=== PATIENT | female | born 1950 | race Caucasian/White ===

== ENCOUNTER 2020-09-03 09:39 | Inpatient (IN) | payer OTHER, SELFPAY ==
[2020-09-03] VITALS (10 sets, daily range): BP systolic 115–138; BP diastolic 56–73; PULSE 70–97; RESP 18–30; TEMP 36.4–37; O2SAT 88–97; BMI 32.4; BMI 31.5
--- NOTE | 2020-09-03 10:06 | ED.VIS.GEN ---
History of Present Illness Chief Complaint: Shortness of Breath Informant: Patient Narrative: Patient states that she is experiencing shortness of breath and feeling poorly. Her brother recently came to town and visited with her and is now Covid positive. She states that for about a week now she has been mildly symptomatic. She notes body aches and headache. Dyspnea with cough. Diarrhea and vomiting which have resolved. She was 88% on room air for EMS and 88 on room air here in the emergency department. Past Medical History - Allergies and Home Meds Allergies/Adverse Reactions: Allergies Cephalosporins Allergy (Verified 09/03/20 09:44) Swelling Penicillins [PCN] Allergy (Verified 09/03/20 09:44) Anaphylaxis Primary Care Physician: Jordan Sam MD [Primary Care Provider] - Surgical History: noncontributory Smoking Status: Former smoker Drugs: None Review of Systems General: Reports: Fever, Subjective. Denies: Chills, Sweats Eyes: Denies: Visual changes - bilaterally, Diplopia ENT: Denies: Rhinorrhea, Sore throat Cardiovascular: Denies: Chest pain, Palpitations Respiratory: Reports: Dyspnea, Cough, Dyspnea on exertion Gastrointestinal: Reports: Nausea, Vomiting, Diarrhea. Denies: Abdominal pain, Melena, Hematochezia Genitourinary: Denies: Dysuria, Hematuria, Frequency Musculoskeletal: Reports: Myalgias. Denies: Back pain, Extremity Pain Skin: Denies: Rash, Wounds Neurological: Reports: Headache. Denies: Weakness, Numbness Physical Exam Vital Signs/Narrative: Vital Signs Temp Pulse Resp BP Pulse Ox 09/03/20 09:43 98.0 F 97 24 H 133/67 H 88 09/03/20 09:40 98.0 F 97 24 H 133/67 H 88 Inital Vital Signs reviewed: Yes General: Well nourished, Well developed, No Acute Distress Head: Normocephalic, Atraumatic Eyes: Perrl, EOMI ENT: Moist mucous membranes, No rhinorrhea Neck: Supple, Nontender Cardiovascular: Regular rate, Regular rhythm, No murmurs Respiratory: No distress, CTA bilaterally, Chest nontender Abdomen: Soft, Nontender, Nondistended, Normal bowel sounds Back: Nontender, Normal Inspection Extremities: Nontender, No edema Skin: Normal color, No rash Neurological: Alert, Oriented x3, Cranial nerves II-XII grossly intact, Normal Strength, Normal Sensation Psychological: Normal affect, Normal Mood ED Disposition - Plan for ED Patient: Diagnosis: COVID-19, Hypoxia, Hypokalemia Referrals: Jordan Sam MD [Primary Care Provider] -
[2020-09-03 10:40] LABS: Absolute Lymphocyte Count 1.18 X10^3/uL (0.83-4.51); Absolute Neutrophil Count 7.8 X10^3/uL (2.0-7.7); Basophil# 0.05 X10^3/uL; Basophil% 0.5 % (0-1); Eosinophil# 0.02 X10^3/uL; Eosinophils% 0.2 % (0-5); Hemoglobin 13.9 g/dL (12.0-15.0); Lymphocyte # 1.18 X10^3/ul (4.0); Lymphocyte % 11.6 % (19-41); Mean Corp Hgb Conc 33.1 g/dL (32-36); Mean Corpuscular Hgb 28.2 pg (27.0-32.0); Mean Corpuscular Volume 85.2 fL (81-99); Mean Platelet Vol. 12.3 fl (6.2-12.0); Monocyte# 1.07 X10^3/uL; Monocyte% 10.6 % (0-10); NRBC Flagged by Analyzer 0 % (0-5); Neutrophil # 7.75 X10^3/uL (2.7-7.7); Neutrophil % 76.4 % (47-70); POSITIVE MORPHOLOGY YES; Platelet Count 299 K/mm3 (150-450); RBC Distribution Width CV 13.2 % (11.6-14.6); Red Blood Count 4.93 M/mm3 (4.2-5.4); White Blood Count 10.1 K/mm3 (4.4-11.0)
[2020-09-03 10:41] LABS: Differential Indicated SCAN CRITERIA MET
[2020-09-03 10:54] LABS: Fibrinogen 727 mg/dl (203-444)
[2020-09-03 11:04] LABS: Procalcitonin 0.05 ng/mL (0.00-0.09)
[2020-09-03 11:07] LABS: D-Dimer Quantitative (DVT/PE) 4.15 FEU/ug/m (0.27-0.49)
[2020-09-03 11:14] LABS: ALB/GLOB Ratio 0.6 RATIO (0.9-2.4); AST(SGOT) 22 U/L (15-37); Alanine Aminotransfer ALT/SGPT 32 U/L (13-56); Albumin, Serum 2.7 g/dL (3.2-5.0); Alkaline Phosphatase 65 U/L (45-117); Anion Gap 7 (5-15); BUN 9 mg/dL (7-18); BUN/Creat Ratio 11.4 RATIO (10-20); CPK Total, Creatine Kinase 87 U/L (26-192); Chloride 104 mmol/L (98-107); Creatinine, Serum 0.79 mg/dL (0.55-1.02); EST Glomerular Filtration Rate 77 mL/min (>60); Est Glom Filt Rate - Afr Amer 94 mL/min (>60); Estimated Creatinine Clearance 48.45 ml/min; Globulin 4.9 g/dL (2.2-4.2); Glucose 96 mg/dL (74-106); LDH 352 U/L (84-246); Lactic Acid 2.2 mmol/L (0.4-1.9); Potassium 2.7 mmol/L (3.5-5.1); Protein, Total 7.6 g/dL (6.4-8.2); Sodium Level 141 mmol/L (136-145)
--- NOTE | 2020-09-03 11:22 | CT_ITS ---
STUDY: CTA CHEST REASON FOR EXAM: Female, 70 years old. COUGH X1 WEEK, INCREASED SHORTNESS OF BREATH -- BROTHER +COVID RADIATION DOSAGE (If Supplied By Facility): CTDIvol = ( 12.04 ) mGy, DLP = ( 401.99 ) mGycm TECHNIQUE: The examination was performed with the intravenous administration of IV 100mL Isovue-370. Post-processing of the angiographic images was performed, with multiplanar reformation and 3D reconstruction. Individualized dose optimization techniques were used for this CT. COMPARISON: None. FINDINGS: Normal enhancement of the main pulmonary artery and right and left pulmonary arteries. Normal enhancement of the bilateral peripheral pulmonary arteries. There is no demonstrated pulmonary embolism. There is atherosclerotic tortuosity of the aortic arch and descending thoracic aorta. There is no demonstrated aortic dissection. Normal heart and pericardium. There are calcifications of the coronary arteries. Mild to moderate nonspecific upper and mid mediastinal adenopathy. Normal visualized trachea and bronchi. The lungs are hyper expanded, with flattening of the hemidiaphragms. There are widespread patchy groundglass pulmonary opacities of both lungs left worse than right and worse in the lower lobes. Findings consistent with nonspecific multifocal pneumonia including possible viral etiology. No effusions. There are degenerative changes of thoracic spine. There is a 2.6 cm low-attenuation mass in the left lobe of the liver. Probable cyst, but dynamic contrast CT of the liver recommended. CT/CTA Chest W/WO Contrast IMPRESSION: Normal CTA chest examination, without a demonstrated pulmonary embolism or arterial dissection. Underlying COPD. Widespread nonspecific multifocal pneumonia. Electronically Signed: Omer Hernandez MD at 12:18 EST , Service support ,
[2020-09-03 11:36] LABS: Atypical Lymphocyte 1+ %
[2020-09-03] MEDS: Potassium Chloride 10mEq/100mL 10 MEQ/100 ML IV.SOLN. 100 MEQ IV BOLUS (12:17)
[2020-09-03] MEDS: dexAMETHasone 10 MG/ML Vial IV (12:32)
--- NOTE | 2020-09-03 12:34 | ED.RN ---
CALLED PTS AT HER REQUEST AND UPDATED HIM OF HER STATUS
--- NOTE | 2020-09-03 12:56 | PCM.HP.STD ---
Problem List (1) COVID-19 Status: Acute (2) Hypoxia Status: Acute (3) Hypokalemia Status: Acute History of Present Illness Date of Admission: 09/03/20 Chief Complaint: shortness of breath The patient is a 70 year old F who has been ill for 10 days. She was exposed to her brother then who later pause for COVID-19 and was found to have double pneumonia. Patient has been progressively short of breath and having a cough that is occasionally productive. So she states that when she gets up and out she gets dizzy and her peripheral vision gets blurry when she is up.[] Past Medical History Allergies Cephalosporins Allergy (Verified 09/03/20 09:44) Swelling Penicillins [PCN] Allergy (Verified 09/03/20 09:44) Anaphylaxis Home Medications: Ambulatory Orders Medication Instructions Recorded Calcium Carb/Vitamin D3/Vit K1 1 ea PO DAILY 09/03/20 [Calcium + D Soft Chewable Tab] Calcium Polycarbophil [Fiber Tabs] 625 mg PO DAILY 09/03/20 Multivit with Calcium,Iron,Min 1 ea PO DAILY 09/03/20 [Multiple Vitamins For Women] Surgical History: noncontributory Smoking Status: Former smoker Drugs: None Review of Systems Constitutional: Reports: Anorexia, Fever, Night Sweats Eyes: Reports: Blurred vision, Double vision HEENT: Denies: Head Aches, Sinus Congestion, Sinus Drainage Cardiovascular: Denies: Chest Pain, Palpitations Respiratory: Denies: Cough, Shortness of breath at rest, Sputum production Gastrointestinal: Denies: Abdominal Pain, Nausea, Vomiting Genitourinary: Denies: Dysuria Musculoskeletal: Denies: Joint Pain, Joint Tenderness Skin: Denies: Rash, Wounds Neurological: Denies: Numbness, Tingling, Focal weakness Psychiatric: Denies: Anxiety, Depression Hematologic/ Lymphatic: Denies: Easy Bruising, Easy Bleeding, Hx of blood clot Comment: All review of systems were negative except as mentioned above in the history of present illness and the other review of systems. VTE Information - Inpt Only VTE Present on Admission: No VTE Mechan Device Prophylaxis: None VTE Pharm Prophylaxis ordered?: Yes Patient Problems: Active and Suspected Problems COVID-19 (Acute) Hypoxia (Acute) Hypokalemia (Acute) - Physical Exam Vitals/I&O's: Vital Signs Temp Pulse Resp BP Pulse Ox 36.8 C 89 19 H 122/58 H 97 09/03/20 12:18 09/03/20 12:18 09/03/20 12:18 09/03/20 12:18 09/03/20 12:18 Oxygen Flow Rate (L/min) 2 Oxygen Delivery Method Nasal Cannula Weight: 88.5 kg Body Mass Index (BMI) 32.4 General: Alert, Cooperative, No apparent distress HEENT: Atraumatic, Normocephalic Oral: Moist Mucosa, No Gingival or Mucosal Lesions/ Ulcerations Neck: No Nodes, Thyroid Normal Size and Texture Lungs: Clear to auscultation, Normal air movement, No rhonchi, No wheeze, No rales Cardiovascular: Regular rate, Regular Rhythm, Normal S1, Normal S2, No murmurs Abdomen: Bowel Sounds Present, Soft, Non Tender, Non-Distended, No Hepato-splenomegaly Extremities: No edema, No Calf Tenderness Skin: No rashes, No breakdown Psych/Mental Status: Normal Affect, Appropriate Microbiology Past 72 Hours 09/03/20 10:40 Mucosa - Nose SARS-CoV-2 Antigen (Rapid) - Final Laboratory Results 09/03/20 10:28: WBC 10.1, RBC 4.93, Hgb 13.9, Hct 42.0, MCV 85.2, MCH 28.2, MCHC 33.1, RDW Std Deviation 41.0, RDW Coeff of Holly 13.2, Plt Count 299, MPV 12.3 H, Immature Gran % (Auto) 0.700, Neut % (Auto) 76.4 H, Lymph % (Auto) 11.6 L, [place] % (Auto) 10.6 H, Eos % (Auto) 0.2, Baso % (Auto) 0.5, Absolute Neuts (auto) 7.8 H, Absolute Lymphs (auto) 1.18, Nucleated RBC % 0, Atypical Lymphocytes 1+ 09/03/20 10:28: Fibrinogen 727 H, D-Dimer Quant (PE/DVT) 4.15 H* 09/03/20 10:28: Sodium 141, Potassium 2.7 L*, Chloride 104, Carbon Dioxide 30.0, Anion Gap 7, BUN 9, Creatinine 0.79, Estim Creat Clear Calc 48.45, Est GFR (MDRD) Af Amer 94, Est GFR (MDRD) Non-Af 77, BUN/Creatinine Ratio 11.4, Glucose 96, Calcium 9.0, Total Bilirubin 0.70, AST 22, ALT 32, Alkaline Phosphatase 65, Lactate Dehydrogenase 352 H, Total Creatine Kinase 87, Troponin I < 0.015, C-React Prot Ext Range 106.00 H, Total Protein 7.6, Albumin 2.7 L, Globulin 4.9 H, Albumin/Globulin Ratio 0.6 L 09/03/20 10:28: Lactic Acid 2.2 H* 09/03/20 10:28: Procalcitonin 0.05 09/03/20 12:00: COVID-19 (JOSUÉ) Pending CT of the chest reviewed and showed bilateral infiltrates. Current Medications Azithromycin 500 mg/ Dextrose 255 mls @ 250 mls/hr IV X1 ONE Stop: 09/03/20 13:17 Assessment/Plan All Active Problems COVID-19 (Acute) Hypoxia (Acute) Hypokalemia (Acute) 1. Acute COVID-19 pneumonia: Patient received 10 mg of dexamethasone in the emergency room. We will continue with it on the floor as well. Also infectious disease for other recommendation such as remdesivir as well as possible convalescent plasma. Patient is at day 10 from the beginning of her symptoms per her description. Initial antigen test was negative. Though clinically this is all consistent with Covid as she has had a positive exposure, elevated D-dimer, lymphopenia. 2. VTE prophylaxis moderate risk. Enoxaparin. Inpatient E&M: 28462 Init Hosp L2
[2020-09-03 14:36] LABS: Reflex Lactate? Y
[2020-09-03 15:23] LABS: Lactic Acid 1.2 mmol/L (0.4-1.9)
[2020-09-03 15:35] LABS: Magnesium 2.3 mg/dL (1.6-2.6)
--- NOTE | 2020-09-03 20:01 | PCM.HP.ID ---
Problem List (1) COVID-19 Status: Acute Reason for Consult: covid Consulted by: Dr. Barber History of Present Illness: The patient is a 70 year old F presented with sx started 08/26, c/o cough, dyspnea, nausea, diarrhea, aches, not feeling well, fatigue. No fever, some chills. Got infected by her brother and his son who visited from out of town. Came to ED with worsening symptoms, 88% on RA, no fever. CT neg for PE. Admitted on dex after dose of azithro. Full ROS performed and neg except as noted above. - Medical History Surgical History: reviewed Allergies/Adverse Reactions: Allergies Cephalosporins Allergy (Verified 09/03/20 15:17) Swelling Penicillins [PCN] Allergy (Verified 09/03/20 15:17) Anaphylaxis Home Medications: Ambulatory Orders Medication Instructions Recorded Calcium Citrate/Vitamin D3 1 tab PO DAILY 09/03/20 [Calcium Citrate-Vit D3 Caplet] Calcium Polycarbophil [Fiber Tabs] 625 mg PO DAILY 09/03/20 Multivit with Calcium,Iron,Min 1 ea PO DAILY 09/03/20 [Multiple Vitamins For Women] - Social History SMOKING STATUS:: Former smoker Vital Signs Temp Pulse Resp BP Pulse Ox 98.6 F 86 18 132/70 H 96 09/03/20 15:29 09/03/20 15:29 09/03/20 15:29 09/03/20 15:29 09/03/20 15:29 Oxygen Flow Rate (L/min) 3 Oxygen Delivery Method Nasal Cannula Weight: 85.91 kg Body Mass Index (BMI) 31.5 Microbiology Past 72 Hours 09/03/20 10:40 SARS-CoV-2 Antigen (Rapid) - Final Mucosa - Nose Laboratory Tests Past 24 Hrs 09/03/20 09/03/20 09/03/20 10:28 10:28 10:28 WBC 10.1 RBC 4.93 Hgb 13.9 Hct 42.0 MCV 85.2 MCH 28.2 MCHC 33.1 RDW Std Deviation 41.0 RDW Coeff of Holly 13.2 Plt Count 299 MPV 12.3 H Immature Gran % (Auto) 0.700 Neut % (Auto) 76.4 H Lymph % (Auto) 11.6 L [place] % (Auto) 10.6 H Eos % (Auto) 0.2 Baso % (Auto) 0.5 Absolute Neuts (auto) 7.8 H Absolute Lymphs (auto) 1.18 Nucleated RBC % 0 Atypical Lymphocytes 1+ Fibrinogen 727 H D-Dimer Quant (PE/DVT) 4.15 H* Sodium 141 Potassium 2.7 L* Chloride 104 Carbon Dioxide 30.0 Anion Gap 7 BUN 9 Creatinine 0.79 Estim Creat Clear Calc 48.45 Est GFR (MDRD) Af Amer 94 Est GFR (MDRD) Non-Af 77 BUN/Creatinine Ratio 11.4 Glucose 96 Lactic Acid Calcium 9.0 Magnesium Total Bilirubin 0.70 AST 22 ALT 32 Alkaline Phosphatase 65 Lactate Dehydrogenase 352 H Total Creatine Kinase 87 Troponin I < 0.015 C-React Prot Ext Range 106.00 H Total Protein 7.6 Albumin 2.7 L Globulin 4.9 H Albumin/Globulin Ratio 0.6 L Procalcitonin COVID-19 (JOSUÉ) 09/03/20 09/03/20 09/03/20 10:28 10:28 10:28 WBC RBC Hgb Hct MCV MCH MCHC RDW Std Deviation RDW Coeff of Holly Plt Count MPV Immature Gran % (Auto) Neut % (Auto) Lymph % (Auto) [place] % (Auto) Eos % (Auto) Baso % (Auto) Absolute Neuts (auto) Absolute Lymphs (auto) Nucleated RBC % Atypical Lymphocytes Fibrinogen D-Dimer Quant (PE/DVT) Sodium Potassium Chloride Carbon Dioxide Anion Gap BUN Creatinine Estim Creat Clear Calc Est GFR (MDRD) Af Amer Est GFR (MDRD) Non-Af BUN/Creatinine Ratio Glucose Lactic Acid 2.2 H* Calcium Magnesium 2.3 Total Bilirubin AST ALT Alkaline Phosphatase Lactate Dehydrogenase Total Creatine Kinase Troponin I C-React Prot Ext Range Total Protein Albumin Globulin Albumin/Globulin Ratio Procalcitonin 0.05 COVID-19 (JOSUÉ) 09/03/20 09/03/20 12:00 14:45 WBC RBC Hgb Hct MCV MCH MCHC RDW Std Deviation RDW Coeff of Holly Plt Count MPV Immature Gran % (Auto) Neut % (Auto) Lymph % (Auto) [place] % (Auto) Eos % (Auto) Baso % (Auto) Absolute Neuts (auto) Absolute Lymphs (auto) Nucleated RBC % Atypical Lymphocytes Fibrinogen D-Dimer Quant (PE/DVT) Sodium Potassium Chloride Carbon Dioxide Anion Gap BUN Creatinine Estim Creat Clear Calc Est GFR (MDRD) Af Amer Est GFR (MDRD) Non-Af BUN/Creatinine Ratio Glucose Lactic Acid 1.2 Calcium Magnesium Total Bilirubin AST ALT Alkaline Phosphatase Lactate Dehydrogenase Total Creatine Kinase Troponin I C-React Prot Ext Range Total Protein Albumin Globulin Albumin/Globulin Ratio Procalcitonin COVID-19 (JOSUÉ) Positive - Other Studies Radiology: [] reviewed Other Studies: [] Route of nutrition/ use of supplements: [] Nutritional Intake: [] IV Site: [] Ruff Catheter: [] - Physical Exam General: Alert, Oriented x3, Cooperative HEENT: Atraumatic, PERRLA, EOMI Neck: Supple, No Nodes Lungs: Clear to auscultation, Diminished Cardiovascular: Regular rate, Regular Rhythm Abdomen: Soft, Non Tender, Non-Distended Extremities: No edema Skin: No rashes IV Site: Peripheral, without redness Musculoskeletal: No Tenderness to Palpation of Joints or Extremities Neurological: Cranial nerves II-XII grossly intact - Assessment/Plan Antibiotics: [] Assessment/Plan: [] Active and Suspected Problems COVID-19 (Acute) Hypoxia (Acute) Hypokalemia (Acute) covid with hypoxia, sx started 08/26/20. D-dimer 4, CT neg for PE. PCT neg, UAg neg. Will treat with dex, remdesivir. Reviewed EUA and risks/benefits of convalescent plasma, and she agrees to treatment. Will follow, thank you
[2020-09-03] MEDS: 0.9% Saline Lock 10 ML Syringe IV ×2 (21:39→23:23)
[2020-09-03] MEDS: Enoxaparin 30 MG/0.3 ML Syringe SC (21:40)
[2020-09-04] VITALS (10 sets, daily range): BP systolic 120–137; BP diastolic 69–84; PULSE 69–84; RESP 18–29; TEMP 35.8–36.9; O2SAT 92–96
[2020-09-04] MEDS: 0.9% Saline Lock 10 ML Syringe IV ×2 (01:28→11:10)
[2020-09-04 06:56] LABS: Hematocrit 39.3 % (37-47); Hemoglobin 12.7 g/dL (12.0-15.0); Mean Corp Hgb Conc 32.3 g/dL (32-36); Mean Corpuscular Hgb 27.9 pg (27.0-32.0); Mean Corpuscular Volume 86.2 fL (81-99); Mean Platelet Vol. 12.2 fl (6.2-12.0); Platelet Count 309 K/mm3 (150-450); RBC Distribution Width CV 13.3 % (11.6-14.6); RBC Distribution Width SD 41.5 fl (35.1-43.9); Red Blood Count 4.56 M/mm3 (4.2-5.4); White Blood Count 7.6 K/mm3 (4.4-11.0)
[2020-09-04 07:20] LABS: ALB/GLOB Ratio 0.6 RATIO (0.9-2.4); AST(SGOT) 20 U/L (15-37); Alanine Aminotransfer ALT/SGPT 30 U/L (13-56); Albumin, Serum 2.5 g/dL (3.2-5.0); Alkaline Phosphatase 58 U/L (45-117); Anion Gap 6 (5-15); BUN 9 mg/dL (7-18); BUN/Creat Ratio 16.1 RATIO (10-20); Calcium,Total 8.5 mg/dL (8.5-10.1); Chloride 109 mmol/L (98-107); Creatinine, Serum 0.56 mg/dL (0.55-1.02); EST Glomerular Filtration Rate 114 mL/min (>60); Est Glom Filt Rate - Afr Amer 138 mL/min (>60); Estimated Creatinine Clearance 48.45 ml/min; Globulin 3.9 g/dL (2.2-4.2); Glucose 119 mg/dL (74-106); Potassium 4.1 mmol/L (3.5-5.1); Protein, Total 6.4 g/dL (6.4-8.2); Sodium Level 143 mmol/L (136-145)
[2020-09-04] MEDS: Calcium Carb/Vitamin D 1 TABLET Tablet PO (08:45)
[2020-09-04] MEDS: dexAMETHasone 4 MG Tablet 6 MG PO (08:45)
[2020-09-04] MEDS: Multivitamins,Ther W-Minerals Tablet 1 TABLET PO (08:45)
[2020-09-04] MEDS: Enoxaparin 30 MG/0.3 ML Syringe SC ×2 (08:46→20:32)
--- NOTE | 2020-09-04 10:14 | CASEMGMT ---
ELINA PEARCE assessment: Phone interview with patient for initial transition planning/care coordination assessment d/t pt COVID +. RN RAMSES introduced self and role at [facility], pt voices understanding and consents to assessment at this time. Pt is A/Ox4 at this time and answers all questions appropriately at this time. Pt states her is quarantining at home, but has not shown symptoms thus far. Pt states no concerns getting supplies/resources. Pt is currently on 2L nc and speaks in complete sentences with no SOB at this time. Care providers, pharmacy, and demographics verified at this time. Presentation: Brother is COVID +, pt c/o increased SOB, cough for 1 week Admitting dx: COVID pna PCP: Cecy Specialists: adela Fregoso Preferred Pharmacy: [facility] Insurance: [facility] Prescription Benefit: [facility] Living Will/HPOA: Pt states does not have LW/HPOA but would like AD info at this time. Pt states would just like to take info home at this time. [place] SW aware, voices understanding. LNOK: Amador Lackey, Living Arrangements: Pt states lives with in 1 story home and states no concerns at home at this time. Pt is independent with ADL's. Transportation: Pt states drives self and states no transportation concerns at this time. DME/HHC: Pt states has a cpap thru [facility] and would prefer to use them, if home oxygen needed at d/c. Pt states no hx of HHC or SNF. Pt states no concerns with going home at time of discharge. 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 Pt states quit smoking cigarettes in March 2020 and rarely drinks ETOH. Pt states no further concerns/needs at this time. CM to follow for home oxygen and any further discharge planning/needs. Advised pt to ask for CM if any further questions/concerns/needs arise, voices understanding. Pt Goal: Home Plan: [place] ELINA PEARCE
--- NOTE | 2020-09-04 11:33 | PN_ITS ---
Patient Problems: Active and Suspected Problems COVID-19 (Acute) Hypoxia (Acute) Hypokalemia (Acute) Reason for Visit: COVID-19 Subjective: Breathing well. No new complaints. Vitals/I&O's: Vital Signs Temp Pulse Resp BP Pulse Ox 36.6 C 79 24 H 128/69 H 93 09/04/20 10:40 09/04/20 10:40 09/04/20 10:40 09/04/20 10:40 09/04/20 10:40 Oxygen Flow Rate (L/min) 2 Oxygen Delivery Method Room Air Weight: 85.91 kg Body Mass Index (BMI) 31.5 Intake and Output for Last 24 Hours 09/02/20 09/03/20 09/04/20 23:59 23:59 23:59 Intake Total 1805 / 1805 226.25 / 226.25 Balance 1805 / 1805 226.25 / 226.25 General: Alert, No apparent distress HEENT: Atraumatic, Normocephalic Oral: Moist Mucosa, No Gingival or Mucosal Lesions/ Ulcerations Neck: No Nodes, Thyroid Normal Size and Texture Lungs: Clear to auscultation, Normal air movement, No rhonchi, No wheeze, No rales Cardiovascular: Regular rate, Regular Rhythm, Normal S1, Normal S2, No murmurs Abdomen: Bowel Sounds Present, Soft, Non Tender, Non-Distended, No Hepato- splenomegaly Extremities: No edema, No Calf Tenderness Skin: No rashes, No breakdown Psych/Mental Status: Normal Affect, Appropriate Microbiology Past 72 Hours 09/03/20 10:40 Mucosa - Nose SARS-CoV-2 Antigen (Rapid) - Final Laboratory Results 09/03/20 10:28: Atypical Lymphocytes 1+ 09/03/20 10:28: Magnesium 2.3 09/03/20 12:00: COVID-19 (JOSUÉ) Positive 09/03/20 14:45: Lactic Acid 1.2 09/03/20 20:53: Blood Type A POSITIVE 09/04/20 06:32: WBC 7.6, RBC 4.56, Hgb 12.7, Hct 39.3, MCV 86.2, MCH 27.9, MCHC 32.3, RDW Std Deviation 41.5, RDW Coeff of Holly 13.3, Plt Count 309, MPV 12.2 H 09/04/20 06:32: Sodium 143, Potassium 4.1, Chloride 109 H, Carbon Dioxide 28.0, Anion Gap 6, BUN 9, Creatinine 0.56, Estim Creat Clear Calc 48.45, Est GFR (MDRD) Af Amer 138, Est GFR (MDRD) Non-Af 114, BUN/Creatinine Ratio 16.1, Glucose 119 H, Calcium 8.5, Total Bilirubin 0.60, AST 20, ALT 30, Alkaline Phosphatase 58, Total Protein 6.4, Albumin 2.5 L, Globulin 3.9, Albumin/Globulin Ratio 0.6 L Current Medications Acetaminophen (Acetaminophen 325 Mg Tablet) 650 mg PO Q6H PRN PRN PRN Reason: Pain Score 1-10/Temp > 100.7 F Calcium Polycarbophil (Calcium Polycarbophil 625 Mg Tablet) 625 mg PO DAILY [facility] Last Admin: 09/04/20 08:45 Dose: 625 mg Documented by: Calcium/Vitamin D (Calcium Carb/Vitamin D 1 Tablet Tablet) 1 tablet PO DAILY [facility] Last Admin: 09/04/20 08:45 Dose: 1 tablet Documented by: Dexamethasone (Dexamethasone 4 Mg Tablet) 6 mg PO DAILY [facility] Stop: 09/12/20 10:01 Last Admin: 09/04/20 08:45 Dose: 6 mg Documented by: Enoxaparin Sodium (Enoxaparin 30 Mg/0.3 Ml Syringe) 30 mg SC BID [facility] Last Admin: 09/04/20 08:46 Dose: 30 mg Documented by: Sodium Chloride () 250 mls @ 15 mls/hr IV .[id number] PRN PRN Reason: Saline Flush Last Infusion: 09/04/20 01:25 Dose: 0 mls/hr Documented by: Sodium Chloride () 250 mls @ 15 mls/hr IV .[id number] PRN PRN Reason: Additional IVPB Infusion Remdesivir 100 mg/ Sodium (Chloride) 250 mls @ 125 mls/hr IV DAILY [facility]; Protocol Stop: 09/07/20 11:59 Last Admin: 09/04/20 10:58 Dose: 125 mls/hr Documented by: Multivitamins/Minerals (Multivitamins,Ther W-Minerals Tablet) 1 tablet PO DAILY [facility] Last Admin: 09/04/20 08:45 Dose: 1 tablet Documented by: Ondansetron HCl (Ondansetron 4 Mg/2 Ml Vial) 4 mg IV Q8H PRN PRN PRN Reason: NAUSEA/VOMITING Sodium Chloride (0.9% Saline Lock 10 Ml Syringe) 10 - 40 ml IV UD PRN PRN Reason: SALINE FLUSH Last Admin: 09/04/20 11:10 Dose: 20 ml Documented by: ZAIRA Vital Signs/Narrative: Vital Signs Temp Pulse Resp BP Pulse Ox 09/04/20 10:40 36.6 C 79 24 H 128/69 H 93 09/04/20 08:41 36.1 C L 80 24 H 137/70 H 94 Medical Necessity - Tobacco Use Smoking Status: Former smoker Assessment/Plan All Active Problems COVID-19 (Acute) Hypoxia (Acute) Hypokalemia (Acute) 1. Acute COVID-19 pneumonia: Patient received 10 mg of dexamethasone in the emergency room. Continue with dexamethasone 6mg on the floor as well. ID following. Remdesevir started Also infectious disease for other recommendation such as remdesivir as well as possible convalescent plasma. Symptoms began on 08/24/2020. 2. Hypokalemia resolved 3. VTE prophylaxis moderate risk. Enoxaparin. 4. Disposition: anticipate discharge in next 24-48h if stable or improved. Inpatient E&M: 31332 Subs Hosp L2
--- NOTE | 2020-09-04 12:04 | CHAPLAIN ---
Type of Pastoral Visit _x__ Initial Visit ___ Follow-up Visit ___ On-call Visit ___ General Patient Visit ___ Spiritual Assessment ___ Family Conference ___ Bereavement ___ Rapid Response ___ Code Blue _x__ Other (describe below) Pastoral Care Referral From _x__ Patient ___ Family ___ Nurse ___ Physician ___ Defensive Driving Instructor ___ [employer] Fighters Dispatcher ___ Other (describe below) Sacrament/Intervention _x__ Active listening ___ Anointing ___ Anabaptism ___ Bereavement ___ Communion _x__ Ruma exploration ___ _x__ Life review _x__ Prayer ___ Reconciliation ___ Sacrament of Sick ___ Supportive presence ___ Wedding ___ Other (describe below) Pastoral Comments phone call made to patient room; pt answers and expresses appreciation for support and call; pt speaks of strong ruma lived throughout her life which gives her confidence and positive attitude during this time; pt talks of family and is thankful for their support; pt asks for prayer and that is completed; no other needs noted
--- NOTE | 2020-09-04 12:27 | CASEMGMT ---
Bedside RN brought in LW/POA forms for pt. AIRAM Riggins
[2020-09-05 02:02] VITALS: BP 149/82; PULSE 69; RESP 18; TEMP 36.2; O2SAT 96
[2020-09-05] MEDS: 0.9% Saline Lock 10 ML Syringe IV ×2 (02:05→10:10)
[2020-09-05 02:08] VITALS: O2SAT 96
[2020-09-05 07:18] LABS: Hematocrit 37.6 % (37-47); Hemoglobin 12.2 g/dL (12.0-15.0); Mean Corp Hgb Conc 32.4 g/dL (32-36); Mean Corpuscular Hgb 27.9 pg (27.0-32.0); Mean Corpuscular Volume 85.8 fL (81-99); Mean Platelet Vol. 12.6 fl (6.2-12.0); Platelet Count 378 K/mm3 (150-450); RBC Distribution Width CV 13.3 % (11.6-14.6); RBC Distribution Width SD 41.6 fl (35.1-43.9); Red Blood Count 4.38 M/mm3 (4.2-5.4); White Blood Count 13.1 K/mm3 (4.4-11.0)
[2020-09-05 07:41] LABS: ALB/GLOB Ratio 0.7 RATIO (0.9-2.4); AST(SGOT) 17 U/L (15-37); Alanine Aminotransfer ALT/SGPT 35 U/L (13-56); Albumin, Serum 2.4 g/dL (3.2-5.0); Alkaline Phosphatase 53 U/L (45-117); Anion Gap 6 (5-15); BUN 14 mg/dL (7-18); BUN/Creat Ratio 22.8 RATIO (10-20); Calcium,Total 8.8 mg/dL (8.5-10.1); Chloride 110 mmol/L (98-107); Creatinine, Serum 0.62 mg/dL (0.55-1.02); EST Glomerular Filtration Rate 103 mL/min (>60); Est Glom Filt Rate - Afr Amer 124 mL/min (>60); Estimated Creatinine Clearance 48.45 ml/min; Globulin 3.6 g/dL (2.2-4.2); Glucose 97 mg/dL (74-106); Potassium 3.9 mmol/L (3.5-5.1); Sodium Level 145 mmol/L (136-145)
[2020-09-05] MEDS: Multivitamins,Ther W-Minerals Tablet 1 TABLET PO (08:56)
[2020-09-05] MEDS: dexAMETHasone 4 MG Tablet 6 MG PO (08:56)
[2020-09-05] MEDS: Calcium Carb/Vitamin D 1 TABLET Tablet PO (08:56)
[2020-09-05] MEDS: Enoxaparin 30 MG/0.3 ML Syringe SC (08:57)
[2020-09-05 09:00] VITALS: BP 144/79; PULSE 78; RESP 16; TEMP 36.4; O2SAT 94
--- NOTE | 2020-09-05 11:59 | PCM.DC ---
- Discharge Diagnoses Current Active Problems: Current Active and Chronic Problems COVID-19 (Acute) Hypoxia (Acute) Hypokalemia (Acute) You will use the following diet at home:: No restrictions Your food should be the consistency of: Regular Your liquids should be the consistency of: Regular/Thin Discharge Activity: Return to Normal Activity Call your doctor if you observe: Fever of 101 or Higher, Shortness of breath Additional Instructions: Self isolate for at least 21 days since symptoms began or the first postive COVID-19 test AND at least one day (24 hours) have passed since resolution of fever without the use of fever-reducing agents AND improvement of symptoms (e.g., cough, shortness of breath) When around people in the same room, wear a face mask. Individuals also in the room should wear a mask. If possible, use a different bathroom and bedroom. Perform adequate hand hygiene. Avoid sharing dishes, glasses, etc. Family members with close contact with you and/or postive for COVID-19 should follow these instructions. Allergies/Adverse Reactions: Allergies Cephalosporins Allergy (Verified 09/03/20 15:17) Swelling Penicillins [PCN] Allergy (Verified 09/03/20 15:17) Anaphylaxis Medications to take at Discharge Calcium Citrate/Vitamin D3 [Calcium Citrate-Vit D3 Caplet] 1 tab PO DAILY 09/03/20 Calcium Polycarbophil [Fiber Tabs] 625 mg PO DAILY 09/03/20 Multivit with Calcium,Iron,Min [Multiple Vitamins For Women] 1 ea PO DAILY 09/03/20 Dexamethasone 6 mg PO DAILY #7 tab 09/05/20 The following prescriptions were given: Dexamethasone 6 mg PO DAILY #7 tab Transmission Status: Pending to [facility] Primary Care Physician: Jordan Sam MD [Primary Care Provider] - Within 2 Weeks Test Results: Test results from this visit will be discussed in further detail at your follow-up appointment, if applicable. Proposed Discharge Date: 09/05/20
--- NOTE | 2020-09-05 12:00 | PCM.DC.SUM ---
Discharge Date and Diagnosis - Problem List Patient Problems: Active and Suspected Problems COVID-19 (Acute) Hypoxia (Acute) Hypokalemia (Acute) Date of Admission: 09/03/20 Date of Discharge: 09/05/20 - Primary Discharge Diagnosis Acute Problems: Active Problems COVID-19 (Acute) Hypoxia (Acute) Hypokalemia (Acute) Hospital Course and Treatment Imaging Results: Clinical Impression(s) from Imaging Studies Chest CTA 09/03/20 11:22 IMPRESSION: Normal CTA chest examination, without a demonstrated pulmonary embolism or arterial dissection. Underlying COPD. Widespread nonspecific multifocal pneumonia. Electronically Signed: Omer Hernandez MD at 12:18 EST , Service support , Sarah: CHANTEL Operations: None Procedures: None Summary of Care Provided: The patient is a 70 year old F presents with 10 days of illness. Patient was around her brother who recently contracted COVID-19. Symptoms began on 24 August. Patient was feeling dizzy and had blurry vision. Patient was positive for COVID-19. Patient was started on dexamethasone and did receive remdesivir while she was here. Overall, patient is better she is currently on room air and feeling much better. Patient was 88% on room air when she initially presented. Is recommended the patient self isolate for 21 days after the beginning of her symptoms. Patient symptoms began August 24. [] Patient Problems: Active and Suspected Problems COVID-19 (Acute) Hypoxia (Acute) Hypokalemia (Acute) - Physical Exam Vitals/I&O's: Vital Signs Temp Pulse Resp BP Pulse Ox 36.4 C L 78 16 144/79 H 94 09/05/20 09:00 09/05/20 09:00 09/05/20 09:00 09/05/20 09:00 09/05/20 09:00 Oxygen Flow Rate (L/min) 2 Oxygen Delivery Method Room Air Weight: 85.91 kg Body Mass Index (BMI) 31.5 Intake and Output for Last 24 Hours 09/03/20 09/04/20 09/05/20 23:59 23:59 23:59 Intake Total 1805 / 1805 1616.25 / 1616.25 150 / 150 Balance 1805 / 1805 1616.25 / 1616.25 150 / 150 General: Alert, No apparent distress HEENT: Atraumatic, Normocephalic Oral: Moist Mucosa, No Gingival or Mucosal Lesions/ Ulcerations Neck: No Nodes, Thyroid Normal Size and Texture Lungs: Clear to auscultation, Normal air movement, No rhonchi, No wheeze, No rales Cardiovascular: Regular rate, Regular Rhythm, Normal S1, Normal S2, No murmurs Abdomen: Bowel Sounds Present, Soft, Non Tender, Non-Distended, No Hepato-splenomegaly Extremities: No edema, No Calf Tenderness Psych/Mental Status: Normal Affect, Appropriate Microbiology Past 72 Hours 09/03/20 10:40 Mucosa - Nose SARS-CoV-2 Antigen (Rapid) - Final Laboratory Results 09/05/20 06:20: WBC 13.1 H, RBC 4.38, Hgb 12.2, Hct 37.6, MCV 85.8, MCH 27.9, MCHC 32.4, RDW Std Deviation 41.6, RDW Coeff of Holly 13.3, Plt Count 378, MPV 12.6 H 09/05/20 06:20: Sodium 145, Potassium 3.9, Chloride 110 H, Carbon Dioxide 29.0, Anion Gap 6, BUN 14, Creatinine 0.62, Estim Creat Clear Calc 48.45, Est GFR (MDRD) Af Amer 124, Est GFR (MDRD) Non-Af 103, BUN/Creatinine Ratio 22.8 H, Glucose 97, Calcium 8.8, Total Bilirubin 0.50, AST 17, ALT 35, Alkaline Phosphatase 53, Total Protein 6.0 L, Albumin 2.4 L, Globulin 3.6, Albumin/Globulin Ratio 0.7 L Current Medications Acetaminophen (Acetaminophen 325 Mg Tablet) 650 mg PO Q6H PRN PRN PRN Reason: Pain Score 1-10/Temp > 100.7 F Calcium Polycarbophil (Calcium Polycarbophil 625 Mg Tablet) 625 mg PO DAILY [facility] Last Admin: 09/05/20 08:56 Dose: 625 mg Documented by: Calcium/Vitamin D (Calcium Carb/Vitamin D 1 Tablet Tablet) 1 tablet PO DAILY [facility] Last Admin: 09/05/20 08:56 Dose: 1 tablet Documented by: Dexamethasone (Dexamethasone 4 Mg Tablet) 6 mg PO DAILY [facility] Stop: 09/12/20 10:01 Last Admin: 09/05/20 08:56 Dose: 6 mg Documented by: Enoxaparin Sodium (Enoxaparin 30 Mg/0.3 Ml Syringe) 30 mg SC BID [facility] Last Admin: 09/05/20 08:57 Dose: 30 mg Documented by: Sodium Chloride () 250 mls @ 15 mls/hr IV .[id number] PRN PRN Reason: Saline Flush Last Infusion: 09/04/20 01:25 Dose: 0 mls/hr Documented by: Sodium Chloride () 250 mls @ 15 mls/hr IV .[id number] PRN PRN Reason: Additional IVPB Infusion Remdesivir 100 mg/ Sodium (Chloride) 250 mls @ 125 mls/hr IV DAILY [facility]; Protocol Stop: 09/07/20 11:59 Last Admin: 09/05/20 10:10 Dose: 125 mls/hr Documented by: Multivitamins/Minerals (Multivitamins,Ther W-Minerals Tablet) 1 tablet PO DAILY [facility] Last Admin: 09/05/20 08:56 Dose: 1 tablet Documented by: Ondansetron HCl (Ondansetron 4 Mg/2 Ml Vial) 4 mg IV Q8H PRN PRN PRN Reason: NAUSEA/VOMITING Sodium Chloride (0.9% Saline Lock 10 Ml Syringe) 10 - 40 ml IV UD PRN PRN Reason: SALINE FLUSH Last Admin: 09/05/20 10:10 Dose: 10 ml Documented by: Discharge Diet: No Restrictions Discharge Activity: Return to Normal Activity Call your doctor if you observe: Fever of 101 or Higher, Shortness of breath Home Medications: Medications to take at Discharge Calcium Citrate/Vitamin D3 [Calcium Citrate-Vit D3 Caplet] 1 tab PO DAILY 09/03/20 Calcium Polycarbophil [Fiber Tabs] 625 mg PO DAILY 09/03/20 Multivit with Calcium,Iron,Min [Multiple Vitamins For Women] 1 ea PO DAILY 09/03/20 Dexamethasone 6 mg PO DAILY #7 tab 09/05/20 Following Prescriptions Were Given to Patient: Dexamethasone 6 mg PO DAILY #7 tab Transmission Status: [facility] Primary Care Physician: Jordan Sam MD [Primary Care Provider] - Within 2 Weeks Disposition: Home Minutes spent on discharge:: 28 Patient Condition:: Good Medical Necessity - Tobacco Use Smoking Status: Former smoker Meaningful Use Info Meaningful Use Diagnoses (Choose all that apply): None applicable Inpatient E&M: 49559 Disch Hosp
--- NOTE | 2020-09-05 15:42 | PCM.PN.ID ---
Patient Problems: Active and Suspected Problems COVID-19 (Acute) Hypoxia (Acute) Hypokalemia (Acute) Subjective: Feeling much better, no fever, breathing improved - Physical Exam Vitals/I&O's: Vital Signs Temp Pulse Resp BP Pulse Ox 97.5 F L 78 16 144/79 H 94 09/05/20 09:00 09/05/20 09:00 09/05/20 09:00 09/05/20 09:00 09/05/20 09:00 Oxygen Flow Rate (L/min) 2 Oxygen Delivery Method Room Air Weight: 85.91 kg Body Mass Index (BMI) 31.5 Intake and Output for Last 24 Hours 09/03/20 09/04/20 09/05/20 23:59 23:59 23:59 Intake Total 1805 / 1805 1616.25 / 1616.25 400 / 400 Balance 1805 / 1805 1616.25 / 1616.25 400 / 400 General: Alert, Cooperative, No apparent distress Lungs: Clear to auscultation, Diminished Cardiovascular: Regular rate, Regular Rhythm Abdomen: Soft, Non Tender, Non-Distended Skin: No rashes Microbiology Past 72 Hours 09/03/20 10:34 Blood Culture (Wb) - Right Hand Blood Culture - Preliminary No growth in 48 hours. 09/03/20 10:28 Blood Culture (Wb) - Anticubital Right Blood Culture - Preliminary No growth in 48 hours. 09/03/20 10:40 Mucosa - Nose SARS-CoV-2 Antigen (Rapid) - Final Laboratory Results 09/05/20 06:20: WBC 13.1 H, RBC 4.38, Hgb 12.2, Hct 37.6, MCV 85.8, MCH 27.9, MCHC 32.4, RDW Std Deviation 41.6, RDW Coeff of Holly 13.3, Plt Count 378, MPV 12.6 H 09/05/20 06:20: Sodium 145, Potassium 3.9, Chloride 110 H, Carbon Dioxide 29.0, Anion Gap 6, BUN 14, Creatinine 0.62, Estim Creat Clear Calc 48.45, Est GFR (MDRD) Af Amer 124, Est GFR (MDRD) Non-Af 103, BUN/Creatinine Ratio 22.8 H, Glucose 97, Calcium 8.8, Total Bilirubin 0.50, AST 17, ALT 35, Alkaline Phosphatase 53, Total Protein 6.0 L, Albumin 2.4 L, Globulin 3.6, Albumin/Globulin Ratio 0.7 L Medical Necessity - Tobacco Use Smoking Status: Former smoker Route of nutrition/ use of supplements: [] Nutritional Intake: [] IV Site: [] Ruff Catheter: [] - Assessment/Plan Antibiotics: [] Assessment/Plan: [] Active and Suspected Problems COVID-19 (Acute) Hypoxia (Acute) Hypokalemia (Acute) covid with hypoxia, sx started 08/26/20. D-dimer 4, CT neg for PE. PCT neg, UAg neg. On dex, remdesivir, plasma. Much improved, home today on 10 days total of dex and 2 weeks of low dose eliquis given high d-dimer. Will follow as needed, d/w Dr. Barber
--- NOTE | 2020-09-08 16:44 | CASEMGMT ---
ELINA PEARCE Discharge Follow-up Phone Call: DONNY: Adán Strata: 1 Call Date: 09/08/2020 Discharge Date: 09/05/2020 Time of Call: 1642 Duration: 3 min Admitting Diagnosis: Covid 19 ELINA PEARCE completed follow-up phone call after recent hospitalization. Patient states she is feeling much better. Patient maintains isolating at home. Patient had no questions or concerns regarding discharge instructions. Patient filled prescriptions without any issues. Patient has follow-up appt scheduled with PCP. Patient had no further questions or concerns at this time.
== END 2020-09-05 15:00 | disposition home or self-care (01) | DRG 177 ==
LOC: ED 12:29 → MS2 12:59
PROVIDERS: Internal Medicine Infectious Disease; Emergency Provider Emergency Medicine; PCP Family Medicine
DX: U07.1 COVID-19 (principal); J12.89 Other viral pneumonia; R09.02 Hypoxemia; E87.6 Hypokalemia; Z87.891 Personal history of nicotine dependence
CPT/HCPCS: 36415; 71275; 80053; 82550; 83605; 83615; 83735; 84145; 84484; 85025; 85027; 85379; 85384; 86140; 86900; 86901; 87040; 87426; 87635; 99285; 99406; J7030; J7050; Q9967; A4216; U0002

== ENCOUNTER → 2025-01-26 | Outpatient (CLI) | payer MEDICARE, OTHER, SELFPAY ==
--- NOTE | 2025-01-26 06:45 | ECHOCS_ITS ---
Reason For Study Reason For Study: ASHD Procedure This was a 2D Doppler, Color Flow transthoracic echocardiogram. Contrast injection was performed. Due to suboptimal imaging of apical views. Exam performed in department. Left Ventricle Normal LV size. Left ventricular systolic function is normal. The left ventricular ejection fraction is 55 %. Stage 1 diastolic dysfunction. No regional wall motion abnormalities noted. Right Ventricle Normal RV size. Normal systolic function. Atria Normal left atrium. Normal right atrium. Mitral Valve Normal mitral valve. Tricuspid Valve Normal tricuspid valve. Mild tricuspid valve insufficiency. Pulmonary artery systolic pressure is 22 mmHg. Aortic Valve Trisinus/trileaflet aortic valve. Pulmonic Valve The pulmonic valve is not well visualized. Great Vessels Normal aortic root. The pulmonary artery is normal size. Normal inferior vena cava. Pericardium/Pleural No pericardial effusion. MMode/2D Measurements & Calculations LVIDd: 4.7 cm IVSd: 0.88 cm Ao root diam: 3.5 cm LVIDs: 3.5 cm LVPWd: 0.81 cm FS: 25.2 % LAV(MOD-bp): 66.0 ml LVAd ap4: 32.9 cm2 LVAd ap2: 27.9 cm2 LAV(MOD-bp) Indexed: 33.6 ml/m2 LVLd ap4: 8.8 cm LVLd ap2: 7.8 cm LAV(MOD-sp2): 72.5 ml EDV(MOD-sp4): 102.8 ml EDV(MOD-sp2): 86.1 ml LAV(MOD-sp4): 58.8 ml EDV(sp4-el): 103.8 ml EDV(sp2-el): 84.7 ml LVAs ap4: 19.6 cm2 LVAs ap2: 16.7 cm2 LVLs ap4: 7.4 cm LVLs ap2: 6.0 cm ESV(MOD-sp4): 46.8 ml ESV(MOD-sp2): 37.9 ml ESV(sp4-el): 44.3 ml ESV(sp2-el): 39.8 ml EF(MOD-sp4): 54.5 % EF(MOD-sp2): 56.0 % EF(sp4-el): 57.3 % SV(MOD-sp4): 56.1 ml SV(MOD-sp2): 48.2 ml SV(sp4-el): 59.5 ml SI(MOD-sp4): 28.5 ml/m2 SI(MOD-sp2): 24.5 ml/m2 LA A4 area: 19.8 cm2 LA dimension(2D): 3.9 cm RA A4 area: 9.3 cm2 TAPSE: 1.8 cm Time Measurements MV dec time: 0.12 sec Doppler Measurements & Calculations MV E max yosvany: 55.0 cm/sec Lat Peak E' Yosvany: 6.7 cm/sec Med Peak E' Yosvany: 5.2 cm/sec MV A max yosvany: 93.8 cm/sec E/E' lat: 8.2 E/E' med: 10.7 MV E/A: 0.59 MV V2 max: 99.7 cm/sec MV P1/2t max yosvany: 61.5 cm/sec Ao V2 max: 96.1 cm/sec MV max P.0 mmHg MV P1/2t: 39.5 msec Ao max P.7 mmHg MV V2 mean: 53.1 cm/sec Ao V2 mean: 70.4 cm/sec MV mean P.3 mmHg MV dec slope: 456.1 cm/sec2 Ao mean P.1 mmHg MV V2 VTI: 18.2 cm MVA(P1/2t): 5.6 cm2 Ao V2 VTI: 21.5 cm AV (velocity ratio): 0.89 LV V1 max: 79.0 cm/sec PA V2 max: 81.6 cm/sec TR max yosvany: 215.3 cm/sec LV V1 max P.5 mmHg PA V2 mean: 59.5 cm/sec TR max P.5 mmHg LV V1 mean P.3 mmHg PA V2 VTI: 19.0 cm LV V1 mean: 55.0 cm/sec LV V1 VTI: 19.2 cm ECHO/Echo Complete W/ Contrast Interpretation Summary Normal LV size. Left ventricular systolic function is normal. The left ventricular ejection fraction is 55 %. Stage 1 diastolic dysfunction. Contrast injection was performed. Ordering Physician: Stiven Patel Referring Physician: Jordan Sam Performed By: Rachel Nicole, SABIHA, RVT
--- NOTE | 2025-01-26 14:31 | STRESSREP ---
Stress Test Report Exercise myocardial perfusion stress test. 74-year-old lady with a history of chest pain Stress protocol: Resting EKG demonstrates normal sinus rhythm with a rate of 61 bpm resting blood pressure is 110/70 mmHg. The patient exercised according to the regular Benjamin protocol for a total duration of 5 minutes attaining a maximum heart rate of 131 bpm which was 88% of maximum predicted heart rate; the maximum workload was 7 metabolic equivalents. At rest there were no ST or T wave changes noted to suggest ischemia and at peak exercise upsloping ST changes only were noted which did not meet the criteria for ischemia. No clinical angina was noted the test was terminated due to the target heart rate being achieved/fatigue. The peak blood pressure was 174/80 mmHg. Rate-pressure product was 22,700. Myocardial perfusion protocol. 14 mCi of technetium 99m sestamibi was injected at rest. The patient exercised according to regular Benjamin protocol for total duration of 5-minute and at peak exercise 43.1 mCi of technetium 99m sestamibi was injected stress images were obtained stress and rest images were reconstructed in comparing the short axis vertical long and horizontal long axis. Gated images were also obtained. Perfusion SPECT analysis: Review of the stress images demonstrate normal uptake of tracer noted in all areas of the myocardium. The resting images similarly demonstrate normal uptake of tracer noted in all areas of the myocardium. No areas of reversibility are noted to suggest ischemia no previous infarct was noted. Gated SPECT analysis: The gated ejection fraction is 60%. Conclusion: Normal exercise myocardial perfusion stress test at a moderate workload Preserved ejection fraction.
== END | disposition home or self-care (01) ==
LOC: CVS 06:45
PROVIDERS: PCP Family Medicine; Referring Provider Internal Medicine Cardiovascular Disease; Visit Provider Internal Medicine Cardiovascular Disease
DX: I25.10 Atherosclerotic heart disease of native coronary artery without angina pectoris (principal)
CPT/HCPCS: 78452; 93017; 93306; A9500; Q9957; A4216; C8929

== ENCOUNTER → 2025-05-24 | Outpatient (CLI) | payer MEDICARE, OTHER, SELFPAY ==
--- OUTSIDE RECORDS SUMMARY | 2025-05-24 21:03 | XMS RPT_ITS | CCD ---
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.Rishi PINEDA Unavailable ANILA KENDAL Referring Unavailable ELDERBROCK, ROBINA D Primary Care Unavailable PEUGH, KENDAL Referring Unavailable ELDERBROCK, ROBINA D Primary Care Unavailable PEUGH, KENDAL Referring Unavailable ELDERBROCK, ROBINA D Primary Care Unavailable PEUGH, KENDAL Referring Unavailable ELDERBROCK, ROBINA D Primary Care Unavailable [place] HOME 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 SOCIAL WORKER.Lida PINEDA Unavailable Unavail able [employer] HOME 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 SOCIAL 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.Lida PINEDA Unavailable LIDA COTO Attending Unavailabl e ELDERBROCK, ROBINA D Primary Care Unavailable DAR ABDI Attending Unavailable ELDERBROCK, ROBINA D Primary Care Unavailable DAR ABDI Attending Unavailable ELDERBROCK, ROBINA D Primary Care Unavailable DAR ABDI Attending Unavailable ELDERBROCK, ROBINA D Primary Care Unavailable PEUGH, KENDAL Attending Unavailable ELDERBROCK, ROBINA D Primary Care Unavailable PEUGH, KENDAL Referring Unavailable ELDERBROCK, ROBINA D Primary Care Unavailable PEUGH, KENDAL Referring Unavailable ELDERBROCK, ROBINA D Primary Care Unavailable LIDA COTO Attending Unavailabl e ELDERBROCK, ROBINA D Primary Care Unavailable PEUGH, KENDAL Referring Unavailable ELDERBROCK, ROBINA D Primary Care Unavailable SELF Referring Unavailable ELDERBROCK, ROBINA D Primary Care Unavailable PEUGH, KENDAL Attending Unavailable ELDERBROCK, ROBINA D Primary Care Unavailable TANNHOF, LIDA ALMA Referring Unavailabl e BRYSONJASON, ROBINA D Primary Care Unavailable BRITTANY ACEVEDOA Referring Unavailable BRYSONROBINA MAIN Primary Care Unavailable LIDA COTO Attending Unavailabl e CECY, ROBINA D Primary Care Unavailable GRISELDA ACEVEDO Attending Unavailable LIDA COTO Referring Unavailabl e BRYSONJASON, ROBINA Jones Primary Care Unavailable MALACHI SARGENT Attending Unavailable LIDA COTO Referring Unavailabl e ROBINA SAM D Primary Care Unavailable MALACHI SARGENT Referring Unavailable BRYSONROBINA MAIN Primary Care Unavailable Jorge, Odell Attending Unavailable Cecy, Robina Primary Care Unavailable Robina Sam Referring Unavailable Jorge, Stiven Attending Unavailable Cecy, Robina Primary Care Unavailable Jorge, Stiven Attending Unavailable Jorge, Odell Referring Unavailable Elderjason, Robina Primary Care Unavailable Cecy, Robina Primary Care Unavailable Lida Coto Referring Unavailable Lida Coto Attending Unavailable Allergies Allergy Classification Reported Allergen(s) Allergy Type Date of Onset Reaction(s) Facility Cephalosporins (antibiotic) (1 source) Cephalosporins (Antibiotic) Drug Allergy 7 Swelling [facility] Penicillins (antibiotic) (1 source) Penicillins Drug Allergy 7 Anaphylaxis [facility] (20 sources) Cephalosporins (Antibiotic); Translations: [CEPHALOSPORINS] Propensity to adverse reactions 7 Swelling [facility] (6 sources) Penicillins; Translations: [PENICILLINS] Propensity to adverse reactions 7 Anaphylaxis [facility] (20 sources) Cephalosporins (Antibiotic) Propensity to adverse reactions 7 Swelling [facility] (20 sources) Penicillins Propensity to adverse reactions 7 Anaphylaxis [facility] (15 sources) Penicillins Propensity to adverse reactions 7 Anaphylaxis [facility] (1 source) Cephalosporins (Antibiotic) Drug allergy (disorder) 5 [facility] (1 source) Penicillins Drug allergy (disorder) 5 [facility] Medications Current Medications Medication Drug Class(es) Dates Sig (Normalized) Sig (Original) alendronic acid 70 mg oral tablet (20 sources) Bisphosphonate Start: 08-19-2023 End: 08-19-2025 take 1 tablet by mouth every week alendronate (FOSAMAX) 70 mg tablet Indications: Osteopenia, senile Take 1 tablet by mouth one time a week. Take with a full glass of water, on an empty stomach; do NOT lie down for 30minutes. 12 tablet 3 08/19/2024 08/19/2025 Active Comment on above: Take 1 tablet by evelyn th one time a week. Take with a full glass of water, on an empty stomach; do NOT lie down for 30minutes. Calcium Citrate (20 sources) take 600 mg by mouth three times daily CALCIUM CITRATE ORAL Take 600 mg by mouth three times a day. Active cholecalciferol, vitamin D3, (VITAMIN D3 ORAL) (20 sources) take 2 tablets by mouth twice daily cholecalciferol, vitamin D3, (VITAMIN D3 ORAL) Take 25 mcg by mouth two times a day. Takes 2 12.5 mcg tablets twice daily Active End: 09-19-2024 take 2000 ug by mouth once daily as needed cholecalciferol, vitamin D3, (VITAMIN D3 ORAL) Take 2,000 mcg by mouth once daily as needed. 09/19/2024 Discontinued take 12.5 ug by mout h once daily cholecalciferol, vitamin D3, (VITAMIN D3 ORAL) Take 12.5 mcg by mouth once daily. Active take 2000 ug by mout h once daily as needed cholecalciferol, vitamin D3, (VITAMIN D3 ORAL) Take 2,000 mcg by mouth once daily as needed. Active take 2000 ug by mout h once daily as needed cholecalciferol, vitamin D3, (VITAMIN D3 ORAL) Take 2,000 mcg by mouth once daily as needed. 0 Active take 12.5 ug by mout h once daily cholecalciferol, vitamin D3, (VITAMIN D3 ORAL) Take 12.5 mcg by mouth once daily. 0 Active Comment on above: Take 12.5 mcg by evelyn th once daily. CPAP (20 sources) Start: 12-21-2023 CPAP Indications: Obstructive sleep apnea syndrome CPAP tubing, head gear, ancillary supplies Life Time Supplies 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 10 cm H2O. 1 Each 12/21/2023 Active Start: 12-21-2023 CPAP Indicatio ns: Obstructive sleep apnea syndrome CPAP tubing, head gear, ancillary supplies Life Time Supplies 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 10 cm H2O. 1 Each 0 12/21/2023 Active Start: 09-18-2020 End: 12-21-2023 CPAP Indications: Obstructiv e sleep apnea syndrome CPAP tubing, head gear, ancillary supplies Life Time Supplies 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 10 cm H2O. 1 Device 09/18/2020 12/21/2023 Discontinued Start: 09-18-2020 End: 12-21-2023 CPAP Indications: Obstructiv e sleep apnea syndrome CPAP tubing, head gear, ancillary supplies Life Time Supplies 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 10 cm H2O. 1 Device 0 09/18/2020 12/21/2023 Discontinued Start: 09-18-2020 CPAP Indicatio ns: Obstructive sleep apnea syndrome CPAP tubing, head gear, ancillary supplies Life Time Supplies 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 10 cm H2O. 1 Device 0 09/18/2020 Active Comment on above: CPAP tubing, head ge ar, ancillary supplies Life Time Supplies 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 10 cm H2O. oxyquinoline sulfate 0.30288 mg/mg / sodium dodecyl sulfate 0.0001 mg/mg vaginal gel (17 sources) Start: 2024 Oxyquinoline-Na Lauryl Sulfate (TRIMO-CORTES JELLY) 0.025-0.01 % gel Use 1 g vaginally two times a week. 113 g 1 11/24/2024 Active doxycycline hyclate 100 mg oral tablet (1 source) Tetracycline-class Drug Start: 2023 End: 2023 take 1 tablet by mouth twice daily doxycycline (VIBRA-TABS) 100 mg tablet Indications: Bronchitis Take 1 tablet by mouth two times a day for 7 days. 14 tablet 0 05/26/2024 06/02/2024 Active hydroxychloroquine sulfate 200 mg oral tablet (20 sources) Antimalarial, Antirheumatic Agent Start: 2020 End: 2024 take 1 tablet by mouth twice daily hydrOXYchloroQUINE (PLAQUENIL) 200 mg tablet Indications: Arthralgia, unspecified joint TAKE 1 TABLET BY MOUTH 2 TIMES A DAY 180 tablet 3 01/11/2025 Active Comment on above: Take 1 tablet by evelyn th twice daily. TAKE 1 TABLET BY EVELYN TH TWICE DAILY take 1 tablet by evelyn th 2 times a day ipratropium bromide 0.042 mg/actuat metered dose nasal spray (20 sources) Anticholinergic Start: 2023 ipratropium bromide (ATROVENT) 42 mcg (0.06 %) nasal spray Use 1 [place] in the nose three times a day. 15 mL 4 07/22/2024 Active multivit,iron,minerals/l utein (CENTRUM SILVER ULTRA WOMEN'S ORAL) (20 sources) take 1 tablet by mouth once daily multivit,iron,minerals/ lutein (CENTRUM SILVER ULTRA WOMEN'S ORAL) Take 1 tablet by mouth once daily. generic brand Active psyllium 520 mg oral capsule (20 sources) psyllium Husk 0. 52 gram capsule Take 0.52 g by mouth once daily. Active Comment on above: Take 0.52 g by mouth once daily. Completed/Discontinued Medications Medication Drug Class(es) Dates Sig (Normalized) Sig (Original) [id number] 200 actuat albuterol 0.09 mg/actuat metered dose inhaler (11 sources) beta2-Adrenergic Agonist Start: 05-26-2024 End: 08-19-2024 take 2 puff(s) by inhalation every four hours as needed for wheezing albuterol HFA (VENTOLIN HFA) 90 mcg/actuation inhaler Indications: Bronchitis Inhale 2 Puffs as instructed every 4 hours as needed for wheezing/shortness of breath. 1 Each 05/26/2024 08/19/2024 Discontinued (Course of therapy completed) calcium carbonate 600 mg oral capsule (16 sources) End: 08-19-2024 take 600 mg by mouth three times daily calcium carbonate (CALCIUM 600 ORAL) Take 600 mg by mouth three times a day. 08/19/2024 Discontinued take 600 mg by mouth twice daily calcium carbonate (CALCIUM 600 ORAL) Take 600 mg by mouth two times a day. 0 Active Comment on above: Take 600 mg by mouth two times a day. calcium-vits Z3-D-P3-minerals 166.75 mg- 166.75 unit cap (20 sources) End: 09-19-2024 take 1 capsule by mouth in the morning, then take 2 capsules by mouth in the evening calcium-vits H7-Y-Z7-minerals 166.75 mg- 166.75 unit cap Take by mouth. ONE IN THE MORNING AND TWO IN THE EVENING 09/19/2024 Discontinued take 1 capsule by mo uth in the morning, then take 2 capsules by mouth in the evening calcium-vits D2-W-O9-minerals 166.75 mg- 166.75 unit cap Take by mouth. ONE IN THE MORNING AND TWO IN THE EVENING Active take 1 capsule by mo uth in the morning, then take 2 capsules by mouth in the evening calcium-vits A9-X-X9-minerals 166.75 mg- 166.75 unit cap Take by mouth. ONE IN THE MORNING AND TWO IN THE EVENING 0 Active Comment on above: Take by mouth. ONE I N THE MORNING AND TWO IN THE EVENING fluticasone propionate 0.05 mg/actuat metered dose nasal spray (8 sources) Corticosteroid End: 09-19-20 take 1 spray(s) nasal route once daily fluticasone (FLONASE) 50 mcg/actuation nasal spray Use 1 [place] in each nostril once daily. 09/19/2024 Discontinued Multivitamin (MULTIPLE VITAMINS DAILY) ORAL Tab (20 sources) Start: 02-03-20 End: 09-19-20 take 1 tablet by mouth once daily Multivitamin (MULTIPLE VITAMINS DAILY) ORAL Tab Take one(1) tablet daily. 0 02/02/2007 09/19/2024 Discontinued Start: 02-02-2007 take 1 tablet by evelyn th once daily Multivitamin (MULTIPLE VITAMINS DAILY) ORAL Tab Take one(1) tablet daily. 0 02/02/2007 Active Comment on above: Take one(1) tablet d aily. naproxen sodium/pseudoephedrin (SUDAFED SINUS 12HR PRESSR-PAIN ORAL) (8 sources) End: 09-19-2024 naproxen sodium/pseudoephedrin (SUDAFED SINUS 12HR PRESSR-PAIN ORAL) Take by mouth. 09/19/2024 Discontinued naproxen sodium/ pseudoephedrin (SUDAFED SINUS 12HR PRESSR-PAIN ORAL) Take by mouth. Active NAPROXEN, BULK, MISC (6 sources) End: 08-18-2022 NAPROXEN, BULK, MISC 220 mg twice daily. 0 08/18/2022 Discontinued (Course of therapy completed) NAPROXEN, BULK, MISC 220 mg twice daily. 0 Active Comment on above: 220 mg twice daily. Problems Active Problems Problem Classification Problem Date Documented Da te Episodic/Chronic Coronary atherosclerosis and other heart disease (3 sources) Calcification of coronary artery; Translations: [Atherosclerotic heart disease of telida coronary artery without angina pectoris] Onset: 5 09-23-2024 Chronic Disorders of lipid metabolism (20 sources) Pure hypercholesterolemia; Translations: [Pure hypercholesterolemia, unspecified] Onset: 7 05-06-2007 Chronic Esophageal disorders (5 sources) Gastroesophageal reflux disease; Translations: [Gastro-esophageal reflux disease without esophagitis] Onset: 5 02-23-2025 Chronic Genitourinary symptoms and ill-defined conditions (2 sources) Genuine stress incontinence; Translations: [Stress incontinence (female) (male)] 11-24-2024 Chronic Mood disorders (20 sources) Depressive disorder; Translations: [Other specified depressive episodes] Onset: 7 05-06-2007 Chronic Osteoporosis (20 sources) Postmenopausal osteoporosis; Translations: [Age-related osteoporosis without current pathological fracture] Onset: 4 07-17-2023 Chronic Other aftercare (1 source) Encounter for therapeutic drug level monitoring; Translations: [Medication monitoring encounter] Onset: 5 Episodic Other and unspecified benign neoplasm (2 sources) History of polyp of colon; Translations: [History of colonic polyps] 05-23-2025 Episodic Other bone disease and musculoskeletal deformities (1 source) Osteopenia; Translations: [Other specified disorders of bone density and structure, unspecified site] Episodic Other connective tissue disease (6 sources) Decrease in height; Translations: [Loss of height] 02-23-2025 Episodic Other connective tissue disease (1 source) Loss of height; Translations: [Height loss] Onset: 5 Episodic Other female genital disorders (1 source) Vaginal discharge; Translations: [Other specified noninflammatory disorders of vagina] 01-25-2025 Episodic Other female genital disorders (1 source) Other specified noninflammatory disorders of vagina; Translations: [Vaginal discharge] Onset: 5 Episodic Other gastrointestinal disorders (2 sources) Heartburn; Translations: [Heartburn] Episodic Other liver diseases (1 source) Liver cyst; Translations: [Other specified diseases of liver] 09-28-2024 Chronic Other lower respiratory disease (1 source) Nodule of lung; Translations: [Solitary pulmonary nodule] 09-28-2024 Episodic Other non-traumatic joint disorders (8 sources) Joint pain; Translations: [Pain in unspecified joint] Episodic Other non-traumatic joint disorders (2 sources) Pain in right knee; Translations: [Pain in joint, lower leg] 07-17-2023 Episodic Other non-traumatic joint disorders (6 sources) Hip pain; Translations: [Pain in left hip] 02-23-2025 Episodic Other non-traumatic joint disorders (1 source) Pain in left hip; Translations: [Pain in left hip] Onset: Episodic Other screening for suspected conditions (not mental disorders or infectious disease) (20 sources) Patient encounter status; Translations: [Encounter for screening for malignant neoplasm of colon] Onset: 7 05-06-2007 Episodic Other upper respiratory disease (1 source) Chronic rhinitis; Translations: [Chronic rhinitis] 07-22-2024 Chronic Other upper respiratory disease (1 source) Polyp of nasal cavity and/or nasal sinus; Translations: [Nasal polyp, unspecified] 05-26-2024 Episodic Other upper respiratory infections (3 sources) Chronic pansinusitis; Translations: [Chronic pansinusitis] Onset: 4 07-22-2024 Chronic Prolapse of female genital organs (20 sources) Midline cystocele; Translations: [Cystocele, midline] Onset: 7 05-06-2007 Chronic Residual codes; unclassified (20 sources) Sleep apnea; Translations: [Sleep apnea, unspecified] 09-10-2020 Chronic Residual codes; unclassified (3 sources) Obstructive sleep apnea syndrome; Translations: [Obstructive sleep apnea (adult) (pediatric)] 12-21-2023 Chronic Residual codes; unclassified (2 sources) Obstructive sleep apnea (adult) (pediatric); Translations: [Obstructive sleep apnea syndrome] Onset: Chronic Residual codes; unclassified (1 source) Postmenopausal state; Translations: [Asymptomatic menopausal state] 01-26-2023 Episodic Residual codes; unclassified (3 sources) Cardiovascular event risk; Translations: [Other specified personal risk factors, not elsewhere classified] 08-23-2024 Episodic Residual codes; unclassified (1 source) Other specified personal risk factors, not elsewhere classified; Translations: [Cardiovascular risk factor] Onset: 5 Episodic Rheumatoid arthritis and related disease (20 sources) Seropositive rheumatoid arthritis; Translations: [Rheumatoid arthritis with rheumatoid factor, unspecified] Onset: 4 Chronic Substance-related disorders (20 sources) Nicotine dependence; Translations: [Nicotine dependence, unspecified, uncomplicated] Onset: 0 04-07-2020 Chronic Unclassified (3 sources) Patient encounter status 02-24-2025 Past or Other Problems Problem Classification Problem Date Documented Da te Episodic/Chronic Appendicitis and other appendiceal conditions (20 sources) Acute appendicitis with localized peritonitis; Translations: [Acute appendicitis with localized peritonitis, without perforation or gangrene] Onset: 04-06-2020 04-06-2020 Episodic Chronic obstructive pulmonary disease and bronchiectasis (2 sources) Bronchitis; Translations: [Bronchitis, not specified as acute or chronic] Onset: 05-26-2024 05-26-2024 Episodic Other aftercare (20 sources) Drug therapy finding; Translations: [Other roasterman (current) drug therapy] Onset: 06-14-2024 07-17-2023 Episodic Other aftercare (20 sources) Long-term current use of drug therapy; Translations: [Other roasterman (current) drug therapy] Onset: 06-14-2024 06-14-2024 Episodic Other aftercare (3 sources) Other residential (current) drug therapy; Translations: [Encounter for long-term (current) use of medications] Onset: 06-14-2024 Episodic Other bone disease and musculoskeletal deformities (20 sources) Senile osteopenia; Translations: [Other specified disorders of bone density and structure, unspecified site] Onset: 08-16-2018 08-16-2018 Episodic Other bone disease and musculoskeletal deformities (1 source) Other specified disorders of bone density and structure, unspecified site; Translations: [Osteopenia, senile] Onset: 08-16-2018 Episodic Other connective tissue disease (20 sources) Lateral epicondylitis; Translations: [Lateral epicondylitis, unspecified elbow] Onset: 05-06-2007 05-06-2007 Episodic Other gastrointestinal disorders (1 source) Heartburn; Translations: [Heartburn] Onset: 08-19-2024 Episodic Other upper respiratory disease (1 source) Nasal polyp, unspecified; Translations: [Nasal polyp] Onset: 05-26-2024 Episodic Residual codes; unclassified (20 sources) Other general symptoms and signs; Translations: [Other abnormal clinical findings] Onset: 05-06-2007 05-06-2007 Episodic Screening and history of mental health and substance abuse codes (6 sources) Tobacco use and exposure - finding; Translations: [Personal history of nicotine dependence] Onset: 08-19-2024 08-19-2024 Episodic Unclassified (1 source) Drug therapy finding 02-24-2025 Results Test Name Value Interpretation Reference Range Facility [facility] 04-11-2025 [facility] Telephone (INTMWS) MANUELJADE CAM ([id number]) 1950 F Date Time Provider Department 04/11/25 ROBINA SAM INTWS During your visit today, we recorded the following information about you: Dee Bonner MA 04/11/2025 6:48 PM Signed Type of letter/form/fax request - CEDRIC supply order Form received from fax on 11 floor and placed on MD desk (Dr. Sam) for completion. Completed form needs to be faxed to [facility] at [phone]. Requesting copies of any sleep studies done and OV note within the last year discussing use and benefits of CEDRIC machine. Printed OV note 08/19/24, and Sleep study reports from 01/11/08 AND 01/20/08. These are attached to order form that needs completed and signed. Route to OK when form completed for processing Dee Bonner MA 04/13/2025 10:02 AM Signed Office received fax from [facility] stating that pt will need a new PSG or HSAT scored with a 4% rule to get CPAP supplies or equipment through insurance. CATE Mc Kathryn, MA 04/21/2025 4:00 PM Signed Faxed. Dee Bonner MA Allergies As of Date: 04/11/2025 Noted Allergy Reaction CEPHALOSPORINS 02/02/2007 7 - Swelling PENICILLINS 02/02/2007 10 - Anaphylaxis Date Reviewed: 02/23/2025 Reviewed by: Yesenia Mccann MA - Fully Assessed Reason for Visit: Forms [913] Cmt: Ramanleonardo-Order for CEDRIC supplies and documentation request Prescriptions as of 04/21/2025 - hydrOXYchloroQUINE (PLAQUENIL) 200 mg tablet TAKE 1 TABLET BY MOUTH 2 TIMES A DAY - Oxyquinoline-Na Lauryl Sulfate (TRIMO-CORTES JELLY) 0.025-0.01 % gel Use 1 g vaginally two times a week. - CALCIUM CITRATE ORAL Take 600 mg by mouth three times a day. - multivit,iron,minerals /lutein (CENTRUM SILVER ULTRA WOMEN'S ORAL) Take 1 tablet by mouth once daily. generic brand - alendronate (FOSAMAX) 70 mg tablet Take 1 tablet by mouth one time a week. Take with a full glass of water, on an empty stomach; do NOT lie down for 30minutes. - ipratropium bromide (ATROVENT) 42 mcg (0.06 %) nasal spray Use 1 [place] in the nose three times a day. - CPAP CPAP tubing, head gear, ancillary supplies Life Time Supplies 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 10 cm H2O. - cholecalciferol, vitamin D3, (VITAMIN D3 ORAL) Take 25 mcg by mouth two times a day. Takes 2 12.5 mcg tablets twice daily - psyllium Husk 0.52 gram capsule Take 0.52 g by mouth once daily. Problem List As Of Date 04/11/2025 Noted Resolved CYSTOCELE, MIDLINE [N81.11] 05/06/2007 SCREENING MAL NEOP-COLON [Z12.11] 05/06/2007 DEPRESSIVE DISORDER NEC [F32.89] 05/06/2007 PURE HYPERCHOLESTEROLEM [E78.00] 05/06/2007 ABNORMAL CLINICAL FINDING NEC [R68.89] 05/06/2007 LATERAL EPICONDYLITIS [M77.10] 05/06/2007 Osteopenia, senile [M85.80] 08/16/2018 Acute appendicitis with localized peritonitis, *04/06/2020 Appendicitis [K37] 04/06/2020 Nicotine use disorder, F17.2 [F17.200] 04/07/2020 Sleep apnea [G47.30] Postmenopausal osteoporoses [M81.0] 06/14/2024 Seropositive rheumatoid arthritis (HCC) [M05.9] 06/14/2024 Encounter for long-term (current) use of medica*06/14/2024 Long-term use of hydroxychloroquine [Z79.899] 06/14/2024 Encounter Status:Closed by DEE BONNER on 04/21/25 Normal [facility] SIMBA SCREENING W TOMOon 04-07 SIMBA SCREENING W JOY * * *Final Report* * * DATE OF EXAM: Apr 07 2025 11:03AM [id number] - SIMBA SCREENING W JOY / PROCEDURE REASON: Encounter for screening mammogram for malignant neoplasm of breast * * * * Physician Interpretation * * * * RESULT: [place] [address] #[id number] - SIMBA SCREENING W JOY HISTORY: 74 year-old patient presents for screening. Patient is asymptomatic in both breasts. Patient states no personal history of breast cancer. The patient has a family history of ovarian cancer. COMPARISON STUDIES: The present examination has been compared to prior imaging studies dated 09/27/2020 (mammogram), 03/17/2022 (mammogram), 04/03/2023 (mammogram) and 04/06/2024 (mammogram). MAMMOGRAM TECHNIQUE: The study was acquired using full field digital technology and interpreted from soft copy. Digital Breast Tomosynthesis (DBT) images were obtained and used to assist in the interpretation of this examination. MAMMOGRAM FINDINGS: There are scattered areas of fibroglandular density. No suspicious masses, calcifications or other abnormalities are seen in either breast. There are no significant interval changes. IMPRESSION: There is no mammographic evidence of malignancy in either breast. Routine screening mammogram is recommended. Annual mammogram will be due in 1 year. BI-RADS Category 1: Negative RISK: Based on the Tyrer-Cuzick (TC) risk assessment model, this patient has a 1.2% lifetime risk of developing breast cancer, meaning they are at average risk for developing breast cancer. However, this is only an estimate based on available history provided on the patient's questionnaire. We encourage all patients to talk with their providers about these results, further recommendations for managing breast health, and appropriate supplemental screening options if the patient has dense breast tissue. Interpreting Radiologist: Louise England M.D. Electronically signed on: 04/10/2025 Bioinformatics Computer Scientist: JASON Transcribe Date/Time: Apr 07 2025 10:48A Dictated by: LOUISE ENGLAND MD This examination was interpreted and the report reviewed and electronically signed by: LOUISE ENGLAND MD on Apr 10 2025 2:36PM EST [id number] Normal [facility] Telephone (RDXWS) MANUELJADE LEVY ([id number]) 1950 F Date Time Provider Department 03/20/25 ROBINA SAM RDXWS During your visit today, we recorded the following information about you: Pratibha Presley, [employer] 03/20/2025 3:07 PM Signed Could we have a order for a screening mammogram? Thanks a million Robina Sam MD 03/20/2025 3:15 PM Signed Mammogram ordered Robina Sam MD Allergies As of Date: 03/20/2025 Noted Allergy Reaction CEPHALOSPORINS 02/02/2007 7 - Swelling PENICILLINS 02/02/2007 10 - Anaphylaxis Date Reviewed: 02/23/2025 Reviewed by: Yesenia Mccann MA - Fully Assessed Primary Visit Diagnosis:Encounter for screening mammogram for malignant neoplasm of breast [Z12.31] Order(s):SIMBA SCREENING W JOY [[id number]] Order #: [id number] FUTURE Prescriptions as of 03/20/2025 - hydrOXYchloroQUINE (PLAQUENIL) 200 mg tablet TAKE 1 TABLET BY MOUTH 2 TIMES A DAY - Oxyquinoline-Na Lauryl Sulfate (TRIMO-CORTES JELLY) 0.025-0.01 % gel Use 1 g vaginally two times a week. - CALCIUM CITRATE ORAL Take 600 mg by mouth three times a day. - multivit,iron,minerals /lutein (CENTRUM SILVER ULTRA WOMEN'S ORAL) Take 1 tablet by mouth once daily. generic brand - alendronate (FOSAMAX) 70 mg tablet Take 1 tablet by mouth one time a week. Take with a full glass of water, on an empty stomach; do NOT lie down for 30minutes. - ipratropium bromide (ATROVENT) 42 mcg (0.06 %) nasal spray Use 1 [place] in the nose three times a day. - CPAP CPAP tubing, head gear, ancillary supplies Life Time Supplies 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 10 cm H2O. - cholecalciferol, vitamin D3, (VITAMIN D3 ORAL) Take 25 mcg by mouth two times a day. Takes 2 12.5 mcg tablets twice daily - psyllium Husk 0.52 gram capsule Take 0.52 g by mouth once daily. 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] 05/06/2007 SCREENING MAL NEOP-COLON [Z12.11] 05/06/2007 DEPRESSIVE DISORDER NEC [F32.89] 05/06/2007 PURE HYPERCHOLESTEROLEM [E78.00] 05/06/2007 ABNORMAL CLINICAL FINDING NEC [R68.89] 05/06/2007 LATERAL EPICONDYLITIS [M77.10] 05/06/2007 Osteopenia, senile [M85.80] 08/16/2018 Acute appendicitis with localized peritonitis, *04/06/2020 Appendicitis [K37] 04/06/2020 Nicotine use disorder, F17.2 [F17.200] 04/07/2020 Sleep apnea [G47.30] Postmenopausal osteoporoses [M81.0] 06/14/2024 Seropositive rheumatoid arthritis (HCC) [M05.9] 06/14/2024 Encounter for long-term (current) use of medica*06/14/2024 Long-term use of hydroxychloroquine [Z79.899] 06/14/2024 Encounter Status:Closed by ANGELLA CHE on 03/20/25 [facility] 25-hydroxyvitamin D3 [Mass/Vol] 58.2 ng/mL Normal 31.0-80.0 [facility] Comment on above: Order Comment: Speci men Type: BLOOD SPECIMENOrdering Facility: [facility] Address: [address] [place] [address] Result Comment: Clas sification of 25 [place] Vitamin D status: Deficiency/Insufficiency: < or = 30 ng/ml. Sufficiency/Optimal Levels: 31-80 ng/mL Toxicity: > 100 ng/mL. Test performed by chemiluminescent immunoassay. Performed By: #### 1 989-3 ####[facility] LABIA [id number] [place] [address] [place] CBC W Auto Differential pane l (Bld)on 02-25-2025 Basophils (Bld) [#/Vol] 0.11 10*3/uL High <0.11 [facility] Comment on above: Order Comment: Speci men Type: BLOOD SPECIMENOrdering Facility: [facility] Address: [address] [place] [address] Performed By: #### 5 7021-8, 4537-7 ####[facility] LABCLIA [id number] [place] [address] [place] Basophils/100 WBC (Bld) 1.5 % Normal [facility] Comment on above: Order Comment: Speci men Type: BLOOD SPECIMENOrdering Facility: [facility] Address: [address] [place] [address] Performed By: #### 5 7021-8, 4537-7 ####[facility] LABCLIA [id number] [place] [address] [place] Differential cell count method Nom (Bld) Auto Normal [facility] Comment on above: Order Comment: Speci men Type: BLOOD SPECIMENOrdering Facility: [facility] Address: [address] [place] [address] Performed By: #### 5 7021-8, 4537-7 ####[facility] LABCLIA [id number] [place] [address] [place] Eosinophils (Bld) [#/Vol] 0.29 10*3/uL Normal <0.46 [facility] Comment on above: Order Comment: Speci men Type: BLOOD SPECIMENOrdering Facility: [facility] Address: [address] [place] [address] Performed By: #### 5 7021-8, 7-7 ####[facility] LABCLIA [id number] [place] [address] [place] Eosinophils/100 WBC (Bld) 4.0 % Normal [facility] Comment on above: Order Comment: Speci men Type: BLOOD SPECIMENOrdering Facility: [facility] Address: [address] [place] [address] Performed By: #### 5 7021-8, 4536-7 ####[facility] LABIA [id number] [place] [address] [place] Erythrocyte distribution width (RBC) [Ratio] 13.4 % Normal 11.5-15.0 [facility] Comment on above: Order Comment: Speci men Type: BLOOD SPECIMENOrdering Facility: [facility] Address: [address] [place] [address] Performed By: #### 5 7021-8, 7-7 ####[facility] LABIA [id number] [place] [address] [place] Hematocrit (Bld) [Volume fraction] 43.0 % Normal 36.0-46.0 [facility] Comment on above: Order Comment: Speci men Type: BLOOD SPECIMENOrdering Facility: [facility] Address: [address] [place] [address] Performed By: #### 5 7021-8, 7-7 ####[facility] LABIA [id number] [place] [address] [place] Hemoglobin (Bld) [Mass/Vol] 13.7 g/dL Normal 11.5-15.5 [facility] Comment on above: Order Comment: Speci men Type: BLOOD SPECIMENOrdering Facility: [facility] Address: [address] [place] [address] Performed By: #### 5 7021-8, 4536-7 ####[facility] LABCLIA [id number] [facility] [place] [address] [place] Immature granulocytes (Bld) [#/Vol] 10*3/uL Normal <0.10 [facility] Comment on above: Order Comment: Speci men Type: BLOOD SPECIMENOrdering Facility: [facility] Address: [address] [place] [address] Performed By: #### 5 7021-8, 4536-7 ####[facility] LABCLIA [id number] [place] [address] [place] Immature granulocytes/100 WBC (Bld) 0.3 % Normal [facility] Comment on above: Order Comment: Speci men Type: BLOOD SPECIMENOrdering Facility: [facility] Address: [address] [place] [address] Performed By: #### 5 7021-8, 7 ####[facility] LABCLIA [id number] [facility] [place] [address] [place] Lymphocytes (Bld) [#/Vol] 1.92 10*3/uL Normal 1.00-4.00 [facility] Comment on above: Order Comment: Speci men Type: BLOOD SPECIMENOrdering Facility: [facility] Address: [address] [place] [address] Performed By: #### 5 7021-8, 4536-7 ####[facility] LABCLIA [id number] [facility] [place] [id number] [place] Lymphocytes/100 WBC (Bld) 26.2 % Normal [facility] Comment on above: Order Comment: Speci men Type: BLOOD SPECIMENOrdering Facility: [facility] Address: [address] [place] [address] Performed By: #### 5 7021-8, 4537-7 ####[facility] [id number] [place] [address] [place] MCH (RBC) [Entitic mass] 28.2 pg Normal 26.0-34.0 [facility] Comment on above: Order Comment: Speci men Type: BLOOD SPECIMENOrdering Facility: [facility] Address: [address] [place] [address] Performed By: #### 5 7021-8, 453-7 ####[facility] LABIA [id number] [place] [address] [place] MCHC (RBC) [Mass/Vol] 31.9 g/dL Normal 30.5-36.0 [facility] Comment on above: Order Comment: Speci men Type: BLOOD SPECIMENOrdering Facility: [facility] Address: [address] [place] [address] Performed By: #### 5 7021-8, 453-7 ####[facility] [id number] [place] [address] [place] MCV (RBC) [Entitic vol] 88.5 fL Normal 80.0-100.0 [facility] Comment on above: Order Comment: Speci men Type: BLOOD SPECIMENOrdering Facility: [facility] Address: [address] [place] [address] Performed By: #### 5 7021-8, 4537-7 ####[facility] LABIA [id number] [place] [address] [place] Monocytes (Bld) [#/Vol] 0.57 10*3/uL Normal <0.87 [facility] Comment on above: Order Comment: Speci men Type: BLOOD SPECIMENOrdering Facility: [facility] Address: [address] [place] [address] Performed By: #### 5 7021-8, 4536-7 ####[facility] LABCLIA [id number] [place] [address] [place] Monocytes/100 WBC (Bld) 7.8 % Normal [facility] Comment on above: Order Comment: Speci men Type: BLOOD SPECIMENOrdering Facility: [facility] Address: [address] [place] [address] Performed By: #### 5 7021-8, 4536-7 ####[facility] LABCLIA [id number] [place] [address] [place] Neutrophils (Bld) [#/Vol] 4.43 10*3/uL Normal 1.45-7.50 [facility] Comment on above: Order Comment: Speci men Type: BLOOD SPECIMENOrdering Facility: [facility] Address: [address] [place] [address] Performed By: #### 5 7021-8, 7 ####[facility] LABIA [id number] [place] [address] [place] Neutrophils/100 WBC (Bld) 60.2 % Normal [facility] Comment on above: Order Comment: Speci men Type: BLOOD SPECIMENOrdering Facility: [facility] Address: [address] [place] [address] Performed By: #### 5 7021-8, 4536-7 ####[facility] LABCLIA [id number] [place] [address] [place] Nucleated RBC (Bld) [#/Vol] 10*3/uL Normal <0.01 [facility] Comment on above: Order Comment: Speci men Type: BLOOD SPECIMENOrdering Facility: [facility] Address: [address] [place] [address] Performed By: #### 5 7021-8, 7-7 ####[facility] LABCLIA [id number] [place] [address] [place] Nucleated RBC/100 WBC (Bld) [Ratio] 0.0 /100 WBC Normal [facility] Comment on above: Order Comment: Speci men Type: BLOOD SPECIMENOrdering Facility: [facility] Address: [address] [place] [address] Performed By: #### 5 7021-8, 4537-7 ####[facility] LABIA [id number] [place] [address] [place] Platelet mean volume (Bld) [Entitic vol] 12.9 fL High 9.0-12.7 [facility] Comment on above: Order Comment: Speci men Type: BLOOD SPECIMENOrdering Facility: [facility] Address: [address] [place] [address] Performed By: #### 5 7021-8, 4537-7 ####[facility] LABIA [id number] [place] [address] [place] Platelets (Bld) [#/Vol] 256 10*3/uL Normal 150-400 [facility] Comment on above: Order Comment: Speci men Type: BLOOD SPECIMENOrdering Facility: [facility] Address: [address] [place] [address] Performed By: #### 5 7021-8, 7-7 ####[facility] LABIA [id number] [place] [address] [place] RBC (Bld) [#/Vol] 4.86 10*6/uL Normal 3.90-5.20 [facility] Comment on above: Order Comment: Speci men Type: BLOOD SPECIMENOrdering Facility: [facility] Address: [address] [place] [address] Performed By: #### 5 7021-8, 7-7 ####[facility] LABIA [id number] [place] [address] [place] WBC (Bld) [#/Vol] 7.34 10*3/uL Normal 3.70-11.00 [facility] Comment on above: Order Comment: Speci men Type: BLOOD SPECIMENOrdering Facility: [facility] Address: [address] [place] [address] Performed By: #### 5 7021-8, 4537-7 ####[facility] LABCLIA [id number] [place] [address] [place] CRP SerPl-mCncon 02-25-2025 CRP [Mass/Vol] mg/L Normal <0.9 [facility] Comment on above: Order Comment: Speci men Type: BLOOD SPECIMEN [facility] Address: [address] [place] [address] Performed By: #### 2 43238, 1988-02 #### [facility] CLIA [id number] [address] [place] [address] [place] Calcium.ionized [Moles/Vol]o n 02-25-2025 Calcium.ionized (Bld) [Mass/Vol] 1.28 mmol/L Normal 1.08-1.30 [facility] Comment on above: Order Comment: Speci men Type: BLOOD SPECIMEN [facility] Address: [address] [place] [address] Performed By: #### 2 4323-8, 1988-02 #### [facility] CLIA [id number] [address] [place] [address] [place] Calcium.ionized adjusted to pH 7.4 (Bld) [Moles/Vol] 1.25 mmol/L Normal 1.08-1.30 [facility] Comment on above: Order Comment: Speci men Type: BLOOD SPECIMEN [facility] Address: [address] [place] [address] Performed By: #### 2 4323-8, 1988-02 #### [facility] CLIA [id number] [address] [place] [id number] [place] Collagen crosslinked C-telop eptide [Mass/Vol]on 02-25-2025 C TELOPEPTIDE, BETA CROSS LINKED 235 pg/mL Normal 152-858 [facility] Comment on above: Order Comment: Speci men Type: BLOOD SPECIMENOrdering Facility: [facility] Address: [address] [place] [address] Performed By: #### 4 1171-0 ####[facility] LABCLIA [id number] [place] [id number] [place] Comprehensive metabolic 2000 panelon 02-25-2025 Albumin [Mass/Vol] 4.4 g/dL Normal 3.9-4.9 [facility] Comment on above: Order Comment: Speci men Type: BLOOD SPECIMEN [facility] Address: [address] [place] [address] Performed By: #### 2 43238, 1988-02 #### [facility] CLIA [id number] [address] [place] [address] [place] ALP [Catalytic activity/Vol] 75 U/L Normal 34-123 [facility] Comment on above: Order Comment: Speci men Type: BLOOD SPECIMEN [facility] Address: [address] [place] [address] Performed By: #### 2 4323-8, 1988-02 #### [facility] CLIA [id number] [address] [place] [address] [place] ALT [Catalytic activity/Vol] 15 U/L Normal 7-38 [facility] Comment on above: Order Comment: Speci men Type: BLOOD SPECIMEN [facility] Address: [address] [place], [place] [id number] Performed By: #### 2 4323-8, 1988-02 #### [facility] CLIA [id number] [address] [place], [place] [address] [place] Anion gap [Moles/Vol] 13 mmol/L Normal 8-15 [facility] Comment on above: Order Comment: Speci men Type: BLOOD SPECIMEN [facility] Address: [address] [place] [id number] Performed By: #### 2 4323-05, 1988-02 #### [facility] CLIA [id number] [address] [place], [place] [address] [place] AST [Catalytic activity/Vol] 20 U/L Normal 13-35 [facility] Comment on above: Order Comment: Speci men Type: BLOOD SPECIMEN [facility] Address: [address] [place], [place] [address] Performed By: #### 2 4323-05, 1988-02 #### [facility] CLIA [id number] [address] [place] [address] [place] Bilirubin [Mass/Vol] 0.4 mg/dL Normal 0.2-1.3 [facility] Comment on above: Order Comment: Speci men Type: BLOOD SPECIMEN [facility] Address: [address] [place], [place] [address] Performed By: #### 2 4323-05, 1988-02 #### [facility] CLIA [id number] [address] [place] [address] [place] Calcium [Mass/Vol] 9.8 mg/dL Normal 8.5-10.2 [facility] Comment on above: Order Comment: Speci men Type: BLOOD SPECIMEN [facility] Address: [address] [place] [id number] Performed By: #### 2 43212-17, 1988-02 #### [facility] CLIA [id number] [address] [place], [place] [address] [place] Chloride [Moles/Vol] 107 mmol/L Normal 98-107 [facility] Comment on above: Order Comment: Speci men Type: BLOOD SPECIMEN [facility] Address: [address] [place] [address] Performed By: #### 2 4323, 1988-02 #### [facility] CLIA [id number] [address] [place] [address] [place] CO2 [Moles/Vol] 24 mmol/L Normal 22-30 [facility] Comment on above: Order Comment: Speci men Type: BLOOD SPECIMEN [facility] Address: [address] [place] [address] Performed By: #### 2 43212-17, 1988-02 #### [facility] CLIA [id number] [address] [place] [address] [place] Creatinine [Mass/Vol] 0.85 mg/dL Normal 0.58-0.96 [facility] Comment on above: Order Comment: Speci men Type: BLOOD SPECIMEN [facility] Address: [address] [place] [address] Performed By: #### 2 43212-17, 1988-02 #### [facility] CLIA [id number] [address] [place] [address] [place] Creatinine and Glomerular filtration rate.predicted panel (S/P/Bld) 73 mL/min/1.73m??? Normal >=60 [facility] Comment on above: Order Comment: Speci men Type: BLOOD SPECIMEN [facility] Address: [address] [place] [address] Result Comment: Deborah mated Glomerular Filtration Rate (eGFR) is calculated using the 2020 CKD-EPI creatinine equation. This equation utilizes serum creatinine, sex, and age as parameters. The creatinine assay has traceable calibration to isotope dilution-mass spectrometry. Refer to KDIGO guidelines for clinical interpretation. In patients with unstable renal function, e.g. those with acute kidney injury, the eGFR may not accurately reflect actual GFR. Performed By: #### 2 43238, 1988-02 #### [facility] CLIA [id number] [address] [place] [address] [place] Glucose [Mass/Vol] 77 mg/dL Normal 74-99 [facility] Comment on above: Order Comment: Speci men Type: BLOOD SPECIMEN [facility] Address: [address] [place] [address] Result Comment: The [place] [employer] (ADA) provides guidance for cutoff values for fasting glucose and random glucose. The ADA defines fasting as no caloric intake for at least 8 hours. Fasting plasma glucose results between 100 to 125 mg/dL indicate increased risk for diabetes (prediabetes). Fasting plasma glucose results greater than or equal to 126 mg/dL meet the criteria for diagnosis of diabetes. In the absence of unequivocal hyperglycemia, results should be confirmed by repeat testing. In a patient with classic symptoms of hyperglycemia or hyperglycemic crisis, random plasma glucose results greater than or equal to 200 mg/dL meet the criteria for diagnosis of diabetes. Reference: Standards of Medical Care in Diabetes 2016, [place] [employer]. Diabetes Care. 2016.39(Suppl 1). Performed By: #### 2 43212-17, 1988-02 #### [facility] CLIA [id number] [address] [place] [address] [place] Potassium [Moles/Vol] 4.3 mmol/L Normal 3.7-5.1 [facility] Comment on above: Order Comment: Zander buckner Type: BLOOD SPECIMEN [facility] Address: [address] [place] [address] Performed By: #### 2 43212-17, 1988-02 #### [facility] CLIA [id number] [address] [place] [address] [place] Protein [Mass/Vol] 7.7 g/dL Normal 6.3-8.0 [facility] Comment on above: Order Comment: Zander men Type: BLOOD SPECIMEN [facility] Address: [address] [place] [address] Performed By: #### 2 43212-17, 1988-02 #### [facility] CLIA [id number] [address] [place] [address] [place] Sodium [Moles/Vol] 144 mmol/L Normal 136-144 [facility] Comment on above: Order Comment: Speci men Type: BLOOD SPECIMEN [facility] Address: [address] [place] [address] Performed By: #### 2 4323-8, 1988-02 #### [facility] CLIA [id number] [address] [place] [address] [place] Urea nitrogen [Mass/Vol] 11 mg/dL Normal 7-21 [facility] Comment on above: Order Comment: Speci men Type: BLOOD SPECIMEN [facility] Address: [address] [place] [address] Performed By: #### 2 43238, 1988-02 #### [facility] CLIA [id number] [address] [place] [address] [place] ESR Westergren method (Bld) [Velocity]on 02-25-2025 ESR (Bld) [Velocity] 10 mm/h Normal 0-20 [facility] Comment on above: Order Comment: Speci men Type: BLOOD SPECIMENOrdering Facility: [facility] Address: [address] [place] [address] Performed By: #### 5 7021-8, 4537-7 ####[facility] LAB[facility]IA [id number] [place] [address] [place] PROCOLLAGEN TYPE 1on 025 PROCOLLAGEN TYPE 1 26 ug/L Normal [facility] Comment on above: Order Comment: Speci men Type: BLOOD SPECIMEN [facility] Address: [address] [place] [address] Result Comment: Alli enopausal: 20 - 101 ug/L Postmenopausal: 16 - 96 ug/L Performed By: [facility] [address] [place] [id number] Design Quality Engineer: Kiran Flores MD, PhD CLIA Number: [id number] Performed By: #### 2 43231988-02 #### [facility] CLIA [id number] [address] [place] [address] [place] BD DXA - AXIAL SKELETONon BD DXA - AXIAL SKELETON * * *Final Report* * * DATE OF EXAM: Feb 24 2025 10:32AM WRB 0804 - BD DXA - AXIAL SKELETON / PROCEDURE REASON: multiple diagnoses * * * * Physician Interpretation * * * * EXAMINATION: DXA BONE DENSITOMETRY BD DXA - AXIAL SKELETON, BD DXA TRABECLR BONE SCORE (TBS) PATIENT DEMOGRAPHICS: Age: 74 years, Gender: Female SCANNER INFORMATION: DXA Model: Page Mage C [id number] Date Scanned: 02/24/2025 10:32 AM CLINICAL HISTORY: DIAGNOSTIC Cardiovascular risk factor Postmenopausal osteoporoses Seropositive rheumatoid arthritis (HCC) Long-term use of hydroxychloroquine. RISK FACTORS FOR OSTEOPOROSIS AND ASSOCIATED FRACTURES REPORTED BY THIS PATIENT: Please refer to Bone Health Questionnaire in the EMR CURRENT THERAPY: Please refer to Bone Health Questionnaire in the EMR TECHNICAL LIMITATIONS: None RESULTS: Lumbar spine (L1, L2, L3, L4): 1.110 g/cm2, T-score 0.6, Z-score 2.8 Lumbar spine: 2022: 1.028 g/cm2 Statistically significant increase Right Femoral Neck: 0.667 g/cm2, T-score -1.6, Z-score 0.3 Right Femoral Neck: 2022: 0.956 g/cm2 No statistically significant change Right Total Hip: 0.931 g/cm2, T-score -0.1, Z-score 1.6 Right Total Hip: 2022: 0.956 g/cm2 No statistically significant change Left Femoral Neck: 0.622 g/cm2, T-score -2.0, Z-score -0.1 Left Femoral Neck: 2022: 0.662 g/cm2 Statistically significant decrease Left Total Hip: 0.899 g/cm2, T-score -0.4, Z-score 1.3 Left Total Hip: 2022: 0.895 g/cm2 No statistically significant change CHANGE IS STATISTICALLY SIGNIFICANT IN THE SPINE OR HIP IF GREATER THAN OR EQUAL TO 0.04 g/cm2 VERTEBRAL FRACTURE ASSESSMENT Not performed. TRABECULAR BONE ASSESSMENT TBS score: 1.269 Bone micro-architecture: Partially degraded (1.231 - 1.310) IMPRESSION: THE LOWEST T-SCORE IS -2.0 IN THE LEFT HIP 1) DIAGNOSIS (based on BMD alone): OSTEOPENIA Caution: Medical conditions other than osteoporosis may cause low bone density, such as osteomalacia or renal osteodystrophy. Clinical correlation is necessary. 2) FRACTURE RISK (Based on TBS adjusted FRAX): 10-year absolute fracture risk: - major osteoporotic fracture = 20 % - hip fracture = 7.4 % - A diagnosis of Osteoporosis, a 10 year probability of hip fracture greater than or equal to 3% or a 10 year probability of any major osteoporosis-related fracture greater than or equal to 20% should be considered for treatment. - DXA scanner generated FRAX calculations may slightly differ from online FRAX calculations due to differences in software versions. - All recommendations and calculations are to be considered as guidelines and should not replace sound clinical judgement - Caution: Fracture risk may be increased independent of BMD in patients with corticosteroid use, age greater than 65 years, or a history of prior fragility fracture. RECOMMENDATIONS: Follow-up in 2 years or as clinically indicated. Patients that are taking corticosteroids, are transplant recipients or have hyperparathyroidism should have annual follow-up. Follow-up scans should always be done on the same machine for accurate comparison. FOR MORE INFORMATION ABOUT DIAGNOSIS AND TREATMENT: [facility] Osteoporosis and Metabolic Bone Disease:? [email or web address].org/arthritis/ osteo National Osteoporosis Foundation:? www.nof.org International Society of Clinical Densitometry www.iscd.org Bioinformatics Computer Scientist: SEAN Transcribe Date/Time: Feb 24 2025 1:58P Dictated by : SHAMIKA GARCÍA MD This examination was interpreted and the report reviewed and electronically signed by: SHAMIKA GARCÍA MD on Feb 24 2025 2:01PM EST [id number] -2.0 Normal [facility] BD DXA TRABECLR BONE SCORE ( TBS)on 02-24-2025 BD DXA TRABECLR BONE SCORE (TBS) * * *Final Report* * * DATE OF EXAM: Feb 24 2025 10:32AM [facility] 0801 - BD DXA TRABECLR BONE SCORE (TBS) / PROCEDURE REASON: multiple diagnoses * * * * Physician Interpretation * * * * EXAMINATION: DXA BONE DENSITOMETRY BD DXA - AXIAL SKELETON, BD DXA TRABECLR BONE SCORE (TBS) PATIENT DEMOGRAPHICS: Age: 74 years, Gender: Female SCANNER INFORMATION: DXA Model: Done In :60 Seconds - [employer] C [id number] Date Scanned: 02/24/2025 10:32 AM CLINICAL HISTORY: DIAGNOSTIC Cardiovascular risk factor Postmenopausal osteoporoses Seropositive rheumatoid arthritis (HCC) Long-term use of hydroxychloroquine. RISK FACTORS FOR OSTEOPOROSIS AND ASSOCIATED FRACTURES REPORTED BY THIS PATIENT: Please refer to Bone Health Questionnaire in the EMR CURRENT THERAPY: Please refer to Bone Health Questionnaire in the EMR TECHNICAL LIMITATIONS: None RESULTS: Lumbar spine (L1, L2, L3, L4): 1.110 g/cm2, T-score 0.6, Z-score 2.8 Lumbar spine: 2022: 1.028 g/cm2 Statistically significant increase Right Femoral Neck: 0.667 g/cm2, T-score -1.6, Z-score 0.3 Right Femoral Neck: 2022: 0.956 g/cm2 No statistically significant change Right Total Hip: 0.931 g/cm2, T-score -0.1, Z-score 1.6 Right Total Hip: 2022: 0.956 g/cm2 No statistically significant change Left Femoral Neck: 0.622 g/cm2, T-score -2.0, Z-score -0.1 Left Femoral Neck: 2022: 0.662 g/cm2 Statistically significant decrease Left Total Hip: 0.899 g/cm2, T-score -0.4, Z-score 1.3 Left Total Hip: 2022: 0.895 g/cm2 No statistically significant change CHANGE IS STATISTICALLY SIGNIFICANT IN THE SPINE OR HIP IF GREATER THAN OR EQUAL TO 0.04 g/cm2 VERTEBRAL FRACTURE ASSESSMENT Not performed. TRABECULAR BONE ASSESSMENT TBS score: 1.269 Bone micro-architecture: Partially degraded (1.231 - 1.310) IMPRESSION: THE LOWEST T-SCORE IS -2.0 IN THE LEFT HIP 1) DIAGNOSIS (based on BMD alone): OSTEOPENIA Caution: Medical conditions other than osteoporosis may cause low bone density, such as osteomalacia or renal osteodystrophy. Clinical correlation is necessary. 2) FRACTURE RISK (Based on TBS adjusted FRAX): 10-year absolute fracture risk: - major osteoporotic fracture = 20 % - hip fracture = 7.4 % - A diagnosis of Osteoporosis, a 10 year probability of hip fracture greater than or equal to 3% or a 10 year probability of any major osteoporosis-related fracture greater than or equal to 20% should be considered for treatment. - DXA scanner generated FRAX calculations may slightly differ from online FRAX calculations due to differences in software versions. - All recommendations and calculations are to be considered as guidelines and should not replace sound clinical judgement - Caution: Fracture risk may be increased independent of BMD in patients with corticosteroid use, age greater than 65 years, or a history of prior fragility fracture. RECOMMENDATIONS: Follow-up in 2 years or as clinically indicated. Patients that are taking corticosteroids, are transplant recipients or have hyperparathyroidism should have annual follow-up. Follow-up scans should always be done on the same machine for accurate comparison. FOR MORE INFORMATION ABOUT DIAGNOSIS AND TREATMENT: [facility] Osteoporosis and Metabolic Bone Disease:? www.ccf.org/arthritis/ osteo National Osteoporosis Foundation:? www.nof.org International Society of Clinical Densitometry www.iscd.org Bioinformatics Computer Scientist: SEAN Transcribe Date/Time: Feb 24 2025 1:58P Dictated by : SHAMIKA GARCÍA MD This examination was interpreted and the report reviewed and electronically signed by: SHAMIKA GARCÍA MD on Feb 24 2025 2:01PM EST [id number] -2.0 Normal [facility] DXA Femur [T-score] Bone gemini up 02-24-2025 * * *Final Report* * * DATE OF EXAM: Feb 24 2025 10:32AM [facility] 0801 - BD DXA TRABECLR BONE SCORE (TBS) / PROCEDURE REASON: multiple diagnoses * * * * Physician Interpretation * * * * EXAMINATION: DXA BONE DENSITOMETRY BD DXA - AXIAL SKELETON, BD DXA TRABECLR BONE SCORE (TBS) PATIENT DEMOGRAPHICS: Age: 74 years, Gender: Female SCANNER INFORMATION: DXA Model: Done In :60 Seconds - [employer] C [id number] Date Scanned: 02/24/2025 10:32 AM CLINICAL HISTORY: DIAGNOSTIC Cardiovascular risk factor Postmenopausal osteoporoses Seropositive rheumatoid arthritis (HCC) Long-term use of hydroxychloroquine. RISK FACTORS FOR OSTEOPOROSIS AND ASSOCIATED FRACTURES REPORTED BY THIS PATIENT: Please refer to Bone Health Questionnaire in the EMR CURRENT THERAPY: Please refer to Bone Health Questionnaire in the EMR TECHNICAL LIMITATIONS: None RESULTS: Lumbar spine (L1, L2, L3, L4): 1.110 g/cm2, T-score 0.6, Z-score 2.8 Lumbar spine: 2022: 1.028 g/cm2 Statistically significant increase Right Femoral Neck: 0.667 g/cm2, T-score -1.6, Z-score 0.3 Right Femoral Neck: 2022: 0.956 g/cm2 No statistically significant change Right Total Hip: 0.931 g/cm2, T-score -0.1, Z-score 1.6 Right Total Hip: 2022: 0.956 g/cm2 No statistically significant change Left Femoral Neck: 0.622 g/cm2, T-score -2.0, Z-score -0.1 Left Femoral Neck: 2022: 0.662 g/cm2 Statistically significant decrease Left Total Hip: 0.899 g/cm2, T-score -0.4, Z-score 1.3 Left Total Hip: 2022: 0.895 g/cm2 No statistically significant change CHANGE IS STATISTICALLY SIGNIFICANT IN THE SPINE OR HIP IF GREATER THAN OR EQUAL TO 0.04 g/cm2 VERTEBRAL FRACTURE ASSESSMENT Not performed. TRABECULAR BONE ASSESSMENT TBS score: 1.269 Bone micro-architecture: Partially degraded (1.231 - 1.310) DIVISION OF RADIOLOGY Provider, [facility] - 02/24/2025 * * *Final Report* * * DATE OF EXAM: Feb 24 2025 10:32AM [facility] 0801 - BD DXA TRABECLR BONE SCORE (TBS) / PROCEDURE REASON: multiple diagnoses * * * * Physician Interpretation * * * * EXAMINATION: DXA BONE DENSITOMETRY BD DXA - AXIAL SKELETON, BD DXA TRABECLR BONE SCORE (TBS) PATIENT DEMOGRAPHICS: Age: 74 years, Gender: Female SCANNER INFORMATION: DXA Model: Done In :60 Seconds - [employer] C [id number] Date Scanned: 02/24/2025 10:32 AM CLINICAL HISTORY: DIAGNOSTIC Cardiovascular risk factor Postmenopausal osteoporoses Seropositive rheumatoid arthritis (HCC) Long-term use of hydroxychloroquine. RISK FACTORS FOR OSTEOPOROSIS AND ASSOCIATED FRACTURES REPORTED BY THIS PATIENT: Please refer to Bone Health Questionnaire in the EMR CURRENT THERAPY: Please refer to Bone Health Questionnaire in the EMR TECHNICAL LIMITATIONS: None RESULTS: Lumbar spine (L1, L2, L3, L4): 1.110 g/cm2, T-score 0.6, Z-score 2.8 Lumbar spine: 2022: 1.028 g/cm2 Statistically significant increase Right Femoral Neck: 0.667 g/cm2, T-score -1.6, Z-score 0.3 Right Femoral Neck: 2022: 0.956 g/cm2 No statistically significant change Right Total Hip: 0.931 g/cm2, T-score -0.1, Z-score 1.6 Right Total Hip: 2022: 0.956 g/cm2 No statistically significant change Left Femoral Neck: 0.622 g/cm2, T-score -2.0, Z-score -0.1 Left Femoral Neck: 2022: 0.662 g/cm2 Statistically significant decrease Left Total Hip: 0.899 g/cm2, T-score -0.4, Z-score 1.3 Left Total Hip: 2022: 0.895 g/cm2 No statistically significant change CHANGE IS STATISTICALLY SIGNIFICANT IN THE SPINE OR HIP IF GREATER THAN OR EQUAL TO 0.04 g/cm2 VERTEBRAL FRACTURE ASSESSMENT Not performed. TRABECULAR BONE ASSESSMENT TBS score: 1.269 Bone micro-architecture: Partially degraded (1.231 - 1.310) IMPRESSION IMPRESSION: THE LOWEST T-SCORE IS -2.0 IN THE LEFT HIP 1) DIAGNOSIS (based on BMD alone): OSTEOPENIA Caution: Medical conditions other than osteoporosis may cause low bone density, such as osteomalacia or renal osteodystrophy. Clinical correlation is necessary. 2) FRACTURE RISK (Based on TBS adjusted FRAX): 10-year absolute fracture risk: - major osteoporotic fracture = 20 % - hip fracture = 7.4 % - A diagnosis of Osteoporosis, a 10 year probability of hip fracture greater than or equal to 3% or a 10 year probability of any major osteoporosis-related fracture greater than or equal to 20% should be considered for treatment. - DXA scanner generated FRAX calculations may slightly differ from online FRAX calculations due to differences in software versions. - All recommendations and calculations are to be considered as guidelines and should not replace sound clinical judgement - Caution: Fracture risk may be increased independent of BMD in patients with corticosteroid use, age greater than 65 years, or a history of prior fragility fracture. RECOMMENDATIONS: Follow-up in 2 years or as clinically indicated. Patients that are taking corticosteroids, are transplant recipients or have hyperparathyroidism should have annual follow-up. Follow-up scans should always be done on the same machine for accurate comparison. FOR MORE INFORMATION ABOUT DIAGNOSIS AND TREATMENT: [facility] Osteoporosis and Metabolic Bone Disease:? www.ccf.org/arthritis/ osteo National Osteoporosis Foundation:? www.nof.org International Society of Clinical Densitometry www.iscd.org Bioinformatics Computer Scientist: SEAN Transcribe Date/Time: Feb 24 2025 1:58P Dictated by : SHAMIKA GARCÍA MD This examination was interpreted and the report reviewed and electronically signed by: SHAMIKA GARCÍA MD on Feb 24 2025 2:01PM EST [facility] DXA Skeletal system.axial Vi ews for bone densityon 02-24-2025 * * *Final Report* * * DATE OF EXAM: Feb 24 2025 10:32AM B 0804 - BD DXA - AXIAL SKELETON / PROCEDURE REASON: multiple diagnoses * * * * Physician Interpretation * * * * EXAMINATION: DXA BONE DENSITOMETRY BD DXA - AXIAL SKELETON, BD DXA TRABECLR BONE SCORE (TBS) PATIENT DEMOGRAPHICS: Age: 74 years, Gender: Female SCANNER INFORMATION: DXA Model: Done In :60 Seconds - [employer] C [id number] Date Scanned: 02/24/2025 10:32 AM CLINICAL HISTORY: DIAGNOSTIC Cardiovascular risk factor Postmenopausal osteoporoses Seropositive rheumatoid arthritis (HCC) Long-term use of hydroxychloroquine. RISK FACTORS FOR OSTEOPOROSIS AND ASSOCIATED FRACTURES REPORTED BY THIS PATIENT: Please refer to Bone Health Questionnaire in the EMR CURRENT THERAPY: Please refer to Bone Health Questionnaire in the EMR TECHNICAL LIMITATIONS: None RESULTS: Lumbar spine (L1, L2, L3, L4): 1.110 g/cm2, T-score 0.6, Z-score 2.8 Lumbar spine: 2022: 1.028 g/cm2 Statistically significant increase Right Femoral Neck: 0.667 g/cm2, T-score -1.6, Z-score 0.3 Right Femoral Neck: 2022: 0.956 g/cm2 No statistically significant change Right Total Hip: 0.931 g/cm2, T-score -0.1, Z-score 1.6 Right Total Hip: 2022: 0.956 g/cm2 No statistically significant change Left Femoral Neck: 0.622 g/cm2, T-score -2.0, Z-score -0.1 Left Femoral Neck: 2022: 0.662 g/cm2 Statistically significant decrease Left Total Hip: 0.899 g/cm2, T-score -0.4, Z-score 1.3 Left Total Hip: 2022: 0.895 g/cm2 No statistically significant change CHANGE IS STATISTICALLY SIGNIFICANT IN THE SPINE OR HIP IF GREATER THAN OR EQUAL TO 0.04 g/cm2 VERTEBRAL FRACTURE ASSESSMENT Not performed. TRABECULAR BONE ASSESSMENT TBS score: 1.269 Bone micro-architecture: Partially degraded (1.231 - 1.310) DIVISION OF RADIOLOGY Provider, [facility] - 02/24/2025 * * *Final Report* * * DATE OF EXAM: Feb 24 2025 10:32AM [facility] 0804 - DXA - AXIAL SKELETON / PROCEDURE REASON: multiple diagnoses * * * * Physician Interpretation * * * * EXAMINATION: DXA BONE DENSITOMETRY BD DXA - AXIAL SKELETON, BD DXA TRABECLR BONE SCORE (TBS) PATIENT DEMOGRAPHICS: Age: 74 years, Gender: Female SCANNER INFORMATION: DXA Model: Done In :60 Seconds - [employer] C [id number] Date Scanned: 02/24/2025 10:32 AM CLINICAL HISTORY: DIAGNOSTIC Cardiovascular risk factor Postmenopausal osteoporoses Seropositive rheumatoid arthritis (HCC) Long-term use of hydroxychloroquine. RISK FACTORS FOR OSTEOPOROSIS AND ASSOCIATED FRACTURES REPORTED BY THIS PATIENT: Please refer to Bone Health Questionnaire in the EMR CURRENT THERAPY: Please refer to Bone Health Questionnaire in the EMR TECHNICAL LIMITATIONS: None RESULTS: Lumbar spine (L1, L2, L3, L4): 1.110 g/cm2, T-score 0.6, Z-score 2.8 Lumbar spine: 2022: 1.028 g/cm2 Statistically significant increase Right Femoral Neck: 0.667 g/cm2, T-score -1.6, Z-score 0.3 Right Femoral Neck: 2022: 0.956 g/cm2 No statistically significant change Right Total Hip: 0.931 g/cm2, T-score -0.1, Z-score 1.6 Right Total Hip: 2022: 0.956 g/cm2 No statistically significant change Left Femoral Neck: 0.622 g/cm2, T-score -2.0, Z-score -0.1 Left Femoral Neck: 2022: 0.662 g/cm2 Statistically significant decrease Left Total Hip: 0.899 g/cm2, T-score -0.4, Z-score 1.3 Left Total Hip: 2022: 0.895 g/cm2 No statistically significant change CHANGE IS STATISTICALLY SIGNIFICANT IN THE SPINE OR HIP IF GREATER THAN OR EQUAL TO 0.04 g/cm2 VERTEBRAL FRACTURE ASSESSMENT Not performed. TRABECULAR BONE ASSESSMENT TBS score: 1.269 Bone micro-architecture: Partially degraded (1.231 - 1.310) IMPRESSION IMPRESSION: THE LOWEST T-SCORE IS -2.0 IN THE LEFT HIP 1) DIAGNOSIS (based on BMD alone): OSTEOPENIA Caution: Medical conditions other than osteoporosis may cause low bone density, such as osteomalacia or renal osteodystrophy. Clinical correlation is necessary. 2) FRACTURE RISK (Based on TBS adjusted FRAX): 10-year absolute fracture risk: - major osteoporotic fracture = 20 % - hip fracture = 7.4 % - A diagnosis of Osteoporosis, a 10 year probability of hip fracture greater than or equal to 3% or a 10 year probability of any major osteoporosis-related fracture greater than or equal to 20% should be considered for treatment. - DXA scanner generated FRAX calculations may slightly differ from online FRAX calculations due to differences in software versions. - All recommendations and calculations are to be considered as guidelines and should not replace sound clinical judgement - Caution: Fracture risk may be increased independent of BMD in patients with corticosteroid use, age greater than 65 years, or a history of prior fragility fracture. RECOMMENDATIONS: Follow-up in 2 years or as clinically indicated. Patients that are taking corticosteroids, are transplant recipients or have hyperparathyroidism should have annual follow-up. Follow-up scans should always be done on the same machine for accurate comparison. FOR MORE INFORMATION ABOUT DIAGNOSIS AND TREATMENT: [facility] Osteoporosis and Metabolic Bone Disease:? www.ccf.org/arthritis/ osteo National Osteoporosis Foundation:? www.nof.org International Society of Clinical Densitometry www.iscd.org Bioinformatics Computer Scientist: SEAN Transcribe Date/Time: Feb 24 2025 1:58P Dictated by : SHAMIKA GARCÍA MD This examination was interpreted and the report reviewed and electronically signed by: SHAMIKA GARCÍA MD on Feb 24 2025 2:01PM [facility] InformationOrdered By: Cc Provider on 02-24-2025 LOWEST T-SCORE -2 [facility] No Panel Informationon 02-24 IMPRESSION: THE LOWEST T-SCORE IS -2.0 IN THE LEFT HIP 1) DIAGNOSIS (based on BMD alone): OSTEOPENIA Caution: Medical conditions other than osteoporosis may cause low bone density, such as osteomalacia or renal osteodystrophy. Clinical correlation is necessary. 2) FRACTURE RISK (Based on TBS adjusted FRAX): 10-year absolute fracture risk: - major osteoporotic fracture = 20 % - hip fracture = 7.4 % - A diagnosis of Osteoporosis, a 10 year probability of hip fracture greater than or equal to 3% or a 10 year probability of any major osteoporosis-related fracture greater than or equal to 20% should be considered for treatment. - DXA scanner generated FRAX calculations may slightly differ from online FRAX calculations due to differences in software versions. - All recommendations and calculations are to be considered as guidelines and should not replace sound clinical judgement - Caution: Fracture risk may be increased independent of BMD in patients with corticosteroid use, age greater than 65 years, or a history of prior fragility fracture. RECOMMENDATIONS: Follow-up in 2 years or as clinically indicated. Patients that are taking corticosteroids, are transplant recipients or have hyperparathyroidism should have annual follow-up. Follow-up scans should always be done on the same machine for accurate comparison. FOR MORE INFORMATION ABOUT DIAGNOSIS AND TREATMENT: [facility] Osteoporosis and Metabolic Bone Disease:? www.ccf.org/arthritis/ osteo National Osteoporosis Foundation:? www.nof.org International Society of Clinical Densitometry www.iscd.org Bioinformatics Computer Scientist: SEAN Transcribe Date/Time: Feb 24 2025 1:58P Dictated by : SHAMIKA GARCÍA MD This examination was interpreted and the report reviewed and electronically signed by: SHAMIKA GARCÍA MD on Feb 24 2025 2:01PM [facility] DIVISION OF RADIOLOGY Radiology Study observation (narrative) [facility] CNOVon 02-23-2025 CNOV Office Visit (CASSY ) JADE JACKSON ([id number]) 1950 F Date Time Provider Department 02/23/25 11:20 AM KENDAL HIGH During your visit today, we recorded the following information about you: Pulse Blood pressure Weight Height 67/minute 114/72 88.9 kg 1.575 m Kendal High MD 02/23/2025 11:30 AM Signed Rheumatology FOLLOW UP VISIT Date of Service: 02/23/2025 Patient: Jade Jackson Medical Record: [id number] Primary Care Physician: Robina Sam MD Last Rheumatology visit: 08/23/2024 (with Kendal High) Chief Complaint: Follow Up (Left hip pain) INTERVAL HISTORY Luisa is a 74-year-old female with a history , CEDRIC on CPAP, HLD, OA, presenting for a follow-up of seropositive RA and osteoporosis. Luisa was last evaluated in August 2024, at which time she was advised to continue hydroxychloroquine 200 mg daily, with an annual eye exam due in July 2025, and a bone density scan due in January 2025. She was also instructed to continue vitamin D 2000 units daily and alendronate once a week. She declined preventive cardiology at that time. She reports increased discomfort in her right knee and new onset of left hip pain over the past few weeks. The hip pain is localized at the ball of the hip and described as a shooting pain similar to a bruise when touched. She has been using Voltaren gel without significant relief and applies a hot water bottle at night, which provides temporary relief. The pain worsens by the end of the day, causing her to limp, but does not prevent her from walking 2 to 5 miles daily. She sleeps flat on her back and denies other joint issues. She experiences heartburn on Wednesdays after taking alendronate, despite drinking 18 ounces of water with the medication. She is concerned about the effectiveness of the medication due to this side effect but is willing to tolerate it if the medication is effective. ROS: She denies fevers, night sweats, unintentional weight change, cough, chest pain, or dyspnea. She reports a weight gain of 5-7 pounds due to dietary habits. She experiences morning stiffness, particularly in her back, and notes shooting pain up her back when sneezing, which resolves afterward. She has not had recent x-rays of her back. She reports a decrease in height from 5'6 to 5'2 over the years. She denies any known fractures as an adult and has not had recent falls, though she had a near fall on the steps about a month ago while carrying a laundry basket. Her mother had osteoporosis, but she does not believe her father did. She underwent menopause at a young age, around 35-40 years old, and her daughter also experienced early menopause. She denies any history of cancer, except for Mohs surgery for skin cancer, and has not undergone radiation therapy. She drinks 5-6 cups of coffee daily and quit smoking on March 31, 2020, following an appendicitis episode. She continues to take vitamin D3 2000 units and calcium 1800 mg daily. She is up to date with her eye exams, having had one in August and another scheduled for next August. She recently saw cardiology, where she was told her cholesterol and blood work were excellent, and her nuclear stress test showed good blood flow. Osteoporosis History: Previous fractures: No Falls: No Treatment history: Aldendronate 2022-present Parental history: Mom GERD: yes Cancer history:Skin cancer Radiation history: No Weight bearing exercise: walk daily Menopause: Age 35-40 sometime Alcohol: No Tobacco: Former 04/30/2020 Caffeine: Coffee 5-7 c a day Vitamin D: 2000 units Calcium: 1800 daily RHEUMATOLOGIC HISTORY She is currently taking hydroxychloroquine sulfate. Jade Levy is RF positive - 346 (03/25/2021) and CCP negative - 13.5 (09/19/2024). Her most recent EDOUARD was negative (03/25/2021). HISTORY OF PRESENT ILLNESS 1. Seropositive rheumatoid arthritis 2. Osteoporosis (osteopenia with elevated FRAX) DEXA 01/2023 lowest T score -1.7 left femoral neck FRAX 19% major, 4.7% hip Treatment: Hydroxychloroquine 06/2021-present 200 mg Alendronate 08/2023-present per PCP Work-up: Historic labs: Negative EDOUARD RF 346 Normal TSH Negative SSA, SSB 03/2021 hand x-rays: Normal Jade Jackson is a 72 year old White female with a history of CEDRIC on CPAP, hyperlipidemia, osteoarthritis, osteopenia who presents to rheumatology clinic to establish care with physician for seropositive rheumatoid arthritis. Chart review reveals she establish care with Dr. Lowe 06/2021 for CMC pain, back pain in the setting of high titer RF positivity. She was given a steroid injection for trigger finger of the left thumb and put on conservative management for OA of CMC, knee, back. She was put on hydroxychloroquine in 2020 for empiric treatment of inflammatory arthritis. She then saw ZOË Weaver 07/2022 and noted (more content not included)... Normal [facility] No Panel Informationon 02-23 IMPRESSION: Thoracic and lumbar spine: Osteopenia and minimal chronic loss of height of the L2 superior endplate. Suboptimal evaluation of the upper thoracic spine. CT may be performed for further evaluation. Thoracolumbar spine degenerative changes and levoscoliosis, and lumbar retrolistheses as described. Bioinformatics Computer Scientist: SEAN Transcribe Date/Time: Feb 23 2025 12:14P Dictated by : SABRINA CASTILLO MD This examination was interpreted and the report reviewed and electronically signed by: SABRINA CASTILLO MD on Feb 23 2025 12:21PM [facility] DIVISION OF RADIOLOGY [facility] Radiology Study observation (narrative) [facility] XR HIP 3V PELV+ AP/LAT LTon 02-23-2025 XR HIP 3V PELV+ AP/LAT LT * * *Final Report* * * DATE OF EXAM: Feb 23 2025 11:53AM STX 5351 - XR HIP 3V PELV+ AP/LAT LT / PROCEDURE REASON: Pain in left hip * * * * Physician Interpretation * * * * HISTORY: Pain in left hip . BACK AND HIP PAIN FOR A FEW WEEKS / NO TRAUMA TECHNIQUE: XR HIP 3V PELV+ AP/LAT LT Laterality: LEFT Number of different views (projections): 3 COMPARISON: None RESULT: No acute fracture or dislocation. Left hip joint space is maintained with tiny osteophytes. Right hip joint space, pubic symphysis, and sacroiliac joints are intact. Degenerative changes of the included lower lumbar spine. Mild bilateral pelvic and trochanteric enthesopathy. Vascular calcifications. IMPRESSION: Minimal left hip degenerative changes. Bioinformatics Computer Scientist: SEAN Transcribe Date/Time: Feb 23 2025 12:13P Dictated by : SABRINA CASTILLO MD This examination was interpreted and the report reviewed and electronically signed by: SABRINA CASTILLO MD on Feb 23 2025 12:14PM EST [id number] Normal [facility] XR LUMBAR 2V AP/LATon 2024 XR LUMBAR 2V AP/LAT * * *Final Report* * * * * * SEE BOTTOM OF REPORT FOR ADDENDED TEXT * * * DATE OF EXAM: Feb 23 2025 11:53AM STX 5229 - XR LUMBAR 2V AP/LAT / PROCEDURE REASON: Height loss * * * * Physician Interpretation * * * * * * * * * * * * ORIGINAL REPORT * * * * * * * * HISTORY: Height loss . BACK AND HIP PAIN FOR A FEW WEEKS / NO TRAUMA TECHNIQUE: XR LUMBAR 2V AP/LAT, XR THORACIC 2V AP/LAT Laterality: NOT APPLICABLE Number of different views (projections): 2 COMPARISON: CT abdomen pelvis 04/06/2020. CT chest/lung screen 09/23/2024 RESULT: Thoracic and lumbar spine: Counting reference: Lumbosacral junction. For the purposes of this report, L5-S1 is considered the last lumbar type disc space and L4-L5 is considered the level of the iliac crest. Mild thoracolumbar junction levoscoliosis. Generalized bone demineralization compatible with osteopenia. Suboptimal evaluation of the upper thoracic spine on lateral view due to overlying artifacts from the patient's shoulders. Visualized thoracic vertebral body heights are maintained without evidence of compression deformity. Mild to moderate multilevel disc space narrowing and endplate osteophytes greater involving the lower thoracic spine. Atherosclerotic calcifications of the thoracic aorta, and tortuosity of the descending thoracic aorta. Minimal chronic loss of height of the L2 superior endplate which appears unchanged from prior CT abdomen and pelvis from 2019 allowing for technical differences. Lumbar vertebral body heights are otherwise maintained without compression deformity mild grade 1 retrolisthesis of L1 on L2 and L2 on L3. Minimal anterolisthesis of L5 on S1. Moderate to severe multilevel disc space narrowing of the lumbar spine. Multilevel endplate osteophytes. Scattered facet degeneration, greater and moderate to severely involving L3-S1. Severe atherosclerotic calcifications of the abdominal aorta. IMPRESSION: Thoracic and lumbar spine: Osteopenia and minimal chronic loss of height of the L2 superior endplate. Suboptimal evaluation of the upper thoracic spine. CT may be performed for further evaluation. Thoracolumbar spine degenerative changes and levoscoliosis, and lumbar retrolistheses as described. * * * * * * * * ADDENDUM #1 * * * * * * * * Minimal chronic loss of height of the L2 superior endplate corresponds with a Schmorl's node on the comparison CT abdomen pelvis from 04/06/2020. Osteopenia and the degree of degenerative changes limits radiographic evaluation, and if there is clinical concern for an occult fracture, MRI may be considered for further evaluation. Bioinformatics Computer Scientist: PSCB Transcribe Date/Time: Feb 24 2025 1:27P Dictated by : SABRINA CASTILLO MD This examination was interpreted and the report reviewed and electronically signed by: SABRINA CASTILLO MD on Feb 23 2025 12:21PM EST This document has been addended by: SABRINA CASTILLO MD on Feb 24 2025 1:36PM EST [id number] Normal [facility] XR Lumbar spine AP and Later navya 02-23-2025 * * *Final Report* * * DATE OF EXAM: Feb 23 2025 11:53AM STX 5229 - XR LUMBAR 2V AP/LAT / PROCEDURE REASON: Height loss * * * * Physician Interpretation * * * * HISTORY: Height loss . BACK AND HIP PAIN FOR A FEW WEEKS / NO TRAUMA TECHNIQUE: XR LUMBAR 2V AP/LAT, XR THORACIC 2V AP/LAT Laterality: NOT APPLICABLE Number of different views (projections): 2 COMPARISON: CT abdomen pelvis 04/06/2020. CT chest/lung screen 09/23/2024 RESULT: Thoracic and lumbar spine: Counting reference: Lumbosacral junction. For the purposes of this report, L5-S1 is considered the last lumbar type disc space and L4-L5 is considered the level of the iliac crest. Mild thoracolumbar junction levoscoliosis. Generalized bone demineralization compatible with osteopenia. Suboptimal evaluation of the upper thoracic spine on lateral view due to overlying artifacts from the patient's shoulders. Visualized thoracic vertebral body heights are maintained without evidence of compression deformity. Mild to moderate multilevel disc space narrowing and endplate osteophytes greater involving the lower thoracic spine. Atherosclerotic calcifications of the thoracic aorta, and tortuosity of the descending thoracic aorta. Minimal chronic loss of height of the L2 superior endplate which appears unchanged from prior CT abdomen and pelvis from 2019 allowing for technical differences. Lumbar vertebral body heights are otherwise maintained without compression deformity mild grade 1 retrolisthesis of L1 on L2 and L2 on L3. Minimal anterolisthesis of L5 on S1. Moderate to severe multilevel disc space narrowing of the lumbar spine. Multilevel endplate osteophytes. Scattered facet degeneration, greater and moderate to severely involving L3-S1. Severe atherosclerotic calcifications of the abdominal aorta. DIVISION OF RADIOLOGY Provider, [facility] - 02/23/2025 * * *Final Report* * * DATE OF EXAM: Feb 23 2025 11:53AM STX 5229 - XR LUMBAR 2V AP/LAT / PROCEDURE REASON: Height loss * * * * Physician Interpretation * * * * HISTORY: Height loss . BACK AND HIP PAIN FOR A FEW WEEKS / NO TRAUMA TECHNIQUE: XR LUMBAR 2V AP/LAT, XR THORACIC 2V AP/LAT Laterality: NOT APPLICABLE Number of different views (projections): 2 COMPARISON: CT abdomen pelvis 04/06/2020. CT chest/lung screen 09/23/2024 RESULT: Thoracic and lumbar spine: Counting reference: Lumbosacral junction. For the purposes of this report, L5-S1 is considered the last lumbar type disc space and L4-L5 is considered the level of the iliac crest. Mild thoracolumbar junction levoscoliosis. Generalized bone demineralization compatible with osteopenia. Suboptimal evaluation of the upper thoracic spine on lateral view due to overlying artifacts from the patient's shoulders. Visualized thoracic vertebral body heights are maintained without evidence of compression deformity. Mild to moderate multilevel disc space narrowing and endplate osteophytes greater involving the lower thoracic spine. Atherosclerotic calcifications of the thoracic aorta, and tortuosity of the descending thoracic aorta. Minimal chronic loss of height of the L2 superior endplate which appears unchanged from prior CT abdomen and pelvis from 2019 allowing for technical differences. Lumbar vertebral body heights are otherwise maintained without compression deformity mild grade 1 retrolisthesis of L1 on L2 and L2 on L3. Minimal anterolisthesis of L5 on S1. Moderate to severe multilevel disc space narrowing of the lumbar spine. Multilevel endplate osteophytes. Scattered facet degeneration, greater and moderate to severely involving L3-S1. Severe atherosclerotic calcifications of the abdominal aorta. IMPRESSION IMPRESSION: Thoracic and lumbar spine: Osteopenia and minimal chronic loss of height of the L2 superior endplate. Suboptimal evaluation of the upper thoracic spine. CT may be performed for further evaluation. Thoracolumbar spine degenerative changes and levoscoliosis, and lumbar retrolistheses as described. Bioinformatics Computer Scientist: PSCB Transcribe Date/Time: Feb 23 2025 12:14P Dictated by : SABRINA CASTILLO MD This examination was interpreted and the report reviewed and electronically signed by: SABRINA CASTILLO MD on Feb 23 2025 12:21PM [facility] XR Pelvis and Hip - left AP and Lateral frogon 02-23-2025 IMPRESSION: Minimal left hip degenerative changes. Bioinformatics Computer Scientist: PSCB Transcribe Date/Time: Feb 23 2025 12:13P Dictated by : SABRINA CASTILLO MD This examination was interpreted and the report reviewed and electronically signed by: SABRINA CASTILLO MD on Feb 23 2025 12:14PM [facility] DIVISION OF RADIOLOGY * * *Final Report* * * DATE OF EXAM: Feb 23 2025 11:53AM STX 5351 - XR HIP 3V PELV+ AP/LAT LT / PROCEDURE REASON: Pain in left hip * * * * Physician Interpretation * * * * HISTORY: Pain in left hip . BACK AND HIP PAIN FOR A FEW WEEKS / NO TRAUMA TECHNIQUE: XR HIP 3V PELV+ AP/LAT LT Laterality: LEFT Number of different views (projections): 3 COMPARISON: None RESULT: No acute fracture or dislocation. Left hip joint space is maintained with tiny osteophytes. Right hip joint space, pubic symphysis, and sacroiliac joints are intact. Degenerative changes of the included lower lumbar spine. Mild bilateral pelvic and trochanteric enthesopathy. Vascular calcifications. DIVISION OF RADIOLOGY Provider, [facility] - 02/23/2025 * * *Final Report* * * DATE OF EXAM: Feb 23 2025 11:53AM STX 5351 - XR HIP 3V PELV+ AP/LAT LT / PROCEDURE REASON: Pain in left hip * * * * Physician Interpretation * * * * HISTORY: Pain in left hip . BACK AND HIP PAIN FOR A FEW WEEKS / NO TRAUMA TECHNIQUE: XR HIP 3V PELV+ AP/LAT LT Laterality: LEFT Number of different views (projections): 3 COMPARISON: None RESULT: No acute fracture or dislocation. Left hip joint space is maintained with tiny osteophytes. Right hip joint space, pubic symphysis, and sacroiliac joints are intact. Degenerative changes of the included lower lumbar spine. Mild bilateral pelvic and trochanteric enthesopathy. Vascular calcifications. IMPRESSION IMPRESSION: Minimal left hip degenerative changes. Bioinformatics Computer Scientist: SEAN Transcribe Date/Time: Feb 23 2025 12:13P Dictated by : SABRINA CASTILLO MD This examination was interpreted and the report reviewed and electronically signed by: SABRINA CASTILLO MD on Feb 23 2025 12:14PM EST [facility] XR Pelvis and Hip - left AP and Lateral frogOrdered By: [facility] Provider on 02-23-2025 [facility] XR THORACIC 2V AP/LATon 02-09 XR THORACIC 2V AP/LAT * * *Final Report* * * * * * SEE BOTTOM OF REPORT FOR ADDENDED TEXT * * * DATE OF EXAM: Feb 23 2025 11:53AM STX 5262 - XR THORACIC 2V AP/LAT / PROCEDURE REASON: multiple diagnoses * * * * Physician Interpretation * * * * * * * * * * * * ORIGINAL REPORT * * * * * * * * HISTORY: Height loss . BACK AND HIP PAIN FOR A FEW WEEKS / NO TRAUMA TECHNIQUE: XR LUMBAR 2V AP/LAT, XR THORACIC 2V AP/LAT Laterality: NOT APPLICABLE Number of different views (projections): 2 COMPARISON: CT abdomen pelvis 04/06/2020. CT chest/lung screen 09/23/2024 RESULT: Thoracic and lumbar spine: Counting reference: Lumbosacral junction. For the purposes of this report, L5-S1 is considered the last lumbar type disc space and L4-L5 is considered the level of the iliac crest. Mild thoracolumbar junction levoscoliosis. Generalized bone demineralization compatible with osteopenia. Suboptimal evaluation of the upper thoracic spine on lateral view due to overlying artifacts from the patient's shoulders. Visualized thoracic vertebral body heights are maintained without evidence of compression deformity. Mild to moderate multilevel disc space narrowing and endplate osteophytes greater involving the lower thoracic spine. Atherosclerotic calcifications of the thoracic aorta, and tortuosity of the descending thoracic aorta. Minimal chronic loss of height of the L2 superior endplate which appears unchanged from prior CT abdomen and pelvis from 2019 allowing for technical differences. Lumbar vertebral body heights are otherwise maintained without compression deformity mild grade 1 retrolisthesis of L1 on L2 and L2 on L3. Minimal anterolisthesis of L5 on S1. Moderate to severe multilevel disc space narrowing of the lumbar spine. Multilevel endplate osteophytes. Scattered facet degeneration, greater and moderate to severely involving L3-S1. Severe atherosclerotic calcifications of the abdominal aorta. IMPRESSION: Thoracic and lumbar spine: Osteopenia and minimal chronic loss of height of the L2 superior endplate. Suboptimal evaluation of the upper thoracic spine. CT may be performed for further evaluation. Thoracolumbar spine degenerative changes and levoscoliosis, and lumbar retrolistheses as described. * * * * * * * * ADDENDUM #1 * * * * * * * * Minimal chronic loss of height of the L2 superior endplate corresponds with a Schmorl's node on the comparison CT abdomen pelvis from 04/06/2020. Osteopenia and the degree of degenerative changes limits radiographic evaluation, and if there is clinical concern for an occult fracture, MRI may be considered for further evaluation. Bioinformatics Computer Scientist: SEAN Transcribe Date/Time: Feb 24 2025 1:27P Dictated by : SABRINA CASTILLO MD This examination was interpreted and the report reviewed and electronically signed by: SABRINA CASTILLO MD on Feb 23 2025 12:21PM EST This document has been addended by: SABRINA CASTILLO MD on Feb 24 2025 1:36PM EST [id number] Normal [facility]R Thoracic spine [facility] * * *Final Report* * * DATE OF EXAM: Feb 23 2025 11:53AM STX 5262 - XR THORACIC 2V AP/LAT / PROCEDURE REASON: multiple diagnoses * * * * Physician Interpretation * * * * HISTORY: Height loss . BACK AND HIP PAIN FOR A FEW WEEKS / NO TRAUMA TECHNIQUE: XR LUMBAR 2V AP/LAT, XR THORACIC 2V AP/LAT Laterality: NOT APPLICABLE Number of different views (projections): 2 COMPARISON: CT abdomen pelvis 04/06/2020. CT chest/lung screen 09/23/2024 RESULT: Thoracic and lumbar spine: Counting reference: Lumbosacral junction. For the purposes of this report, L5-S1 is considered the last lumbar type disc space and L4-L5 is considered the level of the iliac crest. Mild thoracolumbar junction levoscoliosis. Generalized bone demineralization compatible with osteopenia. Suboptimal evaluation of the upper thoracic spine on lateral view due to overlying artifacts from the patient's shoulders. Visualized thoracic vertebral body heights are maintained without evidence of compression deformity. Mild to moderate multilevel disc space narrowing and endplate osteophytes greater involving the lower thoracic spine. Atherosclerotic calcifications of the thoracic aorta, and tortuosity of the descending thoracic aorta. Minimal chronic loss of height of the L2 superior endplate which appears unchanged from prior CT abdomen and pelvis from 2019 allowing for technical differences. Lumbar vertebral body heights are otherwise maintained without compression deformity mild grade 1 retrolisthesis of L1 on L2 and L2 on L3. Minimal anterolisthesis of L5 on S1. Moderate to severe multilevel disc space narrowing of the lumbar spine. Multilevel endplate osteophytes. Scattered facet degeneration, greater and moderate to severely involving L3-S1. Severe atherosclerotic calcifications of the abdominal aorta. DIVISION OF RADIOLOGY Provider, [facility] - 02/23/2025 * * *Final Report* * * DATE OF EXAM: Feb 23 2025 11:53AM STX 5262 - XR THORACIC 2V AP/LAT / PROCEDURE REASON: multiple diagnoses * * * * Physician Interpretation * * * * HISTORY: Height loss . BACK AND HIP PAIN FOR A FEW WEEKS / NO TRAUMA TECHNIQUE: XR LUMBAR 2V AP/LAT, XR THORACIC 2V AP/LAT Laterality: NOT APPLICABLE Number of different views (projections): 2 COMPARISON: CT abdomen pelvis 04/06/2020. CT chest/lung screen 09/23/2024 RESULT: Thoracic and lumbar spine: Counting reference: Lumbosacral junction. For the purposes of this report, L5-S1 is considered the last lumbar type disc space and L4-L5 is considered the level of the iliac crest. Mild thoracolumbar junction levoscoliosis. Generalized bone demineralization compatible with osteopenia. Suboptimal evaluation of the upper thoracic spine on lateral view due to overlying artifacts from the patient's shoulders. Visualized thoracic vertebral body heights are maintained without evidence of compression deformity. Mild to moderate multilevel disc space narrowing and endplate osteophytes greater involving the lower thoracic spine. Atherosclerotic calcifications of the thoracic aorta, and tortuosity of the descending thoracic aorta. Minimal chronic loss of height of the L2 superior endplate which appears unchanged from prior CT abdomen and pelvis from 2019 allowing for technical differences. Lumbar vertebral body heights are otherwise maintained without compression deformity mild grade 1 retrolisthesis of L1 on L2 and L2 on L3. Minimal anterolisthesis of L5 on S1. Moderate to severe multilevel disc space narrowing of the lumbar spine. Multilevel endplate osteophytes. Scattered facet degeneration, greater and moderate to severely involving L3-S1. Severe atherosclerotic calcifications of the abdominal aorta. IMPRESSION IMPRESSION: Thoracic and lumbar spine: Osteopenia and minimal chronic loss of height of the L2 superior endplate. Suboptimal evaluation of the upper thoracic spine. CT may be performed for further evaluation. Thoracolumbar spine degenerative changes and levoscoliosis, and lumbar retrolistheses as described. Bioinformatics Computer Scientist: PSCB Transcribe Date/Time: Feb 23 2025 12:14P Dictated by : SABRINA CASTILLO MD This examination was interpreted and the report reviewed and electronically signed by: SABRINA CASTILLO MD on Feb 23 2025 12:21PM [facility] Echo Complete W/ Contraston 01-26-2025 Echo Complete W/ Contrast [facility] [address] [place] [address] Echo Complete W/ Contrast 01/26/25 0929 MR#: [id number] Acct: [id number] Name: JADE JACKSON Rep #: [id number] : [id number] From: Stiven Patel MD Attending Dr: Dr. Stiven Patel MD Status: TEE HERNANDEZ Ordering Dr: Stiven Patel MD Date: 01/26/25 Location: [facility] Sex: F C Admitted: Reason For Study Reason For Study: ASHD Procedure This was a 2D Doppler, Color Flow transthoracic echocardiogram. Contrast injection was performed. Due to suboptimal imaging of apical views. Exam performed in department. Left Ventricle Normal LV size. Left ventricular systolic function is normal. The left ventricular ejection fraction is 55 %. Stage 1 diastolic dysfunction. No regional wall motion abnormalities noted. Right Ventricle Normal RV size. Normal systolic function. Atria Normal left atrium. Normal right atrium. Mitral Valve Normal mitral valve. Tricuspid Valve Normal tricuspid valve. Mild tricuspid valve insufficiency. Pulmonary artery systolic pressure is 22 mmHg. Aortic Valve Trisinus/trileaflet aortic valve. Pulmonic Valve The pulmonic valve is not well visualized. Great Vessels Normal aortic root. The pulmonary artery is normal size. Normal inferior vena cava. Pericardium/Pleural No pericardial effusion. MMode/2D Measurements Calculations LVIDd: 4.7 cm IVSd: 0.88 cm Ao root diam: 3.5 cm LVIDs: 3.5 cm LVPWd: 0.81 cm FS: 25.2 % LAV(MOD-bp): 66.0 ml LVAd ap4: 32.9 cm2 LVAd ap2: 27.9 cm2 LAV(MOD-bp) Indexed: 33.6 ml/m2 LVLd ap4: 8.8 cm LVLd ap2: 7.8 cm LAV(MOD-sp2): 72.5 ml EDV(MOD-sp4): 102.8 ml EDV(MOD-sp2): 86.1 ml LAV(MOD-sp4): 58.8 ml EDV(sp4-el): 103.8 ml EDV(sp2-el): 84.7 ml LVAs ap4: 19.6 cm2 LVAs ap2: 16.7 cm2 LVLs ap4: 7.4 cm LVLs ap2: 6.0 cm ESV(MOD-sp4): 46.8 ml ESV(MOD-sp2): 37.9 ml ESV(sp4-el): 44.3 ml ESV(sp2-el): 39.8 ml EF(MOD-sp4): 54.5 % EF(MOD-sp2): 56.0 % EF(sp4-el): 57.3 % SV(MOD-sp4): 56.1 ml SV(MOD-sp2): 48.2 ml SV(sp4-el): 59.5 ml SI(MOD-sp4): 28.5 ml/m2 SI(MOD-sp2): 24.5 ml/m2 LA A4 area: 19.8 cm2 LA dimension(2D): 3.9 cm RA A4 area: 9.3 cm2 TAPSE: 1.8 cm Time Measurements MV dec time: 0.12 sec Doppler Measurements Calculations MV E max ekta: 55.0 cm/sec Lat Peak E' Ekta: 6.7 cm/sec Med Peak E' Ekta: 5.2 cm/sec MV A max ekta: 93.8 cm/sec E/E' lat: 8.2 E/E' med: 10.7 MV E/A: 0.59 MV V2 max: 99.7 cm/sec MV P1/2t max ekta: 61.5 cm/sec Ao V2 max: 96.1 cm/sec MV max P.0 mmHg MV P1/2t: 39.5 msec Ao max P.7 mmHg MV V2 mean: 53.1 cm/sec Ao V2 mean: 70.4 cm/sec MV mean P.3 mmHg MV dec slope: 456.1 cm/sec2 Ao mean P.1 mmHg MV V2 VTI: 18.2 cm MVA(P1/2t): 5.6 cm2 Ao V2 VTI: 21.5 cm AV (velocity ratio): 0.89 LV V1 max: 79.0 cm/sec PA V2 max: 81.6 cm/sec TR max ekta: 215.3 cm/sec LV V1 max P.5 mmHg PA V2 mean: 59.5 cm/sec TR max P.5 mmHg LV V1 mean P.3 mmHg PA V2 VTI: 19.0 cm LV V1 mean: 55.0 cm/sec LV V1 VTI: 19.2 cm ECHO/Echo Complete W/ Contrast Interpretation Summary Normal LV size. Left ventricular systolic function is normal. The left ventricular ejection fraction is 55 %. Stage 1 diastolic dysfunction. Contrast injection was performed. Ordering Physician: Stiven Patel Referring Physician: Robina Sam Performed By: Rachel Nicole, SABIHA, RVT 01/26/25 1135 Date Stiven Patel MD CC: Dr. Stiven Patel MD; Dr. Robina Sam MD Date Dictated: 01/26/2529 Date Transcribed: 01/26/25 1135 Bioinformatics Computer Scientist: Signed Normal [facility] Stress Reporton 01-26-2025 Stress Report [facility] [address] [place] [address] MR#: [id number] Acct: [id number] Name: JADE JACKSON Rep #: [id number] : 1950 74 From: Stiven Patel MD Primary Care: Dr. Robina Sam MD Status: REG CLI Referring Dr: Stiven Patel MD Sex: F C Stress Test Report Exercise myocardial perfusion stress test. 74-year-old lady with a history of chest pain Stress protocol: Resting EKG demonstrates normal sinus rhythm with a rate of 61 bpm resting blood pressure is 110/70 mmHg. The patient exercised according to the regular Benjamin protocol for a total duration of 5 minutes attaining a maximum heart rate of 131 bpm which was 88% of maximum predicted heart rate; the maximum workload was 7 metabolic equivalents. At rest there were no ST or T wave changes noted to suggest ischemia and at peak exercise upsloping ST changes only were noted which did not meet the criteria for ischemia. No clinical angina was noted the test was terminated due to the target heart rate being achieved/fatigue. The peak blood pressure was 174/80 mmHg. Rate-pressure product was 22,700. Myocardial perfusion protocol. 14 mCi of technetium 99m sestamibi was injected at rest. The patient exercised according to regular Benjamin protocol for total duration of 5-minute and at peak exercise 43.1 mCi of technetium 99m sestamibi was injected stress images were obtained stress and rest images were reconstructed in comparing the short axis vertical long and horizontal long axis. Gated images were also obtained. Perfusion SPECT analysis: Review of the stress images demonstrate normal uptake of tracer noted in all areas of the myocardium. The resting images similarly demonstrate normal uptake of tracer noted in all areas of the myocardium. No areas of reversibility are noted to suggest ischemia no previous infarct was noted. Gated SPECT analysis: The gated ejection fraction is 60%. Conclusion: Normal exercise myocardial perfusion stress test at a moderate workload Preserved ejection fraction. 01/26/251432 Date Stiven Patel MD CC: Dr. Stiven Patel MD; Dr. Robina Sam MD Date Dictated: 01/26/251430 Date Transcribed: 01/26/251430 Bioinformatics Computer Scientist: CO Signed Normal [facility] BACTERIAL VAGINOSIS NAATon 0 01-25-2025 Lactobacillus crispatus+gasseri+kirit enii + Gardnerella vaginalis + Atopobium vaginae rRNA JOSÉU+probe Ql (Vag fld) Not detected Normal Not detected [facility] Comment on above: Order Comment: Speci men Type: BLOOD SPECIMEN [facility]ing Facility[facility] Address: [address] [place] [address] Performed By: #### 2 4323-8, 1988-02 #### [facility] CLIA [id number] [address] [place] [address] [place] ANU/TRICHOMONAS NAATon 0 01-25-2025 C. glabrata RNA JOSUÉ+probe Ql (Vag fld) Not detected Normal Not detected [facility] Comment on above: Order Comment: Speci men Type: BLOOD SPECIMEN [facility] Facility[facility] Address: [address] [place] [address] Performed By: #### 2 4323-8, 1988-02 #### [facility] CLIA [id number] [address] [place] [address] [place] Anu sp DNA JOSUÉ+probe Ql (Vag fld) Not detected Normal Not detected [facility] Comment on above: Order Comment: Speci men Type: BLOOD SPECIMEN [facility]: [facility] Address: [address] [place] [address] Result Comment: The Anu species group target includes C. albicans, C. tropicalis, C. parapsilosis, and C. dubliniensis. Performed By: #### 2 4323-8, 1988-02 #### [facility] CLIA [id number] [address] [place] [address] OF [facility] T. vaginalis DNA JOSUÉ+probe Ql (Unsp spec) Not detected Normal Not detected [facility] Comment on above: Order Comment: Speci men Type: BLOOD SPECIMEN [facility] Address: [address] [place] [address] Performed By: #### 2 4323-8, 1988-02 #### [facility] CLIA [id number] [address] [place] [address] [place] CNOVon 01-25-2025 CNOV Office Visit (OBGYWM ) JADE JACKSON ([id number]) 1950 F Date Time Provider Department 01/25/25 10:10 AM DAR ABDI During your visit today, we recorded the following information about you: Blood pressure Weight 118/74 89 kg Dar Abdi MD 01/25/2025 10:33 AM Signed [employer] Underwriter offered: Patient accepts, visit chaperoned by Kristen Harvey MA. Jade Jackson is a 74 year old who presents today for pessary insertion/cleaning. She wears a size 3 ring with support pessary. She returns today with no complaints. She has not had problems with the pessary. She has partially had vaginal discharge. She has not had vaginal bleeding. EXAM: pleasant, well developed, well nourished, in no apparent distress Pelvic: Bartholin's, urethra and [place]'s glands were normal. The ring with support pessary was removed. Vaginal exam indicated no erythema, no ulcerations, and noting a clumpy discharge (?yeast) vaginal discharge. The pessary was cleaned a size 3 ring with support was inserted without difficulty The pessary was inserted, patient tolerated the procedure well and the device is comfortable. A/P Tolerating pessary well ? yeast infection/Culture pending ftft> 20 mi Allergies As of Date: 01/25/2025 Noted Allergy Reaction CEPHALOSPORINS 02/02/2007 7 - Swelling PENICILLINS 02/02/2007 10 - Anaphylaxis Date Reviewed: 01/25/2025 Reviewed by: Kristen Harvey MA - Fully Assessed Reason for Visit: Follow Up [171] Cmt: Pessary check Primary Visit Diagnosis:Vaginal discharge [N89.8] Order(s):BACTERIAL VAGINOSIS NAAT [SQBVAMP] Order #: [id number] ANU/TRICHOMONAS NAAT [SQCVTV] Order #: [id number] Prescriptions as of 01/25/2025 - hydrOXYchloroQUINE (PLAQUENIL) 200 mg tablet TAKE 1 TABLET BY MOUTH 2 TIMES A DAY - Oxyquinoline-Na Lauryl Sulfate (TRIMO-CORTES JELLY) 0.025-0.01 % gel Use 1 g vaginally two times a week. - CALCIUM CITRATE ORAL Take 600 mg by mouth three times a day. - multivit,iron,minerals /lutein (CENTRUM SILVER ULTRA WOMEN'S ORAL) Take 1 tablet by mouth once daily. generic brand - alendronate (FOSAMAX) 70 mg tablet Take 1 tablet by mouth one time a week. Take with a full glass of water, on an empty stomach; do NOT lie down for 30minutes. - ipratropium bromide (ATROVENT) 42 mcg (0.06 %) nasal spray Use 1 [place] in the nose three times a day. - CPAP CPAP tubing, head gear, ancillary supplies Life Time Supplies 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 10 cm H2O. - cholecalciferol, vitamin D3, (VITAMIN D3 ORAL) Take 25 mcg by mouth two times a day. Takes 2 12.5 mcg tablets twice daily - psyllium Husk 0.52 gram capsule Take 0.52 g by mouth once daily. 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 12 Lead EKG performed by [facility] on 12-30-2024 12 Lead EKG performed by [facility] [address] [place] [address] 12 Lead EKG performed by [facility] 12/30/24 1455 MR#: [id number] Acct: [id number] Name: JADE JACKSON Rep #: [id number] : 1950 74 From: Stiven Patel MD Attending Dr: Dr. Stiven Patel MD Status: DEP A MB Ordering Dr: Stiven Patel MD Date: 12/30/24 Location: [facility] Sex: F C Admitted: [facility]12 Lead EKG performed by [facility] ECG Report Interpretation ----Sinus Rhythm -First degree A-V block Gela = 230-Old inferior infarct -consider old anterior infarct. ABNORMAL Electronically signed on 12/31/2024 at 11:08 by Stiven Patel [employer] Software Version 8610 12/31/24 1112 Date Stiven Patel MD CC: Dr. oRbina Sam MD Date Dictated: 12/30/241454 Date Transcribed: 12/30/241454 Bioinformatics Computer Scientist: CO Signed Normal [facility] Cardiology Visit Reporton Cardiology Visit Report [facility] [address] [place] [address] OFFICE VISIT Date of Service: 12/30/24 MR#: [id number] Acct: [id number] Name: JADE JACKSON Rep #: [id number] : 1950 Provider: Dr. Stiven Patel MD Age/Sex: 74/F Location: [facility] Status: Signed HPI HPI History of Present Illness Details: 74-year-old lady with no previous cardiac history who was a previous smoker and so underwent a low- dose lung CT scan and was noted to have incidental coronary calcifications. She was asked to see a leadlighter and it is taken about 3 months to see her leadlighter at the [facility] and so she decided to follow-up with us here. She denies any chest pain or shortness of breath or paroxysmal nocturnal dyspnea she walks a few miles daily. She has had no neck arm or jaw discomfort suggest angina no dizziness or diaphoresis no near-syncope or syncope. She has been on minimal medication which she has been compliant with. Her physical exam today is unremarkable her electrocardiogram demonstrates sinus rhythm with a rate of 78 bpm and a first-degree AV block. 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 Instructor Required: No Accompanied by: Significant Other Is patient in pain?: No Allergies Cephalosporins Allergy (Verified 12/30/24 14:59) Swelling Penicillins (PCN) Allergy (Verified 12/30/24 14:59) Anaphylaxis Medications ???Medication ???Instructions ???Recorded ???Confirmed ???Type wjpwdspwrnfc-Ni-hgbu-m inerals 1 ea PO DAILY supplement 09/03/20 12/30/24 History alendronate 70 mg tablet (Fosamax) 70 mg PO QWEEK 11/29/24 12/30/24 History hydroxychloroquine 200 mg tablet 200 mg PO BID 11/29/24 12/30/24 Hi story psyllium husk 0.52 gram capsule 0.52 g PO QDAY 11/29/24 12/30/24 H istory (Fiber (psyllium husk)) calcium acetate 667 mg tablet 600 mg PO TID 12/30/24 12/30/24 Hi story cholecalciferol (vitamin D3) 50 25 mcg PO BID 12/30/24 12/30/24 Hi story mcg (2,000 unit) capsule Have you fallen in the past year?: No PFSH Medical History Basal cell carcinoma Hearing loss associated with syndrome of both ears CEDRIC (obstructive sleep apnea) Mixed hyperlipidemia Arthritis CAD (coronary artery disease) Surgical History Hx of appendectomy Family History Mother Heart disease Father Cancer CAD (coronary artery disease) Hypertension Grandfather CVA (cerebral vascular accident) Social History Smoking Status: Former smoker alcohol intake: current alcohol intake frequency: holidays/special occasions only substance use type: does not use ROS Const Const: Negative for fatigue, weakness, headache(s), daytime sleepiness or difficulty sleeping ENT ENT: Negative for headache(s), dizziness or Nosebleed/epistaxis Cardio Chest Pain: No Palpitations: No Edema: None Resp Respiratory: Negative for SOB with activity, SOB at rest, SOB orthopnea SOB lying down or Cough GI GI: Positive for heartburn; Negative nausea or vomiting Neuro Neuro: Negative for dizziness, lightheadedness, near syncope, headache(s) or weakness Endo Endo: Negative for fatigue Cardiology Exam Const Appearance: cooperative, healthy appearing, no acute distress, well developed and well groomed Nutritional Appearance: average body habitus and well nourished Orientation: alert, awake and oriented x3 Head Head: normal to inspection, normocephalic and atraumatic Ears: hearing grossly normal bilaterally and external ears normal Nose: external nose normal, nares normal, nasal mucous membranes and turbinates normal, septum normal and no nasal discharge Face and Sinus: face symmetric Mouth: oral mucosae normal, tongue normal, oropharynx normal and moist mucous membranes Teeth and gingiva: dentition normal Throat: posterior oropharynx normal, tonsils normal and uvula midline Eyes General: appearance normal, both eyes and all related structures Eyelids: eyelids normal Conjunctivae: conjunctivae normal Pupils: PERRL, normal by confrontation and accommodation normal EOM: EOM intact bilaterally Neck Neck: normal visual inspection, trachea midline and no JVD JVD: +5 Carotids: normal carotid upstroke and bounding pulses Chest Chest inspection: normal inspection of the chest, symmetric chest movement and normal respiratory effort Auscultation: Bilateral: Clear to Auscultatio (more content not included)... Normal [facility] CNOVon 12-14-2024 CNOV Office Visit (OBGYWM ) JADE JACKSON ([id number]) 1950 F Date Time Provider Department 12/14/24 10:10 AM DAR ABDI OBJAMIN During your visit today, we recorded the following information about you: Blood pressure Weight 128/82 89.8 kg Dar Abdi MD 12/14/2024 10:48 AM Signed [employer] Underwriter provided by Zulma Mario LPN Jade Jackson is a 74 year old who presents today for pessary insertion/cleaning. She wears a #3 Platform pessary. She returns today with complaints of loss of urine . She has had problems with the pessary. She has not had vaginal discharge. She has not had vaginal bleeding. EXAM: pleasant, well developed, well nourished, in no apparent distress Pelvic: Bartholin's, urethra and [place]'s glands were normal. The ring with support pessary was removed. Vaginal exam indicated no erythema, no ulcerations, and no vaginal discharge. The pessary was cleaned a size #3 ring with support was inserted without difficulty The pessary was inserted, patient tolerated the procedure well and the device is comfortable. Last urine was confusing with +LE/Nitrites but no bacteria. IMP pelvic prolapse improved with pessary urinary sx exacerbation/UA pending PLAN UA and RTO 6 weeks pessary check Allergies As of Date: 12/14/2024 Noted Allergy Reaction CEPHALOSPORINS 02/02/2007 7 - Swelling PENICILLINS 02/02/2007 10 - Anaphylaxis Date Reviewed: 12/14/2024 Reviewed by: Zulma Mario LPN - Fully Assessed Reason for Visit: Pessary [345] Primary Visit Diagnosis:Stress incontinence of urine [N39.3] Other Visit Diagnosis:Pelvic relaxation due to uterine prolapse [N81.4] Order(s):UA DIP, URINE (POC) [2357611] Order #: [id number]. #:[id number] URINALYSIS (WITH MICROSCOPIC) WITH CULTURE IF INDICATED [SQUACII] Order #: [id number]. #:[id number] Prescriptions as of 12/14/2024 - Oxyquinoline-Na Lauryl Sulfate (TRIMO-CORTES JELLY) 0.025-0.01 % gel Use 1 g vaginally two times a week. - CALCIUM CITRATE ORAL Take 600 mg by mouth three times a day. - multivit,iron,minerals /lutein (CENTRUM SILVER ULTRA WOMEN'S ORAL) Take 1 tablet by mouth once daily. generic brand - alendronate (FOSAMAX) 70 mg tablet Take 1 tablet by mouth one time a week. Take with a full glass of water, on an empty stomach; do NOT lie down for 30minutes. - ipratropium bromide (ATROVENT) 42 mcg (0.06 %) nasal spray Use 1 [place] in the nose three times a day. - hydrOXYchloroQUINE (PLAQUENIL) 200 mg tablet take 1 tablet by mouth 2 times a day - CPAP CPAP tubing, head gear, ancillary supplies Life Time Supplies 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 10 cm H2O. - cholecalciferol, vitamin D3, (VITAMIN D3 ORAL) Take 25 mcg by mouth two times a day. Takes 2 12.5 mcg tablets twice daily - psyllium Husk 0.52 gram capsule Take 0.52 g by mouth once daily. 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] 05/06/2007 SCREENING MAL NEOP-COLON [Z12.11] 05/06/2007 DEPRESSIVE DISORDER NEC [F32.89] 05/06/2007 PURE HYPERCHOLESTEROLEM [E78.00] 05/06/2007 ABNORMAL CLINICAL FINDING NEC [R68.89] 05/06/2007 LATERAL EPICONDYLITIS [M77.10] 05/06/2007 Osteopenia, senile [M85.80] 08/16/2018 Acute appendicitis with localized peritonitis, *04/06/2020 Appendicitis [K37] 04/06/2020 Nicotine use disorder, F17.2 [F17.200] 04/07/2020 Sleep apnea [G47.30] Postmenopausal osteoporoses [M81.0] 06/14/2024 Seropositive rheumatoid arthritis (HCC) [M05.9] 06/14/2024 Encounter for long-term (current) use of medica*06/14/2024 Long-term use of hydroxychloroquine [Z79.899] 06/14/2024 Encounter Status:Closed by DAR ABDI on 12/14/24 Normal [facility] UA DIP, URINE (POC)on 2024 BILIRUBIN UA (POCT) Negative Negative [facility] CLARITY UA (POCT) Clear [facility] COLOR UA (POCT) Yellow [facility] GLUCOSE UA (POCT) Negative Negative mg/dL [facility] Hemoglobin Ql (U) Negative Negative [facility] Interpretation and review of laboratory results Abnormal [facility] KETONE UA (POCT) Negative Negative mg/dL [facility] LEUKOCYTES UA (POCT) Trace Abnormal Negative [facility] NITRITE UA (POCT) Negative Negative [facility] PH UA (POCT) 7 4.5 - 8.0 [facility] Protein Ql (U) Negative Negative mg/dL [facility] SPECIFIC GRAVITY UA (POCT) 1.015 1.005 - 1.030 [facility] UROBILINOGEN UA (POCT) 0.2 Mariah l E.U./dL [facility] Location:[facility], [address] [facility], [place], [place], [id number] [place] [address] POINT OF CARE [facility] Urinalysis complete panel (U )on 12-14-2024 Bacteria LM.HPF (Urine sed) [#/Area] Negative Normal Negative [facility] Comment on above: Order Comment: Speci men Type: URINE SPECIMENOrdering Facility: [facility] Address: [address] [place] [address] Performed By: #### 2 4356-8 ####[facility] [id number] [place] [address] [place] Bilirubin Ql (U) Negative Normal Negative [facility] Comment on above: Order Comment: Speci men Type: URINE SPECIMENOrdering Facility: [facility] Address: [address] [place] [address] Performed By: #### 2 4356-8 ####[facility] [id number] [place] [address] [place] Clarity (Unsp spec) Clear Normal Clear [facility] Comment on above: Order Comment: Speci men Type: URINE SPECIMENOrdering Facility: [facility] Address: [address] [place] [address] Performed By: #### 2 4356-8 ####[facility] [id number] [place] [address] [place] Color (U) Yellow Normal Yellow [facility] Comment on above: Order Comment: Speci men Type: URINE SPECIMENOrdering Facility: [facility] Address: [address] [place] [address] Performed By: #### 2 4356-8 ####[facility] [id number] [place] [address] [place] Epithelial cells LM.HPF (Urine sed) [#/Area] None Seen Normal [facility] Comment on above: Order Comment: Speci men Type: URINE SPECIMENOrdering Facility: [facility] Address: [address] [place] [address] Performed By: #### 2 4356-8 ####[facility] [id number] [address], [place] [address] [place] Glucose Test strip (U) [Mass/Vol] Negative Normal Negative [facility] Comment on above: Order Comment: Speci men Type: URINE SPECIMENOrdering Facility: [facility] Address: [address] [place] [address] Performed By: #### 2 4356-8 ####[facility] [id number] [address], [place] [address] [place] Hemoglobin Ql (U) Negative Normal Negative [facility] Comment on above: Order Comment: Speci men Type: URINE SPECIMENOrdering Facility: [facility] Address: [address] [place] [address] Performed By: #### 2 4356-8 ####[facility] [id number] [address], [place] [address] [place] Hyaline casts (Urine sed) [#/Area] 0 /[LPF] Normal 0 /LPF [facility] Comment on above: Order Comment: Speci men Type: URINE SPECIMENOrdering Facility: [facility] Address: [address] [place] [address] Performed By: #### 2 4356-8 ####[facility] [id number] [address] [place] Ketones Ql (U) Negative Normal Negative [facility] Comment on above: Order Comment: Speci men Type: URINE SPECIMENOrdering Facility: [facility] Address: [address] [place] [address] Performed By: #### 2 4356-8 ####[facility] [id number] [place] [address] [place] Leukocyte esterase Test strip Ql (U) Trace Abnormal Negative [facility] Comment on above: Order Comment: Speci men Type: URINE SPECIMENOrdering Facility: [facility] Address: [address] [place] [address] Performed By: #### 2 4356-8 ####[facility] [id number] [place] [address] [place] Nitrite Ql (U) Negative Normal Negative [facility] Comment on above: Order Comment: Speci men Type: URINE SPECIMENOrdering Facility: [facility] Address: [address] [place] [address] Performed By: #### 2 4356-8 ####[facility]IA [id number] [place] [address] [place] pH (U) 7.5 [pH] Normal <8.5 [facility] Comment on above: Order Comment: Speci men Type: URINE SPECIMENOrdering Facility: [facility] Address: [address] [place] [address] Performed By: #### 2 4356-8 ####[facility]IA [id number] [place] [address] [place] Protein (U) [Mass/Vol] Negative Normal Negative [facility] Comment on above: Order Comment: Speci men Type: URINE SPECIMENOrdering Facility: [facility] Address: [address] [place] [address] Performed By: #### 2 4356-8 ####[facility]IA [id number] [place] [address] [place] RBC LM.HPF (Urine sed) [#/Area] 0-2 /HPF Normal 0-2 /HPF [facility] Comment on above: Order Comment: Speci men Type: URINE SPECIMENOrdering Facility: [facility] Address: [address] [place] [address] Performed By: #### 2 4356-8 ####[facility] [id number] [place] [address] [place] Specific gravity (U) [Rel density] 1.006 Normal 1.005-1.030 [facility] Comment on above: Order Comment: Speci men Type: URINE SPECIMENOrdering Facility: [facility] Address: [address] [place] [address] Performed By: #### 2 4356-8 ####[facility] [id number] [place] [address] [place] Urobilinogen Ql (U) 0.2 EU/dL Normal 0.2-1.0 EU/dL [facility] Comment on above: Order Comment: Speci men Type: URINE SPECIMENOrdering Facility: [facility] Address: [address] [place] [address] Performed By: #### 2 4356-8 ####[facility] [id number] [place] [address] [place] WBC LM.HPF (Urine sed) [#/Area] 0-5 /HPF Normal 0-5 /HPF [facility] Comment on above: Order Comment: Speci men Type: URINE SPECIMENOrdering Facility: [facility] Address: [address] [place] [address] Performed By: #### 2 4356-8 ####[facility] [id number] [place] [id number] [place] CNOVon 11-24-2024 CNOV Office Visit (OBGYWM ) JADE JACKSON ([id number]) 1950 F Date Time Provider Department 11/24/24 9:50 AM DAR ABDI During your visit today, we recorded the following information about you: Blood pressure Weight 120/78 89 kg Dar Abdi MD 11/24/2024 10:21 AM Signed [employer] Underwriter offered: Patient accepts, visit chaperoned by Kristen Harvey MA. Jade Jackson is a 74 year old female who presents for problem visit to revisit her dropped bladder and recent discolorationof her urine. Patient report chronic incontinence as well.. HPI: hx of successful pessary use OB History Gravida2 Para2 Term0 Preterm0 AB0 Living2 SAB0 IAB0 Ectopic0 Multiple0 Live Births0 Medicine And Health Service Manager History LMP: Postmenopausal Age at Menarche: 15 Age at First : Age at Menopause: Medicine And Health Service Manager History Comments: Sexual Activity: Not Currently; No partner data on record Contraception: No contraception data on record PAST MEDICAL HISTORY Diagnosis Date Arthritis Basal cell carcinoma 03/13/2015 nose Mixed hyperlipidemia Hyperlipidemia Sleep apnea compliant with CPAP Unspecified hearing loss TOTAL DEAFNESS RIGHT, 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 SINCE AGE 7 PAST SURGICAL HISTORY Procedure Laterality Date ADENOIDECTOMY PRIMARY Adenoidectomy APPENDECTOMY COLONOSCOPY FLX DX W/COLLJ SPEC WHEN PFRMD 06/26/2020 Colonoscopy EYE SURGERY HX PAST SURGICAL HISTORY OF 1985 [facility] SKIN BIOPSY HX 03/13/2015 TONSILLECTOMY HX TONSILLECTOMY PRIMARY/SECONDARY Tonsillectomy FAMILY HISTORY Problem Relation Age of Onset Allergies Mother Heart Mother Cancer Father GLIOBLASTOMA Allergies Father Coronary Artery Disease Father 70 Heart Father Hypertension Father Cancer Sister FOLLICULAR Cancer Maternal Grandfather Diabetes Sister Stroke Paternal Grandfather Social History Tobacco Use Smoking status: Former Current packs/day: 0.00 Average packs/day: 1.5 packs/day for 52.5 years (78.7 ttl pk-yrs) Types: Cigarettes Start date: 1967 Quit date: 04/02/2020 Years since quittin.6 Smokeless tobacco: Never Substance Use Topics Alcohol use: Yes Comment: rare Drug use: No Current Outpatient Medications Medication Sig CALCIUM CITRATE ORAL Take 600 mg by mouth three times a day. multivit,iron,minerals /lutein (CENTRUM SILVER ULTRA WOMEN'S ORAL) Take 1 tablet by mouth once daily. generic brand alendronate (FOSAMAX) 70 mg tablet Take 1 tablet by mouth one time a week. Take with a full glass of water, on an empty stomach; do NOT lie down for 30minutes. ipratropium bromide (ATROVENT) 42 mcg (0.06 %) nasal spray Use 1 [place] in the nose three times a day. (Patient taking differently: Use 1 [place] in the nose as needed.) hydrOXYchloroQUINE (PLAQUENIL) 200 mg tablet take 1 tablet by mouth 2 times a day CPAP CPAP tubing, head gear, ancillary supplies Life Time Supplies 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 10 cm H2O. cholecalciferol, vitamin D3, (VITAMIN D3 ORAL) Take 25 mcg by mouth two times a day. Takes 2 12.5 mcg tablets twice daily psyllium Husk 0.52 gram capsule Take 0.52 g by mouth once daily. No current facility-administered medications for this visit. Allergies As of Date: 11/24/2024 Allergen Noted Reaction CEPHALOSPORINS 02/02/2007 Swelling PENICILLINS 02/02/2007 Anaphylaxis Fully Assessed 11/24/2024 REVIEW OF SYSTEMS Abdomen: No bloating, early satiety, indigestion, or increased flatulence. No abdominal pain, nausea, vomiting, diarrhea, or constipation. Bladder: No dysuria, gross hematuria, urinary frequency, urinary urgency, or incontinence. Breast: No breast lumps, nipple d/c, overlying skin changes, redness or skin retraction. Expanded ROS: N/A Allergies and current medication updated:Yes SENSITIVE EXAM: The sensitive examination was discussed with the Patient or Patient's Authorized Matcher. As applicable, any other physician, advance practice provider, medical student, or other health professional student that will be observing or involved in the sensitive examination for educational or training purposes was discussed with the Patient or Authorized Matcher. The Patient or Authorized Matcher has agreed to proceed with the sensitive examination. (Sensitive examination includes inspection and/or palpation of the breasts, pelvis, prostate and anorectal regions). EXAM: BP 120/78 Wt 196 lb 3.2 oz (89.0kg) GENERAL: pleasant, female in no apparent distress ABDOMEN: soft, non-tender, and no masses PELVIC: external genitalia normal, normal Bartholin's glands, urethra, [place]'s glands, no vulvar lesions, no cervical lesions, good vaginal support, physiologic discharge present, normal appearing perineal body and perianal region, cystocele 2nd degree BIMANUAL: evaluation of uterus limited by obesity ASSESSMENT AND PLAN: Assessment AND Plan Stress inc (more content not included)... Normal [facility] Urinalysis complete panel (U )on 11-24-2024 Bilirubin Ql (U) Negative Normal Negative [facility] Comment on above: Order Comment: Speci men Type: BLOOD SPECIMEN Ordering Facility: [facility] Address: [address] [place] [address] Performed By: #### 2 4323-05, 1988-02 #### [facility] CLIA [id number] [address] [place], [place] [id number] [place] Clarity (Unsp spec) Clear Normal Clear [facility] Comment on above: Order Comment: Speci men Type: BLOOD SPECIMEN Ordering Facility: [facility] Address: [address] [place] [address] Performed By: #### 2 4323-05, 1988-02 #### [facility] CLIA [id number] [address] [place] [address] [place] Color (U) Light Yellow Normal yellow [facility] Comment on above: Order Comment: Speci men Type: BLOOD SPECIMEN Ordering Facility: [facility] Address: [address] [place], [place] [id number] Performed By: #### 2 4323-05, 1988-02 #### [facility] CLIA [id number] [address] [place], [place] [phone] [place] Epithelial cells LM.HPF (Urine sed) [#/Area] Few Abnormal None Seen [facility] Comment on above: Order Comment: Speci men Type: BLOOD SPECIMEN Ordering Facility: [facility] Address: [address] [place], [place] [id number] Performed By: #### 2 4323-05, 1988-02 #### [facility] CLIA [id number] [address] [place] [address] [place] Glucose Test strip (U) [Mass/Vol] Negative Normal Trace, Negative [facility] Comment on above: Order Comment: Speci men Type: BLOOD SPECIMEN Ordering Facility: [facility] Address: [address] [place], [place] [address] Performed By: #### 2 4323-05, 1988-02 #### [facility] CLIA [id number] [address] [place], [place] [id number] [place] Hemoglobin Ql (U) Negative Normal Negative, Trace [facility] Comment on above: Order Comment: Speci men Type: BLOOD SPECIMEN Ordering Facility: [facility] Address: [address] [place] [address] Performed By: #### 2 4323-05, 1988-02 #### [facility] CLIA [id number] [address] [place] [address] [place] Ketones Ql (U) Negative Normal Negative, Trace [facility] Comment on above: Order Comment: Speci men Type: BLOOD SPECIMEN Ordering Facility: [facility] Address: [address] [place] [address] Performed By: #### 2 4323-05, 1988-02 #### [facility] CLIA [id number] [address] [place] [address] [place] Leukocyte esterase Test strip Ql (U) 500 Scarlet/uL Abnormal Negative, 25 Scarlet/uL [facility] Comment on above: Order Comment: Speci men Type: BLOOD SPECIMEN Ordering Facility: [facility] Address: [address] [place], [place] [address] Performed By: #### 2 4323-05, 1988-02 #### [facility] CLIA [id number] [address] [place] [address] [place] Nitrite Ql (U) 1+ Abnormal Negative [facility] Comment on above: Order Comment: Speci men Type: BLOOD SPECIMEN Ordering Facility: [facility] Address: [address] [place], [place] [address] Performed By: #### 2 4323-05, 1988-02 #### [facility] CLIA [id number] [address] [place] [address] [place] pH (U) 6.5 [pH] Normal 5.0-8.0 [facility] Comment on above: Order Comment: Speci men Type: BLOOD SPECIMEN Ordering Facility: [facility] Address: [address] [place] [address] Performed By: #### 2 4328, 1988-02 #### [facility] CLIA [id number] [address] [place] [address] [place] Protein (U) [Mass/Vol] Negative Normal Trace , Negative [facility] Comment on above: Order Comment: Speci men Type: BLOOD SPECIMEN Ordering Facility: [facility] Address: [address] [place] [address] Performed By: #### 2 4328, 1988-02 #### [facility] CLIA [id number] [address] [place] [address] [place] RBC LM.HPF (Urine sed) [#/Area] 3-5 /HPF Abnormal 0-3 /HPF [facility] Comment on above: Order Comment: Speci men Type: BLOOD SPECIMEN Ordering Facility: [facility] Address: [address] [place] [address] Performed By: #### 2 4328, 1988-02 #### [facility] CLIA [id number] [address] [place] [address] [place] Specific gravity (U) [Rel density] 1.011 Normal 1.005-1.030 [facility] Comment on above: Order Comment: Speci men Type: BLOOD SPECIMEN Ordering Facility: [facility] Address: [address] [place] [address] Performed By: #### 2 43238, 1988-02 #### [facility] CLIA [id number] [address] [place] [address] [place] Urobilinogen Ql (U) Normal Normal Normal [facility] Comment on above: Order Comment: Speci men Type: BLOOD SPECIMEN Ordering Facility: [facility] Address: [address] [place] [address] Performed By: #### 2 4323-8, 1988-02 #### [facility] CLIA [id number] [address] [place] [address] [place] WBC LM.HPF (Urine sed) [#/Area] /[HPF] Abnormal 0-5 /HPF [facility] Comment on above: Order Comment: Speci men Type: BLOOD SPECIMEN Ordering Facility: [facility] Address: [address] [place] [address] Performed By: #### 2 43238, 1988-02 #### [facility] CLIA [id number] [address] [place] [address] [place] CNCOon 11-11-2024 CNCO Letter Text Letter Text Normal [facility] CT Chest for screening WO co ntraston 09-23-2024 IMPRESSION: LungRADS category: 2 LungRADS modifier: Significant other (S), coronary artery calcification, moderate or severe LungRADS 0 reason: n/a Recommendations: Continue annual screening with LDCT in 12 months. Other actionable findings: ========= Reference: [employer]. Lung CT Screening Reporting and Data System (Lung-RADS). Available at: http://www.acr.org/Jame lity-Safety/Resources/ LungRADS Bioinformatics Computer Scientist: SEAN Transcribe Date/Time: Sep 23 2024 2:03P Dictated by : AUDREY SCHAFFER MD This examination was interpreted and the report reviewed and electronically signed by: AUDREY SCHAFFER MD on Sep 23 2024 2:17PM [facility] DIVISION OF RADIOLOGY * * *Final Report* * * DATE OF EXAM: Sep 23 2024 1:19PM [facility] 0562 - CT LUNG SCREEN WO [facility] / PROCEDURE REASON: multiple diagnoses * * * * Physician Interpretation * * * * EXAMINATION: CHEST CT WITHOUT CONTRAST (LOW-DOSE CT LUNG CANCER SCREENING PROTOCOL) CLINICAL HISTORY: Lung cancer LDCT screening ? absence of signs or symptoms of lung cancer. Personal history of nicotine dependence. Baseline (initial) Technique: Spiral CT acquisition of the chest from the thoracic inlet to the upper abdomen without contrast. MQ: CTLCS_6 Patient characteristics: * Rdam-kf-Eegql: 1950; Age at exam: 74 years * Gender: Female * Lung Disease: Asymptomatic (no signs or symptoms of lung disease) * Number of Pack Years: 78 * Current smoker (=0) or Number of Years since Quit: 4 * Ordering provider and NPI: GRISELDA ACEVEDO [id number] * Interpreting radiologist and NPI: Lashae [id number] Exam acquisition parameters: * Exam Date: 09/23/2024 1:19 PM * Site: [facility] * * CT System Ostrich Farmer: Siemens * CT System Model: Sensation * Tube Current-Time (mA-sec): 34 * Peak Voltage (kV): 120V * Scan Time (sec): 10.42 * Scan Volume (z-length, cm): -27.60 * Pitch: 0.75 * Slice Thickness (mm): 1.5 * CT Dose-Length Product: 78.13 mGy*cm * CT Dose Index: 2.60mGy * CT Dose Reduction Method: Automated exposure control (AEC) COMPARISON: No prior CT chest is available for comparison. RESULT: Are nodules present? Yes, 1-5 nodules If No, go to IMPRESSION. If yes, proceed with characterization of the FIVE largest nodules. Nodule 1: This solid nodule is located in the right lower lobe on slice number 139 with an average diameter of 5 mm . Nodule 2: This solid nodule is located along the right major fissure on slice number 79 with an average diameter of 5 mm . Other lung nodule comments: None Other findings: The central airways are patent without evidence of endobronchial lesion. No acute focal lung consolidation is seen. There is no pleural effusion or pneumothorax. No enlarged supraclavicular, axillary, mediastinal or hilar lymph nodes are seen multiple subcentimeter mediastinal lymph nodes are visible. The aorta and main pulmonary artery are normal in course and caliber. The heart size is normal. There is no pericardial effusion. The thyroid gland is unremarkable. The esophagus is nondilated. The soft tissues of the chest wall are unremarkable. A 25 x 27 mm low-attenuation lesion in the left hepatic lobe (image 193, series 6) likely represents a cyst, unchanged. A 12 mm low-attenuation lesion in hepatic segment 6 (image 261, series 6) is unchanged and likely represents a cyst. Atherosclerotic calcifications are seen in the abdominal aorta. No destructive bone lesion is seen. Degenerative changes are seen in the thoracic spine. Emphysema: None Coronary Artery Calcifications: Circumflex mild; Left Anterior Descending moderate; Right Coronary mild Localizer images: No additional findings. DIVISION OF RADIOLOGY Provider, [facility] - 09/23/2024 * * *Final Report* * * DATE OF EXAM: Sep 23 2024 1:19PM [facility] 0562 - CT LUNG SCREEN [facility] / PROCEDURE REASON: multiple diagnoses * * * * Physician Interpretation * * * * EXAMINATION: CHEST CT WITHOUT CONTRAST (LOW-DOSE CT LUNG CANCER SCREENING PROTOCOL) CLINICAL HISTORY: Lung cancer LDCT screening ? absence of signs or symptoms of lung cancer. Personal history of nicotine dependence. Baseline (initial) Technique: Spiral CT acquisition of the chest from the thoracic inlet to the upper abdomen without contrast. MQ: CTLCS_6 Patient characteristics: * Rcrm-po-Gvxen: 1950; Age at exam: 74 years * Gender: Female * Lung Disease: Asymptomatic (no signs or symptoms of lung disease) * Number of Pack Years: 78 * Current smoker (=0) or Number of Years since Quit: 4 * Ordering provider and NPI: GRISELDA ACEVEDO [id number] * Interpreting radiologist and NPI: Lashae [id number] Exam acquisition parameters: * Exam Date: 09/23/2024 1:19 PM * Site: [facility] * * CT System Ostrich Farmer: [employer] * CT System Model: Sensation * Tube Current-Time (mA-sec): 34 * Peak Voltage (kV): 120V * Scan Time (sec): 10.42 * Scan Volume (z-length, cm): -27.60 * Pitch: 0.75 * Slice Thickness (mm): 1.5 * CT Dose-Length Product: 78.13 mGy*cm * CT Dose Index: 2.60mGy * CT Dose Reduction Method: Automated exposure control (AEC) COMPARISON: No prior CT chest is available for comparison. RESULT: Are nodules present? Yes, 1-5 nodules If No, go to IMPRESSION. If yes, proceed with characterization of the FIVE largest nodules. Nodule 1: This solid nodule is located in the right lower lobe on slice number 139 with an average diameter of 5 mm . Nodule 2: This solid nodule is located along the right major fissure on slice number 79 with an average diameter of 5 mm . Other lung nodule comments: None Other findings: The central airways are patent without evidence of endobronchial lesion. No acute focal lung consolidation is seen. There is no pleural effusion or pneumothorax. No enlarged supraclavicular, axillary, mediastinal or hilar lymph nodes are seen multiple subcentimeter mediastinal lymph nodes are visible. The aorta and main pulmonary artery are normal in course and caliber. The heart size is normal. There is no pericardial effusion. The thyroid gland is unremarkable. The esophagus is nondilated. The soft tissues of the chest wall are unremarkable. A 25 x 27 mm low-attenuation lesion in the left hepatic lobe (image 193, series 6) likely represents a cyst, unchanged. A 12 mm low-attenuation lesion in hepatic segment 6 (image 261, series 6) is unchanged and likely represents a cyst. Atherosclerotic calcifications are seen in the abdominal aorta. No destructive bone lesion is seen. Degenerative changes are seen in the thoracic spine. Emphysema: None Coronary Artery Calcifications: Circumflex mild; Left Anterior Descending moderate; Right Coronary mild Localizer images: No additional findings. IMPRESSION IMPRESSION: LungRADS category: 2 LungRADS modifier: Significant other (S), coronary artery calcification, moderate or severe LungRADS 0 reason: n/a Recommendations: Continue annual screening with LDCT in 12 months. Other actionable findings: ========= Reference: [employer]. Lung CT Screening Reporting and Data System (Lung-RADS). Available at: http://[email or web address] [email or web address]/Resources/ LungRADS Bioinformatics Computer Scientist: SEAN Transcribe Date/Time: Sep 23 2024 2:03P Dictated by : AUDREY SCHAFFER MD This examination was interpreted and the report reviewed and electronically signed by: AUDREY SCHAFFER MD on Sep 23 2024 2:17PM EST [facility] Radiology Study observation (narrative) [facility] CT Chest for screening WO co ntrastOrdered By: [facility] Provider on 09-23-[address] [facility] [address] LUNG SCREEN WO IVCONon CT LUNG SCREEN WO IVCON * * *Final Report* * * DATE OF EXAM: Sep 23 2024 1:19PM [facility] 0562 - CT LUNG SCREEN WO IVCON / PROCEDURE REASON: multiple diagnoses * * * * Physician Interpretation * * * * EXAMINATION: CHEST CT WITHOUT CONTRAST (LOW-DOSE CT LUNG CANCER SCREENING PROTOCOL) CLINICAL HISTORY: Lung cancer LDCT screening ? absence of signs or symptoms of lung cancer. Personal history of nicotine dependence. Baseline (initial) Technique: Spiral CT acquisition of the chest from the thoracic inlet to the upper abdomen without contrast. MQ: CTLCS_6 Patient characteristics: * Qyhx-kt-Hmrsb: 1950; Age at exam: 74 years * Gender: Female * Lung Disease: Asymptomatic (no signs or symptoms of lung disease) * Number of Pack Years: 78 * Current smoker (=0) or Number of Years since Quit: 4 * Ordering provider and NPI: GRISELDA ACEVEDO [id number] * Interpreting radiologist and NPI: Lashae [id number] Exam acquisition parameters: * Exam Date: 09/23/2024 1:19 PM * Site: [facility] * * CT System Ostrich Farmer: [employer] * CT System Model: Sensation * Tube Current-Time (mA-sec): 34 * Peak Voltage (kV): 120V * Scan Time (sec): 10.42 * Scan Volume (z-length, cm): -27.60 * Pitch: 0.75 * Slice Thickness (mm): 1.5 * CT Dose-Length Product: 78.13 mGy*cm * CT Dose Index: 2.60mGy * CT Dose Reduction Method: Automated exposure control (AEC) COMPARISON: No prior CT chest is available for comparison. RESULT: Are nodules present? Yes, 1-5 nodules If No, go to IMPRESSION. If yes, proceed with characterization of the FIVE largest nodules. Nodule 1: This solid nodule is located in the right lower lobe on slice number 139 with an average diameter of 5 mm . Nodule 2: This solid nodule is located along the right major fissure on slice number 79 with an average diameter of 5 mm . Other lung nodule comments: None Other findings: The central airways are patent without evidence of endobronchial lesion. No acute focal lung consolidation is seen. There is no pleural effusion or pneumothorax. No enlarged supraclavicular, axillary, mediastinal or hilar lymph nodes are seen multiple subcentimeter mediastinal lymph nodes are visible. The aorta and main pulmonary artery are normal in course and caliber. The heart size is normal. There is no pericardial effusion. The thyroid gland is unremarkable. The esophagus is nondilated. The soft tissues of the chest wall are unremarkable. A 25 x 27 mm low-attenuation lesion in the left hepatic lobe (image 193, series 6) likely represents a cyst, unchanged. A 12 mm low-attenuation lesion in hepatic segment 6 (image 261, series 6) is unchanged and likely represents a cyst. Atherosclerotic calcifications are seen in the abdominal aorta. No destructive bone lesion is seen. Degenerative changes are seen in the thoracic spine. Emphysema: None Coronary Artery Calcifications: Circumflex mild; Left Anterior Descending moderate; Right Coronary mild Localizer images: No additional findings. IMPRESSION: LungRADS category: 2 LungRADS modifier: Significant other (S), coronary artery calcification, moderate or severe LungRADS 0 reason: n/a Recommendations: Continue annual screening with LDCT in 12 months. Other actionable findings: ========= Reference: [employer]. Lung CT Screening Reporting and Data System (Lung-RADS). Available at: http://[email or web address]/Jame [email or web address]/Resources/ LungRADS Bioinformatics Computer Scientist: PSCB Transcribe Date/Time: Sep 23 2024 2:03P Dictated by : AUDREY SCHAFFER MD This examination was interpreted and the report reviewed and electronically signed by: AUDREY SCHAFFER MD on Sep 23 2024 2:17PM EST [id number] Normal [facility] 25(OH)D3 SerPl-mCncon 2023 25-hydroxyvitamin D3 [Mass/Vol] 42.4 ng/mL Normal 31.0-80.0 [facility] Comment on above: Order Comment: Speci men Type: BLOOD SPECIMEN Ordering Facility: [facility] Address: [address] [place] [address] Performed By: #### 1 989-3 #### [facility] CLIA [id number] [address] [place] [address] [place] CBC W Auto Differential pane l (Bld)on 09-19-2024 Basophils (Bld) [#/Vol] 0.10 10*3/uL Normal <0.11 [facility] Comment on above: Order Comment: Speci men Type: BLOOD SPECIMEN Ordering Facility: [facility] Address: [address] [place] [address] Performed By: #### 2 4323-8, 1988-02 #### [facility] CLIA [id number] [address] [place] [address] [place] Basophils/100 WBC (Bld) 1.3 % Normal [facility] Comment on above: Order Comment: Speci men Type: BLOOD SPECIMEN Ordering Facility: [facility] Address: [address] [place] [address] Performed By: #### 2 4323-8, 1988-02 #### [facility] CLIA [id number] [address] [place] [address] [place] Differential cell count method Nom (Bld) Auto Normal [facility] Comment on above: Order Comment: Speci men Type: BLOOD SPECIMEN Ordering Facility: [facility] Address: [address] [place], [place] [address] Performed By: #### 2 4323-05, 1988-02 #### [facility] CLIA [id number] [address] [place] [address] [place] Eosinophils (Bld) [#/Vol] 0.12 10*3/uL Normal <0.46 [facility] Comment on above: Order Comment: Speci men Type: BLOOD SPECIMEN Ordering Facility: [facility] Address: [address] [place], [place] [address] Performed By: #### 2 4323-05, 1988-02 #### [facility] CLIA [id number] [address] [place] [address] [place] Eosinophils/100 WBC (Bld) 1.6 % Normal [facility] Comment on above: Order Comment: Speci men Type: BLOOD SPECIMEN [facility]ing Facility[facility] Address: [address] [place] [address] Performed By: #### 2 4323-05, 1988-02 #### [facility] CLIA [id number] [address] [place] [address] [place] Erythrocyte distribution width (RBC) [Ratio] 13.2 % Normal 11.5-15.0 [facility] Comment on above: Order Comment: Speci men Type: BLOOD SPECIMEN Ordering Facility: [facility] Address: [address] [place] [address] Performed By: #### 2 4323-05, 1988-02 #### [facility] CLIA [id number] [address] [place] [address] [place] Hematocrit (Bld) [Volume fraction] 42.7 % Normal 36.0-46.0 [facility] Comment on above: Order Comment: Speci men Type: BLOOD SPECIMEN Ordering Facility: [facility] Address: [address] [place], [place] [address] Performed By: #### 2 4323-05, 1988-02 #### [facility] CLIA [id number] [address] [place] [address] [place] Hemoglobin (Bld) [Mass/Vol] 13.9 g/dL Normal 11.5-15.5 [facility] Comment on above: Order Comment: Speci men Type: BLOOD SPECIMEN Ordering Facility: [facility] Address: [address] [place] [address] Performed By: #### 2 4323-05, 1988-02 #### [facility] CLIA [id number] [address] [place], [place] [address] [place] Immature granulocytes (Bld) [#/Vol] 10*3/uL Normal <0.10 [facility] Comment on above: Order Comment: Speci men Type: BLOOD SPECIMEN Ordering Facility: [facility] Address: [address] [place] [address] Performed By: #### 2 4323-05, 1988-02 #### [facility] CLIA [id number] [address] [place] [address] [place] Immature granulocytes/100 WBC (Bld) 0.3 % Normal [facility] Comment on above: Order Comment: Speci men Type: BLOOD SPECIMEN [facility]ing Facility: [facility] Address: [address] [place] [address] Performed By: #### 2 4323-05, 1988-02 #### [facility] CLIA [id number] [address] [place], [place] [address] [place] Lymphocytes (Bld) [#/Vol] 2.15 10*3/uL Normal 1.00-4.00 [facility] Comment on above: Order Comment: Speci men Type: BLOOD SPECIMEN [facility]ing [facility] Address: [address] [place], [place] [address] Performed By: #### 2 4323-05, 1988-02 #### [facility] CLIA [id number] [address] [place], [place] [address] [place] Lymphocytes/100 WBC (Bld) 28.2 % Normal [facility] Comment on above: Order Comment: Speci men Type: BLOOD SPECIMEN Ordering Facility[facility] Address: [address] [place] [address] Performed By: #### 2 43212-17, 1988-02 #### [facility] CLIA [id number] [address] [place] [address] [place] MCH (RBC) [Entitic mass] 28.4 pg Normal 26.0-34.0 [facility] Comment on above: Order Comment: Speci men Type: BLOOD SPECIMEN [facility]ing [facility] Address: [address] [place] [address] Performed By: #### 2 43212-17, 1988-02 #### [facility] CLIA [id number] [address] [place] [address] [place] MCHC (RBC) [Mass/Vol] 32.6 g/dL Normal 30.5-36.0 [facility] Comment on above: Order Comment: Speci men Type: BLOOD SPECIMEN [facility]ing [facility] Address: [address] [place] [address] Performed By: #### 2 4323-05, 1988-02 #### [facility] CLIA [id number] [address] [place] [address] [place] MCV (RBC) [Entitic vol] 87.3 fL Normal 80.0-100.0 [facility] Comment on above: Order Comment: Speci men Type: BLOOD SPECIMEN Ordering [facility] Address: [address] [place] [address] Performed By: #### 2 4323-05, 1988-02 #### [facility] CLIA [id number] [address] [place] [address] [place] Monocytes (Bld) [#/Vol] 0.52 10*3/uL Normal <0.87 [facility] Comment on above: Order Comment: Speci men Type: BLOOD SPECIMEN Ordering Facility: [facility] Address: [address] [place], [place] [address] Performed By: #### 2 4328, 1988-02 #### [facility] CLIA [id number] [address] [place] [address] [place] Monocytes/100 WBC (Bld) 6.8 % Normal [facility] Comment on above: Order Comment: Speci men Type: BLOOD SPECIMEN Ordering Facility: [facility] Address: [address] [place] [address] Performed By: #### 2 8, 1988-02 #### [facility] CLIA [id number] [address] [place] [address] [place] Neutrophils (Bld) [#/Vol] 4.71 10*3/uL Normal 1.45-7.50 [facility] Comment on above: Order Comment: Speci men Type: BLOOD SPECIMEN Ordering [facility] Address: [address] [place] [address] Performed By: #### 2 8, 1988-02 #### [facility] CLIA [id number] [address] [place] [address] [place] Neutrophils/100 WBC (Bld) 61.8 % Normal [facility] Comment on above: Order Comment: Speci men Type: BLOOD SPECIMEN Ordering Facility[facility] Address: [address] [place] [address] Performed By: #### 2 4328, 1988-02 #### [facility] CLIA [id number] [address] [place] [address] [place] Nucleated RBC (Bld) [#/Vol] 10*3/uL Normal <0.01 [facility] Comment on above: Order Comment: Speci men Type: BLOOD SPECIMEN Order[facility] Address: [address] [place] [address] Performed By: #### 2 4323-05, 1988-02 #### [facility] CLIA [id number] [address] [place] [address] [place] Nucleated RBC/100 WBC (Bld) [Ratio] 0.0 /100 WBC Normal [facility] Comment on above: Order Comment: Speci men Type: BLOOD SPECIMEN [facility] Address: [address] [place] [address] Performed By: #### 2 4323-05, 1988-02 #### [facility] CLIA [id number] [address] [place], [place] [address] [place] Platelet mean volume (Bld) [Entitic vol] 12.2 fL Normal 9.0-12.7 [facility] Comment on above: Order Comment: Speci men Type: BLOOD SPECIMEN Order[facility] Address: [address] [place] [address] Performed By: #### 2 4323-05, 1988-02 #### [facility] CLIA [id number] [address] [place], [place] [address] [place] Platelets (Bld) [#/Vol] 247 10*3/uL Normal 150-400 [facility] Comment on above: Order Comment: Speci men Type: BLOOD SPECIMEN Order[facility] Address: [address] [place] [address] Performed By: #### 2 4323-05, 1988-02 #### [facility] CLIA [id number] [address] [place], [place] [address] [place] RBC (Bld) [#/Vol] 4.89 10*6/uL Normal 3.90-5.20 [facility] Comment on above: Order Comment: Speci men Type: BLOOD SPECIMEN Ordering Facility[facility] Address: [address] [place], [place] [address] Performed By: #### 2 4323-05, 1988-02 #### [facility] CLIA [id number] [address] [place] [address] [place] WBC (Bld) [#/Vol] 7.62 10*3/uL Normal 3.70-11.00 [facility] Comment on above: Order Comment: Speci men Type: BLOOD SPECIMEN Order[facility] Address: [address] [place] [address] Performed By: #### 2 4323-8, 1988-02 #### [facility] CLIA [id number] [address] [place] [address] [place] CNOVon 09-19-2024 CNOV Office Visit (PULMWS ) JADE JACKSON ([id number]) 1950 F Date Time Provider Department 09/19/24 9:00 AM GRISELDA ACEVEDO PULMWS During your visit today, we recorded the following information about you: Pulse Respiration Blood pressure Weight 70/minute 16/minute 110/68 88.5 kg Griselda Acevedo APRN.CNP 09/19/2024 11:19 AM Signed LUNG SCREENING VISIT PRIMARY CARE PHYSICIAN: Robina Sam MD PULMONARY PROVIDER: none Results will be communicated via letter or electronic record if applicable. Visit Delivery: In Person Patient Visit Type: New to Screening Current or Ex-smoker? Ex Exam Type: baseline LDCT Number of Pack Years: 78.7 Current smoker (=0) or Number of Years since Quit: 4 REQUESTER: The referring provider advised the patient to have screening. HISTORY OF PRESENT ILLNESS: Jade Jackson is a 74 year old Former smoker who presents for lung screening. Respiratory symptoms include: SOB: No Chest tightness: No Coughing: No Hemoptysis: No Wheezing: No Fever/Chills: No Recent Respiratory Infection: No Unintentional weight loss: No Last 6 Encounter Wt Readings: Date: Wt: 09/19/2024 88.5 kg (195 lb) 08/19/2024 88.4 kg (194 lb 14.2 oz) 05/26/2024 88.9 kg (195 lb 15.8 oz) 08/19/2023 88.9 kg (196 lb) 01/15/2023 86.2 kg (190 lb) 08/18/2022 95.3 kg (210 lb) ECOG PERFORMANCE STATUS: 0- Fully active, able to carry on all pre-disease performance w/o restriction. 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 7 PAST SURGICAL HISTORY Procedure Laterality Date ADENOIDECTOMY PRIMARY Adenoidectomy APPENDECTOMY COLONOSCOPY FLX DX W/COLLJ SPEC WHEN PFRMD 06/26/2020 Colonoscopy EYE SURGERY HX PAST SURGICAL HISTORY OF 1984 [facility] bx SKIN BIOPSY HX 03/13/2015 TONSILLECTOMY HX TONSILLECTOMY PRIMARY/SECONDARY Tonsillectomy FAMILY HISTORY Problem Relation Age of Onset Allergies Mother Heart Mother Cancer Father GLIOBLASTOMA Allergies Father Coronary Artery Disease Father 70 Heart Father Hypertension Father Cancer Sister FOLLICULAR Cancer Maternal Grandfather Diabetes Sister Stroke Paternal Grandfather alendronate (FOSAMAX) 70 mg tablet Take 1 tablet by mouth one time a week. Take with a full glass of water, on an empty stomach; do NOT lie down for 30minutes. ipratropium bromide (ATROVENT) 42 mcg (0.06 %) nasal spray Use 1 [place] in the nose three times a day. hydrOXYchloroQUINE (PLAQUENIL) 200 mg tablet take 1 tablet by mouth 2 times a day cholecalciferol, vitamin D3, (VITAMIN D3 ORAL) Take 2,000 mcg by mouth once daily as needed. psyllium Husk 0.52 gram capsule Take 0.52 g by mouth once daily. Multivitamin (MULTIPLE VITAMINS DAILY) ORAL Tab Take one(1) tablet daily. fluticasone (FLONASE) 50 mcg/actuation nasal spray Use 1 [place] in each nostril once daily. naproxen sodium/pseudoephedrin (SUDAFED SINUS 12HR PRESSR-PAIN ORAL) Take by mouth. CPAP CPAP tubing, head gear, ancillary supplies Life Time Supplies 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 10 cm H2O. cholecalciferol, vitamin D3, (VITAMIN D3 ORAL) Take 12.5 mcg by mouth once daily. (Patient not taking: Reported on 09/19/2024) calcium-vits B8-I-L5-minerals 166.75 mg- 166.75 unit cap Take by mouth. ONE IN THE MORNING AND TWO IN THE EVENING (Patient not taking: Reported on 09/19/2024) ALLERGIES Allergen Reactions Cephalosporins Swelling Penicillins Anaphylaxis The medications and allergies were reviewed and reconciled for this patient and deemed current. Lung Cancer Risk Factors: 1.Tobacco Use: Start Age 18, Quit Age: 70, Average packs per day 1.5, Pack Years 78.7 2. Passive Smoke Exposure: No, 3. Personal hx of malignancy: Yes, Type of Cancer: basal cell on nose 4. Significant exposures (1 year or more of exposure): None, 5. Race: White 6. Education: College Graduate 7. BMI:Body mass index is 35.21 kg/m?. Patient-entered Height: 5'2 Patient-entered Weight: 196 pounds 8. COPD: No 9. Pneumonia in the past 5 years: No 10. Is there a history of lung cancer in a first degree relative? No 11. Is there a history of lung cancer in a non-first degree relative? No 12. Is there a history of any other cancer in a first degree relative? Yes Health Maintenance Immunization History Administered Date(s) Administered COVID-19 original vaccine, age 12+ yr, monovalent ([employer] - PURPLE TOP) 04/10/2021 05/01/2021 COVID-19 vaccine (NOVAVAX) 07/22/2024 influenza (HD-IIV3) vaccine, age 65+ yr, high dose, trivalent, PF (FLUZONE HIGH-DOSE) 08/13/2020 07/17/2023 influenza (HD-IIV4) vaccine, (more content not included)... Normal [facility] Comprehensive metabolic 2000 panelon 09-19-2024 Albumin [Mass/Vol] 4.5 g/dL Normal 3.9-4.9 [facility] Comment on above: Order Comment: Speci men Type: BLOOD SPECIMENOrdering Facility: [facility] Address: [address] [place] [address] Performed By: #### 2 4323-8 ####[facility] [place] [facility] [id number] [place] [address] [place] ALP [Catalytic activity/Vol] 75 U/L Normal 34-123 [facility] Comment on above: Order Comment: Speci men Type: BLOOD SPECIMENOrdering Facility: [facility] Address: [address] [place] [address] Performed By: #### 2 4323-8 ####[facility] [place] [facility] [id number] [place] [address] [place] ALT With P-5'-P [Catalytic activity/Vol] 15 U/L Normal 7-38 [facility] Comment on above: Order Comment: Speci men Type: BLOOD SPECIMENOrdering Facility: [facility] Address: [address] [place] [address] Performed By: #### 2 4323-8 ####[facility] [place] [facility] [id number] [place] [address] [place] Anion gap [Moles/Vol] 11 mmol/L Normal 8-15 [facility] Comment on above: Order Comment: Speci men Type: BLOOD SPECIMENOrdering Facility: [facility] Address: [address] [place] [address] Performed By: #### 2 4323-8 ####[facility] [place] [facility] [id number] [place] [address] [place] AST With P-5'-P [Catalytic activity/Vol] 20 U/L Normal 13-35 [facility] Comment on above: Order Comment: Speci men Type: BLOOD SPECIMENOrdering Facility: [facility] Address: [address] [place] [address] Performed By: #### 2 4323-8 ####[facility] [place] [facility]IA [id number] [place] [address] [place] Bilirubin [Mass/Vol] 0.4 mg/dL Normal 0.2-1.3 [facility] Comment on above: Order Comment: Speci men Type: BLOOD SPECIMENOrdering Facility: [facility] Address: [address] [place] [address] Performed By: #### 2 4323-8 ####[facility] [place] [facility] [id number] [facility] [place] [address] [place] Calcium [Mass/Vol] 9.8 mg/dL Normal 8.5-10.2 [facility] Comment on above: Order Comment: Speci men Type: BLOOD SPECIMENOrdering Facility: [facility] Address: [address] [place] [address] Performed By: #### 2 4323-8 ####[facility] [place] [facility] [id number] [facility] [address] [place] Chloride [Moles/Vol] 105 mmol/L Normal 98-107 [facility] Comment on above: Order Comment: Speci men Type: BLOOD SPECIMENOrdering Facility: [facility] Address: [address] [place] [address] Performed By: #### 2 4323-8 ####[facility] [place] [facility] [id number] [facility] [address] [place] CO2 [Moles/Vol] 26 mmol/L Normal 22-30 [facility] Comment on above: Order Comment: Speci men Type: BLOOD SPECIMENOrdering Facility: [facility] Address: [address] [place] [address] Performed By: #### 2 4323-8 ####[facility] [place] [facility] [id number] [facility] [place] [address] [place] Creatinine [Mass/Vol] 0.84 mg/dL Normal 0.58-0.96 [facility] Comment on above: Order Comment: Speci men Type: BLOOD SPECIMENOrdering Facility: [facility] Address: [address] [place] [address] Performed By: #### 2 4323-8 ####[facility] [place] [facility]CLIA [id number] [place] [address] [place] Creatinine and Glomerular filtration rate.predicted panel (S/P/Bld) 74 mL/min/1.73m??? Normal >=60 [facility] Comment on above: Order Comment: Zander buckner Type: BLOOD SPECIMENOrdering Facility: [facility] Address: [address] [place] [address] Result Comment: Deborah mated Glomerular Filtration Rate (eGFR) is calculated using the 2020 CKD-EPI creatinine equation. This equation utilizes serum creatinine, sex, and age as parameters. The creatinine assay has traceable calibration to isotope dilution-mass spectrometry. Refer to KDIGO guidelines for clinical interpretation. In patients with unstable renal function, e.g. those with acute kidney injury, the eGFR may not accurately reflect actual GFR. Performed By: #### 2 4323-8 ####[facility] [id number] [place] [id number] [place] Glucose [Mass/Vol] 87 mg/dL Normal 74-99 [facility] Comment on above: Order Comment: Zander buckner Type: BLOOD SPECIMENOrdering Facility: [facility] Address: [address] [place] [address] Result Comment: The [place] Diabetes Association (ADA) provides guidance for cutoff values for fasting glucose and random glucose. The ADA defines fasting as no caloric intake for at least 8 hours. Fasting plasma glucose results between 100 to 125 mg/dL indicate increased risk for diabetes (prediabetes). Fasting plasma glucose results greater than or equal to 126 mg/dL meet the criteria for diagnosis of diabetes. In the absence of unequivocal hyperglycemia, results should be confirmed by repeat testing. In a patient with classic symptoms of hyperglycemia or hyperglycemic crisis, random plasma glucose results greater than or equal to 200 mg/dL meet the criteria for diagnosis of diabetes. Reference: Standards of Medical Care in Diabetes 2016, [place] Diabetes Association. Diabetes Care. 2016.39(Suppl 1). Performed By: #### 2 4323-8 ####[facility]CLIA [id number] [facility] [place] [address] [place] Potassium [Moles/Vol] 4.7 mmol/L Normal 3.7-5.1 [facility] Comment on above: Order Comment: Speci men Type: BLOOD SPECIMENOrdering Facility: [facility] Address: [address] [place] [address] Performed By: #### 2 4323-8 ####[facility] [place] [facility]CLIA [id number] [place] [address] [place] Protein [Mass/Vol] 7.8 g/dL Normal 6.3-8.0 [facility] Comment on above: Order Comment: Speci men Type: BLOOD SPECIMENOrdering Facility: [facility] Address: [address] [place] [address] Performed By: #### 2 4323-8 ####[facility] [place] [facility]CLIA [id number] [place] [address] [place] Sodium [Moles/Vol] 142 mmol/L Normal 136-144 [facility] Comment on above: Order Comment: Speci men Type: BLOOD SPECIMENOrdering Facility: [facility] Address: [address] [place] [address] Performed By: #### 2 4323-8 ####[facility] [place] [facility]CLIA [id number] [place] [address] [place] Urea nitrogen [Mass/Vol] 13 mg/dL Normal 7-21 [facility] Comment on above: Order Comment: Speci men Type: BLOOD SPECIMENOrdering Facility: [facility] Address: [address] [place] [address] Performed By: #### 2 4323-8 ####[facility] [place] [facility]CLIA [id number] [place] [address] [place] Cyclic citrullinated peptide IgG Qnon 09-19-2024 [facility] ANTIBODY IGG QUALITATIVE Negative Normal Negative [facility] Comment on above: Order Comment: Speci men Type: BLOOD SPECIMEN [facility] Address: [address] [place] [address] Performed By: #### 2 4323-8, 1988-02 #### [facility] CLIA [id number] [address] [place] [address] [place] Lipid 1996 panelon 4 Cholesterol [Mass/Vol] 178 mg/dL Normal <200 [facility] Comment on above: Order Comment: Hariwilber buckner Type: BLOOD SPECIMENOrdering Facility: [facility] Address: [address] [place] [address] Result Comment: <200 mg/dL, Desirable 200-239 mg/dL, Borderline high >239 mg/dL, High Performed By: #### 2 4331-1 ####[facility] LAB[facility]IA [id number] [address] [id number] [address] [place] Cholesterol in HDL [Mass/Vol] 72 mg/dL Normal >39 [facility] Comment on above: Order Comment: Zander buckner Type: BLOOD SPECIMENOrdering Facility: [facility] Address: [address] [place] [address] Result Comment: 40-5 9 mg/dL, Acceptable >59 mg/dL, High: Negative risk factor for coronary heart disease <40 mg/dL, Low: Positive risk factor for coronary heart disease Performed By: #### 2 4331-1 ####[facility] LAB[facility] [id number] [address] [id number] [address] [place] Cholesterol in LDL [Mass/Vol] 88 mg/dL Normal <100 [facility] Comment on above: Order Comment: Zander dudley Type: BLOOD SPECIMENOrdering Facility: [facility] Address: [address] [place] [address] Result Comment: <100 mg/dL, Optimal 100-129 mg/dL, Near optimal/above optimal 130-159 mg/dL, Borderline high 160-189 mg/dL, High >189 mg/dL, Very high Secondary prevention optimal LDL Cholesterol levels are recommended to be < 70 mg/dL Performed By: #### 2 4331-1 ####[facility] LABCLIA [id number] [address] [id number] [place] [address] [place] Cholesterol in LDL/Cholesterol in HDL [Mass ratio] 1.22 {ratio} Normal <2.54 [facility] Comment on above: Order Comment: Harii men Type: BLOOD SPECIMENOrdering Facility: [facility] Address: [address] [place] [address] Result Comment: Shayna brown: 1. National Cholesterol Education Program ATP III Guideline At-A-Glance Quick Desk Reference: National Heart, Lung, and Blood [place]. National Institutes of Health. 2001: NIH Publication No. 01-3305. 2. An International Atherosclerosis Society position paper: global recommendations for the management of dyslipidemia: executive summary, Atherosclerosis. 2014: 232(2):410-413. Performed By: #### 2 4331-1 ####[facility] LABIA [id number] [address] [id number] [place] [address] [place] Cholesterol in VLDL [Mass/Vol] 18 mg/dL Normal <30 [facility] Comment on above: Order Comment: Zander men Type: BLOOD SPECIMENOrdering Facility: [facility] Address: [address] [place] [address] Performed By: #### 2 4331-1 ####[facility] LABIA [id number] [address] [id number] [place] [address] [place] Cholesterol non HDL [Mass/Vol] 106 mg/dL Normal <130 [facility] Comment on above: Order Comment: Speci men Type: BLOOD SPECIMENOrdering Facility: [facility] Address: [address] [place] [address] Result Comment: <130 mg/dL, Optimal 130-159 mg/dL, Near optimal/above optimal 160-189 mg/dL, Borderline high 190-219 mg/dL, High >219 mg/dL, Very high Secondary prevention optimal non HDL Cholesterol levels are recommended to be <100 mg/dL Performed By: #### 2 4331-1 ####[facility] LABCLIA [id number] [address] [id number] [place] [address] [place] Cholesterol.total/Chol esterol in HDL [Mass ratio] 2.47 {ratio} Normal <5.10 [facility] Comment on above: Order Comment: Speci men Type: BLOOD SPECIMENOrdering Facility: [facility] Address: [address] [place] [address] Performed By: #### 2 4331-1 ####[facility] LABCLIA [id number] [address] [id number] [address] [place] FASTING TIME 12 hrs Normal [facility] Comment on above: Order Comment: Speci men Type: BLOOD SPECIMENOrdering Facility: [facility] Address: [address] [place] [address] Performed By: #### 2 4331-1 ####[facility] LABCLIA [id number] [address] [id number] [place] [address] [place] Triglyceride [Mass/Vol] 89 mg/dL Normal <150 [facility] Comment on above: Order Comment: Speci men Type: BLOOD SPECIMENOrdering Facility: [facility] Address: [address] [place] [address] Result Comment: <150 mg/dL, Normal 150-199 mg/dL, Borderline high 200-499 mg/dL, High >499 mg/dL, Very high Performed By: #### 2 4331-1 ####[facility] LABCLIA [id number] [facility] [address] [id number] [address] [place] cCP IgG SerPl-aCncon 024 Cyclic citrullinated peptide IgG Qn <15 Normal <20 [facility] Comment on above: Order Comment: Speci men Type: BLOOD SPECIMEN [facility] Address: [address] [place] [address] Performed By: #### 2 4323-8, 1988-02 #### [facility] LAB CLIA [id number] [address] [place], [place] [address] OF [facility] CNPBella 08-23-2024 CNPN Telephone ([place]) MANUELJADE CAM ([id number]) 1950 F Date Time Provider Department 08/23/24 KENDAL HIGH During your visit today, we recorded the following information about you: Kiara Almeida 08/23/2024 1:54 PM Signed Chery Castillo RN P Raman Hvti/ Nutri/ [place] [employer] Pool Please assist with scheduling bone density in [place] and F/U with Dr. High in February, Thanks! Previous Messages ----- Message ----- From: Kendal High MD Sent: 08/23/2024 10:42 AM EST To: Raman High Clinical [facility] team, can we please have PSS assist this patient with scheduling her bone density at [place] after 01/26/2025 and then follow-up with me in person anytime in February? Thank you! Kiara Almeida 08/23/2024 1:54 PM Signed Left VM asking patient to call back to schedule bone density in [place], and in person follow up with Dr. High in February. Please assist in scheduling when patient calls back. Kiara Almeida 08/30/2024 9:55 AM Signed 2nd attempt - LVM 3rd attempt- MC. Allergies As of Date: 08/23/2024 Noted Allergy Reaction CEPHALOSPORINS 02/02/2007 7 - Swelling PENICILLINS 02/02/2007 10 - Anaphylaxis Date Reviewed: 08/19/2024 Reviewed by: Nani Duncan LPN - Fully Assessed Reason for Visit: Appointment [186] Prescriptions as of 08/30/2024 - alendronate (FOSAMAX) 70 mg tablet Take 1 tablet by mouth one time a week. Take with a full glass of water, on an empty stomach; do NOT lie down for 30minutes. - fluticasone (FLONASE) 50 mcg/actuation nasal spray Use 1 [place] in each nostril once daily. - naproxen sodium/pseudoephedrin (SUDAFED SINUS 12HR PRESSR-PAIN ORAL) Take by mouth. - ipratropium bromide (ATROVENT) 42 mcg (0.06 %) nasal spray Use 1 [place] in the nose three times a day. - hydrOXYchloroQUINE (PLAQUENIL) 200 mg tablet take 1 tablet by mouth 2 times a day - cholecalciferol, vitamin D3, (VITAMIN D3 ORAL) Take 2,000 mcg by mouth once daily as needed. - CPAP CPAP tubing, head gear, ancillary supplies Life Time Supplies 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 10 cm H2O. - cholecalciferol, vitamin D3, (VITAMIN D3 ORAL) Take 12.5 mcg by mouth once daily. - calcium-vits I8-D-F7-minerals 166.75 mg- 166.75 unit cap Take by mouth. ONE IN THE MORNING AND TWO IN THE EVENING - psyllium Husk 0.52 gram capsule Take 0.52 g by mouth once daily. - Multivitamin (MULTIPLE VITAMINS DAILY) ORAL Tab Take one(1) tablet daily. 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 Janeth 08-19-2024 CNOV Office Visit (SONYAWS ) JADE JACKSON ([id number]) 1950 F Date Time Provider Department 08/19/24 11:00 AM LIDA COTO During your visit today, we recorded the following information about you: Pulse Respiration Blood pressure Weight 70/minute 16/minute 140/86 88.4 kg Height 1.585 m Lida Coto APRN.EDWIN 08/19/2024 2:20 PM Signed Jade Jackson is a 74 year old female here for a Medicare wellness visit. Medicare Health Risk Assessment General Health Good Exercise: Minutes/Day 30 min Exercise: Days/Week 4 days Alcohol: Daily Use Monthly or less Alcohol: Drinks/Day 1 or 2 Alcohol: 6 or more drinks Never Feel off balance No Concerns: Teeth/Dentures No Concerns: Sexual function No Troubled by feelings None of the above Frequency: Eating healthy diet Nearly every day ADLs requiring help None of the above Safety precautions in home/vehicle Yes Smoke, vape, chews tobacco No Difficulty hearing Yes Difficulty seeing No Current Providers Specialists: I have reviewed specialist-related care of the patient in the medical record. 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 Opioid use review Opioid Medications (last 90 days) No data to display Anxiety/Depression screening PHQ-9 Score: 1 (Minimal Depression) Recommendation: no further intervention at this time Cognitive screening Mini Cog Score: 5 Cognitive screening reviewed and No further action needed (score 3-5). Functional Observation Was the patient's Timed Up AND Go test unsteady or >= 12 seconds? No Advance Care Planning Patient did not wish or was not able to name a surrogate decision maker or provide an advance care plan Measurements Pulse 70 Resp 16 Ht 158.5 cm (5' 2.4) Wt 88.4 kg (194 lb 14.2 oz) SpO2 99% BMI 35.19 kg/m? Vision Screening: Follows with optometry/ophthalmolog y Assessment/Plan Medicare annual wellness visit, subsequent (Z00.00) - Fall avoidance information provided - Personalized prevention plan provided - Discussed need for and benefit of weight loss. BMI 35.19 kg/(m2) This is a 74 year old female who presents today with: Patient presents with: Medicare Wellness Exam HISTORY OF PRESENT ILLNESS: Jade Jackson is a 74 year old female. Patient presents with: Medicare Wellness Exam Here in the office for extensive exam Rheumatology( RA): Taking Plaquenil 200 mg twice daily. Follow up this month. Heartburn: Using tums as needed for occasional heartburn. Symptoms controlled. Sleep Apnea: Using CPAP, working well. Waking up feeling refreshed. Mammogram: Last mammogram in March 2024 was normal. Colonoscopy: Last colonoscopy June 2020, due in 2024. Former smoker, quit in 2019, was smoking 1-2 PPD. Would like lung cancer screening. Osteopenia: Taking Fosamax once weekly. 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 hydrOXYchloroQUINE (PLAQUENIL) 200 mg tablet take 1 tablet by mouth 2 times a day cholecalciferol, vitamin D3, (VITAMIN D3 ORAL) Take 2,000 mcg by mouth once daily as needed. CPAP CPAP tubing, head gear, ancillary supplies Life Time Supplies 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 10 cm H2O. psyllium Husk 0.52 gram capsule Take 0.52 g by mouth once daily. Multivitamin (MULTIPLE VITAMINS DAILY) ORAL Tab Take one(1) tablet daily. fluticasone (FLONASE) 50 mcg/actuation nasal spray Use 1 [place] in each nostril once daily. naproxen sodium/pseudoephedrin (SUDAFED SINUS 12HR PRESSR-PAIN ORAL) Take by mouth. albuterol HFA (VENTOLIN HFA) 90 mcg/actuation inhaler Inhale 2 Puffs as instructed every 4 hours as needed for wheezing/shortness of breath. calcium carbonate (CALCIUM 600 ORAL) Take 600 mg by mouth three times a day. cholecalciferol, vitamin D3, (VITAMIN D3 ORAL) Take 12.5 mcg by mouth once daily. alendronate (FOSAMAX) 70 mg tablet Take 1 tablet by mouth one time a week. Take with a full glass of water, on an empty stomach; do NOT lie down for 30minutes. calcium-vits P7-J-N7-minerals 166.75 mg- 166.75 unit cap Take (more content not included)... Normal [facility] CNTHERAPYon 07-27-2024 CNTHERAPY OT/PT/Speech Visit (PTMCRM) MANUELJADE ([id number]) 1950 F Date Time Provider Department 07/27/24 2:30 PM MJ ARRIAZA [facility] Date Time Provider Department Center 07/27/2024 2:30 PM [id number], COLIN [facility] Reason for Visit: PT Progress Note [1596] PT Discharge [922] Primary Visit Diagnosis:Postmenopaus al osteoporoses [M81.0] Other Visit Diagnosis:Seropositive rheumatoid arthritis (HCC) [M05.9] Allergies As of Date: 07/27/2024 Noted Allergy Reaction CEPHALOSPORINS 02/02/2007 7 - Swelling PENICILLINS 02/02/2007 10 - Anaphylaxis Date Reviewed: 07/22/2024 Reviewed by: Ignacia Gould Ma - Fully Assessed Prescriptions as of 10/21/2024 - CALCIUM CITRATE ORAL Take 600 mg by mouth three times a day. - multivit,iron,minerals /lutein (CENTRUM SILVER ULTRA WOMEN'S ORAL) Take 1 tablet by mouth once daily. generic brand - alendronate (FOSAMAX) 70 mg tablet Take 1 tablet by mouth one time a week. Take with a full glass of water, on an empty stomach; do NOT lie down for 30minutes. - ipratropium bromide (ATROVENT) 42 mcg (0.06 %) nasal spray Use 1 [place] in the nose three times a day. - hydrOXYchloroQUINE (PLAQUENIL) 200 mg tablet take 1 tablet by mouth 2 times a day - CPAP CPAP tubing, head gear, ancillary supplies Life Time Supplies 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 10 cm H2O. - cholecalciferol, vitamin D3, (VITAMIN D3 ORAL) Take 25 mcg by mouth two times a day. Takes 2 12.5 mcg tablets twice daily - psyllium Husk 0.52 gram capsule Take 0.52 g by mouth once daily. [employer] Articles: Therapy (PT/OT/Speech/Resp) ID: [id number] 07/27/2024 2:50 PM Author: MJ ARRIAZA Signed by MJ ARRIAZA PT on 07/27/2024 at 2:50 PM Document text: Program_ID:[id number] Access Code: [email or web address] URL: [email or web address]/ Date: 07-27-2024 Prepared By: Mj Arriaza Program Notes Exercises - Standing shoulder flexion wall slides - 2 x daily - 7 x weekly - 2-3 sets - 10 reps - Standing Bilateral Shoulder Scaption Wall Slide - 2 x daily - 7 x weekly - 2-3 sets - 10 reps - Standing Shoulder External Rotation with Resistance - 2 x daily - 7 x weekly - 2-3 sets - 10 reps - Shoulder Internal Rotation with Resistance - 2 x daily - 7 x weekly - 2-3 sets - 10 reps - Standing Shoulder Row with Anchored Resistance - 2 x daily - 7 x weekly - 2-3 sets - 10 reps - Shoulder Extension with Resistance - Palms Forward - 2 x daily - 7 x weekly - 2-3 sets - 10 reps - Seated Lat Pull Down with Resistance - Elbows Bent - 2 x daily - 7 x weekly - 2-3 sets - 10 reps -- [facility] THERAPY NTon 07-27-2024 THERAPY NT HNO ID: [id number] Author: MJ ARRIAZA, PT Service: ? Author Type: Physical Therapist Type: Therapy (PT/OT/Speech/Resp) Filed: 07/27/2024 14:50 Note Text: Program_ID:[id number] Access Code: [email or web address] URL: [email or web address]/ Date: 07-27-2024 Prepared By: Mj Arriaza Program Notes Exercises - Standing shoulder flexion wall slides - 2 x daily - 7 x weekly - 2-3 sets - 10 reps - Standing Bilateral Shoulder Scaption Wall Slide - 2 x daily - 7 x weekly - 2-3 sets - 10 reps - Standing Shoulder External Rotation with Resistance - 2 x daily - 7 x weekly - 2-3 sets - 10 reps - Shoulder Internal Rotation with Resistance - 2 x daily - 7 x weekly - 2-3 sets - 10 reps - Standing Shoulder Row with Anchored Resistance - 2 x daily - 7 x weekly - 2-3 sets - 10 reps - Shoulder Extension with Resistance - Palms Forward - 2 x daily - 7 x weekly - 2-3 sets - 10 reps - Seated Lat Pull Down with Resistance - Elbows Bent - 2 x daily - 7 x weekly - 2-3 sets - [address] [facility] [address] SINUS WO IVCONon 07-26-20 CT SINUS WO IVCON * * *Final Report* * * DATE OF EXAM: Jul 26 2024 12:04PM [facility] 0488 - CT SINUS WO IVCON / PROCEDURE REASON: Chronic pansinusitis * * * * Physician Interpretation * * * * EXAMINATION: CT SINUS WO IVCON CLINICAL HISTORY: Chronic pansinusitis. TECHNIQUE: Spiral high resolution axial unenhanced CT images were obtained through the paranasal sinuses with sagittal, coronal reconstructions. MQ: CTSI_1 CT Radiation dose: Integrated Dose-Length Product (DLP) for this visit = 151 mGy*cm. CT Dose Reduction Employed: Automated exposure control(AEC) and iterative recon COMPARISON: None. RESULT: Post-Surgical Findings: None Sinus Chambers: Paranasal mucosal thickening is noted; see below for Jagdeep Tao score for degree of sinus opacification. 0 is less than 2mm thickness of mucosal thickening, 1 is partial opacification, and 2 is almost complete or complete opacification. For the ostiomeatal complex, 0 is patent and 2 is any portion occluded. Air Fluid Levels: Frothy secretions present within the sphenoid sinuses bilaterally. High attenuation sinus disease: There is no high attenuation sinus disease. Left Frontal Sinus: 0 Left Anterior Ethmoid Air Cells: 1 Left posterior Ethmoid Air Cells: 1 Left Maxillary Sinus: 1 Left Sphenoid Sinus: 1 Left Ostiomeatal Complex: 2 LEFT Jagdeep Rome Score: 6 Right Frontal Sinus: 0 Right Anterior Ethmoid Air Cells: 1 Right posterior Ethmoid Air Cells: 1 Right Maxillary Sinus: 0 Right Sphenoid Sinus: 1 Right Ostiomeatal Complex: 0 RIGHT Jagdeep Tao Score: 3 TOTAL [place] Rome Score: 9 Nasal Cavities: Visualized nasal cavities are patent. Developmental Anomalies: Nasal septum is deviated towards the RIGHT with a rightward directed spur abutting the RIGHT inferior turbinate. Small bilateral Kelli cells. Other: The visualized mastoid air cells and middle ear cavities are clear. The soft tissues of the face and orbits are within normal limits within the limitations of the study. Localizer images: Noncontributory. IMPRESSION: Paranasal sinus inflammatory disease as above. Bioinformatics Computer Scientist: [facility] Transcribe Date/Time: Jul 26 2024 2:10P Dictated by : GARLAND PASCAL MD This examination was interpreted and the report reviewed and electronically signed by: GARLAND PASCAL MD on Jul 26 2024 2:13PM EST [id number] Normal [facility] CT Sinuses WO contraston IMPRESSION: Paranasal sinus inflammatory disease as above. Bioinformatics Computer Scientist: [facility] Transcribe Date/Time: Jul 26 2024 2:10P Dictated by : GARLAND PASCAL MD This examination was interpreted and the report reviewed and electronically signed by: GARALND PASCAL MD on Jul 26 2024 2:13PM EST DIVISION OF RADIOLOGY * * *Final Report* * * DATE OF EXAM: Jul 26 2024 12:04PM [facility] 0488 - CT SINUS WO IVCON / PROCEDURE REASON: Chronic pansinusitis * * * * Physician Interpretation * * * * EXAMINATION: CT SINUS WO IVCON CLINICAL HISTORY: Chronic pansinusitis. TECHNIQUE: Spiral high resolution axial unenhanced CT images were obtained through the paranasal sinuses with sagittal, coronal reconstructions. MQ: CTSI_1 CT Radiation dose: Integrated Dose-Length Product (DLP) for this visit = 151 mGy*cm. CT Dose Reduction Employed: Automated exposure control(AEC) and iterative recon COMPARISON: None. RESULT: Post-Surgical Findings: None Sinus Chambers: Paranasal mucosal thickening is noted; see below for Jagdeep Rome score for degree of sinus opacification. 0 is less than 2mm thickness of mucosal thickening, 1 is partial opacification, and 2 is almost complete or complete opacification. For the ostiomeatal complex, 0 is patent and 2 is any portion occluded. Air Fluid Levels: Frothy secretions present within the sphenoid sinuses bilaterally. High attenuation sinus disease: There is no high attenuation sinus disease. Left Frontal Sinus: 0 Left Anterior Ethmoid Air Cells: 1 Left posterior Ethmoid Air Cells: 1 Left Maxillary Sinus: 1 Left Sphenoid Sinus: 1 Left Ostiomeatal Complex: 2 LEFT [place] Tao Score: 6 Right Frontal Sinus: 0 Right Anterior Ethmoid Air Cells: 1 Right posterior Ethmoid Air Cells: 1 Right Maxillary Sinus: 0 Right Sphenoid Sinus: 1 Right Ostiomeatal Complex: 0 RIGHT Jagdeep Rome Score: 3 TOTAL [place] Tao Score: 9 Nasal Cavities: Visualized nasal cavities are patent. Developmental Anomalies: Nasal septum is deviated towards the RIGHT with a rightward directed spur abutting the RIGHT inferior turbinate. Small bilateral Kelli cells. Other: The visualized mastoid air cells and middle ear cavities are clear. The soft tissues of the face and orbits are within normal limits within the limitations of the study. Localizer images: Noncontributory. DIVISION OF RADIOLOGY Provider, [facility] - 07/26/2024 * * *Final Report* * * DATE OF EXAM: Jul 26 2024 12:04PM [facility] 0488 - CT SINUS WO IVCON / PROCEDURE REASON: Chronic pansinusitis * * * * Physician Interpretation * * * * EXAMINATION: CT SINUS WO IVCON CLINICAL HISTORY: Chronic pansinusitis. TECHNIQUE: Spiral high resolution axial unenhanced CT images were obtained through the paranasal sinuses with sagittal, coronal reconstructions. MQ: CTSI_1 CT Radiation dose: Integrated Dose-Length Product (DLP) for this visit = 151 mGy*cm. CT Dose Reduction Employed: Automated exposure control(AEC) and iterative recon COMPARISON: None. RESULT: Post-Surgical Findings: None Sinus Chambers: Paranasal mucosal thickening is noted; see below for Jagdeep Tao score for degree of sinus opacification. 0 is less than 2mm thickness of mucosal thickening, 1 is partial opacification, and 2 is almost complete or complete opacification. For the ostiomeatal complex, 0 is patent and 2 is any portion occluded. Air Fluid Levels: Frothy secretions present within the sphenoid sinuses bilaterally. High attenuation sinus disease: There is no high attenuation sinus disease. Left Frontal Sinus: 0 Left Anterior Ethmoid Air Cells: 1 Left posterior Ethmoid Air Cells: 1 Left Maxillary Sinus: 1 Left Sphenoid Sinus: 1 Left Ostiomeatal Complex: 2 LEFT Jagdeep Rome Score: 6 Right Frontal Sinus: 0 Right Anterior Ethmoid Air Cells: 1 Right posterior Ethmoid Air Cells: 1 Right Maxillary Sinus: 0 Right Sphenoid Sinus: 1 Right Ostiomeatal Complex: 0 RIGHT [place] Rome Score: 3 TOTAL [place] Rome Score: 9 Nasal Cavities: Visualized nasal cavities are patent. Developmental Anomalies: Nasal septum is deviated towards the RIGHT with a rightward directed spur abutting the RIGHT inferior turbinate. Small bilateral Kelli cells. Other: The visualized mastoid air cells and middle ear cavities are clear. The soft tissues of the face and orbits are within normal limits within the limitations of the study. Localizer images: Noncontributory. IMPRESSION IMPRESSION: Paranasal sinus inflammatory disease as above. Bioinformatics Computer Scientist: [facility] Transcribe Date/Time: Jul 26 2024 2:10P Dictated by : GARLAND PASCAL MD This examination was interpreted and the report reviewed and electronically signed by: GARLAND PASCAL MD on Jul 26 2024 2:13PM EST [facility] Radiology Study observation (narrative) [facility] CT Sinuses WO contrastOrdere d By: [facility] Provider on 07-26-2024 [facility] CNOVon 07-22-2024 CNOV Office Visit (OTOLMM ) JADE JACKSON ([id number]) 1950 F Date Time Provider Department 07/22/24 10:30 AM MALACHI SARGENT OTOLMM During your visit today, we recorded the following information about you: Malachi Sargent MD 07/22/2024 11:27 AM Signed HPI Jade Jackson is a 73 year old female who presents with small nasal polyp. Patient is seen in consultation for Lida Nair CNP. Patient complains of a lot of drainage out of the front of the nose as well as postnasal drip patient also needs to clear her throat patient is not aware of any reflux symptoms. ROS General Weight loss: No Fatigue: No Night sweats:No Cardiac Chest pain:No Fast heart rate:No Swelling in the feet:No Respiratory Short of breath:No Cough:No Wheezing:No Gastrointestinal Nausea:No Vomiting:No Indigestion:No Past medical history, family history, and social history reviewed. PE There were no vitals taken for this visit. General: Patient is awake, alert, NAD. Voice is normal. Skin: normal Eyes: Extraocular motion and Gaze is normal. Ears: Right external auditory canal is normal. TMJ: normal. Right tympanic membranes normal. Left external auditory canal is normal. Left tympanic membrane normal. Nose: Septum is normal. Turbinates are normal. Nasopharynx:normal Oral Cavity/Oropharynx: Lips normal Dentition normal Tongue normal. Tonsils normal. Palate and uvula normal. Pharynx posterior normal Hypopharynx: Base of tongue normal Pyriform sinus normal. Larynx: Vocal cords normal. Epiglottis normal. Post cricoid normal. Salivary glands: Parotid normal. Submandibular and sublingual normal. Thyroid: normal. Lymphatic/Neck: Lymph nodes normal. Neurologic: Facial nerve normal. ASSESSMENT/PLAN: 1. Chronic pansinusitis - ICD9: 473.8, ICD10: J32.4 (primary diagnosis) - CT SINUS WO IVCON 2. Chronic rhinitis - ICD9: 472.0, ICD10: J31.[address] sinus Atrovent nasal spray will call with results Malachi Sargent MD Findings will be communicated to the referring physician via mail or electronic medical record. Referring Provider: LIDA COTO [[id number]] Allergies As of Date: 07/22/2024 Noted Allergy Reaction CEPHALOSPORINS 02/02/2007 7 - Swelling PENICILLINS 02/02/2007 10 - Anaphylaxis Date Reviewed: 07/22/2024 Reviewed by: Ignacia Gould Ma - Fully Assessed Reason for Visit: nasal polyp [Other] Cmt: Right nostril found by PCP. Right nostril always feels full. It will drip or drainage will go down throat and makes her cough at times. Primary Visit Diagnosis:Chronic pansinusitis [J32.4] Other Visit Diagnosis:Chronic rhinitis [J31.0] Order(s):CONSULT TO ENT [9008] Order #: [id number]: 1 ipratropium bromide (ATROVENT) 42 mcg (0.06 %) nasal sprayUse 1 [place] in the nose three times a day.Disp: 15 mLRfl: 4 CT SINUS WO IVCON [[id number]] Order #: [id number] FUTURE Prescriptions as of 07/22/2024 - fluticasone (FLONASE) 50 mcg/actuation nasal spray Use 1 [place] in each nostril once daily. - naproxen sodium/pseudoephedrin (SUDAFED SINUS 12HR PRESSR-PAIN ORAL) Take by mouth. - ipratropium bromide (ATROVENT) 42 mcg (0.06 %) nasal spray Use 1 [place] in the nose three times a day. - hydrOXYchloroQUINE (PLAQUENIL) 200 mg tablet take 1 tablet by mouth 2 times a day - cholecalciferol, vitamin D3, (VITAMIN D3 ORAL) Take 2,000 mcg by mouth once daily as needed. - albuterol HFA (VENTOLIN HFA) 90 mcg/actuation inhaler Inhale 2 Puffs as instructed every 4 hours as needed for wheezing/shortness of breath. - CPAP CPAP tubing, head gear, ancillary supplies Life Time Supplies 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 10 cm H2O. - calcium carbonate (CALCIUM 600 ORAL) Take 600 mg by mouth three times a day. - cholecalciferol, vitamin D3, (VITAMIN D3 ORAL) Take 12.5 mcg by mouth once daily. - alendronate (FOSAMAX) 70 mg tablet Take 1 tablet by mouth one time a week. Take with a full glass of water, on an empty stomach; do NOT lie down for 30minutes. - calcium-vits Z5-B-E4-minerals 166.75 mg- 166.75 unit cap Take by mouth. ONE IN THE MORNING AND TWO IN THE EVENING - psyllium Husk 0.52 gram capsule Take 0.52 g by mouth once daily. - Multivitamin (MULTIPLE VITAMINS DAILY) ORAL Tab Take one(1) tablet daily. 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 Normal [facility] CNTHERAPYon 07-12-2024 CNTHERAPY OT/PT/Speech Visit (PTMCRM) JADE JACKSON ([id number]) 1950 F Date Time Provider Department 07/12/24 12:15 PM MJ ARRIAZA [facility] Date Time Provider Department Center 07/12/2024 12:15 PM [id number], COLIN [facility] Reason for Visit: Physical Therapy [503] Primary Visit Diagnosis:Postmenopaus al osteoporoses [M81.0] Other Visit Diagnosis:Seropositive rheumatoid arthritis (HCC) [M05.9] Allergies As of Date: 07/12/2024 Noted Allergy Reaction CEPHALOSPORINS 02/02/2007 7 - Swelling PENICILLINS 02/02/2007 10 - Anaphylaxis Date Reviewed: 05/26/2024 Reviewed by: Nani Duncan LPN - Fully Assessed Prescriptions as of 07/12/2024 - hydrOXYchloroQUINE (PLAQUENIL) 200 mg tablet take 1 tablet by mouth 2 times a day - cholecalciferol, vitamin D3, (VITAMIN D3 ORAL) Take 2,000 mcg by mouth once daily as needed. - albuterol HFA (VENTOLIN HFA) 90 mcg/actuation inhaler Inhale 2 Puffs as instructed every 4 hours as needed for wheezing/shortness of breath. - CPAP CPAP tubing, head gear, ancillary supplies Life Time Supplies 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 10 cm H2O. - calcium carbonate (CALCIUM 600 ORAL) Take 600 mg by mouth three times a day. - cholecalciferol, vitamin D3, (VITAMIN D3 ORAL) Take 12.5 mcg by mouth once daily. - alendronate (FOSAMAX) 70 mg tablet Take 1 tablet by mouth one time a week. Take with a full glass of water, on an empty stomach; do NOT lie down for 30minutes. - calcium-vits C7-K-P3-minerals 166.75 mg- 166.75 unit cap Take by mouth. ONE IN THE MORNING AND TWO IN THE EVENING - psyllium Husk 0.52 gram capsule Take 0.52 g by mouth once daily. - Multivitamin (MULTIPLE VITAMINS DAILY) ORAL Tab Take one(1) tablet daily. [employer] Articles: Therapy (PT/OT/Speech/Resp) ID: [id number] 07/12/2024 12:51 PM Author: MJ ARRIAZA Signed by MJ ARRIAZA PT on 07/12/2024 at 12:51 PM Document text: Program_ID:[id number] Access Code: [email or web address] URL: [email or web address] Date: 07-12-2024 Prepared By: Mj Arriaza Program Notes Exercises - Standing shoulder flexion wall slides - 2 x daily - 7 x weekly - 2-3 sets - 10 reps - Standing Bilateral Shoulder Scaption Wall Slide - 2 x daily - 7 x weekly - 2-3 sets - 10 reps - Standing Shoulder External Rotation with Resistance - 2 x daily - 7 x weekly - 2-3 sets - 10 reps - Shoulder Internal Rotation with Resistance - 2 x daily - 7 x weekly - 2-3 sets - 10 reps - Standing Shoulder Row with Anchored Resistance - 2 x daily - 7 x weekly - 2-3 sets - 10 reps -- [facility] THERAPY NTon 07-12-2024 THERAPY NT HNO ID: [id number] Author: MJ ARRIAZA PT Service: ? Author Type: Physical Therapist Type: Therapy (PT/OT/Speech/Resp) Filed: 07/12/2024 12:51 Note Text: Program_ID:[id number] Access Code: [email or web address] URL: [email or web address]/ Date: 07-12-2024 Prepared By: Mj Arriaza Program Notes Exercises - Standing shoulder flexion wall slides - 2 x daily - 7 x weekly - 2-3 sets - 10 reps - Standing Bilateral Shoulder Scaption Wall Slide - 2 x daily - 7 x weekly - 2-3 sets - 10 reps - Standing Shoulder External Rotation with Resistance - 2 x daily - 7 x weekly - 2-3 sets - 10 reps - Shoulder Internal Rotation with Resistance - 2 x daily - 7 x weekly - 2-3 sets - 10 reps - Standing Shoulder Row with Anchored Resistance - 2 x daily - 7 x weekly - 2-3 sets - 10 reps [facility] CNTHERAPYon 06-21-2024 CNTHERAPY OT/PT/Speech Visit (PTMCRM) JADE JACKSON ([id number]) 1950 F Date Time Provider Department 06/21/24 12:15 PM MJ ARRIAZA [facility] Date Time Provider Department Center 06/21/2024 12:15 PM [id number], COLIN PTMCRM [facility] Reason for Visit: Physical Therapy [503] Primary Visit Diagnosis:Postmenopaus al osteoporoses [M81.0] Other Visit Diagnosis:Seropositive rheumatoid arthritis (HCC) [M05.9] Allergies As of Date: 06/21/2024 Noted Allergy Reaction CEPHALOSPORINS 02/02/2007 7 - Swelling PENICILLINS 02/02/2007 10 - Anaphylaxis Date Reviewed: 05/26/2024 Reviewed by: Nani Duncan LPN - Fully Assessed Prescriptions as of 06/21/2024 - hydrOXYchloroQUINE (PLAQUENIL) 200 mg tablet take 1 tablet by mouth 2 times a day - cholecalciferol, vitamin D3, (VITAMIN D3 ORAL) Take 2,000 mcg by mouth once daily as needed. - albuterol HFA (VENTOLIN HFA) 90 mcg/actuation inhaler Inhale 2 Puffs as instructed every 4 hours as needed for wheezing/shortness of breath. - CPAP CPAP tubing, head gear, ancillary supplies Life Time Supplies 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 10 cm H2O. - calcium carbonate (CALCIUM 600 ORAL) Take 600 mg by mouth three times a day. - cholecalciferol, vitamin D3, (VITAMIN D3 ORAL) Take 12.5 mcg by mouth once daily. - alendronate (FOSAMAX) 70 mg tablet Take 1 tablet by mouth one time a week. Take with a full glass of water, on an empty stomach; do NOT lie down for 30minutes. - calcium-vits M3-Z-U1-minerals 166.75 mg- 166.75 unit cap Take by mouth. ONE IN THE MORNING AND TWO IN THE EVENING - psyllium Husk 0.52 gram capsule Take 0.52 g by mouth once daily. - Multivitamin (MULTIPLE VITAMINS DAILY) ORAL Tab Take one(1) tablet daily. [employer] Articles: Therapy (PT/OT/Speech/Resp) ID: [id number] 06/21/2024 12:58 PM Author: MJ ARRIAZA Signed by MJ ARRIAZA PT on 06/21/2024 at 12:59 PM Document text: Program_ID:[id number] Access Code: [email or web address] URL: [email or web address] [employer]/ Date: 06-21-2024 Prepared By: Mj Arriaza Program Notes Exercises - Seated Scapular Retraction - 2 x daily - 7 x weekly - 2-3 sets - 10 reps - Standing Isometric Shoulder Internal Rotation at Doorway - 2 x daily - 7 x weekly - 2 sets - 10 reps - Standing Isometric Shoulder External Rotation with Doorway - 2 x daily - 7 x weekly - 2 sets - 10 reps - Scaption Wall Slide with Towel - 2 x daily - 7 x weekly - 2-3 sets - 10 reps - Supine Shoulder External Rotation with Resistance - 2 x daily - 7 x weekly - 2-3 sets - 10 reps -- [facility] THERAPY NTon 06-21-2024 THERAPY NT HNO ID: [id number] Author: MJ ARRIAZA, PT Service: ? Author Type: Physical Therapist Type: Therapy (PT/OT/Speech/Resp) Filed: 06/21/2024 12:59 Note Text: Program_ID:[id number] Access Code: [email or web address] URL: [email or web address] [employer]/ Date: 06-21-2024 Prepared By: Mj Arriaza Program Notes Exercises - Seated Scapular Retraction - 2 x daily - 7 x weekly - 2-3 sets - 10 reps - Standing Isometric Shoulder Internal Rotation at Doorway - 2 x daily - 7 x weekly - 2 sets - 10 reps - Standing Isometric Shoulder External Rotation with Doorway - 2 x daily - 7 x weekly - 2 sets - 10 reps - Scaption Wall Slide with Towel - 2 x daily - 7 x weekly - 2-3 sets - 10 reps - Supine Shoulder External Rotation with Resistance - 2 x daily - 7 x weekly - 2-3 sets - 10 reps [facility] [id number] 06-14-2024 [id number] HNO ID: [id number] Author: MJ ARRIAZA, PT Service: ? Author Type: Physical Therapist Type: [id number] Filed: 06/14/2024 16:28 Note Text: [facility] Physical Therapy Plan of Care Certification Patient Name: Jade Jackson : 1950 [facility] #: [id number] Date: 06/14/2024 To: Kendal High MD From Therapist: Mj Arriaza, PT RE: Patient Certification/ Recertification Your review, approval and electronic signature are required in order to comply with Payor: MEDICARE / Plan: MEDICARE A AND B / Product Type: Medicare / regulations. The identified Physical Therapy PLAN OF CARE for the patient is as follows: M81.0 Postmenopausal osteoporoses (primary encounter diagnosis) M05.9 Seropositive rheumatoid arthritis (HCC) Z79.899 Encounter for long-term (current) use of medications Z79.899 Long-term use of hydroxychloroquine PLAN OF CARE: Assessment: Jade Jackson presents with chief complaint of R anterior and inferior shoulder pain that interferes with lifting, carrying, dressing, reaching behind back, use hand with arm at shoulder level . She presents with impairments in ADL's, flexibility, independence in exercise, overall function, patient reported outcome measures, posture, range of motion, and strength. PROMIS? (Patient-Reported Outcomes Measurement Information System) scores were reviewed and identified as a rehabilitation concern. Prognosis for therapy is Good due to: current objective clinical presentation . She will benefit from skilled therapy services to meet the goals established for this plan of care as noted below. Goals for Episode of Care: established 06/14/24 Patient reported outcome of physical function will increase T-score by a minimum 5 points. [facility] in home exercise program. Patient will decrease R shoulder pain to 0/10 with functional activities to allow patient to improve lifting/carrying activities. Patient will increase active ROM of shoulder abduction to 135 degrees or greater to allow pt to improve performance of ADLs. Patient will demonstrate increase in R shoulder strength to 5-/5 during manual muscle testing in order to improve function for home management tasks. Perform reach behind her back without pain. Patient Goals: Eliminate R shoulder pain Time Frame for Goals and Treatment : (6-8 weeks) Planned Interventions, Frequency, and Duration: Current Frequency: 1x/week Duration: 4 weeks Total Number of Visits Planned: (6-8) Planned Treatment Interventions: Therapeutic exercise (95850), Neuromuscular re-education (36584), Manual therapy (09025), Therapeutic activities (10635), Patient/Family/Caregiv er Education, Self-fdc management (66265), General Conditioning PLAN FOR NEXT VISIT: Assess the patient's response to her PT evaluation and HEP. Begin a rehabilitation program with emphasis on gentle but progressing RTC and holden-scapular strengthening (beginning with isometrics and progressing as pain allows) while working to restore her shoulder abduction and ER ROM. Patient demonstrates good understanding of plan of care and treatment. The above goals and plan of care were discussed and agreed upon by patient/family. For further details regarding this patient refer to the Physical Therapy electronically documented visit dated 06/14/2024. Provider Attestation I have reviewed the treatment plan for Jade Jackson, [facility]# [id number] for the period of 06/14/24 -- 09/13/24, established on 06/14/2024. Signature certifies the need for therapy services. [facility] CNTHERAPYon 06-14-2024 CNTHERAPY OT/PT/Speech Visit (PTMCRM) JADE JACKSON ([id number]) 1950 F Date Time Provider Department 06/14/24 1:45 PM MJ ARRIAZA [facility] Date Time Provider Department Center 06/14/2024 1:45 PM [id number], COLIN [facility] Reason for Visit: PT Eval [747] Patient Education [91] Primary Visit Diagnosis:Postmenopaus al osteoporoses [M81.0] Other Visit Diagnoses:Seropositive rheumatoid arthritis (HCC) [M05.9] Encounter for long-term (current) use of medications [Z79.899] Long-term use of hydroxychloroquine [Z79.899] Allergies As of Date: 06/14/2024 Noted Allergy Reaction CEPHALOSPORINS 02/02/2007 7 - Swelling PENICILLINS 02/02/2007 10 - Anaphylaxis Date Reviewed: 05/26/2024 Reviewed by: Nani Duncan LPN - Fully Assessed Prescriptions as of 06/21/2024 - hydrOXYchloroQUINE (PLAQUENIL) 200 mg tablet take 1 tablet by mouth 2 times a day - cholecalciferol, vitamin D3, (VITAMIN D3 ORAL) Take 2,000 mcg by mouth once daily as needed. - albuterol HFA (VENTOLIN HFA) 90 mcg/actuation inhaler Inhale 2 Puffs as instructed every 4 hours as needed for wheezing/shortness of breath. - CPAP CPAP tubing, head gear, ancillary supplies Life Time Supplies 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 10 cm H2O. - calcium carbonate (CALCIUM 600 ORAL) Take 600 mg by mouth three times a day. - cholecalciferol, vitamin D3, (VITAMIN D3 ORAL) Take 12.5 mcg by mouth once daily. - alendronate (FOSAMAX) 70 mg tablet Take 1 tablet by mouth one time a week. Take with a full glass of water, on an empty stomach; do NOT lie down for 30minutes. - calcium-vits X2-A-N9-minerals 166.75 mg- 166.75 unit cap Take by mouth. ONE IN THE MORNING AND TWO IN THE EVENING - psyllium Husk 0.52 gram capsule Take 0.52 g by mouth once daily. - Multivitamin (MULTIPLE VITAMINS DAILY) ORAL Tab Take one(1) tablet daily. [employer] Articles: Therapy (PT/OT/Speech/Resp) ID: [id number] 06/14/2024 2:29 PM Author: MJ ARRIAZA Signed by MJ ARRIAZA PT on 06/14/2024 at 2:29 PM Document text: Program_ID:[id number] Access Code: [email or web address] URL: [email or web address]/ Date: 06-14-2024 Prepared By: Mj Arriaza Program Notes Exercises - Seated Scapular Retraction - 2 x daily - 7 x weekly - 2-3 sets - 10 reps - Standing Isometric Shoulder Internal Rotation at Doorway - 2 x daily - 7 x weekly - 2 sets - 10 reps - Standing Isometric Shoulder External Rotation with Doorway - 2 x daily - 7 x weekly - 2 sets - 10 reps -- [facility] THERAPY NTon 06-14-2024 THERAPY NT HNO ID: [id number] Author: MJ ARRIAZA PT Service: ? Author Type: Physical Therapist Type: Therapy (PT/OT/Speech/Resp) Filed: 06/14/2024 14:29 Note Text: Program_ID:[id number] Access Code: [email or web address] URL: [email or web address]/ Date: 06-14-2024 Prepared By: Mj Arriaza Program Notes Exercises - Seated Scapular Retraction - 2 x daily - 7 x weekly - 2-3 sets - 10 reps - Standing Isometric Shoulder Internal Rotation at Doorway - 2 x daily - 7 x weekly - 2 sets - 10 reps - Standing Isometric Shoulder External Rotation with Doorway - 2 x daily - 7 x weekly - 2 sets - 10 reps [facility] CNOVon 05-26-2024 [facility] Office Visit ([facility] ) JADE JACKSON ([id number]) 1950 F Date Time Provider Department 05/26/24 10:00 AM [facility] your visit today, we recorded the following information about you: Pulse Respiration Blood pressure Weight 71/minute 16/minute 114/72 88.9 kg Lida Coto APRN.[employer] 05/26/2024 10:48 AM Signed This is a 73 year old female who presents today with: Patient presents with: Acute Visit: URI/ allergy symptoms HISTORY OF PRESENT ILLNESS: Jade Jackson is a 73 year old female. Patient presents with: Acute Visit: URI/ allergy symptoms Here in the office for rhinorrhea, watery eyes, and cough. Symptoms started 12 days ago. Cough is productive at times, thick geronimo colored mucus at times. Post nasal drip. Refers her chest feels tight. No difficulty breathing, fever, or chills. PAST MEDICAL HISTORY: PAST MEDICAL HISTORY No date: Arthritis 03/13/2015: Basal cell carcinoma Comment: nose No date: Mixed hyperlipidemia Comment: Hyperlipidemia No date: Sleep apnea Comment: compliant with CPAP No date: Unspecified hearing loss Comment: TOTAL DEAFNESS RIGHT, 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 SINCE AGE 7 PAST SURGICAL HISTORY 1958: ADENOIDECTOMY PRIMARY Comment: Adenoidectomy No date: APPENDECTOMY 06/26/2020: COLONOSCOPY FLX DX W/COLLJ SPEC WHEN PFRMD Comment: Colonoscopy No date: EYE SURGERY HX 1985: PAST SURGICAL HISTORY OF Comment: Cone bx 03/13/2015: SKIN BIOPSY HX No date: TONSILLECTOMY HX 1956: TONSILLECTOMY PRIMARY/SECONDARY Comment: Tonsillectomy ALLERGIES Cephalosporins and Penicillins MEDICATIONS Current Outpatient Medications Medication Sig CPAP CPAP tubing, head gear, ancillary supplies Life Time Supplies 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 10 cm H2O. hydrOXYchloroQUINE (PLAQUENIL) 200 mg tablet take 1 tablet by mouth 2 times a day calcium carbonate (CALCIUM 600 ORAL) Take 600 mg by mouth two times a day. cholecalciferol, vitamin D3, (VITAMIN D3 ORAL) Take 12.5 mcg by mouth once daily. alendronate (FOSAMAX) 70 mg tablet Take 1 tablet by mouth one time a week. Take with a full glass of water, on an empty stomach; do NOT lie down for 30minutes. calcium-vits G8-I-U2-minerals 166.75 mg- 166.75 unit cap Take by mouth. ONE IN THE MORNING AND TWO IN THE EVENING psyllium Husk 0.52 gram capsule Take 0.52 g by mouth once daily. Multivitamin (MULTIPLE VITAMINS DAILY) ORAL Tab Take one(1) tablet daily. No current facility-administered medications for this visit. FAMILY HISTORY Problem Relation Age of Onset Allergies Mother Heart Mother Cancer Father GLIOBLASTOMA Allergies Father Coronary Artery Disease Father 70 Heart Father Hypertension Father Cancer Sister FOLLICULAR Cancer Maternal Grandfather Diabetes Sister Stroke Paternal Grandfather Social History Tobacco Use Smoking status: Former Packs/day: 0.50 Years: 21.00 Additional pack years: 0.00 Total pack years: 10.50 Types: Cigarettes Quit date: 04/02/2020 Years since quittin.1 Smokeless tobacco: Never Substance Use Topics Alcohol use: Yes Comment: rare Drug use: No REVIEW OF SYSTEMS GENERAL: No weight loss, malaise or fevers/chills HEENT: + Rhinorrhea, watery eyes NECK: Negative for lumps, goiter, pain and significant neck swelling RESPIRATORY: + Cough CARDIOVASCULAR: Negative for chest pain, leg swelling, orthopnea, or palpitations GI: No nausea, vomiting, or diarrhea/constipation. No hematochezia/melena. No heartburn or reflux symptoms. : No history of dysuria, frequency or incontinence MUSCULOSKELETAL: Negative for joint pain or swelling. SKIN: Negative for lesions, rash, and itching ENDOCRINE: Negative for cold or heat intolerance, polyuria, polydipsia and goiter NEURO: No history of headaches, syncope, paralysis, seizures or tremors MOOD: Negative for depression, anxiety, or suicidal ideation. EXAM: BP 114/72 Pulse 71 Resp 16 Wt 88.9 kg (195 lb 15.8 oz) SpO2 96% BMI 35.39 kg/m? PHYSICAL EXAM: General Appearance: Well appearing, alert, in no acute distress, well-hydrated, well nourished. Skin: Skin color, texture, turgor normal, no suspicious rashes or lesions. Head: Normocephalic, no masses, lesions, tenderness or abnormalities. Eyes: Anicteric sclera. Pupils are equally round and reactive to light. Extraocular movements are intact. Ears: External ears normal, canals clear. TMs pearly judd. Nose/Sinuses: Positive findings: mucosa erythematous and swollen, nasal polyp noted in the left nares. Oropharynx: Lips, mucosa, and tongue normal, teeth and gums normal, oropharynx normal. Neck: Supple, no adenopathy; thyroid symmetric, normal size, no bruits. Lungs: Lungs clear to auscultation. No wheezing, rhonchi, rales. Cough. Heart: RRR without murmur, gallop, or rubs. No ectopy. Extremities: No deformities, edema, skin discoloration, c (more content not included)... Normal [facility] SIMBA SCREENINGon 04-03-2023 [facility] DXA-AXIAL SKELETONon 023 [facility] Comprehensive metabolic 2000 panelon 08-18-2022 Albumin [Mass/Vol] 4.3 g/dL 3.9 - 4.9 g/dL [facility] ALP [Catalytic activity/Vol] 97 U/L 34 - 123 U/L [facility] ALT [Catalytic activity/Vol] 14 U/L 7 - 38 U/L [facility] Anion gap [Moles/Vol] 13 mmol/L 9 - 18 mmol/L [facility] AST [Catalytic activity/Vol] 15 U/L 13 - 35 U/L [facility] Bilirubin [Mass/Vol] 0.3 mg/dL 0.2 - 1 .3 mg/dL [facility] Calcium [Mass/Vol] 9.4 mg/dL 8.5 - 10. 2 mg/dL [facility] Chloride [Moles/Vol] 105 mmol/L 97 - 10 5 mmol/L [facility] CO2 [Moles/Vol] 23 mmol/L 22 - 30 mmol/L [facility] Creatinine [Mass/Vol] 0.96 mg/dL 0.58 - 0.96 mg/dL [facility] Estimated Glomerular Filtration Rate 64 mL/min/1.73m >=60 mL/min/1.73m [facility] Glucose [Mass/Vol] 94 mg/dL 74 - 99 mg/dL [facility] Potassium [Moles/Vol] 4.0 mmol/L 3.7 - 5.1 mmol/L [facility] Protein [Mass/Vol] 7.1 g/dL 6.3 - 8.0 g/dL [facility] Sodium [Moles/Vol] 141 mmol/L 136 - 144 mmol/L [facility] Urea nitrogen [Mass/Vol] 13 mg/dL 7 - 21 mg/dL [facility] Lipid 1996 panelon 2 Cholesterol [Mass/Vol] 184 mg/dL <200 mg/dL [facility] Cholesterol in HDL [Mass/Vol] 59 mg/dL >39 mg/dL [facility] Cholesterol in LDL [Mass/Vol] 103 mg/dL High <100 mg/dL [facility] Cholesterol in LDL/Cholesterol in HDL [Mass ratio] 1.75 {ratio} <2.54 [facility] Cholesterol in VLDL [Mass/Vol] 22 mg/dL <30 mg/dL [facility] Cholesterol non HDL [Mass/Vol] 125 mg/dL <130 mg/dL [facility] Cholesterol.total/Chol esterol in HDL [Mass ratio] 3.12 {ratio} <5.10 [facility] Fasting Time 12 hrs [facility] Triglyceride [Mass/Vol] 109 mg/dL <150 mg/dL [facility] CBC W Auto Differential pane l (Bld)on 07-14-2022 Abs Immature Gran <0.10 k/uL [facility] Basophils (Bld) [#/Vol] 0.13 10*3/uL High <0.11 k/uL [facility] Basophils/100 WBC (Bld) 1.5 % [facility] Differential cell count method Nom (Bld) Auto [facility] Eosinophils (Bld) [#/Vol] 0.12 10*3/uL <0.46 k/uL [facility] Eosinophils/100 WBC (Bld) 1.4 % [facility] Erythrocyte distribution width (RBC) [Ratio] 13.7 % 11.5 - 15.0 % [facility] Hematocrit (Bld) [Volume fraction] 41.3 % 36.0 - 46.0 % [facility] Hemoglobin (Bld) [Mass/Vol] 13.4 g/dL 11.5 - 15.5 g/dL [facility] Immature Gran % 0.2 % [facility] Lymphocytes (Bld) [#/Vol] 3.04 10*3/uL 1.00 - 4.00 k/uL [facility] Lymphocytes/100 WBC (Bld) 35.5 % [facility] MCH (RBC) [Entitic mass] 28.3 pg 26.0 - 34.0 pg [facility] MCHC (RBC) [Mass/Vol] 32.4 g/dL 30.5 - 36.0 g/dL [facility] MCV (RBC) [Entitic vol] 87.1 fL 80.0 - 100.0 fL [facility] Monocytes (Bld) [#/Vol] 0.77 10*3/uL <0.87 k/uL [facility] Monocytes/100 WBC (Bld) 9.0 % [facility] Neutrophils (Bld) [#/Vol] 4.48 10*3/uL 1.45 - 7.50 k/uL [facility] Neutrophils/100 WBC (Bld) 52.4 % [facility] Nucleated RBC (Bld) [#/Vol] <0.01 k/uL [facility] Nucleated RBC/100 WBC (Bld) [Ratio] 0.0 /100 WBC [facility] Platelet mean volume (Bld) [Entitic vol] 12.6 fL 9.0 - 12.7 fL [facility] Platelets (Bld) [#/Vol] 264 10*3/uL 150 - 400 k/uL [facility] RBC (Bld) [#/Vol] 4.74 10*6/uL 3.90 - 5.2 0 m/uL [facility] WBC (Bld) [#/Vol] 8.56 10*3/uL 3.70 - 11. 00 k/uL [facility] SIMBA SCREENINGon 03-17-2022 [facility] No Panel Informationon 03-25 Radiology Study observation (narrative) [facility] XR Hand - bilateral PA and L ateral and Obliqueon 03-25-2021 IMPRESSION: No radiographic evidence of osseous abnormality Bioinformatics Computer Scientist: SEAN Transcribe Date/Time: Mar 25 2021 2:23P Dictated by : SHAMIKA GARCÍA MD This examination was interpreted and the report reviewed and electronically signed by: SHAMIKA GARCÍA MD on Mar 25 2021 2:25PM [facility] DIVISION OF RADIOLOGY * * *Final Report* * * DATE OF EXAM: Mar 25 2021 11:59AM WOX 5556 - XR HAND 3V PA/LAT/OBL DENIA / PROCEDURE REASON: Arthralgia, unspecified joint * * * * Physician Interpretation * * * * CLINICAL INDICATION: Arthralgia TECHNIQUE: 3 view radiographic study of the bilateral hands COMPARISON: None FINDINGS: Right hand: No fracture or dislocation identified. Joint spaces preserved. No osseous erosion or periostitis identified. Left hand: No fracture or dislocation. Joint spaces preserved. No osseous erosion or periostitis identified. DIVISION OF RADIOLOGY Provider, [facility] - 03/25/[facility]21 * * *Final Report* * * DATE OF EXAM: Mar 25 2021 11:59AM WOX 5556 - XR HAND 3V PA/LAT/OBL DENIA / PROCEDURE REASON: Arthralgia, unspecified joint * * * * Physician Interpretation * * * * CLINICAL INDICATION: Arthralgia TECHNIQUE: 3 view radiographic study of the bilateral hands COMPARISON: None FINDINGS: Right hand: No fracture or dislocation identified. Joint spaces preserved. No osseous erosion or periostitis identified. Left hand: No fracture or dislocation. Joint spaces preserved. No osseous erosion or periostitis identified. IMPRESSION IMPRESSION: No radiographic evidence of osseous abnormality Bioinformatics Computer Scientist: [facility] Transcribe Date/Time: Mar 25 2021 2:23P Dictated by : SHAMIKA GARCÍA MD This examination was interpreted and the report reviewed and electronically signed by: SHAMIKA GARCÍA MD on Mar 25 2021 2:25PM EST [facility] XR Hand - bilateral PA and L ateral and ObliqueOrdered By: [facility] Provider on 03-25-2021 [facility] XR Shoulder - right 3 Viewso n 03-25-2021 IMPRESSION: 1. No acute bony process. 2. Mild degenerative change right shoulder. Bioinformatics Computer Scientist: [facility] Transcribe Date/Time: Mar 25 2021 1:20P Dictated by : ANGEL SOLIMAN MD This examination was interpreted and the report reviewed and electronically signed by: ANGEL SOLIMAN MD on Mar 25 2021 1:22PM [facility] DIVISION OF RADIOLOGY * * *Final Report* * * DATE OF EXAM: Mar 25 2021 11:59AM WOX 5253 - XR SHLDR >/=3V AP/YASMIN AP/OTHR RT / PROCEDURE REASON: Arthralgia, unspecified joint * * * * Physician Interpretation * * * * EXAMINATION: XR SHLDR >/=3V AP/YASMIN AP/OTHR RT HISTORY: Pain on the top of the right shoulder chronically that has been increasing over time. No injury. Arthralgia, unspecified joint. TECHNIQUE: XR SHLDR >/=3V AP/YASMIN AP/OTHR RT Laterality: RIGHT Number of different views (projections): 3 M: XB_1 COMPARISON: There are no prior studies for comparison RESULT: 3 views of the right shoulder show no acute osseous, articular or soft tissue abnormality. There is mild degenerative change of the right AC joint with periarticular osteophytosis. There are bony reactive changes of the greater tuberosity with preservation of the acromiohumeral distance. Glenohumeral joint is preserved. The visualized lung is clear. DIVISION OF RADIOLOGY Provider, [facility] - 03/25/2021 * * *Final Report* * * DATE OF EXAM: Mar 25 2021 11:59AM WOX 5253 - XR SHLDR >/=3V AP/YASMIN AP/OTHR RT / PROCEDURE REASON: Arthralgia, unspecified joint * * * * Physician Interpretation * * * * EXAMINATION: XR SHLDR >/=3V AP/YASMIN AP/OTHR RT HISTORY: Pain on the top of the right shoulder chronically that has been increasing over time. No injury. Arthralgia, unspecified joint. TECHNIQUE: XR SHLDR >/=3V AP/YASMIN AP/OTHR RT Laterality: RIGHT Number of different views (projections): 3 M: XB_1 COMPARISON: There are no prior studies for comparison RESULT: 3 views of the right shoulder show no acute osseous, articular or soft tissue abnormality. There is mild degenerative change of the right AC joint with periarticular osteophytosis. There are bony reactive changes of the greater tuberosity with preservation of the acromiohumeral distance. Glenohumeral joint is preserved. The visualized lung is clear. IMPRESSION IMPRESSION: 1. No acute bony process. 2. Mild degenerative change right shoulder. Bioinformatics Computer Scientist: SEAN Transcribe Date/Time: Mar 25 2021 1:20P Dictated by : ANGEL SOLIMAN MD This examination was interpreted and the report reviewed and electronically signed by: ANGEL SOLIMAN MD on Mar 25 2021 1:22PM [facility] Vital Signs Date Time Vital Sign Value Performing Clinician Rex dasilva 05-23-2025 10:10-0400 Body mass index (BMI) [Ratio] 35.26 kg/m2 Deborah Lopez APRN.CNP Work Phone: [facility] 05-23-2025 10:10-0400 Body weight 87.45 kg Deborah Lopez APRN.CNP Work Phone: [facility] 05-23-2025 10:10-0400 Diastolic blood pressure 67 mm[Hg] Deborah Lopez APRN.CNP Work Phone: [facility] 05-23-2025 10:10-0400 Heart rate 79 /min Deborah Lopez APRN.CNP Work Phone: [facility] 05-23-2025 10:10-0400 Respiratory rate 14 /min Deborah John HOME HEALTH CARE SOCIAL WORKER.ETHERNET NETWORK ARCHITECT Work Phone: [facility] 05-23-2025 10:10-0400 SaO2% (BldA) [Mass fraction] 97 % Deborah John HOME HEALTH CARE SOCIAL WORKER.ETHERNET NETWORK ARCHITECT Work Phone: [facility] 05-23-2025 10:10-0400 Systolic blood pressure 106 mm[Hg] Deborah John HOME HEALTH CARE SOCIAL WORKER.ETHERNET NETWORK ARCHITECT Work Phone: [facility] 02-23-2025 11:06-0400 Body height 157.5 cm Kendal High MD Work Phone: [facility] 02-23-2025 11:06-0400 Body mass index (BMI) [Ratio] 35.85 kg/m2 Kendal High MD Work Phone: [facility] 02-23-2025 11:06-0400 Body weight 88.91 kg Kendal High MD Work Phone: [facility] 02-23-2025 11:06-0400 Diastolic blood pressure 72 mm[Hg] Kendal High MD Work Phone: [facility] 02-23-2025 11:06-0400 Heart rate 67 /min Kendal High MD Work Phone: [facility] 02-23-2025 11:06-0400 Systolic blood pressure 114 mm[Hg] Kendal High MD Work Phone: [facility] 01-25-2025 10:08-0400 Body mass index (BMI) [Ratio] 35.42 kg/m2 Dar Abdi MD Work Phone: [facility] 01-25-2025 10:08-0400 Body weight 89 kg Dar Abdi MD Work Phone: [facility] 01-25-2025 10:08-0400 Diastolic blood pressure 74 mm[Hg] Dar Abdi MD Work Phone: [facility] 01-25-2025 10:08-0400 Systolic blood pressure 118 mm[Hg] Dar Abdi MD Work Phone: [facility] 12-14-2024 10:25-0500 Body mass index (BMI) [Ratio] 35.75 kg/m2 Dar Abdi MD Work Phone: [facility] 12-14-2024 10:25-0500 Body weight 89.81 kg Dar Abdi MD Work Phone: [facility] 12-14-2024 10:25-0500 Diastolic blood pressure 82 mm[Hg] Dar Abdi MD Work Phone: [facility] 12-14-2024 10:25-0500 Systolic blood pressure 128 mm[Hg] Dar Abdi MD Work Phone: [facility] 11-24-2024 09:41-0500 Body mass index (BMI) [Ratio] 35.42 kg/m2 Dar Abdi MD Work Phone: [facility] 11-24-2024 09:41-0500 Body weight 89 kg Dar Abdi MD Work Phone: [facility] 11-24-2024 09:41-0500 Diastolic blood pressure 78 mm[Hg] Dar Abdi MD Work Phone: [facility] 11-24-2024 09:41-0500 Systolic blood pressure 120 mm[Hg] Dar Abdi MD Work Phone: [facility] 09-19-2024 08:56-0500 Body mass index (BMI) [Ratio] 35.21 kg/m2 Griselda Acevedo HOME HEALTH CARE SOCIAL WORKER.ETHERNET NETWORK ARCHITECT Work Phone: [facility] 09-19-2024 08:56-0500 Body weight 88.45 kg Griselda Acevedo HOME HEALTH CARE SOCIAL WORKER.ETHERNET NETWORK ARCHITECT Work Phone: [facility] 09-19-2024 08:56-0500 Diastolic blood pressure 68 mm[Hg] Griselda Acevedo HOME HEALTH CARE SOCIAL WORKER.ETHERNET NETWORK ARCHITECT Work Phone: [facility] 09-19-2024 08:56-0500 Heart rate 70 /min Griselda Pinch HOME HEALTH CARE SOCIAL WORKER.ETHERNET NETWORK ARCHITECT Work Phone: [facility] 09-19-2024 08:56-0500 Respiratory rate 16 /min Griselda Pinch HOME HEALTH CARE SOCIAL WORKER.ETHERNET NETWORK ARCHITECT Work Phone: [facility] 09-19-2024 08:56-0500 SaO2% (BldA) [Mass fraction] 98 % Griselda Pinch HOME HEALTH CARE SOCIAL WORKER.ETHERNET NETWORK ARCHITECT Work Phone: [facility] 09-19-2024 08:56-0500 Systolic blood pressure 110 mm[Hg] Griselda Pinch HOME HEALTH CARE SOCIAL WORKER.ETHERNET NETWORK ARCHITECT Work Phone: [facility] 08-19-2024 11:00-0500 Body height 158.5 cm Lidarao Bonillahof HOME HEALTH CARE SOCIAL WORKER.ETHERNET NETWORK ARCHITECT Work Phone: [facility] 08-19-2024 11:00-0500 Body mass index (BMI) [Ratio] 35.19 kg/m2 Lida Bonillahof HOME HEALTH CARE SOCIAL WORKER.ETHERNET NETWORK ARCHITECT Work Phone: [facility] 08-19-2024 11:00-0500 Body weight 88.4 kg Lida Bonillahof HOME HEALTH CARE SOCIAL WORKER.ETHERNET NETWORK ARCHITECT Work Phone: [facility] 08-19-2024 11:00-0500 Diastolic blood pressure 86 mm[Hg] Lida Bonillahof HOME HEALTH CARE SOCIAL WORKER.ETHERNET NETWORK ARCHITECT Work Phone: [facility] 08-19-2024 11:00-0500 Heart rate 70 /min Lida Tannhof HOME HEALTH CARE SOCIAL WORKER.ETHERNET NETWORK ARCHITECT Work Phone: [facility] 08-19-2024 11:00-0500 Respiratory rate 16 /min Lida Tannhof HOME HEALTH CARE SOCIAL WORKER.ETHERNET NETWORK ARCHITECT Work Phone: [facility] 08-19-2024 11:00-0500 SaO2% (BldA) [Mass fraction] 99 % Lidarao Bonillahof HOME HEALTH CARE SOCIAL WORKER.ETHERNET NETWORK ARCHITECT Work Phone: [facility] 08-19-2024 11:00-0500 Systolic blood pressure 140 mm[Hg] Lida Tannhof HOME HEALTH CARE SOCIAL WORKER.ETHERNET NETWORK ARCHITECT Work Phone: [facility] 06-14-2024 13:00-0400 Diastolic blood pressure 101 mm[Hg] Mj Ashley PT [facility] 06-14-2024 13:00-0400 Systolic blood pressure 155 mm[Hg] Mj Ashley PT [facility] 05-26-2024 09:52-0400 Body mass index (BMI) [Ratio] 35.39 kg/m2 Lida Tannhof HOME HEALTH CARE SOCIAL WORKER.ETHERNET NETWORK ARCHITECT Work Phone: [facility] 05-26-2024 09:52-0400 Body weight 88.9 kg Lida Tannhof HOME HEALTH CARE SOCIAL WORKER.ETHERNET NETWORK ARCHITECT Work Phone: [facility] 05-26-2024 09:52-0400 Diastolic blood pressure 72 mm[Hg] Lida Tannhof HOME HEALTH CARE SOCIAL WORKER.ETHERNET NETWORK ARCHITECT Work Phone: [facility] 05-26-2024 09:52-0400 Heart rate 71 /min Lida Tannhof HOME HEALTH CARE SOCIAL WORKER.ETHERNET NETWORK ARCHITECT Work Phone: [facility] 05-26-2024 09:52-0400 Respiratory rate 16 /min Lida Tannhof HOME HEALTH CARE SOCIAL WORKER.ETHERNET NETWORK ARCHITECT Work Phone: [facility] 05-26-2024 09:52-0400 SaO2% (BldA) [Mass fraction] 96 % Lida Tannhof HOME HEALTH CARE SOCIAL WORKER.ETHERNET NETWORK ARCHITECT Work Phone: [facility] 05-26-2024 09:52-0400 Systolic blood pressure 114 mm[Hg] Lida Tannhof HOME HEALTH CARE SOCIAL WORKER.ETHERNET NETWORK ARCHITECT Work Phone: [facility] 01-15-2023 11:53-0400 Diastolic blood pressure 80 mm[Hg] Kendal High MD Work Phone: [facility] 01-15-2023 11:53-0400 Heart rate 65 /min Kendal High MD Work Phone: [facility] 01-15-2023 11:53-0400 Systolic blood pressure 152 mm[Hg] Kendal High MD Work Phone: [facility] 01-15-2023 11:46-0400 Body height 165.1 cm Kendal High MD Work Phone: [facility] 01-15-2023 11:46-0400 Body temperature 97.5 [degF] Kendal High MD Work Phone: [facility] 01-15-2023 11:46-0400 Body weight 86.18 kg Kendal High MD Work Phone: [facility] 08-18-2022 13:15-0500 Body weight 95.25 kg Lida Coto HOME HEALTH CARE SOCIAL WORKER.ETHERNET NETWORK ARCHITECT Work Phone: [facility] 08-18-2022 13:15-0500 Diastolic blood pressure 74 mm[Hg] Lida Bonillahof HOME HEALTH CARE SOCIAL WORKER.ETHERNET NETWORK ARCHITECT Work Phone: [facility] 08-18-2022 13:15-0500 Heart rate 74 /min Lida Bonillahof HOME HEALTH CARE SOCIAL WORKER.ETHERNET NETWORK ARCHITECT Work Phone: [facility] 08-18-2022 13:15-0500 Respiratory rate 16 /min Lida Bonillahof HOME HEALTH CARE SOCIAL WORKER.ETHERNET NETWORK ARCHITECT Work Phone: [facility] 08-18-2022 13:15-0500 SaO2% (BldA) [Mass fraction] 97 % Lida Bonillahof HOME HEALTH CARE SOCIAL WORKER.ETHERNET NETWORK ARCHITECT Work Phone: [facility] 08-18-2022 13:15-0500 Systolic blood pressure 132 mm[Hg] Lida Bonillahof HOME HEALTH CARE SOCIAL WORKER.ETHERNET NETWORK ARCHITECT Work Phone: [facility] 07-14-2022 13:50-0400 Body height 165.1 cm Lopez Weaver HOME HEALTH CARE SOCIAL WORKER.ETHERNET NETWORK ARCHITECT Work Phone: [facility] 07-14-2022 13:50-0400 Body temperature 98.49 [degF] Lopez Weaver HOME HEALTH CARE SOCIAL WORKER.ETHERNET NETWORK ARCHITECT Work Phone: [facility] 07-14-2022 13:50-0400 Body weight 94.8 kg Lopez Weaver HOME HEALTH CARE SOCIAL WORKER.ETHERNET NETWORK ARCHITECT Work Phone: [facility] 07-14-2022 13:50-0400 Diastolic blood pressure 77 mm[Hg] Lopez Weaver HOME HEALTH CARE SOCIAL WORKER.ETHERNET NETWORK ARCHITECT Work Phone: [facility] 07-14-2022 13:50-0400 Heart rate 76 /min Lopez Weaver HOME HEALTH CARE SOCIAL WORKER.ETHERNET NETWORK ARCHITECT Work Phone: [facility] 07-14-2022 13:50-0400 Systolic blood pressure 128 mm[Hg] Lopez Weaver HOME HEALTH CARE SOCIAL WORKER.ETHERNET NETWORK ARCHITECT Work Phone: [facility] Encounters Encounter Date Encounter Type Care Provider Facility Start: 05-24-2025 ambulatory Robina Aranda y:[facility] Start: 05-23-2025 End: 05-23-2025 Patient encounter procedure Deborah Lopez HOME HEALTH CARE SOCIAL WORKER.ETHERNET NETWORK ARCHITECT Work Phone: General Surgery Comment on above: History of colonic p olyps (Primary Dx); Special screening for malignant neoplasms, colon Start: 04-25-2025 End: 04-27-2025 ambulatory Robina Sam MD Work Phone: Family [facility] Comment on above: Repeat Sleep Study Start: 04-11-2025 End: 04-21-2025 Telephone encounter Robina Sam MD Work Phone: Internal Medicine [place] Comment on above: Forms ([employer] for CEDRIC supplies and documentation request) Start: 04-10-2025 End: 04-13-2025 Follow-up encounter Robina Sam MD Work Phone: Family [facility] Start: 04-07-2025 ambulatory SELF Facility:[facility] Start: 04-07-2025 End: 04-07-2025 Subsequent hospital visit by physician Screen Mammo [facility] Comment on above: Encounter for screen ing mammogram for malignant neoplasm of breast [Z12.31] Start: 03-20-2025 End: 03-20-2025 Telephone encounter Robina Sam MD Work Phone: Mammogram Start: 02-25-2025 End: 02-25-2025 ambulatory KENDAL HIGH Facility:[facility] Start: 02-24-2025 End: 04-26-2025 Follow-up encounter Kendal High MD Work Phone: Rheumatology Start: 02-24-2025 ambulatory KENDAL HIGH Facility :[facility] Start: 02-24-2025 End: 02-24-2025 Subsequent hospital visit by physician Bone Density [facility] Work Phone: Radiology Comment on above: Cardiovascular risk factor [Z91.89] Start: 02-23-2025 End: 02-23-2025 Subsequent hospital visit by physician Xr [facility] [place] Work Phone: Radiology Comment on above: Pain in left hip [M2 5.552] Start: 02-23-2025 End: 02-23-2025 Patient encounter procedure Kendal High MD Work Phone: Rheumatology Comment on above: Seropositive rheumat oid arthritis (HCC) (Primary Dx); Postmenopausal osteoporoses; Height loss; Gastroesophageal reflux disease, unspecified whether esophagitis present; Pain in left hip Start: 02-23-2025 End: 02-23-2025 ambulatory KENDAL HIGH Facility:[facility] Start: 01-27-2025 End: 01-27-2025 Follow-up encounter Vane Goncalves MD Work Phone: OB/Gynecology Start: 01-26-2025 ambulatory [facility] Start: 01-25-2025 End: 01-25-2025 Patient encounter procedure Dar Abdi MD Work Phone: OB/Gynecology Comment on above: Vaginal discharge (P rimary Dx) Start: 01-25-2025 End: 01-26-2025 ambulatory DAR ABDI Facility:[facility] Start: 01-10-2025 End: 01-11-2025 Refill Kendal High MD Work Phone: Rheumatology Comment on above: Refill Request Start: 12-30-2024 End: 12-30-[facility] Start: 12-19-2024 End: 02-18-2025 Follow-up encounter Dar Abdi MD Work Phone: OB/Gynecology Start: 12-14-2024 End: 12-14-2024 ambulatory DAR ABDI Facility:[facility] Start: 12-14-2024 End: 12-14-2024 Patient encounter procedure Dar Abdi MD Work Phone: OB/Gynecology Comment on above: Stress incontinence of urine (Primary Dx); Pelvic relaxation due to uterine prolapse Start: 11-24-2024 End: 11-24-2024 ambulatory DAR ABDI Facility:[facility] Start: 11-24-2024 End: 11-24-2024 Patient encounter procedure Dar Abdi MD Work Phone: OB/Gynecology Comment on above: Stress incontinence of urine (Primary Dx); Cystocele, midline Start: 11-17-2024 End: 11-17-2024 ambulatory Lida Coto APRN.ETHERNET NETWORK ARCHITECT Work Phone: [facility] Medicine [place] Comment on above: 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 Start: 10-24-2024 End: 10-24-2024 E-mail encounter from caregiver Lani Pederson MD Work Phone: Cardiology Start: 10-24-2024 End: 10-24-2024 Patient encounter procedure Lani Pederson MD Work Phone: Cardiology Comment on above: 10/24 Appointment Start: 09-28-2024 End: 09-28-2024 ambulatory Lida Coto APRN.ETHERNET NETWORK ARCHITECT Work Phone: [facility] Medicine [place] Comment on above: Lung nodule (Primary Dx); Liver cyst; Coronary artery calcification seen on CAT scan Start: 09-28-2024 End: 09-28-2024 Telemedicine consultation with patient Lida Coto APRN.ETHERNET NETWORK ARCHITECT Work Phone: Family Medicine [place] Start: 09-26-2024 End: 09-26-2024 ambulatory Lida Coto APRN.ETHERNET NETWORK ARCHITECT Work Phone: [facility] Medicine [place] Comment on above: Incidental results f rom CT Start: 09-23-2024 End: 09-23-2024 Orders Only Griselda Acevedo APRN.ETHERNET NETWORK ARCHITECT Work Phone: Pulmonary Medicine Comment on above: Coronary artery calc ification seen on CAT scan (Primary Dx); Encounter for screening for lung cancer; Former tobacco use Encounter for screen ing for lung cancer [Z12.2] Start: 09-19-2024 End: 09-19-2024 ambulatory [facility] Facility:[facility] Start: 09-19-2024 End: 09-19-2024 Patient encounter procedure Griselda Curtis CAMP.ETHERNET NETWORK ARCHITECT Work Phone: Pulmonary Medicine Comment on above: Encounter for screen ing for lung cancer (Primary Dx); Former tobacco use Start: 08-23-2024 End: 08-30-2024 Telephone encounter Kendal High MD Work Phone: Orthopaedics Comment on above: Appointment Start: 08-23-2024 End: 08-23-2024 ambulatory Kendal High MD Work Phone: Rheumatology Comment on above: Seropositive rheumat oid arthritis (HCC) (Primary Dx); Cardiovascular risk factor; Postmenopausal osteoporoses; Long-term use of hydroxychloroquine; Medication monitoring encounter Start: 08-23-2024 End: 08-23-2024 Telemedicine consultation with patient Kendal High MD Work Phone: Rheumatology Start: 08-19-2024 End: 08-19-2024 ambulatory [facility] Facility:[facility] Start: 08-19-2024 End: 08-19-2024 [facility].ETHERNET NETWORK ARCHITECT Work Phone: Family Medicine [place] Comment on above: Medicare annual well ness visit, initial (Primary Dx); Rheumatoid arthritis, involving unspecified site, unspecified whether rheumatoid factor present (HCC); Heartburn; Obstructive sleep apnea syndrome; Osteopenia, senile; Pure hypercholesterolemia; Colon cancer screening; History of tobacco use Start: 08-03-2024 End: 08-03-2024 Chart abstracting Lopez Weaver APRN.ETHERNET NETWORK ARCHITECT Work Phone: Rheumatology Comment on above: Abstract (PLQ eye ex am) Start: 07-27-2024 End: 07-27-2024 Patient encounter procedure Mj Ashley PT [facility] Comment on above: Postmenopausal osteo poroses (Primary Dx); Seropositive rheumatoid arthritis (HCC) Start: 07-27-2024 End: 07-27-2024 ambulatory Mj Ashley PT [facility] Start: 07-26-2024 End: 07-26-2024 ambulatory MALACHI SARGENT Facility:[facility] Start: 07-26-2024 End: 07-26-2024 Subsequent hospital visit by physician Ct [facility] (I-Stat) Work Phone: Cat Scan Comment on above: Chronic pansinusitis [J32.4] Start: 07-22-2024 End: 07-22-2024 ambulatory MALACHI SARGENT Facility:[facility] Start: 07-22-2024 End: 07-22-2024 Patient encounter procedure Malachi Sargent MD Work Phone: Otolaryngology Comment on above: Chronic pansinusitis (Primary Dx); Chronic rhinitis Start: 07-18-2024 End: 07-26-2024 ambulatory [facility] -3 Comment on above: CT results Start: 07-18-2024 End: 07-26-2024 E-mail encounter from caregiver [facility] Start: 07-12-2024 End: 07-12-2024 Patient encounter procedure Mj Ashley PT [facility] Comment on above: Postmenopausal osteo poroses (Primary Dx); Seropositive rheumatoid arthritis (HCC) Start: 07-12-2024 End: 07-12-2024 ambulatory Mj Ashley PT [facility] Start: 06-21-2024 End: 06-21-2024 ambulatory Mj Ashley PT [facility] Start: 06-21-2024 End: 06-21-2024 Patient encounter procedure Mj Ashley PT [facility] Comment on above: Postmenopausal osteo poroses (Primary Dx); Seropositive rheumatoid arthritis (HCC) Start: 06-17-2024 End: 06-17-2024 Refill Michael Villar MD Work Phone: Rheumatology Comment on above: Refill Request Start: 06-14-2024 End: 06-14-2024 ambulatory Mj Arriaza PT [facility] Start: 06-14-2024 End: 06-14-2024 Patient encounter procedure Mj Arriaza PT [facility] Comment on above: Postmenopausal osteo poroses (Primary Dx); Seropositive rheumatoid arthritis (HCC); Encounter for long-term (current) use of medications; Long-term use of hydroxychloroquine Start: 05-26-2024 End: 05-26-2024 Patient encounter procedure Lida Coto APRN.ETHERNET NETWORK ARCHITECT Work Phone: [facility] [place] Comment on above: Bronchitis (Primary Dx); Nasal polyp Start: 05-26-2024 End: 05-26-2024 ambulatory LIDA COTO Facility:[facility] Start: 04-07-2024 Documentation procedure Mammog harleen Coordinator [facility] Department Start: 04-07-2024 Letter encounter Mammography Coordinator [facility] Start: 04-06-2024 End: 04-06-2024 Subsequent hospital visit by physician Screen Mammo [facility] Comment on above: Encounter for screen ing mammogram for malignant neoplasm of breast [Z12.31] Start: 01-15-2024 Telephone encounter Lida daniels APRN.ETHERNET NETWORK ARCHITECT Work Phone: [facility] [place] Comment on above: Orders Start: 12-18-2023 ambulatory Lida Coto APRN.ETHERNET NETWORK ARCHITECT Work Phone: Family Medicine [place] Comment on above: C-Pap Start: 12-14-2023 Chart abstracting Kendal ramsay MD Work Phone: Rheumatology Comment on above: Abstract (PLQ eye ex am) Start: 08-14-2023 ambulatory Kendal High MD Work Phone: Rheumatology Comment on above: Rheumatology results Start: 08-14-2023 E-mail encounter fro m caregiver Kendal High MD Work Phone: [facility] Start: 07-17-2023 End: 07-17-2023 ambulatory Kendal High MD Work Phone: Rheumatology Comment on above: Seropositive rheumat oid arthritis (HCC) (Primary Dx); Postmenopausal osteoporoses; Encounter for long-term (current) use of medications; Long-term use of hydroxychloroquine; Mechanical pain of right knee; Mechanical knee pain, left Start: 07-17-2023 End: 07-17-2023 Telemedicine consultation with patient Kendal High MD Work Phone: [facility] Start: 07-07-2023 Refill Lopez Weaver HOME HEALTH CARE SOCIAL WORKER.[employer]CH[employer] Work Phone: Rheumatology Comment on above: Refill Request Start: 04-06-2023 Documentation procedure Mammog harleen Coordinator [facility] Start: 04-06-2023 Letter encounter Mammography Coordinator [facility] Department Start: 04-03-2023 End: 04-03-2023 Subsequent hospital visit by physician Screen Mammo [facility] Mamm[facility] Comment on above: Encounter for screen ing mammogram for malignant neoplasm of breast [Z12.31] Start: 03-21-2023 Telephone encounter Robina caballero MD Work Phone: [facility] Comment on above: Orders (Mamm) Start: 01-28-2023 Telephone encounter Lida daniels HOME HEALTH CARE SOCIAL WORKER.[employer]WORK ARCHITECT Work Phone: Family Medicine [facility] Comment on above: Results (Bone Densit y ) Start: 01-26-2023 End: 01-26-2023 Subsequent hospital visit by physician Bone Density [facility] Work Phone: Radiology Comment on above: Asymptomatic postmen opausal status [Z78.0] Start: 01-15-2023 End: 01-15-2023 Patient encounter procedure Kendal High MD Work Phone: Rheumatology Comment on above: Seropositive rheumat oid arthritis (HCC) (Primary Dx); Encounter for long-term (current) use of medications; Osteopenia, unspecified location Start: 11-05-2022 Telephone encounter Robina caballero MD Work Phone: [facility] [place] Comment on above: Forms Start: 09-23-2022 Telephone encounter Robina caballero MD Work Phone: [facility] Comment on above: Forms ([employer]) Start: 09-13-2022 ambulatory Lopez Weaver APRN.[employer] ARCHITECT Work Phone: [facility] Start: 09-11-2022 Refill Lopez Weaver HOME HEALTH CARE SOCIAL WORKER.[employer] ARCHITECT Work Phone: Rheumatology Comment on above: Refill Request Start: 09-11-2022 Refill Lopez Weaver HOME HEALTH CARE SOCIAL WORKER.[employer] ARCHITECT Work Phone: Rheumatology Comment on above: Refill Request Start: 08-29-2022 Chart abstracting Lopez sandoval HOME HEALTH CARE SOCIAL WORKER.[employer] ARCHITECT Work Phone: Rheumatology Comment on above: Abstract (PLQ eye ex am ) Start: 08-18-2022 End: 08-18-2022 Patient encounter procedure Lida Coto APRN.[employer] ARCHITECT Work Phone: [facility] Comment on above: Wellness examination (Primary Dx); Rheumatoid arthritis, involving unspecified site, unspecified whether rheumatoid factor present (HCC); Sleep apnea, unspecified type; Heartburn; Encounter for immunization Start: 08-18-2022 End: 08-18-2022 Patient encounter status Lida Coto APRN.[employer] ARCHITECT [facility] Start: 08-05-2022 Telephone encounter Lida daniels HOME HEALTH CARE SOCIAL WORKER.[employer] ARCHITECT Work Phone: [facility] Comment on above: Lab Orders Start: 07-14-2022 End: 07-14-2022 Patient encounter procedure Lopez Weaver APRN.[employer] ARCHITECT Work Phone: Rheumatology Comment on above: Seropositive rheumat oid arthritis (HCC) (Primary Dx); Encounter for long-term (current) use of medications; Arthralgia, unspecified joint Start: 03-17-2022 Documentation procedure Mammog harleen Coordinator [facility] Start: 03-17-2022 Letter encounter Mammography Coordinator [facility] Department Start: 03-17-2022 End: 03-17-2022 Subsequent hospital visit by physician Screen Mammo [facility] Mamm[facility] Comment on above: Encounter for screen ing mammogram for breast cancer [Z12.31] Start: 12-19-2021 ambulatory Lida Coto APRN.[employer] ARCHITECT Work Phone: Family Medicine [facility] Comment on above: Can you renew my pre scription? Start: 03-25-2021 End: 03-25-2021 Subsequent hospital visit by physician Xr [facility] [place] Work Phone: Radiology Comment on above: Arthralgia, unspecif ied joint [M25.50] Procedures Date Procedure Procedure Detail Performing Clinician Start: 02-24-2025 BD DXA TRABECULAR LES NE SCORE (TBS) Kendal High MD Work Phone: Start: 02-24-2025 Dxa bone density gregory dy 1/> sites axial skel Kendal High MD Work Phone: Start: 02-23-2025 Radex hip unilateral with pelvis 2-3 views Kendal High MD Work Phone: Start: 12-14-2024 Urnls dip stick/tabl et rgnt auto w/o microscopy Dar Abdi MD Work Phone: Start: 09-23-2024 CT LUNG SCREEN WO IVCON Griselda Acevedo HOME HEALTH CARE SOCIAL WORKER.[employer] ARCHITECT Work Phone: Start: 09-19-2024 Lipid 1996 panel - S russel or Plasma Griselda Acevedo HOME HEALTH CARE SOCIAL WORKER.[employer]WORK ARCHITECT Work Phone: Start: 07-26-2024 Ct maxillofacial w/o contrast material Malachi Sargent MD Work Phone: Start: 09-16-2023 Lipid 1996 panel - S russel or Plasma Kendal High MD Work Phone: Start: 04-03-2023 End: 04-03-2023 Mammography Robina Sam MD Work Phone: Start: 01-26-2023 Dxa bone density gregory dy 1/> sites axial skel Lida Coto HOME HEALTH CARE SOCIAL WORKER.[employer]WORK ARCHITECT Work Phone: Start: 09-13-2022 Ophthalmic examinati on and evaluation Lopez Weaver HOME HEALTH CARE SOCIAL WORKER.[employer]WIN Work Phone: Comment on above: Eye exam Start: 08-18-2022 Lipid 1996 panel - S russel or Plasma Lopez Weaver APRN.EDWIN Work Phone: Start: 03-17-2022 End: 03-17-2022 Screening mammography bi 2-view breast inc cad Bulk Order Provider Start: 03-25-2021 Radex shoulder compl ete minimum 2 views Lida Coto HOME HEALTH CARE SOCIAL WORKER.EDWIN Work Phone: Start: 09-27-2020 Mammography Lida daniels HOME HEALTH CARE SOCIAL WORKER.[employer]WIN Work Phone: Start: 06-26-2020 Colonoscopy Lida daniels HOME HEALTH CARE SOCIAL WORKER.[employer]WORK ARCHITECT Work Phone: Plan of Treatment Date Care Activity Detail Author Start: 09-19-2029 Lipid panel Lipid Screening [facility] Start: 09-16-2028 Lipid panel Lipid Screening [facility] Start: 02-26-2028 Diabetes Screening Diabetes Screening [facility] Start: 09-19-2027 Diabetes Screening Diabetes Screening [facility] Start: 08-18-2027 Lipid 1996 panel - Serum or Plasma Lipid Screening [facility] Start: 08-18-2027 LIPID SCREEN LIPID SCREEN [facility] Start: 2027 RSV Vaccine (1 - 1-dose 75+ series) RSV Vaccine (1 - 1-dose 75+ series) [facility] Start: 02-24-2027 Screening for osteoporosis Bone Density Screening [facility] Start: 08-13-2026 Diabetes Screening Diabetes Screening [facility] Start: 04-07-2026 Screening for malignant neoplasm of breast Mammogram Screening [facility] Start: 09-23-2025 Screening for malignant neoplasm of lung Lung Cancer Screening [facility] Start: 08-30-2025 End: 08-30-2025 Patient encounter procedure Rheumatology Comment on above: follow up follow up - Anila maxwell , leta to Kathy Start: 08-25-2025 End: 08-25-2025 Patient encounter procedure 08/25/2025 10:30 AM EST Appointment Ambulatory Surgery [address] [place] [address] Amaury Fregoso MD [address] [place], [place] [id number] History of colonic polyps [Z86.0100]; Special screening for malignant neoplasms, colon [Z12.11] Ambulatory Surgery Comment on above: History of colonic polyps [Z86.0100]; Sp ecial screening for malignant neoplasms, colon [Z12.11] Start: 08-19-2025 Medicare Annual Wellness Visit Medicare Annual Wellness Visit [facility] Start: 08-18-2025 DIABETES SCREEN DIABETES SCREEN [facility] Start: 08-18-2025 Diabetes Screening Diabetes Screening [facility] Start: 08-12-2025 End: 10-23-2025 CT Chest for screening WO contrast CT LUNG SCREEN WO IVCON Radiology Routine Encounter for screening for lung cancer Former tobacco use Expected: 08/12/2025 (Approximate), Expires: 10/23/2025 [facility] Work Phone: Comment on above: Expected: 08/12/2025 (Approximate), Expi res: 10/23/2025 Start: 06-26-2025 Colonoscopy COLONOSCOPY [facility] Start: 06-26-2025 COLORECTAL CANCER SCREENING COLORECTAL CANCER SCREENING [facility] Start: 06-26-2025 Screening for malignant neoplasm of colon [facility] Start: 06-12-2025 Influenza vaccination Influenza Vaccine (#1) [facility] Start: 05-23-2025 End: 05-23-2025 Patient encounter procedure 05/23/2025 10:30 AM EDT Office Visit General Surgery [address] [place], [place] [phone] Deborah Lopez APRN.[employer] ARCHITECT [address] [place], [place] [phone] Colon cancer screening [Z12.11] General Surgery Comment on above: Colon cancer screening [Z12.11] Start: 04-28-2025 End: 04-28-2025 Patient encounter procedure 04/28/2025 1:40 PM EDT Office Visit Cardiology [address] [address] Lani Pederson MD [address] [place] [address] Coronary artery calcification seen on CAT scan [I25.10] Cardiology Comment on above: Coronary artery calcification seen on CA T scan [I25.10] Start: 04-07-2025 End: 04-07-2025 Patient encounter procedure Mammogram Comment on above: SIMBA SCREENING did phone note for o rder 03/20 SIMBA SCREENING Start: 04-06-2025 Screening for malignant neoplasm of breast Mammogram Screening [facility] Start: 02-25-2025 End: 02-25-2025 ambulatory 02/25/2025 10:00 AM EDT Results Only [place] [facility] [address] [facility] [place] [address] [facility] Start: 02-24-2025 End: 02-24-2025 Patient encounter procedure 02/24/2025 10:05 AM EDT Appointment Rad[facility] [address] [facility] [place] [id number] Rescheduled from 01/19 Radiology Comment on above: Rescheduled from 01/19 Start: 02-23-2025 End: 05-25-2025 25-hydroxyvitamin D3 [Mass/volume] in Serum or Plasma VITAMIN D 25 HYDROXY Lab Routine Pain in left hip Gastroesophageal reflux disease, unspecified whether esophagitis present Height loss Seropositive rheumatoid arthritis (HCC) Postmenopausal osteoporoses Expected: 02/23/2025, Expires: 05/25/2025 [facility] Comment on above: Expected: 02/23/2025, Expires: Start: 02-23-2025 End: 05-25-2025 C reactive protein [Mass/volume] in Serum or Plasma C-REACTIVE PROTEIN Lab Routine Pain in left hip Gastroesophageal reflux disease, unspecified whether esophagitis present Height loss Seropositive rheumatoid arthritis (HCC) Postmenopausal osteoporoses Expected: 02/23/2025, Expires: 05/25/2025 [facility] Work Phone: Comment on above: Expected: 02/23/2025, Expires: Start: 02-23-2025 End: 05-25-2025 Calcium.ionized [Moles/volume] in Blood CALCIUM, IONIZED Lab Routine Pain in left hip Gastroesophageal reflux disease, unspecified whether esophagitis present Height loss Seropositive rheumatoid arthritis (HCC) Postmenopausal osteoporoses Expected: 02/23/2025, Expires: 05/25/2025 [facility] Comment on above: Expected: 02/23/2025, Expires: Start: 02-23-2025 End: 05-25-2025 CBC W Auto Differential panel - Blood COMPLETE BLOOD COUNT AND DIFFERENTIAL Lab Routine Pain in left hip Gastroesophageal reflux disease, unspecified whether esophagitis present Height loss Seropositive rheumatoid arthritis (HCC) Postmenopausal osteoporoses Expected: 02/23/2025, Expires: 05/25/2025 [facility] Comment on above: Expected: 02/23/2025, Expires: Start: 02-23-2025 End: 05-25-2025 Collagen crosslinked C-telopeptide [Mass/volume] in Serum or Plasma C TELOPEPTIDE, BETA Lab Routine Pain in left hip Gastroesophageal reflux disease, unspecified whether esophagitis present Height loss Seropositive rheumatoid arthritis (HCC) Postmenopausal osteoporoses Expected: 02/23/2025, Expires: 05/25/2025 [facility] Comment on above: Expected: 02/23/2025, Expires: Start: 02-23-2025 End: 05-25-2025 Comprehensive metabolic 2000 panel - Serum or Plasma COMPREHENSIVE METABOLIC PANEL Lab Routine Pain in left hip Gastroesophageal reflux disease, unspecified whether esophagitis present Height loss Seropositive rheumatoid arthritis (HCC) Postmenopausal osteoporoses Expected: 02/23/2025, Expires: 05/25/2025 [facility] Comment on above: Expected: 02/23/2025, Expires: Start: 02-23-2025 End: 05-25-2025 Erythrocyte sedimentation rate SEDIMENTATION RATE, WESTERGREN Lab Routine Pain in left hip Gastroesophageal reflux disease, unspecified whether esophagitis present Height loss Seropositive rheumatoid arthritis (HCC) Postmenopausal osteoporoses Expected: 02/23/2025, Expires: 05/25/2025 [facility] Comment on above: Expected: 02/23/2025, Expires: Start: 02-23-2025 End: 05-25-2025 PROCOLLAGEN TYPE 1 PROCOLLAGEN TYPE 1 Lab Routine Pain in left hip Gastroesophageal reflux disease, unspecified whether esophagitis present Height loss Seropositive rheumatoid arthritis (HCC) Postmenopausal osteoporoses Expected: 02/23/2025, Expires: 05/25/2025 [facility] Comment on above: Expected: 02/23/2025, Expires: Start: 02-23-2025 End: 02-23-2025 Patient encounter procedure 02/23/2025 11:20 AM EDT Office Visit Rheumatology [address] [place] [address] [place] [address] [place] [address] Arthritis Rheumatology Comment on above: Arthritis Start: 01-26-2025 Screening for osteoporosis Bone Density Screening [facility] Start: 01-25-2025 End: 01-25-2025 Patient encounter procedure 01/25/2025 10:10 AM EDT Office Visit OB/Gynecology [address] [place] [address] Dar Abdi MD [address] [place] [address] 6w f/up OB/Gynecology Comment on above: 6w f/up Start: 01-20-2025 Covid-19 Vaccine () Covid-19 Vaccine () [facility] Start: 01-19-2025 End: 01-19-2025 Patient encounter procedure 01/19/2025 11:15 AM EDT Appointment Radiology [address] [place] [id number] Cardiovascular risk factor [Z91.89]; Postmenopausal osteoporoses [M81.0]; Seropositive rheumatoid arthritis (HCC) [M05.9]; Long-term use of hydroxychloroquine [Z79.899]; Medication monitoring encounter [Z51.81] Radiology Comment on above: Cardiovascular risk factor [Z91.89]; Pos tmenopausal osteoporoses [M81.0]; Seropositive rheumatoid arthritis (HCC) [M05.9]; Long-term use of hydroxychloroquine [Z79.899]; Medication monitoring encounter [Z51.81] Start: 12-15-2024 End: 12-15-2024 Patient encounter procedure 12/15/2024 9:50 AM EST Office Visit OB/Gynecology [address] [place], [place] [phone] Dar Abdi MD [address] [facility] [place] [address] 2-3 wk F/U OB/Gynecology Comment on above: 2-3 wk F/U Start: 11-04-2024 End: 11-04-2024 Patient encounter procedure 11/04/2024 1:00 PM EST Office Visit Rheumatology [address] [place] [address] [place] [address] [place] [address] Arthirits F/u Rheumatology Comment on above: Arthirits F/u Start: 10-24-2024 End: 10-24-2024 Patient encounter procedure 10/24/2024 1:00 PM EST Office Visit Cardiology [address] [address] Lani Pederson MD [address] [place] [address] Coronary artery calcification seen on CAT scan [I25.10] Cardiology Comment on above: Coronary artery calcification seen on CA T scan [I25.10] Start: 10-12-2024 Advance Directive Discussion Advance Directive Discussion [facility] Start: 09-28-2024 End: 09-28-2024 ambulatory 09/28/2024 11:40 AM EST [facility] [place] [address] [place], [place] [phone] Lida Coto, HOME HEALTH CARE SOCIAL WORKER.[employer] ARCHITECT [address] [employer], [place] [phone] Go over lung CT results / questions [facility] Comment on above: Go over lung CT results / questions Start: 09-23-2024 End: 09-23-2024 Patient encounter procedure 09/23/2024 1:20 PM EST Appointment Cat Scan [address] [place], [place] [phone] Encounter for screening for lung cancer [Z12.2]; Former tobacco use [Z87.891] Cat Scan Comment on above: Encounter for screening for lung cancer [Z12.2]; Former tobacco use [Z87.891] Start: 09-20-2024 End: 09-20-2024 ambulatory 09/20/2024 8:00 AM EST [facility] Rheumatology [address] [address] [place] [address] [place], [place] [phone] Arthritis Rheumatology Comment on above: Arthritis Start: 09-19-2024 End: 09-19-2024 Patient encounter procedure 09/19/2024 9:00 AM EST Office Visit Pulmonary Medicine [address] [place], [place] [address] Griselda Acevedo APRN.[employer] ARCHITECT [address] [place] [address] Non-smoker for 4yrs, want baseline status of lungs Pulmonary Medicine Comment on above: Non-smoker for 4yrs, want baseline statu s of lungs Start: 08-23-2024 End: 11-22-2024 25-hydroxyvitamin D3 [Mass/volume] in Serum or Plasma VITAMIN D 25 HYDROXY Lab Routine Cardiovascular risk factor Postmenopausal osteoporoses Seropositive rheumatoid arthritis (HCC) Long-term use of hydroxychloroquine Medication monitoring encounter Expected: 08/23/2024, Expires: 11/22/2024 [facility] Comment on above: Expected: 08/23/2024, Expires: Start: 08-23-2024 End: 11-22-2024 CBC W Auto Differential panel - Blood COMPLETE BLOOD COUNT AND DIFFERENTIAL Lab Routine Cardiovascular risk factor Postmenopausal osteoporoses Seropositive rheumatoid arthritis (HCC) Long-term use of hydroxychloroquine Medication monitoring encounter Expected: 08/23/2024, Expires: 11/22/2024 [facility] Work Phone: Comment on above: Expected: 08/23/2024, Expires: Start: 08-23-2024 End: 11-22-2024 Cyclic citrullinated peptide IgG Ab [Units/volume] in Serum or Plasma CCP ANTIBODY IGG Lab Routine Cardiovascular risk factor Postmenopausal osteoporoses Seropositive rheumatoid arthritis (HCC) Long-term use of hydroxychloroquine Medication monitoring encounter Expected: 08/23/2024, Expires: 11/22/2024 [facility] Comment on above: Expected: 08/23/2024, Expires: Start: 08-23-2024 End: 08-23-2024 ambulatory 08/23/2024 10:30 AM [facility] Rheumatology [address] [address] [place] [address] [place] [address] Arthritis Rheumatology Comment on above: Arthritis Start: 08-19-2024 End: 11-18-2024 Comprehensive metabolic 2000 panel - Serum or Plasma COMPREHENSIVE METABOLIC PANEL Lab Routine Pure hypercholesterolemia Expected: 08/19/2024, Expires: 11/18/2024 [facility] Comment on above: Expected: 08/19/2024, Expires: Start: 08-19-2024 Covid-19 Vaccine ( season) Covid-19 Vaccine () [facility] Comment on above: Postponed from 06/12/2023 (Declined at t his time) Start: 08-19-2024 End: 11-18-2024 Lipid 1996 panel - Serum or Plasma LIPID PANEL BASIC Lab Routine Pure hypercholesterolemia Expected: 08/19/2024, Expires: 11/18/2024 [facility] Work Phone: Comment on above: Expected: 08/19/2024, Expires: Start: 08-19-2024 RSV Vaccine (1 - 1-dose 60+ series) RSV Vaccine (1 - 1-dose 60+ series) [facility] Comment on above: Postponed from 2012 (Declined at t his time) Start: 08-19-2024 Urine microalbumin profile DTaP,Tdap,Td Vaccine (1 - Tdap) [facility] Comment on above: Postponed from 1971 (Declined at t his time) Start: 08-19-2024 End: 08-19-2024 Patient encounter procedure 08/19/2024 11:00 AM EST Office Visit Family [facility] [address] [place] [address] Lida Coto APRN.[employer] ARCHITECT [address] [place] [address] annual [facility] Comment on above: annual Start: 07-27-2024 End: 07-27-2024 Patient encounter procedure 07/27/2024 2:30 PM EDT OT/PT/Speech Visit [facility] [address] [place] [address] Mj Arriaza, PT seropostive reumatoid arthritis [facility] Comment on above: seropostive reumatoid arthritis Start: 07-26-2024 End: 07-26-2024 Patient encounter procedure 07/26/2024 11:40 AM EDT Appointment Cat Scan [address] [place] [address] Chronic pansinusitis [J32.4] Cat Scan Comment on above: Chronic pansinusitis [J32.4] Start: 07-22-2024 End: 07-22-2024 Patient encounter procedure 07/22/2024 10:30 AM EDT Office Visit Otolaryngology [address] [address] Malachi Sargent MD [address] [address] Nasal polyp [J33.9] Otolaryngology Comment on above: Nasal polyp [J33.9] Start: 07-21-2024 End: 07-21-2024 Patient encounter procedure Rheumatology Comment on above: Arthirits F/u Start: 07-12-2024 End: 07-12-2024 Patient encounter procedure 07/12/2024 12:15 PM EDT OT/PT/Speech Visit [facility] [address] [place] [address] Mj Arriaza, PT seropostive reumatoid arthritis [facility] Comment on above: seropostive reumatoid arthritis Start: 06-21-2024 End: 06-21-2024 Patient encounter procedure 06/21/2024 12:15 PM EDT OT/PT/Speech Visit [facility] [address] [place] [address] Mj Arriaza, PT seropostive reumatoid arthritis [facility] Comment on above: seropostive reumatoid arthritis Start: 06-12-2024 Covid-19 Vaccine ( season) Covid-19 Vaccine ( season) [facility] Start: 06-12-2024 Covid-19 Vaccine ( season) Covid-19 Vaccine () [facility] Start: 06-12-2024 Influenza vaccination Influenza Vaccine (#1) [facility] Start: 04-03-2024 Mammography [facility] Start: 04-03-2024 Screening for malignant neoplasm of breast Mammogram Screening [facility] Start: 03-25-2024 DIABETES SCREEN DIABETES SCREEN [facility] Start: 10-12-2023 Advance Directive Discussion Advance Directive Discussion [facility] Start: 07-17-2023 End: 09-16-2023 25-hydroxyvitamin D3 [Mass/volume] in Serum or Plasma VITAMIN D 25 HYDROXY Lab Routine Postmenopausal osteoporoses Seropositive rheumatoid arthritis (HCC) Encounter for long-term (current) use of medications Long-term use of hydroxychloroquine Expected: 07/17/2023, Expires: 09/16/2023 [facility] Work Phone: Comment on above: Expected: 07/17/2023, Expires: 3 Start: 07-17-2023 End: 09-16-2023 Calcium.ionized [Moles/volume] in Blood CALCIUM IONIZED BLOOD Lab Routine Postmenopausal osteoporoses Seropositive rheumatoid arthritis (HCC) Encounter for long-term (current) use of medications Long-term use of hydroxychloroquine Expected: 07/17/2023, Expires: 09/16/2023 [facility] Work Phone: Comment on above: Expected: 07/17/2023, Expires: 3 Start: 07-17-2023 End: 09-16-2023 CBC W Auto Differential panel - Blood CBC + DIFF Lab Routine Postmenopausal osteoporoses Seropositive rheumatoid arthritis (HCC) Encounter for long-term (current) use of medications Long-term use of hydroxychloroquine Expected: 07/17/2023, Expires: 09/16/2023 [facility] Work Phone: Comment on above: Expected: 07/17/2023, Expires: 3 Start: 07-17-2023 End: 09-16-2023 Comprehensive metabolic 2000 panel - Serum or Plasma COMP METABOLIC PANEL Lab Routine Postmenopausal osteoporoses Seropositive rheumatoid arthritis (HCC) Encounter for long-term (current) use of medications Long-term use of hydroxychloroquine Expected: 07/17/2023, Expires: 09/16/2023 [facility] Work Phone: Comment on above: Expected: 07/17/2023, Expires: 3 Start: 07-17-2023 End: 09-16-2023 Magnesium [Mass/volume] in Serum or Plasma MAGNESIUM BLD Lab Routine Postmenopausal osteoporoses Seropositive rheumatoid arthritis (HCC) Encounter for long-term (current) use of medications Long-term use of hydroxychloroquine Expected: 07/17/2023, Expires: 09/16/2023 [facility] Work Phone: Comment on above: Expected: 07/17/2023, Expires: 3 Start: 07-17-2023 End: 09-16-2023 Parathyrin.intact [Mass/volume] in Serum or Plasma PTH INTACT BLD Lab Routine Postmenopausal osteoporoses Seropositive rheumatoid arthritis (HCC) Encounter for long-term (current) use of medications Long-term use of hydroxychloroquine Expected: 07/17/2023, Expires: 09/16/2023 [facility] Work Phone: Comment on above: Expected: 07/17/2023, Expires: 3 Start: 07-17-2023 End: 09-16-2023 Phosphate [Mass/volume] in Serum or Plasma PHOSPHORUS INORGANIC Lab Routine Postmenopausal osteoporoses Seropositive rheumatoid arthritis (HCC) Encounter for long-term (current) use of medications Long-term use of hydroxychloroquine Expected: 07/17/2023, Expires: 09/16/2023 [facility] Work Phone: Comment on above: Expected: 07/17/2023, Expires: 3 Start: 06-12-2023 Covid-19 Vaccine ( season) Covid-19 Vaccine ( season) [facility] Start: 06-12-2023 Influenza vaccination Influenza Vaccine (#1) [facility] Start: 03-17-2023 Mammography MAMMOGRAM [facility] Start: 01-15-2023 End: 03-17-2023 25-hydroxyvitamin D3 [Mass/volume] in Serum or Plasma VITAMIN D 25 HYDROXY Lab Routine Seropositive rheumatoid arthritis (HCC) Encounter for long-term (current) use of medications Osteopenia, unspecified location Expected: 01/15/2023, Expires: 03/17/2023 [facility] Work Phone: Comment on above: Expected: 01/15/2023, Expires: 3 Start: 10-27-2022 SHINGRIX VACCINE (2 of 2) SHINGRIX VACCINE (2 of 2) [facility] Start: 10-12-2022 ADVANCE DIRECTIVE DISCUSSION ADVANCE DIRECTIVE DISCUSSION [facility] Start: 07-14-2022 End: 07-11-2023 Alanine aminotransferase [Enzymatic activity/volume] in Serum or Plasma [facility] Work Phone: Comment on above: Expected: 07/14/2022 (Approximate), Expi res: 07/11/2023 Start: 07-14-2022 End: 07-11-2023 Albumin [Mass/volume] in Serum or Plasma [facility] Work Phone: Comment on above: Expected: 07/14/2022 (Approximate), Expi res: 07/11/2023 Start: 07-14-2022 End: 07-11-2023 Aspartate aminotransferase [Enzymatic activity/volume] in Serum or Plasma [facility] Work Phone: Comment on above: Expected: 07/14/2022 (Approximate), Expi res: 07/11/2023 Start: 07-14-2022 End: 07-11-2023 C reactive protein [Mass/volume] in Serum or Plasma [facility] Work Phone: Comment on above: Expected: 07/14/2022 (Approximate), Expi res: 07/11/2023 Start: 07-14-2022 End: 07-11-2023 CREATININE BLD [facility] Work Phone: Comment on above: Expected: 07/14/2022 (Approximate), Expi res: 07/11/2023 Start: 07-14-2022 End: 07-11-2023 Erythrocyte sedimentation rate [facility] Work Phone: Comment on above: Expected: 07/14/2022 (Approximate), Expi res: 07/11/2023 Start: 06-12-2022 Influenza vaccination [facility] Start: 10-12-2021 ADVANCE DIRECTIVE DISCUSSION ADVANCE DIRECTIVE DISCUSSION [facility] Start: 09-27-2021 Mammography MAMMOGRAM [facility] Start: 07-21-2021 LIPID SCREEN LIPID SCREEN [facility] Start: 06-26-2021 COVID-19 VACCINE (3 - Booster for Pfizer series) COVID-19 VACCINE (3 - Booster for Pfizer series) [facility] Start: 06-26-2021 Covid-19 Vaccine (3 - Pfizer series) Covid-19 Vaccine (3 - Pfizer series) [facility] Start: 05-29-2021 COVID-19 VACCINE (3 - Pfizer risk 4-dose series) COVID-19 VACCINE (3 - Pfizer risk 4-dose series) [facility] Start: 05-29-2021 COVID-19 VACCINE (3 - Pfizer risk series) COVID-19 VACCINE (3 - Pfizer risk series) [facility] Start: 06-21-2019 PNEUMOCOCCAL: 65+ (2 - PPSV23 or PCV20) PNEUMOCOCCAL: 65+ (2 - PPSV23 or PCV20) [facility] Start: 2017 PNEUMOVAX AGE 65 AND OVER WITH 5YR LOOKBACK (#1) PNEUMOVAX AGE 65 AND OVER WITH 5YR LOOKBACK (#1) [facility] Start: 2012 RSV Vaccine (1 - 1-dose 60+ series) RSV Vaccine (1 - 1-dose 60+ series) [facility] Start: 2002 Screening for malignant neoplasm of lung Lung Cancer Screening [facility] Start: 2002 SHINGRIX VACCINE (1 of 2) SHINGRIX VACCINE (1 of 2) [facility] Start: 1997 COLOGUARD (FIT-DNA) COLOGUARD (FIT-DNA) [facility] Start: [address] COLONOGRAPHY [facility] Start: 1997 FECAL OCCULT BLOOD FECAL OCCULT BLOOD [facility] Start: 1997 Screening for malignant neoplasm of colon [facility] Start: 1997 SIGMOIDOSCOPY SIGMOIDOSCOPY [facility] Start: 1971 SHINGRIX VACCINE (1 of 2) SHINGRIX VACCINE (1 of 2) [facility] Start: 1971 Urine microalbumin profile [facility] Start: 1970 Anxiety Screening Anxiety Screening [facility] BACTERIAL VAGINOSIS NAAT BACTERI AL VAGINOSIS NAAT Lab Routine Vaginal discharge 01/25/2025 10:38 AM EDT [facility] Work Phone: End: 09-22-2025 BD DXA TRABECULAR BONE SCORE (TBS) BD DXA TRABECULAR BONE SCORE (TBS) Radiology Routine Cardiovascular risk factor Postmenopausal osteoporoses Seropositive rheumatoid arthritis (HCC) Long-term use of hydroxychloroquine Medication monitoring encounter 1 Occurrences starting 08/23/2024 until 09/22/2025 [facility] Comment on above: 1 Occurrences starting 08/23/2024 until 09/22/2025 ANU/TRICHOMONAS NAAT ANU /TRICHOMONAS NAAT Lab Routine Vaginal discharge 01/25/2025 10:38 AM EDT [facility] End: 10-19-2025 CT Chest for screening WO contrast CT LUNG SCREEN WO IVCON Radiology Routine Encounter for screening for lung cancer Former tobacco use 1 Occurrences starting 09/19/2024 until 10/19/2025 [facility] Work Phone: Comment on above: 1 Occurrences starting 09/19/2024 until 10/19/2025 End: 08-21-2025 CT Sinuses WO contrast CT SINUS WO IVCON Radiology Routine Chronic pansinusitis 1 Occurrences starting 07/22/2024 until 08/21/2025 [facility] Work Phone: Comment on above: 1 Occurrences starting 07/22/2024 until 08/21/2025 End: 04-19-2026 DBT Breast - bilateral screening SIMBA SCREENING W JOY Radiology Routine Encounter for screening mammogram for malignant neoplasm of breast 1 Occurrences starting 03/20/2025 until 04/19/2026 [facility] Work Phone: Comment on above: 1 Occurrences starting 03/20/2025 until 04/19/2026 DBT Breast - bilater al screening SIMBA SCREENING W JOY Radiology Routine Encounter for screening mammogram for malignant neoplasm of breast 04/07/2025 11:03 AM T [facility] Work Phone: End: 09-22-2025 DXA Skeletal system.axial Views for bone density DXA-AXIAL SKELETON Radiology Routine Cardiovascular risk factor Postmenopausal osteoporoses Seropositive rheumatoid arthritis (HCC) Long-term use of hydroxychloroquine Medication monitoring encounter 1 Occurrences starting 08/23/2024 until 09/22/2025 [facility] Comment on above: 1 Occurrences starting 08/23/2024 until 09/22/2025 End: 04-21-2024 SIMBA SCREENING SIMBA SCREENING Radiology Routine Encounter for screening mammogram for malignant neoplasm of breast 1 Occurrences starting 03/23/2023 until 04/21/2024 [facility] Work Phone: Comment on above: 1 Occurrences starting 03/23/2023 until 04/21/2024 End: 02-13-2025 MG Breast Screening SIMBA SCREENING Radiology Routine Encounter for screening mammogram for malignant neoplasm of breast 1 Occurrences starting 01/15/2024 until 02/13/2025 [facility] Work Phone: Comment on above: 1 Occurrences starting 01/15/2024 until 02/13/2025 MG Breast Screening SIMBA SCREENIN G Radiology Routine Encounter for screening mammogram for malignant neoplasm of breast 04/06/2024 11:22 AM EDT [facility] Work Phone: End: 05-23-2026 Screening colonoscopy COLONOSCOPY SCREENING Endoscopy Routine History of colonic polyps Special screening for malignant neoplasms, colon 1 Occurrences starting 05/23/2025 until 05/23/2026 [facility] Work Phone: Comment on above: 1 Occurrences starting 05/23/2025 until 05/23/2026 Urinalysis complete panel - Urine URINALYSIS, WITH MICROSCOPIC Lab Routine Stress incontinence of urine 11/24/2024 10:40 AM EST [facility] Work Phone: Urinalysis complete panel - Urine URINALYSIS (WITH MICROSCOPIC) WITH CULTURE IF INDICATED Lab Routine Stress incontinence of urine 12/14/2024 11:13 AM EST [facility] Work Phone: [facility] Immunizations Immunization Date Immunization Notes Care Provider [facility] 07-22-2024 influenza virus vacc ine, unspecified formulation Robina Sam MD Work Phone: [facility] 07-17-2023 influenza, high dose seasonal, preservative-free Kendal High MD Work Phone: [facility] 07-17-2023 influenza virus vacc ine, unspecified formulation Kendal High MD Work Phone: [facility] 11-20-2022 zoster vaccine recombinant Kendal High MD Work Phone: [facility] 09-01-2022 zoster vaccine recombinant Lopez Weaver APRN.CNP Work Phone: [facility] 08-18-2022 pneumococcal polysaccharide vaccine, 23 valent Lida Coto HOME HEALTH CARE SOCIAL WORKER.[employer]WORK ARCHITECT Work Phone: [facility] 07-31-2022 influenza, high-dose , quadrivalent vaccine (FLUZONE HIGH DOSE QUADRIVALENT) Lida Coto HOME HEALTH CARE SOCIAL WORKER.ETHERNET NETWORK ARCHITECT Work Phone: [facility] 07-31-2022 influenza virus vacc ine, unspecified formulation Lopez Weaver HOME HEALTH CARE SOCIAL WORKER.ETHERNET NETWORK ARCHITECT Work Phone: [facility] 08-13-2020 influenza, high dose seasonal, preservative-free Lida Coto HOME HEALTH CARE SOCIAL WORKER.[employer]ER[employer] NETWORK ARCHITECT Work Phone: [facility] 06-21-2018 pneumococcal conjuga te vaccine, 13 valent Lida Coto HOME HEALTH CARE SOCIAL WORKER.[employer]ER[employer] NETWORK ARCHITECT Work Phone: [facility] 07-22-2017 influenza, injectabl e, quadrivalent, contains preservative Lida Coto HOME HEALTH CARE SOCIAL WORKER.[employer]ER[employer] NETWORK ARCHITECT Work Phone: [facility] 07-23-2016 influenza, seasonal, injectable Lida Coto HOME HEALTH CARE SOCIAL WORKER.ETHER[employer] NETWORK ARCHITECT Work Phone: [facility] 06-29-2009 influenza virus vacc ine, unspecified formulation Lida Coto HOME HEALTH CARE SOCIAL WORKER.[employer] NETWORK ARCHITECT Work Phone: [facility] Work Phone: Payers Date Payer Category Payer Self-pay 2022 Medicare [id number] 2022 Medicare [id number] 2022 Medicare [id number] 2019 Private Health Insurance [facility] CHOICE PLUS [id number] 2019-Present [phone] [address] [place] [address] O [id number] 2019 Private Health Insurance [id number] Unknown [id number] Unknown [id number] Unknown [id number] Unknown [id number] Social History Date Type Detail Facility Start: 06-26-2020 End: 09-19-2024 Tobacco smoking status NHIS Ex-smoker [facility] Start: [birth year]-12-1967 End: 04-02-2020 History of tobacco use Current smoker [facility] Start: 10-12-1967 End: 04-02-2020 History of tobacco use Cigarette Smoker [facility] Start: 06-26-2020 End: 07-12-2024 Cigarettes smoked current (pack per day) - Reported 0.5 [facility] Start: 06-26-2020 End: 09-19-2024 Tobacco use and exposure Smokeless tobacco non-user [facility] Start: 06-24-2021 End: 02-23-2025 Alcohol intake Current drinker of alcohol (finding) [facility] Start: 08-28-2020 End: 08-13-2022 History SDOH Alcohol Frequency 2 [facility] Start: 08-28-2020 End: 08-13-2022 History SDOH Alcohol Std Drinks 1 [facility] Start: 07-28-2016 History SDOH Alcohol Comment rare [facility] Start: 08-28-2020 History SDOH Social Connections Phone 4 [facility] Start: 08-28-2020 End: 08-13-2022 History SDOH Social Connections Nondenominational 3 [facility] Start: 08-28-2020 History SDOH Physica l Activity DPW 6 [facility] Start: 08-28-2020 Education 16 [facility] Start: 1950 Sex Assigned At Female C [facility] Start: 02-23-2021 End: 08-18-2022 Exposure to SARS-CoV-2 (event) Not sure [facility] Start: 08-13-2022 History SDOH Social Connections Phone 98 [facility] Start: 08-13-2022 History SDOH Physica l Activity DPW 5 [facility] Start: 08-12-2022 End: 07-12-2024 Social connection and isolation panel [facility] Start: 09-12-2012 In a typical week, h ow many times do you talk on the telephone with family, friends, or neighbors? Patient refused [facility] Do you belong to any clubs or organizations such as catholic groups, unions, fraternal or athletic groups, or school groups? Yes [facility] Are you now , , , , never or living with a partner? [facility] How often to you hav e a drink containing alcohol? Monthly or less [facility] How many standard dr inks containing alcohol do you have on a typical day? 1 or 2 [facility] How often do you hav e 6 or more drinks on 1 occasion? Never [facility] Do you feel stress - tense, restless, nervous, or anxious, or unable to sleep at night because your mind is troubled all the time - these days [OSQ] Not at all [facility] (I/We) worried kevin er (my/our) food would run out before (I/we) got money to buy more. Never true [facility] In the past 12 month s, was there a time when you were not able to pay the mortgage or rent on time? No [facility] Start: 04-12-2020 Gender identity Identifies as female gender (finding) [facility] Start: 04-12-2020 Sexual orientation Heterosexual (carmela hightower) [facility] How hard is it for y ou to pay for the very basics like food, housing, medical care, and heating Not very hard [facility] Do you feel stress - tense, restless, nervous, or anxious, or unable to sleep at night because your mind is troubled all the time - these days [OSQ] Only a little [facility] Functional Status Date Assessment Result Facility 04-11-2020 Are you deaf, or do you have serious difficulty hearing No 04/11/2020 1:31 PM Dominga Huang APRN.ETHERNET NETWORK ARCHITECT No [facility] Work Phone: 04-11-2020 Are you blind, or do you have serious difficulty seeing, even when wearing glasses No 04/11/2020 1:31 PM Dominga Huang APRN.EDWIN No [facility] 04-11-2020 Do you have serious difficulty walking or climbing stairs No 04/11/2020 1:31 PM EDT Dominga Love APRN.EDWIN No [facility] 04-11-2020 Do you have difficul ty dressing or bathing No 04/11/2020 1:31 PM EDT Dominga Love APRN.EDWIN No [facility] 04-11-2020 Because of a physica l, mental, or emotional condition, do you have difficulty doing errands alone such as visiting a physician's office or shopping No 04/11/2020 1:31 PM EDT Dominga Love APRN.ETHERNET NETWORK ARCHITECT No [facility] Mental Status Date Assessment Result Facility 04-11-2020 Because of a physica l, mental, or emotional condition, do you have serious difficulty concentrating, remembering, or making decisions No 04/11/2020 1:31 PM EDT Dominga Love APRN.ETHERNET NETWORK ARCHITECT No [facility] Clinical Notes 03-25-2021 to 05-23-2025 Deborah Lopez APRN.ETHERNET NETWORK ARCHITECT - 05/23/2025 10:30 AM EDTTelephone Encounter - Dee Bonner MA - 04/27/2025 10:23 AM EDTTelephone Encounter - Dee Bonner MA - 04/27/2025 10:23 AM EDT Note Date & Type Note Facility 05-23-2025 History of Present illness Narrative HISTORY AND PHYSICAL Jade Jackson : 1950 REFERRING PHYSICIAN: Lida Coto [address] [facility] [address] CHIEF COMPLAINT: Patient presents with: Consult: Consult for colonoscopy. Has had change in Bowel habits. HPI: Jade Levy is a 74 year old female referred for endoscopy. Jade Levy notes due for screening colonoscopy-hx of polyps (2019). Jade Levy denies abdominal pain. Jade Levy notes a change in bowel habits. -notes a lot of fluctuation between bowel movements -notes will be normal then next day will have hard rocks followed by loose stool and multiple bowel movements a day -over the last 6 months Jade Levy denies melena. Jade Levy denies bright red blood per rectum. Jade Levy notes occasional hemorrhoids. Jade Levy denies family history of colon issues. Jade Levy denies heartburn. Jade Levy denies dysphagia. Jade Levy denies a history of ulcers/ peptic ulcer disease. Jade Levy follows with [facility] for coronary calcifications found incidentially on LDCT for lung nodules. Last OV was 01/03. Last ECHO 02/03 EF:55%, last stress test 02/03:no ischemia. She denies CP, SOB, dizziness, palpitations, syncope, edema, recent hospitalizations Other medical history is significant for RA and CEDRIC c/w CPAP. Jade Levy has undergone prior endoscopy. Last colonoscopy was 06/[address] Fregoso at [facility]. Sedation: Midazolam 7 mg IV, Fentanyl 100 micrograms IV, Diphenhydramine 50 mg IV Impression: - One 7 mm polyp in the mid transverse colon, removed with a cold snare. Resected and retrieved. - The examined portion of the ileum was normal. - The examination was otherwise normal. - The distal rectum and anal verge are normal on retroflexion view. CONVERTED FINAL DIAGNOSIS Transverse colon, polypectomy - Tubular adenoma. TP/ka 06/28/2020 CURRENT MEDICATIONS[1] ALLERGIES: Cephalosporins and Penicillins PAST MEDICAL HISTORY[2] PAST SURGICAL HISTORY Procedure Laterality Date ADENOIDECTOMY PRIMARY <AGE 14 1958 Adenoidectomy APPENDECTOMY COLONOSCOPY FLX DX W/COLLJ SPEC WHEN PFRMD 06/26/2020 Colonoscopy EYE SURGERY HX PAST SURGICAL HISTORY OF 1985 [facility] bx SKIN BIOPSY HX 03/13/2015 TONSILLECTOMY HX TONSILLECTOMY PRIMARY/SECONDARY <AGE 14 1956 Tonsillectomy FAMILY HISTORY[3] SOCIAL HISTORY[4] REVIEW OF SYMPTOMS: REVIEW OF SYSTEMS: General: The patient + fatigue, denies weight loss, denies weight gain, denies feeling hot, and feelings of cold. Eyes: The patient denies glaucoma, + eye injury/surgery, + glasses or contacts. Ear/Nose/Throat: The patient + allergies, denies hayfever, denies ear infections, and denies bloody noses. Cardiovascular: The patient denies chest pain, denies heart disease, denies high blood pressure, denies high cholesterol, and denies poor circulation. Respiratory: The patient denies tuberculosis, denies pneumonia, denies frequent cough, denies shortness of breath, and denies coughing up blood. Gastrointestinal: The patient denies difficulty swallowing, denies acid reflux, denies ulcers, denies jaundice/hepatitis, denies gallbladder problems, denies vomiting, denies black or tarry stools, + hemorrhoids, denies bleeding from rectum, denies diverticulitis, + constipation, + diarrhea, denies loss of stool control, and denies hernias. Kidney/Bladder: The patient denies kidney stones, denies urine infections, and denies bloody urine. Skin: The patient + a history of skin cancer, denies bleeding/changing moles, and denies a history of skin rash. Neurologic: The patient denies a history of epilepsy/convulsions, denies headaches, denies head/spinal injuries, and denies stroke/TIA. Psychiatric: The patient denies psychiatric medications, denies depression, and denies voices. Endocrine: The patient denies thyroid disorders, denies diabetes, and denies hormonal problems. Hematologic: The patient denies a history of bruising, denies bleeding, and denies anemia. Infections: The patient + a history of measles and mumps, denies rheumatic fever, and denies sexually transmitted diseases. Musculoskeletal: The patient denies back pain/injury, denies back problems, denies sciatica, denies knee/foot trouble, + arthritis, or denies gout. PHYSICAL EXAMINATION: General: The patient is 74 year old, female well nourished, well hydrated in no acute distress. The patient is oriented to time, place, and person. VITALS: Blood pressure 106/67, pulse 79, resp. rate 14, weight 87.5 kg (192 lb 12.8 oz), SpO2 97%. Body mass index is 35.26 kg/m . HEENT: Normal cephalic, ataumatic, pupils are equally round, sclera are anicteric, mucous membranes are moist, oropharynx is clear. Neck has no masses or asymmetry . Respiratory: Clear to auscultation. Cardiac: Regular rate and rhythm. Abdominal exam: Soft, nontender, with no palpable masses. No hepatosplenomegaly. No palpable hernias. Extremities: no clubbing or cyanosis LABORATORY VALUES: As Noted RADIOLOGIC STUDIES: As Noted Assessment IMPRESSION: screen for colon cancer, history of colon polyps PLAN: I have reviewed my findings with the surgeon. Will plan for lower endoscopy. We discussed the risks and benefits of the planned endoscopy in terms understandable to the patient. I have informed the patient that complications can occur including failure to complete the endoscopy and perforation. Jade Levy had the opportunity to ask questions concerning the planned endoscopy. Jade Levy freely consents to surgery. I plan to use miraLAX bowel preparation I have explained to the patient the difference between IV conscious sedation and MAC anesthesia - and I have offered either, according to the patient's wishes. I have explained that with IV conscious sedation there is no anesthesia provider available and therefore there is a limitation of the amount of IV medications that can be given and that the patient may wake up in the middle of the procedure and/or experience pain/discomfort during the procedure. Further discussion was done and the patient was given the opportunity to ask questions and all questions were answered. Jade Levy chooses IV conscious sedation. Jade Levy was counseled that if there are changes in his/her medical condition, to let the office know if surgery should proceed. If there are changes in patient's medical condition from time of this encounter to the day of the procedure that preclude anesthesia, patient may have procedure cancelled for patient's safety. Diagnoses: (Z86.0100) History of colonic polyps (primary encounter diagnosis) (Z12.11) Special screening for malignant neoplasms, colon Consultation requested by Lida Coto CNP for an opinion regarding colon cancer screening. My final recommendations will be communicated back to the requesting physician by way of shared Medical record or letter to requesting physician via US mail. Portions of this documentation were copied and pasted from previous office visit notes in order to provide a cohesive continuity of the history. The note has been reviewed and edited and updated as necessary. Deborah Lopez APRN.EDWIN [1] Current Outpatient Medications Medication Sig hydrOXYchloroQUINE (PLAQUENIL) 200 mg tablet TAKE 1 TABLET BY MOUTH 2 TIMES A DAY CALCIUM CITRATE ORAL Take 600 mg by mouth three times a day. multivit,iron,minerals/lutein (CENTRUM SILVER ULTRA WOMEN'S ORAL) Take 1 tablet by mouth once daily. generic brand alendronate (FOSAMAX) 70 mg tablet Take 1 tablet by mouth one time a week. Take with a full glass of water, on an empty stomach; do NOT lie down for 30minutes. CPAP CPAP tubing, head gear, ancillary supplies Life Time Supplies 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 10 cm H2O. cholecalciferol, vitamin D3, (VITAMIN D3 ORAL) Take 25 mcg by mouth two times a day. Takes 2 12.5 mcg tablets twice daily psyllium Husk 0.52 gram capsule Take 0.52 g by mouth once daily. Oxyquinoline-Na Lauryl Sulfate (TRIMO-CORTES JELLY) 0.025-0.01 % gel Use 1 g vaginally two times a week. (Patient not taking: Reported on 02/23/2025) ipratropium bromide (ATROVENT) 42 mcg (0.06 %) nasal spray Use 1 [place] in the nose three times a day. (Patient taking differently: Use 1 [place] in the nose as needed.) No current facility-administered medications for this visit. 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 7 [3] FAMILY HISTORY Problem Relation Age of Onset Allergies Mother Heart Mother Cancer Father GLIOBLASTOMA Allergies Father Coronary Artery Disease Father 70 Heart Father Hypertension Father Cancer Sister FOLLICULAR Cancer Maternal Grandfather Diabetes Sister Stroke Paternal Grandfather [4] Social History Tobacco Use Smoking status: Former Current packs/day: 0.00 Average packs/day: 1.5 packs/day for 52.5 years (78.7 ttl pk-yrs) Types: Cigarettes Start date: 1965 Quit date: 04/02/2020 Years since quittin.1 Smokeless tobacco: Never Substance Use Topics Alcohol use: Yes Comment: rare Drug use: No documented in this encounter [facility] 04-27-2025 Telephone encounter Note Form faxed to [facility] along with jaquelino. Pt notified via [employer]. Dee Bonner MA [facility] 04-27-2025 Miscellaneous Notes Form faxed to [facility] along with demo. Pt notified via [employer]. Dee Bonner MA [facility] form done Robina Sam MD Please place order for sleep study so it can be faxed to [facility]. Pt would like to do repeat study there. Dee Bonner MA Notified via [employer]. Awaiting reply back if she wants to proceed with sleep study at [facility]. Dee Bonner MA Insurance companies do sometimes require a repeat sleep study before they will supply a new machine. It can be ordered at [facility]; we can send an order over to [facility] for this.. Robina Sam MD See [employer] message. Last OV discussing CEDRIC was in Aug 2024 with Mela Coto. Dee Bonner MA documented in this encounter [facility] 04-25-[address] [facility] form done Robina Sam MD [facility] 04-25-2025 Telephone encounter Note Please place order for sleep study so it can be faxed to [facility]. Pt would like to do repeat study there. Dee Bonner MA [facility] 04-25-2025 Telephone encounter Note Notified via [employer]. Awaiting reply back if she wants to proceed with sleep study at [facility]. Dee Bonner MA [facility] 04-25-2025 Telephone encounter Note Insurance companies do sometimes require a repeat sleep study before they will supply a new machine. It can be ordered at [facility]; we can send an order over to [facility] for this.. Robina Sam MD [facility] 04-25-2025 Telephone encounter Note See [employer] message. Last OV discussing CEDRIC was in Aug 2024 with Mela Coto. Dee Bonner MA [facility] 04-21-2025 Telephone encounter Note Faxed. Dee Bonner MA [facility] 04-21-2025 Miscellaneous Notes Faxed. Dee Bonner MA Office received fax from [employer] stating that pt will need a new PSG or HSAT scored with a 4% rule to get CPAP supplies or equipment through insurance. Dee Bonner MA Type of letter/form/fax request - CEDRIC supply order Form received from fax on 11 floor and placed on MD desk (Dr. Sam) for completion. [facility] [phone]. Requesting copies of any sleep studies done and OV note within the last year discussing use and benefits of CEDRIC machine. Printed OV note 08/19/24, and Sleep study reports from 01/11/08 & 01/20/08. These are attached to order form that needs completed and signed. Route to [place] when form completed for processing documented in this encounter [facility] 04-13-2025 Telephone encounter Note Pt read message 04/12/25 Dee Bonner MA [facility] 04-13-2025 Miscellaneous Notes Pt read message 04/12/25 Dee Bonner MA Pt notified of results via [employer]. Will leave open till pt reads message. Dee Bonner MA Please notify patient that her mammogram is normal; repeat in one year Robina Sam MD documented in this encounter [facility] 04-13-2025 Telephone encounter Note Office received fax from [employer] stating that pt will need a new PSG or HSAT scored with a 4% rule to get CPAP supplies or equipment through insurance. Dee Bonner MA [facility] 04-11-2025 Telephone encounter Note Type of letter/form/fax request - CEDRIC supply order Form received from fax on 11 floor and placed on desk (Dr. Sam) for completion. Completed form needs to be faxed to [facility] at [phone]. Requesting copies of any sleep studies done and OV note within the last year discussing use and benefits of CEDRIC machine. Printed OV note 08/19/24, and Sleep study reports from 01/11/08 & 01/20/08. These are attached to order form that needs completed and signed. Route to [place] when form completed for processing [facility] 04-10-2025 Telephone encounter Note Pt notified of results via [employer]. Will leave open till pt reads message. Dee Bonner MA [facility] 04-10-2025 Telephone encounter Note Please notify patient that her mammogram is normal; repeat in one year Robina Sam MD [facility] 04-07-2025 History of Present illness Narrative Radiology Service Progress Note PATIENT NAME: Jade Jackson DATE OF SERVICE: April 07, 2025 TIME: 10:47 AM PATIENT IDENTITY VERIFICATION COMPLETED USING TWO (2) IDENTIFIERS: Name and Date of confirmed by patient verbally. FALL SCREENING: Has the patient had 2 falls in the last year or 1 fall with injury or currently using an Ambulatory Assistive Device (Walker, Cane, Wheelchair, Crutches, etc.)? No PATIENT GENDER DATA: Assigned female at . status: : No status: NO. PATIENT RELEVANT IMPLANT DATA REVIEWED: Not Applicable PATIENT PRESENTS WITH AN IMPLANTABLE OR ATTACHED COMMISSION SPECIALIST: No RADIOLOGY DEPARTMENT: Mammography PERIPHERAL IV DATA: Not applicable SIGNED BY: RT Subhash(R) April 07, 2025 10:47 AM documented in this encounter [facility] 04-07-2025 Note HNO ID: [id number] Author: SHAYNA CHISHOLM RT(Mari) Service: ? Author Type: Technologist Type: Progress Notes Filed: 04/07/2025 10:47 Note Text: Radiology Service Progress Note PATIENT NAME: Jade Jackson DATE OF SERVICE: April 07, 2025 TIME: 10:47 AM PATIENT IDENTITY VERIFICATION COMPLETED USING TWO (2) IDENTIFIERS: Name and Date of confirmed by patient verbally. FALL SCREENING: Has the patient had 2 falls in the last year or 1 fall with injury or currently using an Ambulatory Assistive Device (Walker, Cane, Wheelchair, Crutches, etc.)? No PATIENT GENDER DATA: Assigned female at . status: : No status: NO. PATIENT RELEVANT IMPLANT DATA REVIEWED: Not Applicable PATIENT PRESENTS WITH AN IMPLANTABLE OR ATTACHED COMMISSION SPECIALIST: No RADIOLOGY DEPARTMENT: Mammography PERIPHERAL IV DATA: Not applicable SIGNED BY: RT Subhash(R) April 07, 2025 10:47 AM [facility] 03-20-2025 Telephone encounter Note Mammogram ordered Robina Sam MD [facility] 03-20-2025 Miscellaneous Notes Mammogram ordered Robina Sam MD Could we have a order for a screening mammogram? Thanks a million documented in this encounter [facility] 03-20-2025 Telephone encounter Note Could we have a order for a screening mammogram? Thanks a million [facility] 02-24-2025 History of Present illness Narrative Radiology Service Progress Note PATIENT NAME: Jade Jackson DATE OF SERVICE: February 24, 2025 TIME: 10:07 AM PATIENT IDENTITY VERIFICATION COMPLETED USING TWO (2) IDENTIFIERS: Name and Date of confirmed by patient verbally. FALL SCREENING: Has the patient had 2 falls in the last year or 1 fall with injury or currently using an Ambulatory Assistive Device (Walker, Cane, Wheelchair, Crutches, etc.)? No PATIENT GENDER DATA: Assigned female at . status: : No status: NO. PATIENT RELEVANT IMPLANT DATA REVIEWED: Not Applicable PATIENT PRESENTS WITH AN IMPLANTABLE OR ATTACHED COMMISSION SPECIALIST: No RADIOLOGY DEPARTMENT: Bone Density PERIPHERAL IV DATA: Not applicable SIGNED BY: RT Vivian(R) February 24, 2025 10:07 AM documented in this encounter [facility] 02-24-2025 Note HNO ID: [id number] Author: ZAHEER TOSCANO RT(Mari) Service: ? Author Type: Technologist Type: Progress Notes Filed: 02/24/2025 10:16 Note Text: Radiology Service Progress Note PATIENT NAME: Jade Jackson DATE OF SERVICE: February 24, 2025 TIME: 10:07 AM PATIENT IDENTITY VERIFICATION COMPLETED USING TWO (2) IDENTIFIERS: Name and Date of confirmed by patient verbally. FALL SCREENING: Has the patient had 2 falls in the last year or 1 fall with injury or currently using an Ambulatory Assistive Device (Walker, Cane, Wheelchair, Crutches, etc.)? No PATIENT GENDER DATA: Assigned female at . status: : No status: NO. PATIENT RELEVANT IMPLANT DATA REVIEWED: Not Applicable PATIENT PRESENTS WITH AN IMPLANTABLE OR ATTACHED COMMISSION SPECIALIST: No RADIOLOGY DEPARTMENT: Bone Density PERIPHERAL IV DATA: Not applicable SIGNED BY: RT Vivian(R) February 24, 2025 10:07 AM [facility] 02-23-2025 History of Present illness Narrative Radiology Service Progress Note PATIENT NAME: Jade Jackson DATE OF SERVICE: February 23, 2025 TIME: 11:54 AM PATIENT IDENTITY VERIFICATION COMPLETED USING TWO (2) IDENTIFIERS: Name and Date of confirmed by patient verbally. FALL SCREENING: Has the patient had 2 falls in the last year or 1 fall with injury or currently using an Ambulatory Assistive Device (Walker, Cane, Wheelchair, Crutches, etc.)? No PATIENT GENDER DATA: Assigned female at . status: : No status: NO. PATIENT RELEVANT IMPLANT DATA REVIEWED: Not Applicable PATIENT PRESENTS WITH AN IMPLANTABLE OR ATTACHED COMMISSION SPECIALIST: No RADIOLOGY DEPARTMENT: General X-ray: Exam(s) Completed: Spine X-Ray(s): Thoracic and Lumbar AP / LAT / L5-S1 Pelvis X-Ray: Pelvis with Hip Left PERIPHERAL IV DATA: Not applicable SIGNED BY: ROSEMARIE Leonardo) February 23, 2025 11:54 AM documented in this encounter [facility] 02-23-2025 Note HNO ID: [id number] Author: RONNY AGUIAR RT(R) Service: ? Author Type: Technologist Type: Progress Notes Filed: 02/23/2025 11:54 Note Text: Radiology Service Progress Note PATIENT NAME: Jade Jackson DATE OF SERVICE: February 23, 2025 TIME: 11:54 AM PATIENT IDENTITY VERIFICATION COMPLETED USING TWO (2) IDENTIFIERS: Name and Date of confirmed by patient verbally. FALL SCREENING: Has the patient had 2 falls in the last year or 1 fall with injury or currently using an Ambulatory Assistive Device (Walker, Cane, Wheelchair, Crutches, etc.)? No PATIENT GENDER DATA: Assigned female at . status: : No status: NO. PATIENT RELEVANT IMPLANT DATA REVIEWED: Not Applicable PATIENT PRESENTS WITH AN IMPLANTABLE OR ATTACHED COMMISSION SPECIALIST: No RADIOLOGY DEPARTMENT: General X-ray: Exam(s) Completed: Spine X-Ray(s): Thoracic and Lumbar AP / LAT / L5-S1 Pelvis X-Ray: Pelvis with Hip Left PERIPHERAL IV DATA: Not applicable SIGNED BY: Ronny Aguiar, RT(R) February 23, 2025 11:54 AM [facility] 02-23-2025 Instructions Kendal High MD - 02/23/2025 11:24 AM EDT Continue hydroxychloroquine X rays anytime Fasting labs first thing in the morning IF the bone density looks as good or better and the labs look good, then can pause the alendronate IF the bone density looks worse, we will talk about other options Eye exam in August Follow up 6 months XIOMY Chavez in [place] documented in this encounter [facility] 02-23-2025 Note HNO ID: [id number] Author: KENDAL HIGH MD Service: ? Author Type: Physician Type: Progress Notes Filed: 02/23/2025 11:30 Note Text: Rheumatology FOLLOW UP VISIT Date of Service: 02/23/2025 Patient: Jade Jackson Medical Record: [id number] Primary Care Physician: Robina Sam MD Last Rheumatology visit: 08/23/2024 (with Kendal High) Chief Complaint: Follow Up (Left hip pain) INTERVAL HISTORY Luisa is a 74-year-old female with a history , CEDRIC on CPAP, HLD, OA, presenting for a follow-up of seropositive RA and osteoporosis. Luisa was last evaluated in August 2024, at which time she was advised to continue hydroxychloroquine 200 mg daily, with an annual eye exam due in July 2025, and a bone density scan due in January 2025. She was also instructed to continue vitamin D 2000 units daily and alendronate once a week. She declined preventive cardiology at that time. She reports increased discomfort in her right knee and new onset of left hip pain over the past few weeks. The hip pain is localized at the ball of the hip and described as a shooting pain similar to a bruise when touched. She has been using Voltaren gel without significant relief and applies a hot water bottle at night, which provides temporary relief. The pain worsens by the end of the day, causing her to limp, but does not prevent her from walking 2 to 5 miles daily. She sleeps flat on her back and denies other joint issues. She experiences heartburn on Wednesdays after taking alendronate, despite drinking 18 ounces of water with the medication. She is concerned about the effectiveness of the medication due to this side effect but is willing to tolerate it if the medication is effective. ROS: She denies fevers, night sweats, unintentional weight change, cough, chest pain, or dyspnea. She reports a weight gain of 5-7 pounds due to dietary habits. She experiences morning stiffness, particularly in her back, and notes shooting pain up her back when sneezing, which resolves afterward. She has not had recent x-rays of her back. She reports a decrease in height from 5'6 to 5'2 over the years. She denies any known fractures as an adult and has not had recent falls, though she had a near fall on the steps about a month ago while carrying a laundry basket. Her mother had osteoporosis, but she does not believe her father did. She underwent menopause at a young age, around 35-40 years old, and her daughter also experienced early menopause. She denies any history of cancer, except for Mohs surgery for skin cancer, and has not undergone radiation therapy. She drinks 5-6 cups of coffee daily and quit smoking on March 31, 2020, following an appendicitis episode. She continues to take vitamin D3 2000 units and calcium 1800 mg daily. She is up to date with her eye exams, having had one in August and another scheduled for next August. She recently saw cardiology, where she was told her cholesterol and blood work were excellent, and her nuclear stress test showed good blood flow. Osteoporosis History: Previous fractures: No Falls: No Treatment history: Aldendronate 2022-present Parental history: Mom GERD: yes Cancer history:Skin cancer Radiation history: No Weight bearing exercise: walk daily Menopause: Age 35-40 sometime Alcohol: No Tobacco: Former 04/30/2020 Caffeine: Coffee 5-7 c a day Vitamin D: 2000 units Calcium: 1800 daily RHEUMATOLOGIC HISTORY She is currently taking hydroxychloroquine sulfate. Jade Levy is RF positive - 346 (03/25/2021) and CCP negative - 13.5 (09/19/2024). Her most recent EDOUARD was negative (03/25/2021). HISTORY OF PRESENT ILLNESS 1. Seropositive rheumatoid arthritis 2. Osteoporosis (osteopenia with elevated FRAX) DEXA 01/2023 lowest T score -1.7 left femoral neck FRAX 19% major, 4.7% hip Treatment: Hydroxychloroquine 06/2021-present 200 mg Alendronate 08/2023-present per PCP Work-up: Historic labs: Negative EDOUARD RF 346 Normal TSH Negative SSA, SSB 03/2021 hand x-rays: Normal Jade Jackson is a 72 year old White female with a history of CEDRIC on CPAP, hyperlipidemia, osteoarthritis, osteopenia who presents to rheumatology clinic to establish care with physician for seropositive rheumatoid arthritis. Chart review reveals she establish care with Dr. Lowe 06/2021 for CMC pain, back pain in the setting of high titer RF positivity. She was given a steroid injection for trigger finger of the left thumb and put on conservative management for OA of CMC, knee, back. She was put on hydroxychloroquine in 2020 for empiric treatment of inflammatory arthritis. She then saw ZOË Weaver 07/2022 and noted 90 to 95% improvement of her joint symptoms with hydroxychloroquine. Today she presents to clinic alone. Unfortunately she lost her job last August and her insurance changed and now her hydroxychloroquine is significantly more expensive. She wonders if t (more content not included)... [facility] 02-23-2025 History of Present illness Narrative Images from the original note were not included. Rheumatology FOLLOW UP VISIT Date of Service: 02/23/2025 Patient: Jade Jackson Medical Record: [id number] Primary Care Physician: Robina Sam MD Last Rheumatology visit: 08/23/2024 (with Kendal High) Chief Complaint: Follow Up (Left hip pain) INTERVAL HISTORY Luisa is a 74-year-old female with a history , CEDRIC on CPAP, HLD, OA, presenting for a follow-up of seropositive RA and osteoporosis. Luisa was last evaluated in August 2024, at which time she was advised to continue hydroxychloroquine 200 mg daily, with an annual eye exam due in July 2025, and a bone density scan due in January 2025. She was also instructed to continue vitamin D 2000 units daily and alendronate once a week. She declined preventive cardiology at that time. She reports increased discomfort in her right knee and new onset of left hip pain over the past few weeks. The hip pain is localized at the ball of the hip and described as a shooting pain similar to a bruise when touched. She has been using Voltaren gel without significant relief and applies a hot water bottle at night, which provides temporary relief. The pain worsens by the end of the day, causing her to limp, but does not prevent her from walking 2 to 5 miles daily. She sleeps flat on her back and denies other joint issues. She experiences heartburn on Wednesdays after taking alendronate, despite drinking 18 ounces of water with the medication. She is concerned about the effectiveness of the medication due to this side effect but is willing to tolerate it if the medication is effective. ROS: She denies fevers, night sweats, unintentional weight change, cough, chest pain, or dyspnea. She reports a weight gain of 5-7 pounds due to dietary habits. She experiences morning stiffness, particularly in her back, and notes shooting pain up her back when sneezing, which resolves afterward. She has not had recent x-rays of her back. She reports a decrease in height from 5'6 to 5'2 over the years. She denies any known fractures as an adult and has not had recent falls, though she had a near fall on the steps about a month ago while carrying a laundry basket. Her mother had osteoporosis, but she does not believe her father did. She underwent menopause at a young age, around 35-40 years old, and her daughter also experienced early menopause. She denies any history of cancer, except for Mohs surgery for skin cancer, and has not undergone radiation therapy. She drinks 5-6 cups of coffee daily and quit smoking on March 31, 2020, following an appendicitis episode. She continues to take vitamin D3 2000 units and calcium 1800 mg daily. She is up to date with her eye exams, having had one in August and another scheduled for next August. She recently saw cardiology, where she was told her cholesterol and blood work were excellent, and her nuclear stress test showed good blood flow. Osteoporosis History: Previous fractures: No Falls: No Treatment history: Aldendronate 2022-present Parental history: Mom GERD: yes Cancer history:Skin cancer Radiation history: No Weight bearing exercise: walk daily Menopause: Age 35-40 sometime Alcohol: No Tobacco: Former 04/30/2020 Caffeine: Coffee 5-7 c a day Vitamin D: 2000 units Calcium: 1800 daily RHEUMATOLOGIC HISTORY She is currently taking hydroxychloroquine sulfate. Jade Levy is RF positive - 346 (03/25/2021) and CCP negative - 13.5 (09/19/2024). Her most recent EDOUARD was negative (03/25/2021). HISTORY OF PRESENT ILLNESS 1. Seropositive rheumatoid arthritis 2. Osteoporosis (osteopenia with elevated FRAX) DEXA 01/2023 lowest T score -1.7 left femoral neck FRAX 19% major, 4.7% hip Treatment: Hydroxychloroquine 06/2021-present 200 mg Alendronate 08/2023-present per PCP Work-up: Historic labs: Negative EDOUARD RF 346 Normal TSH Negative SSA, SSB 03/2021 hand x-rays: Normal Jade Jackson is a 72 year old White female with a history of CEDRIC on CPAP, hyperlipidemia, osteoarthritis, osteopenia who presents to rheumatology clinic to establish care with physician for seropositive rheumatoid arthritis. Chart review reveals she establish care with Dr. Lowe 06/2021 for CMC pain, back pain in the setting of high titer RF positivity. She was given a steroid injection for trigger finger of the left thumb and put on conservative management for OA of CMC, knee, back. She was put on hydroxychloroquine in 2020 for empiric treatment of inflammatory arthritis. She then saw ZOË Weaver 07/2022 and noted 90 to 95% improvement of her joint symptoms with hydroxychloroquine. Today she presents to clinic alone. Unfortunately she lost her job last August and her insurance changed and now her hydroxychloroquine is significantly more expensive. She wonders if there is a different alternative that could be cheaper. Rheumatoid arthritis is overall under good control. She has morning stiffness in her hands lasting 10 to 15 minutes but no significant pain. She has low back stiffness lasting up to 30 minutes. She has had no flares or red hot swollen joints. She has left knee pain which is chronic since her previous left knee surgery. In terms of osteopenia, her mother had osteoporosis and broke a hip. Her sister has osteoporosis. She takes vitamin D regularly, is a former smoker about 50 years, quit 2019, 1.5 packs a day. Rare alcohol use. She does drink coffee about 5 cups a day. She has had no osteoporotic fractures. Rheumatologic review of systems notable for dry mouth and dry eyes since wearing her CPAP. Her hands turn purple in the cold. She is concerned about vertical nail ridges. She has lost 20 pounds intentionally with a change in diet and increase exercise. Sometimes she gets numbness in her fingers. She otherwise denies fevers, night sweats, unintentional weight loss, history of uveitis, sores in her nose or mouth, malar rash, photosensitivity, cough, ingestion, chest pain, shortness of breath, nausea, vomiting, abdominal pain, constipation, diarrhea, blood in her urine or stool, Raynaud's. Osteoporosis History 02/2025: Previous fractures: No Falls: No Treatment history: Aldendronate 2022- Parental history: Mom GERD: yes Cancer history:Skin cancer Radiation history: No Weight bearing exercise: walk daily Menopause: Age 35-40 sometime Alcohol: No Tobacco: Former 04/30/2020 Caffeine: Coffee 5-7 c a day Vitamin D: 2000 units Calcium: 1800 daily Pain Evaluation 07/12/2024 07/27/2024 11/23/2024 11/23/2024 11/24/2024 Pain Evaluation Pain Score 0 0 1 1 1 1 Location Perineal Area Perineal Area Perineal Area Description Pressure Aching;Pressure;Other: See comment Aching;Pressure;Other: See comment Duration (#) 8 8 Duration (Timeframe) Days Days Days Frequency Intermittent Intermittent Intermittent Rheum/Ortho Arthrocentesis Injections (last 5) 06/24/2021 12:42 Injection History Medication 20 mg triamcinolone acetonide 40 mg/mL Location thumb PATIENT-ENTERED DATA PROMIS Assessments 08/18/2024 08/22/2024 11/23/2024 PROMIS Assessments Physical Health Percentile 53 53 66 Mental Health Percentile 43 43 34 Pain Score 4 4 4 Pain Interference Percentile 46 Fatigue Percentile 58 Physical Function Percentile 66 Multiple values from one day are sorted in reverse-chronological order RAPID 3 Garcia Activities of Daily Living 08/22/2024 12:22 PM 07/15/2023 3:18 PM 01/14/2023 6:18 PM First answer obtained - 06/24/2021 9:13 AM Dress self? Without ANY difficulty Without ANY difficulty Without ANY difficulty With MUCH difficulty Get in and out of bed? With SOME difficulty With SOME difficulty Without ANY difficulty With SOME difficulty Walk outdoors? Without ANY difficulty Without ANY difficulty Without ANY difficulty Without ANY difficulty Wash and dry body? Without ANY difficulty Without ANY difficulty Without ANY difficulty With SOME difficulty Get in and out of car? Without ANY difficulty Without ANY difficulty Without ANY difficulty Without ANY difficulty RAPID 3 Disease Activity Weighed Score Levels: 0 - 1: Near Remission 1.3 - 2.0: Low Severity 2.3 - 4.0: Moderate Severity 4.3 - 10.0: High Severity 01/14/2023 07/15/2023 08/22/2024 RAPID-3 Weighed Score RAPID 3 Weighed Score 0.5 (Minimal to no symptoms) 0.44 (Minimal to no symptoms) 0.94 (Minimal to no symptoms) ROS RHEUMATOLOGY REVIEW OF SYSTEMS Complete ROS (HEENT, respiratory, cardiology, GI, , skin, psych, hematology, endocrine, neuro, musculoskeletal) negative except as noted in HPI. HISTORIES Past medical, surgical, family, and social history reviewed and notable changes since last visit include: Noted in HPI MEDICATIONS Current Outpatient Medications Medication Sig hydrOXYchloroQUINE (PLAQUENIL) 200 mg tablet TAKE 1 TABLET BY MOUTH 2 TIMES A DAY CALCIUM CITRATE ORAL Take 600 mg by mouth three times a day. multivit,iron,minerals/lutein (CENTRUM SILVER ULTRA WOMEN'S ORAL) Take 1 tablet by mouth once daily. generic brand alendronate (FOSAMAX) 70 mg tablet Take 1 tablet by mouth one time a week. Take with a full glass of water, on an empty stomach; do NOT lie down for 30minutes. CPAP CPAP tubing, head gear, ancillary supplies Life Time Supplies 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 10 cm H2O. cholecalciferol, vitamin D3, (VITAMIN D3 ORAL) Take 25 mcg by mouth two times a day. Takes 2 12.5 mcg tablets twice daily psyllium Husk 0.52 gram capsule Take 0.52 g by mouth once daily. Oxyquinoline-Na Lauryl Sulfate (TRIMO-CORTES JELLY) 0.025-0.01 % gel Use 1 g vaginally two times a week. (Patient not taking: Reported on 02/23/2025) ipratropium bromide (ATROVENT) 42 mcg (0.06 %) nasal spray Use 1 [place] in the nose three times a day. (Patient taking differently: Use 1 [place] in the nose as needed.) Last Ophthalmology Check for Plaquenil (Hydroxychloroquine) Last OCT Macula Exam No resulted procedures found. Last Visual Field Exam No resulted procedures found. ALLERGIES ALLERGIES Allergen Reactions Cephalosporins Swelling Penicillins Anaphylaxis PHYSICAL EXAM VITAL SIGNS: BP 114/72 Pulse 67 Ht 5' 2 (1.58m) Wt 196 lb (88.9kg) BMI 35.84 kg/(m^2). GENERAL: Alert and oriented, appears a stated age. In no acute distress. EYES: Anicteric sclerae, no conjunctival injection HENT: Normocephalic, atraumatic NECK: No mass or asymmetry. No lymphadenopathy RESPIRATORY: Normal respiratory effort. Clear to auscultation bilaterally CARDIOVASCULAR: Regular in rate and rhythm without murmurs, rubs, or gallops ABDOMEN: Soft, nontender, nondistended NEUROLOGIC: No gross focal neurologic deficits. Cranial nerves II-XII grossly intact. SKIN: No rash, thickening, nodules, discoloration. Normal nails. MSK: Normal range of motion, no deformities, no swelling, and no tenderness in the hands, wrists, elbows, shoulders, spine, hips, knees, ankles, feet except as noted below: OA changes in hands No synovitis LABS AND IMAGING Reviewed in [facility], notable for: Labs (No entries) Tests (01/26/2025) Nuclear stress test: Normal perfusion imaging at moderate workload; good blood flow. Imaging (01/26/2025) Transthoracic echocardiogram: - Ejection Fraction: 55% - Mild tricuspid valve insufficiency - Pulmonary systolic pressure: 22 mmHg - No additional valvular abnormalities (09/23/2024) Low-dose CT lung screening: No abnormalities reported; annual screening recommended. Latest Ref Rng & Units 03/25/2021 07/14/2022 08/13/2023 09/19/2024 CBC WBC 3.70 - 11.00 k/uL 7.79 8.56 8.34 7.62 Hemoglobin 11.5 - 15.5 g/dL 13.5 13.4 13.3 13.9 Hematocrit 36.0 - 46.0 % 41.7 41.3 40.8 42.7 Platelet Count 150 - 400 k/uL 245 264 259 247 Abs Neut (ANC) 1.45 - 7.50 k/uL 4.37 4.48 4.72 4.71 Abs Lymph 1.00 - 4.00 k/uL 2.56 3.04 2.53 2.15 Latest Ref Rng & Units 07/14/2022 08/18/2022 08/13/2023 09/19/2024 CMP Sodium 136 - 144 mmol/L 141 143 142 Potassium 3.7 - 5.1 mmol/L 4.0 3.8 4.7 Chloride 98 - 107 mmol/L 105 106 105 CO2 22 - 30 mmol/L 23 26 26 Glucose 74 - 99 mg/dL 94 92 87 BUN 7 - 21 mg/dL 13 9 13 Creatinine 0.58 - 0.96 mg/dL 0.87 0.96 0.79 0.84 Calcium 8.5 - 10.2 mg/dL 9.4 9.2 9.8 AST 13 - 35 U/L 19 15 14 20 ALT 7 - 38 U/L 19 14 11 15 Alkaline Phosphatase 34 - 123 U/L 97 77 75 Latest Ref Rng & Units 03/25/2021 07/14/2022 ESR, WSR WSR 0 - 20 mm/hr 10 8 Latest Ref Rng & Units 03/25/2021 07/14/2022 CRP CRP <0.9 mg/dL <0.3 <0.3 Latest Ref Rng & Units 03/25/2021 09/19/2024 RF and CCP Rheumatoid Factor <16 IU/mL 346 CCP Antibody IgG Qualitative Negative Negative CCP Antibody, IgG <20 Units <15 Latest Ref Rng & Units 04/04/2020 Hepatitis Screen Hep C Antibody IA Negative Negative Latest Ref Rng & Units 03/25/2021 06/24/2021 Antibodies EDOUARD by EIA OD Ratio 0.5 EDOUARD by EIA, Qual Negative Negative Anti-SSA <1.0 AI <0.2 Anti-SSB <1.0 AI <0.2 Latest Ref Rng & Units 04/04/2020 11/24/2024 12/14/2024 12/14/2024 Urinalysis Protein, Urine Negative Negative Negative PROTEIN UA (POCT) Negative mg/dL Negative Negative RBC, Urine 0-2 /HPF 3-5 /HPF 0-2 /HPF IMPRESSIONS Diagnoses: (M05.9) Seropositive rheumatoid arthritis (HCC) (primary encounter diagnosis) (M81.0) Postmenopausal osteoporoses (R29.890) Height loss (K21.9) Gastroesophageal reflux disease, unspecified whether esophagitis present (M25.552) Pain in left hip ASSESSMENT AND PLAN Luisa is a 74-year-old female with a history , CEDRIC on CPAP, HLD, OA, presenting for a follow-up of seropositive RA and osteoporosis. # Seropositive rheumatoid arthritis (HCC) (M05.9) Stable on hydroxychloroquine 200 mg daily. No new joint pain or swelling reported. - Continue hydroxychloroquine 200 mg daily. - Follow-up in 6 months with XIOMY Chavez in [place]. # Postmenopausal osteoporoses (M81.0) # Height loss (R29.890) # Gastroesophageal reflux disease, unspecified whether esophagitis present (K21.9) Patient reports height loss from 5'6 to 5'2. Scheduled for bone density scan tomorrow. Currently taking alendronate once a week, experiencing heartburn post-administration. Family history of osteoporosis in mother. Early menopause at age 35-40. - Ordered X-rays of the lumbar and thoracic spine to rule out silent compression fractures. - Ordered fasting labs to assess bone metabolism. - If bone density is stable or improved and labs are normal, consider pausing alendronate due to reflux. - If bone density is worse, discuss alternative treatments, likely reclast. - Continue Vitamin D 2000 units daily and calcium 1800 mg daily. # Pain in left hip (M25.552) Onset of pain in the left hip over the past few weeks, described as a shooting pain localized to the hip joint. Currently using Voltaren gel and hot water bottles with minimal relief. - Ordered X-ray of the left hip to evaluate for underlying pathology. - Continue current pain management with Voltaren gel and heat application. - will likely need PT I will message with results Follow up 6 months XIOMY Chavez per her request 12 months me Current Immunizations Never Reviewed Name Date COVID-19 vaccine (NOVAVAX) 07/22/2024 COVID-19 vaccine, monovalent (Relative.ai) 05/01/2021, 04/10/2021 influenza (HD-IIV3) vaccine 07/17/2023, 08/13/2020 influenza (HD-IIV4) vaccine 07/31/2022 influenza (IIV3) vaccine 07/23/2016, 07/23/2016 influenza (IIV4) vaccine 07/22/2017 influenza vaccine 06/29/2009 pneumococcal (PCV13) vaccine 06/21/2018 pneumococcal (PPV23) vaccine 08/18/2022 zoster (RZV) vaccine 11/20/2022, 09/01/2022 Orders this visit: Office Visit on 02/23/25 XR HIP GENERAL 3V PELV/AP/LAT LEFT XR LUMBAR LIMITED 2V AP/LAT XR THORACIC LIMITED 2V AP/LAT C-REACTIVE PROTEIN SEDIMENTATION RATE, WESTERGREN COMPREHENSIVE METABOLIC PANEL COMPLETE BLOOD COUNT AND DIFFERENTIAL VITAMIN D 25 HYDROXY C TELOPEPTIDE, BETA CALCIUM, IONIZED PROCOLLAGEN TYPE 1 Return in about 6 months (around 08/26/2025). Medical Decision Making: Problems: Moderate: 2+ stable chronic illnesses Data: Unique test result(s) reviewed: 3+ Unique test(s) ordered: 3+ Independent interpretation of test from other physician/QHCP Risk: High: Drug therapy requiring intensive monitoring Medical Decision Making Level: 5 - High Recording using [employer] software for draft documentation of the visit was discussed with the patient/authorized exhibit display representative; all questions welcomed and answered. Patient/authorized exhibit display representative agreed to proceed This note was partially generated with the assistance of [employer] voice recognition software. An attempt was made to correct any dictation errors however there may be some incorrect words, spellings, and punctuation. Kendal High MD Rheumatology Date: February 23, 2025 Time: 10:58 AM documented in this encounter [facility] 01-25-2025 Note HNO ID: [id number] Author: DAR ABDI MD Service: ? Author Type: Physician Type: Progress Notes Filed: 01/25/2025 10:33 Note Text: Commercial Real Estate Underwriter offered: Patient accepts, visit chaperoned by Kristen Harvey MA. Jade Jackson is a 74 year old who presents today for pessary insertion/cleaning. She wears a size 3 ring with support pessary. She returns today with no complaints. She has not had problems with the pessary. She has partially had vaginal discharge. She has not had vaginal bleeding. EXAM: pleasant, well developed, well nourished, in no apparent distress Pelvic: Bartholin's, urethra and [place]'s glands were normal. The ring with support pessary was removed. Vaginal exam indicated no erythema, no ulcerations, and noting a clumpy discharge (?yeast) vaginal discharge. The pessary was cleaned a size 3 ring with support was inserted without difficulty The pessary was inserted, patient tolerated the procedure well and the device is comfortable. A/P Tolerating pessary well ? yeast infection/Culture pending ftft> 20 mi [facility] 01-25-2025 History of Present illness Narrative Commercial [employer] Underwriter offered: Patient accepts, visit chaperoned by Kristen Harvey MA. Jade Jackson is a 74 year old who presents today for pessary insertion/cleaning. She wears a size 3 ring with support pessary. She returns today with no complaints. She has not had problems with the pessary. She has partially had vaginal discharge. She has not had vaginal bleeding. EXAM: pleasant, well developed, well nourished, in no apparent distress Pelvic: Bartholin's, urethra and [place]'s glands were normal. The ring with support pessary was removed. Vaginal exam indicated no erythema, no ulcerations, and noting a clumpy discharge (?yeast) vaginal discharge. The pessary was cleaned a size 3 ring with support was inserted without difficulty The pessary was inserted, patient tolerated the procedure well and the device is comfortable. A/P Tolerating pessary well ? yeast infection/Culture pending ftft> 20 mi documented in this encounter [facility] 01-11-2025 Telephone encounter Note Called patient left VM will send mychart also. Christie Villanueva RN [facility] 01-11-2025 Miscellaneous Notes Called patient left VM will send mychart also. Christie White, RN Please confirm if taking once or twice a day, thanks! Images from the original note were not included. Most recent Rheumatology visit: 08/23/2024 (with Kendal High) Last Bone Density on file: 01/27/2023 Rheumatology Care Team: None on file Recent Office Visits - This Specialty 08/23/2024 Seropositive rheumatoid arthritis (HCC) Rheumatology Kendal High MD 07/17/2023 Seropositive rheumatoid arthritis (HCC) Rheumatology Kendal High MD 01/15/2023 Seropositive rheumatoid arthritis (HCC) Rheumatology Kendal High MD Upcoming Rheumatology Appointments - Next 365 Days Visit Type Date Time Department [facility] 02/23/2025 11:20 AM [facility] Last Ophthalmology Check for Plaquenil (Hydroxychloroquine) Scan on 08/04/2024 3:20 PM by Provider, External, PATemoC: Consultation - Ophthalmology CBC: Latest Ref Rng & Units 08/13/2023 09/19/2024 CBC WBC 3.70 - 11.00 k/uL 8.34 7.62 Hemoglobin 11.5 - 15.5 g/dL 13.3 13.9 Hematocrit 36.0 - 46.0 % 40.8 42.7 Platelet Count 150 - 400 k/uL 259 247 Abs Neut (ANC) 1.45 - 7.50 k/uL 4.72 4.71 Abs Lymph 1.00 - 4.00 k/uL 2.53 2.15 Vitamin D: Latest Ref Rng & Units 08/13/2023 09/19/2024 Vitamin D Vitamin D 25 Hydroxy 31.0 - 80.0 ng/mL 45.1 42.4 LFT: Latest Ref Rng & Units 08/13/2023 09/19/2024 CMP Sodium 136 - 144 mmol/L 143 142 Potassium 3.7 - 5.1 mmol/L 3.8 4.7 Chloride 98 - 107 mmol/L 106 105 CO2 22 - 30 mmol/L 26 26 Glucose 74 - 99 mg/dL 92 87 BUN 7 - 21 mg/dL 9 13 Creatinine 0.58 - 0.96 mg/dL 0.79 0.84 Calcium 8.5 - 10.2 mg/dL 9.2 9.8 AST 13 - 35 U/L 14 20 ALT 7 - 38 U/L 11 15 Alkaline Phosphatase 34 - 123 U/L 77 75 Hepatic Function: Creatinine: Latest Ref Rng & Units 08/13/2023 09/19/2024 Creatinine Creatinine 0.58 - 0.96 mg/dL 0.79 0.84 ESR/CRP: None on file in the last 6 months Uric Acid: None on file in the last 6 months Open Standing (Multiple Instance) Lab Orders None Open Future (Single Instance) Lab Orders None Christie Villanueva, RN documented in this encounter [facility] 01-11-2025 Telephone encounter Note Please confirm if taking once or twice a day, thanks! [facility] 01-11-2025 Telephone encounter Note Images from the original note were not included. Most recent Rheumatology visit: 08/23/2024 (with Kendal High) Last Bone Density on file: 01/27/2023 Rheumatology Care Team: None on file Recent Office Visits - This Specialty 08/23/2024 Seropositive rheumatoid arthritis (HCC) Rheumatology Kendal High MD 07/17/2023 Seropositive rheumatoid arthritis (HCC) Rheumatology Kendal High MD 01/15/2023 Seropositive rheumatoid arthritis (HCC) Rheumatology Kendal High MD Upcoming Rheumatology Appointments - Next 365 Days Visit Type Date Time Department [facility] 02/23/2025 11:20 AM [facility] Last Ophthalmology Check for Plaquenil (Hydroxychloroquine) Scan on 08/04/2024 3:20 PM by Provider, External, XIOMY: Consultation - Ophthalmology CBC: Latest Ref Rng & Units 08/13/2023 09/19/2024 CBC WBC 3.70 - 11.00 k/uL 8.34 7.62 Hemoglobin 11.5 - 15.5 g/dL 13.3 13.9 Hematocrit 36.0 - 46.0 % 40.8 42.7 Platelet Count 150 - 400 k/uL 259 247 Abs Neut (ANC) 1.45 - 7.50 k/uL 4.72 4.71 Abs Lymph 1.00 - 4.00 k/uL 2.53 2.15 Vitamin D: Latest Ref Rng & Units 08/13/2023 09/19/2024 Vitamin D Vitamin D 25 Hydroxy 31.0 - 80.0 ng/mL 45.1 42.4 LFT: Latest Ref Rng & Units 08/13/2023 09/19/2024 CMP Sodium 136 - 144 mmol/L 143 142 Potassium 3.7 - 5.1 mmol/L 3.8 4.7 Chloride 98 - 107 mmol/L 106 105 CO2 22 - 30 mmol/L 26 26 Glucose 74 - 99 mg/dL 92 87 BUN 7 - 21 mg/dL 9 13 Creatinine 0.58 - 0.96 mg/dL 0.79 0.84 Calcium 8.5 - 10.2 mg/dL 9.2 9.8 AST 13 - 35 U/L 14 20 ALT 7 - 38 U/L 11 15 Alkaline Phosphatase 34 - 123 U/L 77 75 Hepatic Function: Creatinine: Latest Ref Rng & Units 08/13/2023 09/19/2024 Creatinine Creatinine 0.58 - 0.96 mg/dL 0.79 0.84 ESR/CRP: None on file in the last 6 months Uric Acid: None on file in the last 6 months Open Standing (Multiple Instance) Lab Orders None Open Future (Single Instance) Lab Orders None Christie Villanueva RN [facility] 12-14-2024 Note HNO ID: [id number] Author: DAR ABDI MD Service: ? Author Type: Physician Type: Progress Notes Filed: 12/14/2024 10:48 Note Text: [employer] Underwriter provided by Zulma Mario LPN Jade Jackson is a 74 year old who presents today for pessary insertion/cleaning. She wears a #3 Platform pessary. She returns today with complaints of loss of urine . She has had problems with the pessary. She has not had vaginal discharge. She has not had vaginal bleeding. EXAM: pleasant, well developed, well nourished, in no apparent distress Pelvic: Bartholin's, urethra and [place]'s glands were normal. The ring with support pessary was removed. Vaginal exam indicated no erythema, no ulcerations, and no vaginal discharge. The pessary was cleaned a size #3 ring with support was inserted without difficulty The pessary was inserted, patient tolerated the procedure well and the device is comfortable. Last urine was confusing with +LE/Nitrites but no bacteria. IMP pelvic prolapse improved with pessary urinary sx exacerbation/UA pending PLAN UA and RTO 6 weeks pessary check [facility] 12-14-2024 History of Present illness Narrative [employer] Underwriter provided by Zulma Mario LPN Jade Jackson is a 74 year old who presents today for pessary insertion/cleaning. She wears a #3 Platform pessary. She returns today with complaints of loss of urine . She has had problems with the pessary. She has not had vaginal discharge. She has not had vaginal bleeding. EXAM: pleasant, well developed, well nourished, in no apparent distress Pelvic: Bartholin's, urethra and [place]'s glands were normal. The ring with support pessary was removed. Vaginal exam indicated no erythema, no ulcerations, and no vaginal discharge. The pessary was cleaned a size #3 ring with support was inserted without difficulty The pessary was inserted, patient tolerated the procedure well and the device is comfortable. Last urine was confusing with +LE/Nitrites but no bacteria. IMP pelvic prolapse improved with pessary urinary sx exacerbation/UA pending PLAN UA and RTO 6 weeks pessary check documented in this encounter [facility] 11-24-2024 Evaluation note Diagnosis Stress incontinence of urine- Primary Cystocele, midline * Assessment & Plan Note - Dar Abdi MD - 11/24/2024 10:20 AM EST Associated Problem(s): Cystocele, midline #3 Platform pessary fitted/placed. Rx Trimo-cortes documented in this encounter [facility]02-13-2025 NoteHNO ID: [id number] Author: DAR ABDI MD Service: ? Author Type: Physician Type: Progress Notes Filed: 11/24/2024 10:21 Note Text: [employer] Underwriter offered: Patient accepts, visit chaperoned by Kristen Harvey MA. Jade Jackson is a 74 year old female who presents for problem visit to revisit her dropped bladder and recent discolorationof her urine. Patient report chronic incontinence as well.. HPI: hx of successful pessary use OB History Gravida2 Para2 Term0 Preterm0 AB0 Living2 SAB0 IAB0 Ectopic0 Multiple0 Live Births0 Medicine And Health Service Manager History LMP: Postmenopausal Age at Menarche: 15 Age at First : Age at Menopause: Medicine And Health Service Manager History Comments: Sexual Activity: Not Currently; No partner data on record Contraception: No contraception data on record PAST MEDICAL HISTORY Diagnosis Date Arthritis Basal cell carcinoma 03/13/2015 nose Mixed hyperlipidemia Hyperlipidemia Sleep apnea compliant with CPAP Unspecified hearing loss TOTAL DEAFNESS RIGHT, 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 SINCE AGE 7 PAST SURGICAL HISTORY Procedure Laterality Date ADENOIDECTOMY PRIMARY Adenoidectomy APPENDECTOMY COLONOSCOPY FLX DX W/COLLJ SPEC WHEN PFRMD 06/26/2020 Colonoscopy EYE SURGERY HX PAST SURGICAL HISTORY OF 1984 [facility] SKIN BIOPSY HX 03/13/2015 TONSILLECTOMY HX TONSILLECTOMY PRIMARY/SECONDARY Tonsillectomy FAMILY HISTORY Problem Relation Age of Onset Allergies Mother Heart Mother Cancer Father GLIOBLASTOMA Allergies Father Coronary Artery Disease Father 70 Heart Father Hypertension Father Cancer Sister FOLLICULAR Cancer Maternal Grandfather Diabetes Sister Stroke Paternal Grandfather Social History Tobacco Use Smoking status: Former Current packs/day: 0.00 Average packs/day: 1.5 packs/day for 52.5 years (78.7 ttl pk-yrs) Types: Cigarettes Start date: 1965 Quit date: 04/02/2020 Years since quittin.6 Smokeless tobacco: Never Substance Use Topics Alcohol use: Yes Comment: rare Drug use: No Current Outpatient Medications Medication Sig CALCIUM CITRATE ORAL Take 600 mg by mouth three times a day. multivit,iron,minerals/lutein (CENTRUM SILVER ULTRA WOMEN'S ORAL) Take 1 tablet by mouth once daily. generic brand alendronate (FOSAMAX) 70 mg tablet Take 1 tablet by mouth one time a week. Take with a full glass of water, on an empty stomach; do NOT lie down for 30minutes. ipratropium bromide (ATROVENT) 42 mcg (0.06 %) nasal spray Use 1 [place] in the nose three times a day. (Patient taking differently: Use 1 [place] in the nose as needed.) hydrOXYchloroQUINE (PLAQUENIL) 200 mg tablet take 1 tablet by mouth 2 times a day CPAP CPAP tubing, head gear, ancillary supplies Life Time Supplies 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 10 cm H2O. cholecalciferol, vitamin D3, (VITAMIN D3 ORAL) Take 25 mcg by mouth two times a day. Takes 2 12.5 mcg tablets twice daily psyllium Husk 0.52 gram capsule Take 0.52 g by mouth once daily. No current facility-administered medications for this visit. Allergies As of Date: 11/24/2024 Allergen Noted Reaction CEPHALOSPORINS 02/02/2007 Swelling PENICILLINS 02/02/2007 Anaphylaxis Fully Assessed 11/24/2024 REVIEW OF SYSTEMS Abdomen: No bloating, early satiety, indigestion, or increased flatulence. No abdominal pain, nausea, vomiting, diarrhea, or constipation. Bladder: No dysuria, gross hematuria, urinary frequency, urinary urgency, or incontinence. Breast: No breast lumps, nipple d/c, overlying skin changes, redness or skin retraction. Expanded ROS: N/A Allergies and current medication updated:Yes SENSITIVE EXAM: The sensitive examination was discussed with the Patient or Patient's Authorized Matcher. As applicable, any other physician, advance practice provider, medical student, or other health professional student that will be observing or involved in the sensitive examination for educational or training purposes was discussed with the Patient or Authorized Matcher. The Patient or Authorized Matcher has agreed to proceed with the sensitive examination. (Sensitive examination includes inspection and/or palpation of the breasts, pelvis, prostate and anorectal regions). EXAM: BP 120/78 Wt 196 lb 3.2 oz (89.0kg) GENERAL: pleasant, female in no apparent distress ABDOMEN: soft, non-tender, and no masses PELVIC: external genitalia normal, normal Bartholin's glands, urethra, [place]'s glands, no vulvar lesions, no cervical lesions, good vaginal support, physiologic discharge present, normal appearing perineal body and perianal region, cystocele 2nd degree BIMANUAL: evaluation of uterus limited by obesity ASSESSMENT AND PLAN: Assessment AND Plan Stress incontinence of urine Orders: URINALYSIS, WITH MICROSCOPIC Cystocele, midline #3 Platform pessary fitted/placed. Rx Trimo-cortes ftft> 30 min Dar Abdi [facility]02-13-2025 History of Present illness Narrative* Dar Abdi MD - 11/24/2024 9:39 AM EST [employer] Underwriter offered: Patient accepts, visit chaperoned by Kristen Harvey MA. Jade Jackson is a 74 year old female who presents for problem visit to revisit her dropped bladderand recent discolorationof her urine. Patient report chronic incontinence as well.. HPI: hx of successful pessary use OB History Gravida2 Para2 Term0 Preterm0 AB0 Living2 SAB0 IAB0 Ectopic0 Multiple0 Live Births0 Medicine And Health Service Manager History LMP: Postmenopausal Age at Menarche: 15 Age at First : Age at Menopause: Medicine And Health Service Manager History Comments: Sexual Activity: Not Currently; No partner data on record Contraception: No contraception data on record PAST MEDICAL HISTORY Diagnosis Date Arthritis Basal cell carcinoma 03/13/2015 nose Mixed hyperlipidemia Hyperlipidemia Sleep apnea compliant with CPAP Unspecified hearing loss TOTAL DEAFNESS RIGHT, 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 SINCE AGE 7 PAST SURGICAL HISTORY Procedure Laterality Date ADENOIDECTOMY PRIMARY <AGE 14 1958 Adenoidectomy APPENDECTOMY COLONOSCOPY FLX DX W/COLLJ SPEC WHEN PFRMD 06/26/2020 Colonoscopy EYE SURGERY HX PAST SURGICAL HISTORY OF 1984 [facility] SKIN BIOPSY HX 03/13/2015 TONSILLECTOMY HX TONSILLECTOMY PRIMARY/SECONDARY <AGE 14 1956 Tonsillectomy FAMILY HISTORY Problem Relation Age of Onset Allergies Mother Heart Mother Cancer Father GLIOBLASTOMA Allergies Father Coronary Artery Disease Father 70 Heart Father Hypertension Father Cancer Sister FOLLICULAR Cancer Maternal Grandfather Diabetes Sister Stroke Paternal Grandfather Social History Tobacco Use Smoking status: Former Current packs/day: 0.00 Average packs/day: 1.5 packs/day for 52.5 years (78.7 ttl pk-yrs) Types: Cigarettes Start date: 1965 Quit date: 04/02/2020 Years since quittin.6 Smokeless tobacco: Never Substance Use Topics Alcohol use: Yes Comment: rare Drug use: No Current Outpatient Medications Medication Sig CALCIUM CITRATE ORAL Take 600 mg by mouth three times a day. multivit,iron,minerals/lutein (CENTRUM SILVER ULTRA WOMEN'S ORAL) Take 1 tablet by mouth once daily. generic brand alendronate (FOSAMAX) 70 mg tablet Take 1 tablet by mouth one time a week. Take with a full glass of water, on an empty stomach; do NOT lie down for 30minutes. ipratropium bromide (ATROVENT) 42 mcg (0.06 %) nasal spray Use 1 [place] in the nose three times a day. (Patient taking differently: Use 1 [place] in the nose as needed.) hydrOXYchloroQUINE (PLAQUENIL) 200 mg tablet take 1 tablet by mouth 2 times a day CPAP CPAP tubing, head gear, ancillary supplies Life Time Supplies 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 10 cm H2O. cholecalciferol, vitamin D3, (VITAMIN D3 ORAL) Take 25 mcg by mouth two times a day. Takes 2 12.5 mcg tablets twice daily psyllium Husk 0.52 gram capsule Take 0.52 g by mouth once daily. No current facility-administered medications for this visit. Allergies As of Date: 11/24/2024 Allergen Noted Reaction CEPHALOSPORINS 02/02/2007 Swelling PENICILLINS 02/02/2007 Anaphylaxis Fully Assessed 11/24/2024 REVIEW OF SYSTEMS Abdomen: No bloating, early satiety, indigestion, or increased flatulence. No abdominal pain, nausea, vomiting, diarrhea, or constipation. Bladder: No dysuria, gross hematuria, urinary frequency, urinary urgency, or incontinence. Breast: No breast lumps, nipple d/c, overlying skin changes, redness or skin retraction. Expanded ROS: N/A Allergies and current medication updated:Yes SENSITIVE EXAM: The sensitive examination was discussed with the Patient or Patient's Authorized Matcher. As applicable, any other physician, advance practice provider, medical student, or other health professional student that will be observing or involved in the sensitive examination for educational or training purposes was discussed with the Patient or Authorized Matcher. The Patient or Authorized Matcher has agreed to proceed with the sensitive examination. (Sensitive examination includes inspection and/or palpation of the breasts, pelvis, prostate and anorectal regions). EXAM: BP 120/78 Wt 196 lb 3.2 oz (89.0kg) GENERAL: pleasant, female in no apparent distress ABDOMEN: soft, non-tender, and no masses PELVIC: external genitalia normal, normal Bartholin's glands, urethra, [place]'s glands, no vulvar lesions, no cervical lesions, good vaginal support, physiologic discharge present, normal appearing perineal body and perianal region, cystocele 2nd degree BIMANUAL: evaluation of uterus limited by obesity ASSESSMENT AND PLAN: Assessment & Plan Stress incontinence of urine Orders: URINALYSIS, WITH MICROSCOPIC Cystocele, midline #3 Platform pessary fitted/placed. Rx Trimo-cortes ftft> 30 min Dar Abdi MD [facility] Telephone encounter Note * Telephone Encounter - Dee Bonner MA - 11/17/2024 2:09 PM EST Notified that [facility] was available in [place] and to let office know if she wants to be referred there. Dee Bonner MA [facility]02-06-[facility] Miscellaneous Notes* Telephone Encounter - Dee Bonner MA - 11/17/2024 2:09 PM EST Notified that [facility] was available in [place] and to let office know if she wants to be referred there. Dee Bonner MA documented in this encounterCher[facility]12-18-2024 Instructions* Patient Instructions* Lida Coto APRN.CNP - 09/28/2024 12:00 PM EST Schedule consult with cardiology. Get repeat chest CT in fall 2024 to reevaluate lung nodules and liver cysts. Follow-up as needed. documented in this encounterCher[facility]12-18-[facility]24 History of Present illness Narrative* Lida Coto APRN.CNP - 09/28/2024 11:40 AM EST Chief Complaint Patient presents with: Follow Up: Go over test results This Team Access Model encounter involved medical decision making outside of a scheduled office visit. Patient was offered a virtual/telemedicine appointment in lieu of an office visit due to recommendations to reduce patient exposure to COVID-19. Video was used for evaluation of this patient. Patient agrees to the visit: Yes Patient Location: [facility] Jade Jackson is a 74 year old female who is contacted today for a virtual visit This is an established patient of Dr. Robina Sam MD Reports: Discuss recent lung cancer screening results. Will have repeat chest CT in 1 year. Incidental findings including hepatic cyst and coronary artery calcifications. Has active consult with cardiology. RESULT: Are nodules present? Yes, 1-5 nodules If No, go to IMPRESSION. If yes, proceed with characterization of the FIVE largest nodules. Nodule 1: This solid nodule is located in the right lower lobe on slice number 139 with an average diameter of 5 mm . Nodule 2: This solid nodule is located along the right major fissure on slice number 79 with an average diameter of 5 mm . Other lung nodule comments: None Other findings: The central airways are patent without evidence of endobronchial lesion. No acute focal lung consolidation is seen. There is no pleural effusion or pneumothorax. No enlarged supraclavicular, axillary, mediastinal or hilar lymph nodes are seen multiple subcentimeter mediastinal lymph nodes are visible. The aorta and main pulmonary artery are normal in course and caliber. The heart size is normal. There is no pericardial effusion. The thyroid gland is unremarkable. The esophagus is nondilated. The soft tissues of the chest wall are unremarkable. A 25 x 27 mm low-attenuation lesion in the left hepatic lobe (image 193, series 6) likely represents a cyst, unchanged. A 12 mm low-attenuation lesion in hepatic segment 6 (image 261, series 6) is unchanged and likely represents a cyst. Atherosclerotic calcifications are seen in the abdominal aorta. No destructive bone lesion is seen. Degenerative changes are seen in the thoracic spine. Emphysema: None Coronary Artery Calcifications: Circumflex mild; Left Anterior Descending moderate; Right Coronary mild Localizer images: No additional findings. 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 7 Previous Surgical History PAST SURGICAL HISTORY Procedure Laterality Date ADENOIDECTOMY PRIMARY <AGE 12 1958 Adenoidectomy APPENDECTOMY COLONOSCOPY FLX DX W/COLLJ SPEC WHEN PFRMD 06/26/2020 Colonoscopy EYE SURGERY HX PAST SURGICAL HISTORY OF 1984 [facility] SKIN BIOPSY HX 03/13/2015 TONSILLECTOMY HX TONSILLECTOMY PRIMARY/SECONDARY <AGE 14 1956 Tonsillectomy Family History FAMILY HISTORY Problem Relation Age of Onset Allergies Mother Heart Mother Cancer Father GLIOBLASTOMA Allergies Father Coronary Artery Disease Father 70 Heart Father Hypertension Father Cancer Sister FOLLICULAR Cancer Maternal Grandfather Diabetes Sister Stroke Paternal Grandfather Patient Allergies ALLERGIES Allergen Reactions Cephalosporins Swelling Penicillins Anaphylaxis Current Medications Current Outpatient Medications on File Prior to Visit Medication Sig CALCIUM CITRATE ORAL Take 600 mg by mouth three times a day. multivit,iron,minerals/lutein (CENTRUM SILVER ULTRA WOMEN'S ORAL) Take 1 tablet by mouth once daily. generic brand alendronate (FOSAMAX) 70 mg tablet Take 1 tablet by mouth one time a week. Take with a full glass of water, on an empty stomach; do NOT lie down for 30minutes. ipratropium bromide (ATROVENT) 42 mcg (0.06 %) nasal spray Use 1 [place] in the nose three times a day. hydrOXYchloroQUINE (PLAQUENIL) 200 mg tablet take 1 tablet by mouth 2 times a day CPAP CPAP tubing, head gear, ancillary supplies Life Time Supplies 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 10 cm H2O. cholecalciferol, vitamin D3, (VITAMIN D3 ORAL) Take 25 mcg by mouth two times a day. Takes 2 12.5 mcg tablets twice daily psyllium Husk 0.52 gram capsule Take 0.52 g by mouth once daily. No current facility-administered medications on file prior to visit. Social History Social History Tobacco Use Smoking status: Former Current packs/day: 0.00 Average packs/day: 1.5 packs/day for 52.5 years (78.7 ttl pk-yrs) Types: Cigarettes Start date: 1965 Quit date: 04/02/2020 Years since quittin.4 Smokeless tobacco: Never Substance Use Topics Alcohol use: Yes Comment: rare Drug use: No Review of Symptoms GENERAL: No malaise or fatigue. No fevers. HEENT: Negative for headaches No eye discharge or redness No earaches No sore throat Nose POS/NEG for congestion and nasal discharge NECK: Negative for pain or swelling. No lumps RESPIRATORY: No wheezing, SOB, Difficulty breathing. No cough CARDIOVASCULAR: Negative for chest pain GI: No nausea, vomiting, or diarrhea MUSCULOSKELETAL: Negative for bodyaches SKIN: Negative for rash or itching Neuro: No lightheadedness or dizziness EXAM: There were no vitals taken for this visit. Limited exam as visit was completed over the virtual platform. Virtual visit completed using video, limited exam completed. Patient sounds or appears ill: No General Appearance: Well appearing, alert, in no acute distress, well-hydrated, well nourished. Skin: Skin color normal Head: Normocephalic. No facial swelling or redness. EENT: Eyes nonreddened. No discharge. External ears nonreddened and no swelling. Neck: No mass or lesions. No swelling. FROM Patient is not able to speak in complete sentences: N/A Patient has labored breathing: No. Patient is audibly coughing: No Psych: Attitude - cooperative, easily engaged in conversation Affect - Euthymic, normal mood Mental status: Alert. Speech is clear and fluent with good repetition, comprehension Appearance - Normal hygiene and grooming appropriate Coordination: No abnormal or extraneous movements. Gait/Stance: Posture is normal. Health Maintenance List Anxiety Screening Never done DTaP,Tdap,Td Vaccine(1 - Tdap) Never done Bone Density Screening due on 01/26/2025 Mammogram Screening due on 04/06/2025 Colorectal Cancer Screening due on 06/26/2025 Lung Cancer Screening due on 09/23/2025 RSV Vaccine(1 - 1-dose 75+ series) due on 2027 Diabetes Screening due on 09/19/2027 Lipid Screening due on 09/19/2029 Influenza Vaccine Completed Advance Directive Discussion Completed Hepatitis C Screening Completed Shingrix Vaccine Completed Covid-19 Vaccine Completed Pneumococcal Vaccine: 50+ Completed Data reviewed Last 5 Encounter BP Readings: Date: BP: 09/19/2024 110/68 08/19/2024 140/86 06/14/2024 155/101 05/26/2024 114/72 08/19/2023 120/78 BMI Readings from Last 5 Encounters: 09/19/24 : 35.21 kg/m 08/19/24 : 35.19 kg/m 05/26/24 : 35.39 kg/m 08/19/23 : 35.39 kg/m 01/15/23 : 31.62 kg/m Last 5 Encounter Wt Readings: Date: Wt: 09/19/2024 88.5 kg (195 lb) 08/19/2024 88.4 kg (194 lb 14.2 oz) 05/26/2024 88.9 kg (195 lb 15.8 oz) 08/19/2023 88.9 kg (196 lb) 01/15/2023 86.2 kg (190 lb) Medication and allergy list reviewed, reconciled and updated 09/27/2024 ASSESSMENT/PLAN: 1. Lung nodule - ICD9: 793.11, ICD10: R91.1 (primary diagnosis) - Get repeat chest CT in the fall 2024 2. Liver cyst - ICD9: 573.8, ICD10: K76.89 - Monitor cysts with repeat imaging in the fall, if RUQ pain develops discussed getting MRI Liver. 3. Coronary artery calcification seen on CAT scan - ICD9: 414.00, ICD10: I25.10 - Have consult with Cardiology. Follow-up as needed. Discussed treatment plan and patient voices understanding. Patient's questions answered appropriately. Medications and potential side effects were discussed and patient voices understanding. Lida Coto APRN.CNP Total appointment time on virtual with patient = 30 minutes This note was partially generated using [employer] voice recognition system. Note was reviewed for accuracy. There may be minor misspellings or grammar miscues with Dragon voice recognition. documented in this encounterC[facility]12-[facility]24 NoteHNO ID: [id number] Author: LIDA COTO APRN.CNP Service: ? Author Type: Nurse Practitioner Type: Progress Notes Filed: 09/28/2024 12:02 Note Text: Chief Complaint Patient presents with: Follow Up: Go over test results This Team Access Model encounter involved medical decision making outside of a scheduled office visit. Patient was offered a virtual/telemedicine appointment in lieu of an office visit due to recommendations to reduce patient exposure to COVID-19. Video was used for evaluation of this patient. Patient agrees to the visit: Yes Patient Location: [facility] Jade Jackson is a 74 year old female who is contacted today for a virtual visit This is an established patient of Dr. Robina Sam MD Reports: Discuss recent lung cancer screening results. Will have repeat chest CT in 1 year. Incidental findings including hepatic cyst and coronary artery calcifications. Has active consult with cardiology. RESULT: Are nodules present? Yes, 1-5 nodules If No, go to IMPRESSION. If yes, proceed with characterization of the FIVE largest nodules. Nodule 1: This solid nodule is located in the right lower lobe on slice number 139 with an average diameter of 5 mm . Nodule 2: This solid nodule is located along the right major fissure on slice number 79 with an average diameter of 5 mm . Other lung nodule comments: None Other findings: The central airways are patent without evidence of endobronchial lesion. No acute focal lung consolidation is seen. There is no pleural effusion or pneumothorax. No enlarged supraclavicular, axillary, mediastinal or hilar lymph nodes are seen multiple subcentimeter mediastinal lymph nodes are visible. The aorta and main pulmonary artery are normal in course and caliber. The heart size is normal. There is no pericardial effusion. The thyroid gland is unremarkable. The esophagus is nondilated. The soft tissues of the chest wall are unremarkable. A 25 x 27 mm low-attenuation lesion in the left hepatic lobe (image 193, series 6) likely represents a cyst, unchanged. A 12 mm low-attenuation lesion in hepatic segment 6 (image 261, series 6) is unchanged and likely represents a cyst. Atherosclerotic calcifications are seen in the abdominal aorta. No destructive bone lesion is seen. Degenerative changes are seen in the thoracic spine. Emphysema: None Coronary Artery Calcifications: Circumflex mild; Left Anterior Descending moderate; Right Coronary mild Localizer images: No additional findings. 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 7 Previous Surgical History PAST SURGICAL HISTORY Procedure Laterality Date ADENOIDECTOMY PRIMARY Adenoidectomy APPENDECTOMY COLONOSCOPY FLX DX W/COLLJ SPEC WHEN PFRMD 06/26/2020 Colonoscopy EYE SURGERY HX PAST SURGICAL HISTORY OF 1984 [facility] SKIN BIOPSY HX 03/13/2015 TONSILLECTOMY HX TONSILLECTOMY PRIMARY/SECONDARY Tonsillectomy Family History FAMILY HISTORY Problem Relation Age of Onset Allergies Mother Heart Mother Cancer Father GLIOBLASTOMA Allergies Father Coronary Artery Disease Father 70 Heart Father Hypertension Father Cancer Sister FOLLICULAR Cancer Maternal Grandfather Diabetes Sister Stroke Paternal Grandfather Patient Allergies ALLERGIES Allergen Reactions Cephalosporins Swelling Penicillins Anaphylaxis Current Medications Current Outpatient Medications on File Prior to Visit Medication Sig CALCIUM CITRATE ORAL Take 600 mg by mouth three times a day. multivit,iron,minerals/lutein (CENTRUM SILVER ULTRA WOMEN'S ORAL) Take 1 tablet by mouth once daily. generic brand alendronate (FOSAMAX) 70 mg tablet Take 1 tablet by mouth one time a week. Take with a full glass of water, on an empty stomach; do NOT lie down for 30minutes. ipratropium bromide (ATROVENT) 42 mcg (0.06 %) nasal spray Use 1 [place] in the nose three times a day. hydrOXYchloroQUINE (PLAQUENIL) 200 mg tablet take 1 tablet by mouth 2 times a day CPAP CPAP tubing, head gear, ancillary supplies Life Time Supplies 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 10 cm H2O. cholecalciferol, vitamin D3, (VITAMIN D3 ORAL) Take 25 mcg by mouth two times a day. Takes 2 12.5 mcg tablets twice daily psyllium Husk 0.52 gram capsule Take 0.52 g by mouth once daily. No current facility-administered medications on file prior to visit. Social History Social History Tobacco Use Smoking status: Former Current packs/day: 0.00 Average packs/day: 1.5 packs/day for 52.5 years (78.7 ttl pk-yrs) Types: Cigarettes Start date: 1965 Quit date: 04/02/2020 Years since quittin.4 Smokeless tobacco: Never Subst (more content not included)...[facility]12-13-2024 History of Present illness Narrative* Criss Pan, RT(R) - 09/23/2024 1:20 PM EST Radiology Service Progress Note PATIENT NAME: Jade Jackson DATE OF SERVICE: September 23, 2024 TIME: 1:18 PM PATIENT IDENTITY VERIFICATION COMPLETED USING TWO (2) IDENTIFIERS: Name and Date of confirmedby patient verbally. FALL SCREENING: Has the patient had 2 falls in the last year or 1 fall with injury or currently using an Ambulatory Assistive Device (Walker, Cane, Wheelchair, Crutches, etc.)? No PATIENT GENDER DATA: Female. status: : No status: NO. PATIENT RELEVANT IMPLANT DATA REVIEWED: Not Applicable PATIENT PRESENTS WITH AN IMPLANTABLE OR ATTACHED COMMISSION SPECIALIST: No RADIOLOGY DEPARTMENT: CT; Exam(s) Completed: Lung Screening PERIPHERAL IV DATA: Not applicable SIGNED BY: ROSEMARIE Arenas) September 23, 2024 1:18 PM documented in this encounterC[facility]12-13-2024 NoteHNO ID: [id number] Author: CRISS PAN RT(R) Service: Radiology Author Type: Technologist Type: Progress Notes Filed: 09/23/2024 13:18 Note Text: Radiology Service Progress Note PATIENT NAME: Jade Jackson DATE OF SERVICE: September 23, 2024 TIME: 1:18 PM PATIENT IDENTITY VERIFICATION COMPLETED USING TWO (2) IDENTIFIERS: Name and Date of confirmed by patient verbally. FALL SCREENING: Has the patient had 2 falls in the last year or 1 fall with injury or currently using an Ambulatory Assistive Device (Walker, Cane, Wheelchair, Crutches, etc.)? No PATIENT GENDER DATA: Female. status: : No status: NO. PATIENT RELEVANT IMPLANT DATA REVIEWED: Not Applicable PATIENT PRESENTS WITH AN IMPLANTABLE OR ATTACHED COMMISSION SPECIALIST: No RADIOLOGY DEPARTMENT: CT; Exam(s) Completed: Lung Screening PERIPHERAL IV DATA: Not applicable SIGNED BY: RT Deepa(R) September 23, 2024 1:18 [facility]12-09-2024 Instructions* Patient Instructions* Griselda Acevedo APRN.[employer] NETWORK ARCHITECT - 09/19/2024 9:[address] Lung Screen Results The CT scan that you will have done will show if you have any nodules (small spots) in your lungs that are suspicious for cancer. Around 90% of the patients who have this scan done are found to have at least one nodule. Most nodules are benign (not cancer) and of no harm to you at all. A specialistwill make a scientific evaluation about whether or not a nodule is worrisome based on its size and shape. The radiologist who will read your scan will put it into one of four categories: LUNG-RADS Category Description Overall Probability of Malignancy Recommended Follow-Up 1 Negative No nodules and definitely benign (non-cancerous nodules) Essentially 0. 1 Year - Follow-up Low dose CT 2 Benign Appearance or Behavior Nodules with a very low likelihood of becoming cancer due to size or lack of growth Less than 1% 1 Year - Follow-up Low dose CT 3 Probably Benign Probably benign finding, short term follow-up recommended 1 to 2% 6 Months - Follow-up Low dose CT 4 Suspicious Findings for which additional diagnostic testing and/or biopsy is recommended Will be calculated based on nodule characteristics. Dependent on what is seen on the exam. (3 month follow-up CT, PET-CT, or biopsy) 0 Incomplete Findings suggestive of an inflammatory or infectious process AND/OR part of the lung cannot be evaluated Additional lung cancer screening CT imaging needed AND/OR comparison with prior chest CT imaging At times, we may see something outside of the lungs on the scan that could be a health concern. Below are some of the most common findings: S Clinically Significant or Potentially Clinically Significant Findings (non lung cancer) Referral or additional imaging/labs depending on result. Approximately 10% of people receive this result. Coronary Artery Calcifications (Moderate or Severe) - Referral to cardiology for further work-up and recommendations. Thyroid Nodule - TSH level and Thyroid Ultrasound dependent on size, referral to endocrinology. Adrenal Nodule - blood work and referral to endocrinology. Others Lung Cancer Screening hotline: [phone] Lung Cancer Screening [phone] Billing Questions: or [email or web address] Specialist Providers: (Neetu Travis PA-C; Amy Azevedo CNP; Criss Landa CNP, Keely Roman CNP; Adele Martinez CNP; KIMBERLY Simon; Griselda Acevedo CNP; Cici Frances CNP; Piper Huerta CNP; Majo Boateng CNP; Mai Almaguer PA-C; Maria Del Carmen Ho PA-C; Zayra Zarate CNP; Madyson Linn CNP; Kristen Deng CNP): [phone] documented in this encounterCher[facility]12-09-2024 NoteHNO ID: [id number] Author: GRISELDA ACEVEDO APRN.CNP Service: ? Author Type: Nurse Practitioner Type: Progress Notes Filed: 09/19/2024 11:19 Note Text: LUNG SCREENING VISIT PRIMARY CARE PHYSICIAN: Robina Sam MD PULMONARY PROVIDER: none Results will be communicated via letter or electronic record if applicable. Visit Delivery: In Person Patient Visit Type: New to Screening Current or Ex-smoker? Ex Exam Type: baseline LDCT Number of Pack Years: 78.7 Current smoker (=0) or Number of Years since Quit: 4 REQUESTER: The referring provider advised the patient to have screening. HISTORY OF PRESENT ILLNESS: Jade Jackson is a 74 year old Former smoker who presents for lung screening. Respiratory symptoms include: SOB: No Chest tightness: No Coughing: No Hemoptysis: No Wheezing: No Fever/Chills: No Recent Respiratory Infection: No Unintentional weight loss: No Last 6 Encounter Wt Readings: Date: Wt: 09/19/2024 88.5 kg (195 lb) 08/19/2024 88.4 kg (194 lb 14.2 oz) 05/26/2024 88.9 kg (195 lb 15.8 oz) 08/19/2023 88.9 kg (196 lb) 01/15/2023 86.2 kg (190 lb) 08/18/2022 95.3 kg (210 lb) ECOG PERFORMANCE STATUS: 0- Fully active, able to carry on all pre-disease performance w/o restriction. 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 7 PAST SURGICAL HISTORY Procedure Laterality Date ADENOIDECTOMY PRIMARY Adenoidectomy APPENDECTOMY COLONOSCOPY FLX DX W/COLLJ SPEC WHEN PFRMD 06/26/2020 Colonoscopy EYE SURGERY HX PAST SURGICAL HISTORY OF 1985 [facility] SKIN BIOPSY HX 03/13/2015 TONSILLECTOMY HX TONSILLECTOMY PRIMARY/SECONDARY Tonsillectomy FAMILY HISTORY Problem Relation Age of Onset Allergies Mother Heart Mother Cancer Father GLIOBLASTOMA Allergies Father Coronary Artery Disease Father 70 Heart Father Hypertension Father Cancer Sister FOLLICULAR Cancer Maternal Grandfather Diabetes Sister Stroke Paternal Grandfather alendronate (FOSAMAX) 70 mg tablet Take 1 tablet by mouth one time a week. Take with a full glass of water, on an empty stomach; do NOT lie down for 30minutes. ipratropium bromide (ATROVENT) 42 mcg (0.06 %) nasal spray Use 1 [place] in the nose three times a day. hydrOXYchloroQUINE (PLAQUENIL) 200 mg tablet take 1 tablet by mouth 2 times a day cholecalciferol, vitamin D3, (VITAMIN D3 ORAL) Take 2,000 mcg by mouth once daily as needed. psyllium Husk 0.52 gram capsule Take 0.52 g by mouth once daily. Multivitamin (MULTIPLE VITAMINS DAILY) ORAL Tab Take one(1) tablet daily. fluticasone (FLONASE) 50 mcg/actuation nasal spray Use 1 [place] in each nostril once daily. naproxen sodium/pseudoephedrin (SUDAFED SINUS 12HR PRESSR-PAIN ORAL) Take by mouth. CPAP CPAP tubing, head gear, ancillary supplies Life Time Supplies 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 10 cm H2O. cholecalciferol, vitamin D3, (VITAMIN D3 ORAL) Take 12.5 mcg by mouth once daily. (Patient not taking: Reported on 09/19/2024) calcium-vits N0-O-X5-minerals 166.75 mg- 166.75 unit cap Take by mouth. ONE IN THE MORNING AND TWO IN THE EVENING (Patient not taking: Reported on 09/19/2024) ALLERGIES Allergen Reactions Cephalosporins Swelling Penicillins Anaphylaxis The medications and allergies were reviewed and reconciled for this patient and deemed current. Lung Cancer Risk Factors: 1.Tobacco Use: Start Age 18, Quit Age: 70, Average packs per day 1.5, Pack Years 78.7 2. Passive Smoke Exposure: No, 3. Personal hx of malignancy: Yes, Type of Cancer: basal cell on nose 4. Significant exposures (1 year or more of exposure): None, 5. Race: White 6. Education: College Graduate 7. BMI:Body mass index is 35.21 kg/m?. Patient-entered Height: 5'2 Patient-entered Weight: 196 pounds 8. COPD: No 9. Pneumonia in the past 5 years: No 10. Is there a history of lung cancer in a first degree relative? No 11. Is there a history of lung cancer in a non-first degree relative? No 12. Is there a history of any other cancer in a first degree relative? Yes Health Maintenance Immunization History Administered Date(s) Administered COVID-19 original vaccine, age 12+ yr, monovalent (Relative.ai - PURPLE TOP) 04/10/2021 05/01/2021 COVID-19 vaccine (NOVAVAX) 07/22/2024 influenza (HD-IIV3) vaccine, age 65+ yr, high dose, trivalent, PF (FLUZONE HIGH-DOSE) 08/13/2020 07/17/2023 influenza (HD-IIV4) vaccine, age 65+ yr, high dose, quadrivalent, PF (FLUZONE HIGH-DOSE) 07/31/2022 influenza (IIV3) vaccine, age 6 mo - 64 yr, trivalent (AFLURIA, FLULAVAL, FLUVIRIN, FLUZONE) 07/23/2016 influenza (IIV3) vaccine, trivalent (AFLURIA, FLULAVAL, FLUVIRIN, FLUZONE) 10 (more content not included)...[facility]12-09-2024 History of Present illness Narrative* Griselda Acevedo APRN.[employer]ER[employer] NETWORK ARCHITECT - 09/19/2024 9:05 AM EST Images from the original note were not included. LUNG SCREENING VISIT PRIMARY CARE PHYSICIAN: Robina Sam MD PULMONARY PROVIDER: none Results will be communicated via letter or electronic record if applicable. Visit Delivery: In Person Patient Visit Type: New to Screening Current or Ex-smoker? Ex Exam Type: baseline LDCT Number of Pack Years: 78.7 Current smoker (=0) or Number of Years since Quit: 4 REQUESTER: The referring provider advised the patient to have screening. HISTORY OF PRESENT ILLNESS: Jade Jackson is a 74 year old Former smoker who presents for lung screening. Respiratory symptoms include: SOB: No Chest tightness: No Coughing: No Hemoptysis: No Wheezing: No Fever/Chills: No Recent Respiratory Infection: No Unintentional weight loss: No Last 6 Encounter Wt Readings: Date: Wt: 09/19/2024 88.5 kg (195 lb) 08/19/2024 88.4 kg (194 lb 14.2 oz) 05/26/2024 88.9 kg (195 lb 15.8 oz) 08/19/2023 88.9 kg (196 lb) 01/15/2023 86.2 kg (190 lb) 08/18/2022 95.3 kg (210 lb) ECOG PERFORMANCE STATUS: 0- Fully active, able to carry on all pre-disease performance w/o restriction. 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 7 PAST SURGICAL HISTORY Procedure Laterality Date ADENOIDECTOMY PRIMARY <AGE 12 1958 Adenoidectomy APPENDECTOMY COLONOSCOPY FLX DX W/COLLJ SPEC WHEN PFRMD 06/26/2020 Colonoscopy EYE SURGERY HX PAST SURGICAL HISTORY OF 1984 [facility] bx SKIN BIOPSY HX 03/13/2015 TONSILLECTOMY HX TONSILLECTOMY PRIMARY/SECONDARY <AGE 12 1956 Tonsillectomy FAMILY HISTORY Problem Relation Age of Onset Allergies Mother Heart Mother Cancer Father GLIOBLASTOMA Allergies Father Coronary Artery Disease Father 70 Heart Father Hypertension Father Cancer Sister FOLLICULAR Cancer Maternal Grandfather Diabetes Sister Stroke Paternal Grandfather alendronate (FOSAMAX) 70 mg tablet Take 1 tablet by mouth one time a week. Take with a full glass of water, on an empty stomach; do NOT lie down for 30minutes. ipratropium bromide (ATROVENT) 42 mcg (0.06 %) nasal spray Use 1 [place] in the nose three times a day. hydrOXYchloroQUINE (PLAQUENIL) 200 mg tablet take 1 tablet by mouth 2 times a day cholecalciferol, vitamin D3, (VITAMIN D3 ORAL) Take 2,000 mcg by mouth once daily as needed. psyllium Husk 0.52 gram capsule Take 0.52 g by mouth once daily. Multivitamin (MULTIPLE VITAMINS DAILY) ORAL Tab Take one(1) tablet daily. fluticasone (FLONASE) 50 mcg/actuation nasal spray Use 1 [place] in each nostril once daily. naproxen sodium/pseudoephedrin (SUDAFED SINUS 12HR PRESSR-PAIN ORAL) Take by mouth. CPAP CPAP tubing, head gear, ancillary supplies Life Time Supplies 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 10 cm H2O. cholecalciferol, vitamin D3, (VITAMIN D3 ORAL) Take 12.5 mcg by mouth once daily. (Patient not taking: Reported on 09/19/2024) calcium-vits Q6-E-O1-minerals 166.75 mg- 166.75 unit cap Take by mouth. ONE IN THE MORNING AND TWO IN THE EVENING (Patient not taking: Reported on 09/19/2024) ALLERGIES Allergen Reactions Cephalosporins Swelling Penicillins Anaphylaxis The medications and allergies were reviewed and reconciled for this patient and deemed current. Lung Cancer Risk Factors: 1.Tobacco Use: Start Age 18, Quit Age: 70, Average packs per day 1.5, Pack Years 78.7 2. Passive Smoke Exposure: No, 3. Personal hx of malignancy: Yes, Type of Cancer: basal cell on nose 4. Significant exposures (1 year or more of exposure): None, 5. Race: White 6. Education: College Graduate 7. BMI:Body mass index is 35.21 kg/m . Patient-entered Height: 5'2 Patient-entered Weight: 196 pounds 8. COPD: No 9. Pneumonia in the past 5 years: No 10. Is there a history of lung cancer in a first degree relative? No 11. Is there a history of lung cancer in a non-first degree relative? No 12. Is there a history of any other cancer in a first degree relative? Yes Health Maintenance Immunization History Administered Date(s) Administered COVID-19 original vaccine, age 12+ yr, monovalent (Relative.ai - PURPLE TOP) 04/10/2021 05/01/2021 COVID-19 vaccine (NOVAVAX) 07/22/2024 influenza (HD-IIV3) vaccine, age 65+ yr, high dose, trivalent, PF (FLUZONE HIGH-DOSE) 08/13/2020 07/17/2023 influenza (HD-IIV4) vaccine, age 65+ yr, high dose, quadrivalent, PF (FLUZONE HIGH-DOSE) 07/31/2022 influenza (IIV3) vaccine, age 6 mo - 64 yr, trivalent (AFLURIA, FLULAVAL, FLUVIRIN, FLUZONE) 07/23/2016 influenza (IIV3) vaccine, trivalent (AFLURIA, FLULAVAL, FLUVIRIN, FLUZONE) 07/23/2016 influenza (IIV4) vaccine, age 6 mo - 64 yr, quadrivalent (AFLURIA, FLULAVAL, FLUZONE) 07/22/2017 influenza vaccine, unspecified formulation 06/29/2009 pneumococcal conjugate (PCV13) vaccine, 13 valent (PREVNAR 13) 06/21/2018 pneumococcal polysaccharide (PPV23) vaccine, 23 valent (PNEUMOVAX 23) 08/18/2022 zoster (RZV) vaccine, recombinant (SHINGRIX) 09/01/2022 11/20/2022 Colonoscopy: 06/26/2020 Mammogram: 04/07/2024 DATA REVIEW I have directly visualized the testing documented: none Prior Imaging: Last CT/CTA Chest/Lungs No resulted procedures found. Last CT Chest - Impression Only No resulted procedures found. Last XR Chest - Impression Only XR CHEST 2V FRONTAL/LAT Exam End: 06/21/2018 11:14 AM (Final result) Impression: IMPRESSION: No acute radiographic abnormality. Bioinformatics Computer Scientist: SEAN ... Pulmonary Function Testing: SPIROMETRY - BASELINE AND POST DILATOR ([id number]) - ordered on 06/21/[address] [place] [address] Test Date: 2018-06-28 Pat Name: JADE JACKSON Department: Room: Gender: Female Crm Business Analyst: : 1950 Requested By: Order Number: [id number] Reading MD: Torsten Erwin Interpretive Statements PRE BD: ATS acceptability and repeatability standards for spirometry met. POST BD: Time to peak flow higher than lab standard, FEV1 may not be valid. FVC & FEV1 repeatable X 2. No Respiratory meds taken before testing. 4 puffs of albuterol (360mcg) delivered by MDI via valved holding chamber, HR pre 83, HR post 83. Medications and allergies were reviewed for possi ble drug interactions per policy MM-102. No Contraindications or sensitivities were noted. IMPRESSION: The flow volume loop is normal. Spirometry is normal. There is no significant bronchodilator response. Electronically Signed On 06-29-2018 15:54:46 EDT by [facility] [address] [place], [place] [address] PFT Lab Report Name: JADE JACKSON ID: [id number] Date: 06/28/18 Physician: [id number] JUNG Age: 67 Height(in): 64.3 Weight(lb): 211 Gender: Female Race: Diagnosis: Medication Set 1: Dyspnea Rest: No Dyspnea Exercise: No Cough: No Persistent: No Productive (cc): Smoker: Yes How Lon Stopped: Cigarettes: Yes Crm Business Analyst: Peggy Paula RRT CPFT Temp: 23 PBar: 739 PF Refe rence: CC######## Spirometry Hb: gm/dL Ref Pre Pre Post Post Post Denis % Ref Denis % Ref % Chg FVC Liters 3.18 3.04 96 3.10 97 2 FEV1 Liters 2.43 2.54 104 2.69 111 6 FEV1/FVC % 77 83 87 FEI23-55% L/sec 2.14 3.49 163 4.00 187 15 OseGRN90-98 L/sec 2.46 3.49 142 4.28 174 23 PEF L/sec 6.02 7.55 125 5.34 89 -29 XVJ608% Sec 8.98 7.41 -18 MVV L/min 97 f BPM Lung Volumes TLC Liters 5.08 VC Liters 3.18 IC Liters 1.99 FRC N2 Liters 2.89 ERV Liters 0.99 RV Liters 2.10 RV/TLC % 41 Diffusing Capacity DLCO mL/mmHg/min 21.2 DL Adj mL/mmHg/min 21.2 DLCO/VA mL/mHg/min/L 4.35 DL/VA Adj mL/mHg/min/L 4.35 VA Liters 4.87 IVC Liters BHT Sec Resistance Raw cmH2O/L/sec 1.69 sGaw L/s/cmH2O/L 0.256 Respiratory Muscle Force PI max cmH2O 71 PE max cmH2O 136 PHYSICAL EXAM: BP 110/68 Pulse 70 Resp 16 Wt 88.5 kg (195 lb) SpO2 98% BMI 35.21 kg/m Deferred ASSESSMENT and RECOMMENDATIONS: 1. Screening for lung cancer: Six year risk for lung cancer: 7.7% http://www.[employer].Movatu/tiny/01sk4 https://youtu.be/xFaVbGhSbO4 I have determined that the patient is eligible for a low dose CT based on age, absence of signs or symptoms of lung cancer, and total pack years: Yes. The patient and I engaged in shared decision making, including the use of one or more decision aids, to include benefits, harms, follow-up diagnostic testing, over-diagnosis, false positive rate, andtotal radiation exposure. The patient understands and feels comfortable with it: Yes. The patient was counseled on the importance of adherence to annual LDCT lung cancer screening, impact of comorbidities and ability or willingness to undergo diagnosis and treatment. The patient understands and feels comfortable with it:Yes. 2. Nicotine dependence: The patient was counseled on the importance of maintaining cigarette smoking abstinence - The patient is committed to remaining abstinent from tobacco. Griselda Acevedo APRN.[employer]ER[employer] NETWORK ARCHITECT NPI #: September 19, 2024 9:05 AM [facility] Tele[facility] encounter Note * Telephone Encounter - Kiara Almeida - 08/30/2024 9:53 AM EST 2nd attempt - LVM 3rd attempt- MC. [facility]11-19-20[facility] Miscellaneous Notes* Telephone Encounter - Kiara Almeida - 08/30/2024 9:53 AM EST 2nd attempt - LVM 3rd attempt- MC. * Telephone Encounter - Kiara Almeida - 08/23/2024 1:48 PM EST Left VM asking patient to call back to schedule bone density in , and in person follow up with Dr. High in February. Please assist in scheduling when patient calls back. * Telephone Encounter - Kiara Almeida - 08/23/2024 1:47 PM EST Images from the original note were not included. Chery Castillo RN P [facility]/ [facility]/ [employer]erical Pool Please assist with scheduling bone density in [place] and F/U with Dr. High in February, Thanks! Previous Messages ----- Message ----- From: Kendal High MD Sent: 08/23/2024 10:42 AM EST To: Raman Fermin [facility] team, can we please have PSS assist this patient with scheduling her bone density at [place] after 01/26/2025 and then follow-up with me in person anytime in February? Thank you! documented in [facility]11[facility] Telephone encounter Note * Telephone Encounter - Kiara Almeida - 08/23/2024 1:48 PM EST Left VM asking patient to call back to schedule bone density in [place], and in person follow up with Dr. High in February. Please assist in scheduling when patient calls back. [facility]11-12-2024 Telephone encounter Note* Telephone Encounter - Kiara Almeida - 08/23/2024 1:47 PM EST Images from the original note were not included. Chery Castillo RN P [facility]/ Nutri/ [employer] Pool Please assist with scheduling bone density in [place] and F/U with Dr. High in February, Thanks! Previous Messages ----- Message ----- From: Kendal High MD Sent: 08/23/2024 10:42 AM EST To: Raman Fermin [facility] team, can we please have PSS assist this patient with scheduling her bone density at [place] after 01/26/2025 and then follow-up with me in person anytime in February? Thank you! [facility]11-12[facility] NoteHNO ID: [id number] Author: KENDAL HIGH MD Service: ? Author Type: Physician Type: Progress Notes Filed: 08/23/2024 10:43 Note Text: Rheumatology FOLLOW UP VISIT Date of Service: 08/23/2024 Patient: Jade Jackson Medical Record: [id number] Primary Care Physician: Robina Sam MD Last Rheumatology visit: 07/17/2023 (with Kendal High) Chief Complaint: No chief complaint on file. This is a virtual visit using [employer] Video Visit. It required patient-provider interaction for the medical decision making as documented below. Patient consented to this form of visit. I have communicated my name and active licensure. The patient's identity and physical location were verified at the time of this visit. Either the patient or their legal exhibit display representative has been informed of the risks and benefits of -- and alternatives to -- treatment through a remote evaluation and consents to proceed with the evaluation remotely. INTERVAL HISTORY History of Present Illness The patient is a 74-year-old woman with a history of Obstructive Sleep Apnea (CEDRIC) on Continuous Positive Airway Pressure (CPAP), hyperlipidemia, Osteoarthritis (OA), and osteopenia. She presents to the rheumatology virtual clinic for follow-up of seropositive rheumatoid arthritis. Her last evaluations were conducted virtually in 07/2023 and in person in 01/2023. Following her last virtual visit, the plan was to continue hydroxychloroquine 400 mg daily, schedule an annual eye exam on 08/2023, conduct osteoporosis labs, and initiate physical therapy for knee pain. Since then, she has followed up with her primary care team, seen an ENT specialist for a nasal polyp, and undergone a CT scan which revealed paranasal sinus inflammatory disease. She also had a hydroxychloroquine eye exam on 08/03/2024. She reports feeling well overall. She recently saw an baby formula worker who was pleased with the condition of her eyes and found no signs of problems. She continues to take Plaquenil 200 mg without any side effects and reports feeling good. She recently completed physical therapy, which she found beneficial. She had 5 or 6 sessions where she was given exercises and bands, and she has not experienced any problems since. The therapy was particularly helpful for her arm pain. She has been taking alendronate for her bones without any issues. She ran out of refills, but her primary care physician ordered more. She now has a year's supply with three refills. She is also taking vitamin D3 2000, a dose she has been on for at least a year since it was increased due to borderline low levels. She has not yet completed the additional blood work ordered by her primary care physician. She recently saw an ENT specialist for sinus issues. A CT scan revealed chronic sinusitis and an inflamed turbinate, which was causing her nose to run constantly. She was prescribed Atrovent nasal spray, which seems to be helping. She plans to contact the ENT specialist when the prescription runs out to discuss whether she needs to continue it. She is scheduled for a low-dose CT scan as a former smoker. RHEUMATOLOGIC HISTORY She is currently taking hydroxychloroquine sulfate. Jade Levy is RF positive - 346 (03/25/2021). Her most recent EDOUARD was negative (03/25/2021). HISTORY OF PRESENT ILLNESS 1. Seropositive rheumatoid arthritis 2. Osteoporosis (osteopenia with elevated FRAX) DEXA 01/2023 lowest T score -1.7 left femoral neck FRAX 19% major, 4.7% hip Treatment: Hydroxychloroquine 06/2021-present 200 mg Alendronate 08/2023-present per PCP Work-up: Historic labs: Negative EDOUARD RF 346 Normal TSH Negative SSA, SSB 03/2021 hand x-rays: Normal Jade Jackson is a 72 year old White female with a history of CEDRIC on CPAP, hyperlipidemia, osteoarthritis, osteopenia who presents to rheumatology clinic to establish care with physician for seropositive rheumatoid arthritis. Chart review reveals she establish care with Dr. Lowe 06/2021 for CMC pain, back pain in the setting of high titer RF positivity. She was given a steroid injection for trigger finger of the left thumb and put on conservative management for OA of CMC, knee, back. She was put on hydroxychloroquine in 2020 for empiric treatment of inflammatory arthritis. She then saw ZOË Weaver 07/2022 and noted 90 to 95% improvement of her joint symptoms with hydroxychloroquine. Today she presents to clinic alone. Unfortunately she lost her job last August and her insurance changed and now her hydroxychloroquine is significantly more expensive. She wonders if there is a different alternative that could be cheaper. Rheumatoid arthritis is overall under good control. She has morning stiffness in her hands lasting 10 to 15 minutes but no significant pain. She has low back stiffness lasting up to 30 minutes. She has had no flares or red hot swollen joints. She has left knee pain whic (more content not included)...[facility]11-12-2024 History of Present illness Narrative* Kendal High MD - 08/23/2024 10:19 AM EST Images from the original note were not included. Rheumatology FOLLOW UP VISIT Date of Service: 08/23/2024 Patient: Jade Jackson Medical Record: [id number] Primary Care Physician: Robina Sam MD Last Rheumatology visit: 07/17/2023 (with Kendal High) Chief Complaint: No chief complaint on file. This is a virtual visit using [employer] Video Visit. It required patient- provider interaction for the medical decision making as documented below. Patient consented to this form of visit. I have communicated my name and active licensure. The patient's identity and physical location wereverified at the time of this visit. Either the patient or their legal exhibit display representative has been informed of the risks and benefits of -- and alternatives to -- treatment through a remote evaluation andconsents to proceed with the evaluation remotely. INTERVAL HISTORY History of Present Illness The patient is a 74-year-old woman with a history of Obstructive Sleep Apnea (CEDRIC) on Continuous Positive Airway Pressure (CPAP), hyperlipidemia, Osteoarthritis (OA), and osteopenia. She presents to the rheumatology virtual clinic for follow-up of seropositive rheumatoid arthritis. Her last evaluations were conducted virtually in 07/2023 and in person in 01/2023. Following her last virtual visit, the plan was to continue hydroxychloroquine 400 mg daily, schedule an annual eye exam on 08/2023, conduct osteoporosis labs, and initiate physical therapy for knee pain. Since then, she has followed up with her primary care team, seen an ENT specialist for a nasal polyp, and undergone a CT scan which revealed paranasal sinus inflammatory disease. She also had a hydroxychloroquine eye exam on 08/03/2024. She reports feeling well overall. She recently saw an baby formula worker who was pleased with the condition of her eyes and found no signs of problems. She continues to take Plaquenil 200 mg without anyside effects and reports feeling good. She recently completed physical therapy, which she found beneficial. She had 5 or 6 sessions where she was given exercises and bands, and she has not experienced any problems since. The therapy was particularly helpful for her arm pain. She has been taking alendronate for her bones without any issues. She ran out of refills, but her primary care physician ordered more. She now has a year's supply with three refills. She is also taking vitamin D3 2000, a dose she has been on for at least a year since it was increased due to borderline low levels. She has not yet completed the additional blood work ordered by her primary care physician. She recently saw an ENT specialist for sinus issues. A CT scan revealed chronic sinusitis and an inflamed turbinate, which was causing her nose to run constantly. She was prescribed Atrovent nasal spray, which seems to be helping. She plans to contact the ENT specialist when the prescription runs out to discuss whether she needs to continue it. She is scheduled for a low-dose CT scan as a former smoker. RHEUMATOLOGIC HISTORY She is currently taking hydroxychloroquine sulfate. Jade Lvey is RF positive - 346 (03/25/2021). Her most recent EDOUARD was negative (03/25/2021). HISTORY OF PRESENT ILLNESS 1. Seropositive rheumatoid arthritis 2. Osteoporosis (osteopenia with elevated FRAX) DEXA 01/2023 lowest T score -1.7 left femoral neck FRAX 19% major, 4.7% hip Treatment: Hydroxychloroquine 06/2021-present 200 mg Alendronate 08/2023-present per PCP Work-up: Historic labs: Negative EDOUARD RF 346 Normal TSH Negative SSA, SSB 03/2021 hand x-rays: Normal Jade Jackson is a 72 year old White female with a history of CEDRIC on CPAP, hyperlipidemia, osteoarthritis, osteopenia who presents to rheumatology clinic to establish care with physician for seropositive rheumatoid arthritis. Chart review reveals she establish care with Dr. Lowe 06/2021 for CMC pain, back pain in the setting of high titer RF positivity. She was given a steroid injection for trigger finger of the leftthumb and put on conservative management for OA of CMC, knee, back. She was put on hydroxychloroquine in 2020 for empiric treatment of inflammatory arthritis. She then saw ZOË Weaver 07/2022 and noted 90 to 95% improvement of her joint symptoms with hydroxychloroquine. Today she presents to clinic alone. Unfortunately she lost her job last August and her insurance changed and now her hydroxychloroquine is significantly more expensive. She wonders if there is a different alternative that could be cheaper. Rheumatoid arthritis is overall under good control. She has morning stiffness in her hands lasting 10 to 15 minutes but no significant pain. She has low backstiffness lasting up to 30 minutes. She has had no flares or red hot swollen joints. She has left knee pain which is chronic since her previous left knee surgery. In terms of osteopenia, her mother had osteoporosis and broke a hip. Her sister has osteoporosis. She takes vitamin D regularly, is a former smoker about 50 years, quit 2020, 1.5 packs a day. Rare alcohol use. She does drink coffee about 5 cups a day. She has had no osteoporotic fractures. Rheumatologic review of systems notable for dry mouth and dry eyes since wearing her CPAP. Her hands turn purple in the cold. She is concerned about vertical nail ridges. She has lost 20 pounds intentionally with a change in diet and increase exercise. Sometimes she gets numbness in her fingers. She otherwise denies fevers, night sweats, unintentional weight loss, history of uveitis, sores in hernose or mouth, malar rash, photosensitivity, cough, ingestion, chest pain, shortness of breath, nausea, vomiting, abdominal pain, constipation, diarrhea, blood in her urine or stool, Raynaud's. Pain Evaluation 08/18/2023 06/14/2024 06/21/2024 07/12/2024 07/27/2024 Pain Evaluation Pain Score 2 2 0 0 0 Location Other: See Comment Description Aching;Numbness;Sore;Tingling Duration (#) 2 Duration (Timeframe) Weeks Frequency Intermittent Intervention Reposition;Heat;Massage;Positioning Rheum/Ortho Arthrocentesis Injections (last 5) 06/24/2021 12:42 Injection History Medication 20 mg triamcinolone acetonide 40 mg/mL Location thumb PATIENT-ENTERED DATA PROMIS Assessments 07/10/2024 08/18/2024 08/22/2024 PROMIS Assessments Physical Health Percentile 53 53 Mental Health Percentile 43 43 Pain Score 4 4 Pain Interference Percentile 46 Fatigue Percentile 58 Physical Function Percentile 31 66 Multiple values from one day are sorted in reverse-chronological order RAPID 3 Garcia Activities of Daily Living 08/22/2024 12:22 PM 07/15/2023 3:18 PM 01/14/2023 6:18 PM Jimmy obtained - 06/24/2021 9:13 AM Dress self? Without ANY difficulty Without ANY difficulty Without ANY difficulty With MUCH difficulty Get in and out of bed? With SOME difficulty With SOME difficulty Without ANY difficulty With SOME difficulty Walk outdoors? Without ANY difficulty Without ANY difficulty Without ANY difficulty Without ANY difficulty Wash and dry body? Without ANY difficulty Without ANY difficulty Without ANY difficulty With SOME difficulty Get in and out of car? Without ANY difficulty Without ANY difficulty Without ANY difficulty WithoutANY difficulty RAPID 3 Disease Activity Weighed Score Levels: 0 - 1: Near Remission 1.3 - 2.0: Low Severity 2.3 - 4.0: Moderate Severity 4.3 - 10.0: High Severity 01/14/2023 07/15/2023 08/22/2024 RAPID-3 Weighed Score RAPID 3 Weighed Score 0.5 (Minimal to no symptoms) 0.44 (Minimal to no symptoms) 0.94 (Minimal to no symptoms) 08/22/2024 RAPID-3 Weighed Score Percentage Change Compared to Last Score 113.64 Review of Systems CONSTITUTION: Negative for: Fever and Recent weight change HEENT: Positive for: Dry mouth Negative for: Nosebleeds, Mouth sores and Trouble swallowing RESPIRATORY: Negative for: Cough, Shortness of breath and Pain with breathing GASTROINTESTINAL: Negative for: Melena, Diarrhea, Heartburn and Abdominal pain MUSCULOSKELETAL: Positive for: Morning Joint Stiffness Negative for: Arthralgias, Myalgias, Muscle weakness and Joint swelling NEUROLOGICAL: Negative for: Headaches, Numbness and Memory loss SKIN: Negative for: Rash, Skin changes, Hair loss and Nail changes EYES: Positive for: Eye dryness Negative for: Eye pain, Eye redness and visual disturbance CARDIOVASCULAR: Negative for: Chest pain and Leg swelling GENITOURINARY: Negative for: Dysuria and Hematuria HEMATOLOGIC/LYMPHATIC: Negative for: Swollen glands REVIEW OF SYSTEMS Complete ROS (HEENT, respiratory, cardiology, GI, , skin, psych, hematology, endocrine, neuro, musculoskeletal) negative except as noted in HPI. HISTORIES Past medical, surgical, family, and social history reviewed and notable changes since last visit include: Noted in HPI MEDICATIONS Current Outpatient Medications Medication Sig alendronate (FOSAMAX) 70 mg tablet Take 1 tablet by mouth one time a week. Take with a full glass of water, on an empty stomach; do NOT lie down for 30minutes. fluticasone (FLONASE) 50 mcg/actuation nasal spray Use 1 [place] in each nostril once daily. naproxen sodium/pseudoephedrin (SUDAFED SINUS 12HR PRESSR-PAIN ORAL) Take by mouth. ipratropium bromide (ATROVENT) 42 mcg (0.06 %) nasal spray Use 1 [place] in the nose three times a day. hydrOXYchloroQUINE (PLAQUENIL) 200 mg tablet take 1 tablet by mouth 2 times a day cholecalciferol, vitamin D3, (VITAMIN D3 ORAL) Take 2,000 mcg by mouth once daily as needed. CPAP CPAP tubing, head gear, ancillary supplies Life Time Supplies 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 10 cm H2O. cholecalciferol, vitamin D3, (VITAMIN D3 ORAL) Take 12.5 mcg by mouth once daily. calcium-vits L5-A-Z9-minerals 166.75 mg- 166.75 unit cap Take by mouth. ONE IN THE MORNING AND TWO IN THE EVENING psyllium Husk 0.52 gram capsule Take 0.52 g by mouth once daily. Multivitamin (MULTIPLE VITAMINS DAILY) ORAL Tab Take one(1) tablet daily. Last Ophthalmology Check for Plaquenil (Hydroxychloroquine) Last OCT Macula Exam No resulted procedures found. Last Visual Field Exam No resulted procedures found. ALLERGIES ALLERGIES Allergen Reactions Cephalosporins Swelling Penicillins Anaphylaxis PHYSICAL EXAM Patient appears well over the video, no facial rashes, no overt gross neurologic deficits, speech is confluent, speaks well without shortness of breath. LABS Reviewed in [facility], notable for: Latest Ref Rng & Units 04/11/2020 03/25/2021 07/14/2022 08/13/2023 CBC WBC 3.70 - 11.00 k/uL 11.20 7.79 8.56 8.34 Hemoglobin 11.5 - 15.5 g/dL 10.4 13.5 13.4 13.3 Hematocrit 36.0 - 46.0 % 32.9 41.7 41.3 40.8 Platelet Count 150 - 400 k/uL 295 245 264 259 Abs Neut (ANC) 1.45 - 7.50 k/uL 4.37 4.48 4.72 Abs Lymph 1.00 - 4.00 k/uL 2.56 3.04 2.53 Latest Ref Rng & Units 06/24/2021 07/14/2022 08/18/2022 08/13/2023 CMP Sodium 136 - 144 mmol/L 141 143 Potassium 3.7 - 5.1 mmol/L 4.0 3.8 Chloride 97 - 105 mmol/L 105 106 CO2 22 - 30 mmol/L 23 26 Glucose 74 - 99 mg/dL 94 92 BUN 7 - 21 mg/dL 13 9 Creatinine 0.58 - 0.96 mg/dL 0.81 0.87 0.96 0.79 Calcium 8.5 - 10.2 mg/dL 9.4 9.2 AST 13 - 35 U/L 19 15 14 ALT 7 - 38 U/L 19 14 11 Alkaline Phosphatase 34 - 123 U/L 97 77 Latest Ref Rng & Units 03/25/2021 07/14/2022 ESR, WSR WSR 0 - 20 mm/hr 10 8 Latest Ref Rng & Units 03/25/2021 07/14/2022 CRP CRP <0.9 mg/dL <0.3 <0.3 Latest Ref Rng & Units 03/25/2021 RF and CCP Rheumatoid Factor <16 IU/mL 346 Latest Ref Rng & Units 04/04/2020 Hepatitis Screen Hep C Antibody IA Negative Negative Latest Ref Rng & Units 03/25/2021 06/24/2021 Antibodies EDOUARD by EIA OD Ratio 0.5 EDOUARD by EIA, Qual Negative Negative Anti-SSA <1.0 AI <0.2 Anti-SSB <1.0 AI <0.2 Latest Ref Rng & Units 04/04/2020 Urinalysis PROTEIN UA (POCT) Negative mg/dL Negative IMAGING Reviewed in [facility], notable for: CT sinus 07/2024 with paranasal sinus inflammatory disease IMPRESSIONS Diagnoses: (M05.9) Seropositive rheumatoid arthritis (HCC) (primary encounter diagnosis) (Z91.89) Cardiovascular risk factor (M81.0) Postmenopausal osteoporoses (Z79.899) Long-term use of hydroxychloroquine (Z51.81) Medication monitoring encounter ASSESSMENT AND PLAN Assessment & Plan The patient is a 74-year-old woman with a history of Obstructive Sleep Apnea (CEDRIC) on Continuous Positive Airway Pressure (CPAP), hyperlipidemia, Osteoarthritis (OA), and osteopenia. She presents to the rheumatology virtual clinic for follow-up of seropositive rheumatoid arthritis. 1. Seropositive Rheumatoid Arthritis - She continues to remain in remission and has had no flares. - Continue hydroxychloroquine 200 mg a day - Up to date with annual eye exam, next due 07/2025 - Order monitoring labs for hydroxychloroquine including CBC, liver, kidneys, electrolytes, lipids,vitamin D, and rheumatoid arthritis level - Check CCP 2. Postmenopausal osteoporosis- Management of osteopenia with elevated FRAX and postmenopausal osteoporosis. - Continue alendronate once a week - Repeat vitamin D level, continue 2000 u daily - Bone density scan due 01/26/2025, ordered today 3. Medication Management - Management of medication refills. - PCP Lida reordered alendronate; patient now has a 3-month supply with three refills 4. Health Maintenance - Preventative health measures. - Low-dose CT scan scheduled due to history as a former smoker - Offered cardiology consult for cv risk factor, she declined for now Follow-up - Return in February 2025 after the bone density scan in person Current Immunizations Never Reviewed Name Date COVID-19 vaccine (NOVAVAX) 07/22/2024 COVID-19 vaccine, monovalent ([place]-BIONTMobSmith) 05/01/2021, 04/10/2021 influenza (HD-IIV3) vaccine 07/17/2023, 08/13/2020 influenza (HD-IIV4) vaccine 07/31/2022 influenza (IIV3) vaccine 07/23/2016, 07/23/2016 influenza (IIV4) vaccine 07/22/2017 influenza vaccine 06/29/2009 pneumococcal (PCV13) vaccine 06/21/2018 pneumococcal (PPV23) vaccine 08/18/2022 zoster (RZV) vaccine 11/20/2022, 09/01/2022 Orders this visit: [facility] on 08/23/24 DXA-AXIAL SKELETON BD DXA TRABECULAR BONE SCORE (TBS) COMPLETE BLOOD COUNT AND DIFFERENTIAL CCP ANTIBODY IGG VITAMIN D 25 HYDROXY No follow-ups on file. Medical Decision Making: Problems: Moderate: 2+ stable chronic illnesses Data: Unique test(s) ordered: 3+ Independent interpretation of test from other physician/QHCP Risk: High: Drug therapy requiring intensive monitoring Medical Decision Making Level: 5 - High This note was partially generated with the assistance of [employer] voice recognition software. An attempt was made to correct any dictation errors however there may be some incorrect words, spellings, and punctuation. Kendal High MD Rheumatology Date: August 23, 2024 Time: 10:19 AM documented in this encounterCherrington Hospital11-08-2024 Instructions* Patient Instructions* Lida Coto APRN.[facility] - 08/19/2024 11:26 AM EST Get fasting labs completed, no food 10-12 hours prior, may have black coffee and water. Keep scheduled appointments with specialists Due for colonoscopy in 2024, consult placed for general surgery, Dr. Fregoso Mammogram due in March 2025 Continue with CPAP Complete lung cancer screening Follow up in 1 year or sooner as needed. Lung Cancer Screening: What to Expect What is screening? A screening test is performed to look for a disease in someone at risk of developing the disease before they develop symptoms or signs of the disease. Lung cancer screening refers to testing a healthy individual at higher risk for developing lung cancer in hopes of finding lung cancer at a stage that it can be cured. The lung cancer screening test is a low radiation dose chest CT scan performed once each year. Benefits of lung cancer screening Lung cancer screening reduces the chance of dying from lung cancer in those at high risk of developing lung cancer. Who is eligible for Lung Cancer Screening? 55 to 77 years old Person who currently smokes cigarettes or a person who quit smoking less than 15 years ago Smoking history of at least 30 pack years (for example, one pack per day for 30 years is equal to 30 pack years) No symptoms related to lung cancer Healthy enough to tolerate treatment for early stage lung cancer What is the Lung Cancer Screening Program? The lung cancer screening program is a comprehensive program to provide the best outcomes to patients. The screening process and management of findings from the screening test is provided by experts in lung nodules and lung cancer Includes a comprehensive program to help people quit smoking Next steps Your doctor has placed a referral to the Lung Cancer Screening program The screening team will check to be sure you are eligibile Someone from the scheduling team will contact you within 2-3 weeks to schedule a visit (in person or virtually) with the screening team and a low dose CT scan What to expect with the screening appointment? You will meet with a provider to review the benefits and drawback of screening for lung cancer. If you decide to have the screening test, you will then undergo a CT scan of the chest to look for abnormalities. The provider will share the results of the CT scan and coordinate follow-up care. Are you covered? Before screening, it is recommended that you: Check with your Insurance Provider to inquire of any out of pocket expenses you may or may not incur for this procedure. You may also contact our billing office at: [phone] for an estimate of any charges you may or may not incur for this procedure. Please reference procedure code (G0296) during that call. Questions [phone] [email or web address] documented in this encounterCherrington Hospital11-08-2024 History of Present illness Narrative* Lida Coto APRN.CNP - 08/19/2024 11:00 AM EST Images from the original note were not included. Jade Jackson is a 74 year old female here for a Medicare wellness visit. Medicare Health Risk Assessment General Health Good Exercise: Minutes/Day 30 min Exercise: Days/Week 4 days Alcohol: Daily Use Monthly or less Alcohol: Drinks/Day 1 or 2 Alcohol: 6 or more drinks Never Feel off balance No Concerns: Teeth/Dentures No Concerns: Sexual function No Troubled by feelings None of the above Frequency: Eating healthy diet Nearly every day ADLs requiring help None of the above Safety precautions in home/vehicle Yes Smoke, vape, chews tobacco No Difficulty hearing Yes Difficulty seeing No Current Providers Specialists: I have reviewed specialist-related care of the patient in the medical record. 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 Opioid use review Opioid Medications (last 90 days) No data to display Anxiety/Depression screening PHQ-9 Score: 1 (Minimal Depression) Recommendation: no further intervention at this time Cognitive screening Mini Cog Score: 5 Cognitive screening reviewed and No further action needed (score 3-5). Functional Observation Was the patient's Timed Up & Go test unsteady or >= 12 seconds? No Advance Care Planning Patient did not wish or was not able to name a surrogate decision maker or provide an advance care plan Measurements Pulse 70 Resp 16 Ht 158.5 cm (5' 2.4) Wt 88.4 kg (194 lb 14.2 oz) SpO2 99% BMI 35.19 kg/m Vision Screening: Follows with optometry/ophthalmology Assessment/Plan Medicare annual wellness visit, subsequent (Z00.00) - Fall avoidance information provided - Personalized prevention plan provided - Discussed need for and benefit of weight loss. BMI 35.19 kg/(m^2) This is a 74 year old female who presents today with: Patient presents with: Medicare Wellness Exam HISTORY OF PRESENT ILLNESS: Jade Jackson is a 74 year old female. Patient presents with: Medicare Wellness Exam Here in the office for extensive exam Rheumatology( RA): Taking Plaquenil 200 mg twice daily. Follow up this month. Heartburn: Using tums as needed for occasional heartburn. Symptoms controlled. Sleep Apnea: Using CPAP, working well. Waking up feeling refreshed. Mammogram: Last mammogram in March 2024 was normal. Colonoscopy: Last colonoscopy June 2020, due in 2024. Former smoker, quit in 2019, was smoking 1-2 PPD. Would like lung cancer screening. Osteopenia: Taking Fosamax once weekly. 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 hydrOXYchloroQUINE (PLAQUENIL) 200 mg tablet take 1 tablet by mouth 2 times a day cholecalciferol, vitamin D3, (VITAMIN D3 ORAL) Take 2,000 mcg by mouth once daily as needed. CPAP CPAP tubing, head gear, ancillary supplies Life Time Supplies 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 10 cm H2O. psyllium Husk 0.52 gram capsule Take 0.52 g by mouth once daily. Multivitamin (MULTIPLE VITAMINS DAILY) ORAL Tab Take one(1) tablet daily. fluticasone (FLONASE) 50 mcg/actuation nasal spray Use 1 [place] in each nostril once daily. naproxen sodium/pseudoephedrin (SUDAFED SINUS 12HR PRESSR-PAIN ORAL) Take by mouth. albuterol HFA (VENTOLIN HFA) 90 mcg/actuation inhaler Inhale 2 Puffs as instructed every 4 hours asneeded for wheezing/shortness of breath. calcium carbonate (CALCIUM 600 ORAL) Take 600 mg by mouth three times a day. cholecalciferol, vitamin D3, (VITAMIN D3 ORAL) Take 12.5 mcg by mouth once daily. alendronate (FOSAMAX) 70 mg tablet Take 1 tablet by mouth one time a week. Take with a full glass of water, on an empty stomach; do NOT lie down for 30minutes. calcium-vits S4-D-A3-minerals 166.75 mg- 166.75 unit cap Take by mouth. ONE IN THE MORNING AND TWO IN THE EVENING No current facility-administered medications for this visit. FAMILY HISTORY Problem Relation Age of Onset Allergies Mother Heart Mother Cancer Father GLIOBLASTOMA Allergies Father Coronary Artery Disease Father 70 Heart Father Hypertension Father Cancer Sister FOLLICULAR Cancer Maternal Grandfather Diabetes Sister Stroke Paternal Grandfather Social History Tobacco Use Smoking status: Former Current packs/day: 0.00 Average packs/day: 0.5 packs/day for 21.0 years (10.5 ttl pk-yrs) Types: Cigarettes Start date: 04/02/1999 Quit date: 04/02/2020 Years since quittin.3 Smokeless tobacco: Never Substance Use Topics Alcohol use: Yes Comment: rare Drug use: No REVIEW OF SYSTEMS GENERAL: No weight loss, malaise or fevers/chills HEENT: Negative for frequent or significant headaches, No changes in hearing or vision. NECK: Negative for lumps, goiter, pain and significant neck swelling RESPIRATORY: Negative for cough, hemoptysis, wheezing, dyspnea or shortness of breath CARDIOVASCULAR: Negative for chest pain, leg swelling, orthopnea, or palpitations GI: No nausea, vomiting, or diarrhea/constipation. No hematochezia/melena. No heartburn or reflux symptoms. : No history of dysuria, frequency or incontinence MUSCULOSKELETAL: Negative for joint pain or swelling. SKIN: Negative for lesions, rash, and itching ENDOCRINE: Negative for cold or heat intolerance, polyuria, polydipsia and goiter NEURO: No history of headaches, syncope, paralysis, seizures or tremors MOOD: Negative for depression, anxiety, or suicidal ideation. EXAM: BP 140/86 Pulse 70 Resp 16 Ht 158.5 cm (5' 2.4) Wt 88.4 kg (194 lb 14.2 oz) SpO2 99% BMI 35.19 kg/m PHYSICAL EXAM: General Appearance: Well appearing, alert, in no acute distress, well-hydrated, well nourished. Skin: Skin color, texture, turgor normal, no suspicious rashes or lesions. Head: Normocephalic, no masses, lesions, tenderness or abnormalities. Eyes: Anicteric sclera. Extraocular movements are intact. Lungs: Lungs clear to auscultation. No wheezing, rhonchi, rales. Heart: RRR without murmur, gallop, or rubs. No ectopy. Extremities: No deformities, edema, skin discoloration, clubbing or cyanosis. Good capillary refill. Peripheral Pulses: Normal, Capillary refill <2secs, strong peripheral pulses, Pulses palpable. Neurologic: Gait normal. Sensation grossly intact. ASSESSMENT/PLAN: 1. Medicare annual wellness visit, initial - ICD9: V70.0, ICD10: Z00.00 (primary diagnosis) - Counseled on healthy diet and regular exercise - Discussed need and benefit for weight loss. BMI 35.19 kg/(m^2) - Colorectal cancer screening recommended - agrees to Colonoscopy - Mammogram ordered - exam recommended once yearly - Follow up for annual exam in one year 2. Rheumatoid arthritis, involving unspecified site, unspecified whether rheumatoid factor present (HCC) - ICD9: 714.0, ICD10: M06.9 - Stable, continue to take all medication as prescribed - Keep scheduled appointments with Rheumatology 3. Heartburn - ICD9: 787.1, ICD10: R12 - Stable, continue with Tums prn 4. Obstructive sleep apnea syndrome - ICD9: 327.23, ICD10: G47.33 - Stable, continue with CPAP 5. Osteopenia, senile - ICD9: 733.90, ICD10: M85.80 - continue tx with alendronate (Fosamax) - Reviewed the need for Calcium and Vitamin D supplements and weight bearing exercise as tolerated - ALENDRONATE 70 MG TABLET 6. Pure hypercholesterolemia - ICD9: 272.0, ICD10: E78.00 - LIPID PANEL BASIC - COMPREHENSIVE METABOLIC PANEL 7. Colon cancer screening - ICD9: V76.51, ICD10: Z12.11 - CONSULT TO GENERAL SURGERY 8. History of tobacco use - ICD9: V15.82, ICD10: Z87.891 - CONSULT LUNG CANCER SCREENING CLINIC Follow-up in 1 year or sooner pending test results. Discussed treatment plan and patient voices understanding. Patient's questions answered appropriately. Medications and potential side effects were discussed and patient voices understanding. Lida Coto APRN.CNP This note was partially generated using [employer] voice recognition system. Note was reviewed for accuracy. There may be minor misspellings or grammar miscues with [employer] voice recognition. documented in this encounterCherrington Hospital11-08-2024 NoteHNO ID: [id number] Author: LIDA COTO APRN.CNP Service: ? Author Type: Nurse Practitioner Type: Progress Notes Filed: 08/19/2024 14:20 Note Text: Jade Jackson is a 74 year old female here for a Medicare wellness visit. Medicare Health Risk Assessment General Health Good Exercise: Minutes/Day 30 min Exercise: Days/Week 4 days Alcohol: Daily Use Monthly or less Alcohol: Drinks/Day 1 or 2 Alcohol: 6 or more drinks Never Feel off balance No Concerns: Teeth/Dentures No Concerns: Sexual function No Troubled by feelings None of the above Frequency: Eating healthy diet Nearly every day ADLs requiring help None of the above Safety precautions in home/vehicle Yes Smoke, vape, chews tobacco No Difficulty hearing Yes Difficulty seeing No Current Providers Specialists: I have reviewed specialist-related care of the patient in the medical record. 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 Opioid use review Opioid Medications (last 90 days) No data to display Anxiety/Depression screening PHQ-9 Score: 1 (Minimal Depression) Recommendation: no further intervention at this time Cognitive screening Mini Cog Score: 5 Cognitive screening reviewed and No further action needed (score 3-5). Functional Observation Was the patient's Timed Up AND Go test unsteady or >= 12 seconds? No Advance Care Planning Patient did not wish or was not able to name a surrogate decision maker or provide an advance care plan Measurements Pulse 70 Resp 16 Ht 158.5 cm (5' 2.4) Wt 88.4 kg (194 lb 14.2 oz) SpO2 99% BMI 35.19 kg/m? Vision Screening: Follows with optometry/ophthalmology Assessment/Plan Medicare annual wellness visit, subsequent (Z00.00) - Fall avoidance information provided - Personalized prevention plan provided - Discussed need for and benefit of weight loss. BMI 35.19 kg/(m2) This is a 74 year old female who presents today with: Patient presents with: Medicare Wellness Exam HISTORY OF PRESENT ILLNESS: Jade Jackson is a 74 year old female. Patient presents with: Medicare Wellness Exam Here in the office for extensive exam Rheumatology( RA): Taking Plaquenil 200 mg twice daily. Follow up this month. Heartburn: Using tums as needed for occasional heartburn. Symptoms controlled. Sleep Apnea: Using CPAP, working well. Waking up feeling refreshed. Mammogram: Last mammogram in March 2024 was normal. Colonoscopy: Last colonoscopy June 2020, due in 2024. Former smoker, quit in 2019, was smoking 1-2 PPD. Would like lung cancer screening. Osteopenia: Taking Fosamax once weekly. 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 hydrOXYchloroQUINE (PLAQUENIL) 200 mg tablet take 1 tablet by mouth 2 times a day cholecalciferol, vitamin D3, (VITAMIN D3 ORAL) Take 2,000 mcg by mouth once daily as needed. CPAP CPAP tubing, head gear, ancillary supplies Life Time Supplies 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 10 cm H2O. psyllium Husk 0.52 gram capsule Take 0.52 g by mouth once daily. Multivitamin (MULTIPLE VITAMINS DAILY) ORAL Tab Take one(1) tablet daily. fluticasone (FLONASE) 50 mcg/actuation nasal spray Use 1 [place] in each nostril once daily. naproxen sodium/pseudoephedrin (SUDAFED SINUS 12HR PRESSR-PAIN ORAL) Take by mouth. albuterol HFA (VENTOLIN HFA) 90 mcg/actuation inhaler Inhale 2 Puffs as instructed every 4 hours as needed for wheezing/shortness of breath. calcium carbonate (CALCIUM 600 ORAL) Take 600 mg by mouth three times a day. cholecalciferol, vitamin D3, (VITAMIN D3 ORAL) Take 12.5 mcg by mouth once daily. alendronate (FOSAMAX) 70 mg tablet Take 1 tablet by mouth one time a week. Take with a full glass of water, on an empty stomach; do NOT lie down for 30minutes. calcium-vits H3-G-X2-minerals 166.75 mg- 166.75 unit cap Take by mouth. ONE IN THE MORNING AND TWO IN THE EVENING No current facility-administered medications for this visit. FAMILY HISTORY Problem Relation Age of Onset Allergies Mother Heart Mother Cancer Father GLIOBLASTOMA Allergies Father Coronary Artery Disease Father (more content not included)...[facility]10-23-2024 Nurse Note* Keyana Ernandez MA - 08/03/2024 11:40 AM EDT PLQ eye exam done on 08/03/2024. No evidence of PLQ toxicity. Report sent for scanning. Keyana Ernandez MA [facility]10-23-2024 Nurse Note* Keyana Ernandez MA - 08/03/2024 11:40 AM EDT PLQ eye exam done on 08/03/2024. No evidence of PLQ toxicity. Report sent for scanning. Keyana Ernandez MA documented in this encounterCher[facility]10-16-[facility]24 History of Present illness Narrative* Mj Arriaza, PT - 07/27/2024 2:50 PM EDT Program_ID:[id number] Access Code: [email or web address] URL: [email or web address] Date: 07-27-2024 Prepared By: Mj Arriaza Program Notes Exercises - Standing shoulder flexion wall slides - 2 x daily - 7 x weekly - 2-3 sets - 10 reps - Standing Bilateral Shoulder Scaption Wall Slide - 2 x daily - 7 x weekly - 2-3 sets - 10 reps - Standing Shoulder External Rotation with Resistance - 2 x daily - 7 x weekly - 2-3 sets - 10 reps - Shoulder Internal Rotation with Resistance - 2 x daily - 7 x weekly - 2-3 sets - 10 reps - Standing Shoulder Row with Anchored Resistance - 2 x daily - 7 x weekly - 2-3 sets - 10 reps - Shoulder Extension with Resistance - Palms Forward - 2 x daily - 7 x weekly - 2-3 sets - 10 reps - Seated Lat Pull Down with Resistance - Elbows Bent - 2 x daily - 7 x weekly - 2-3 sets - 10 reps * Mj Arriaza, PT - 07/27/2024 2:34 PM EDT Images from the original note were not included. Episode Visit Count: 4 Therapist That Will Accept/Oversee The Plan Of Care: Mj Arriaza Start of Care Date: 06/14/24 Onset Date: (a year and a half ago) Plan of Care Certification Date: 06/14/24 Next Certification Due Date: 09/13/24 Patient Identified by Name and Date of : Yes REHABILITATION AND SPORTS THERAPY PHYSICAL THERAPY DISCONTINUANCE OF CARE PLAN OF CARE UPDATE: Assessment: Jade Jackson is discontinued from Physical Therapy services due to goal achievement. and Patient/Clinician mutual decision to discontinue current plan of care.. Patient was seen for 4 visits from Start of Care Date: 06/14/24 to 07/27/2024 and treatment included: Therapeutic exercise and Therapeutic activities. At this time, the patient denies any further R shoulder or RUE pain with nearly full R shoulder AROM and strength. The patient and her PT are agreeable to discharge to her HEP. Assured patient comfortable with all exercises of HEP. Goals for Episode of Care: established 06/14/24 Patient reported outcome of physical function will increase T-score by a minimum 5 points. - NEARLY MET - [facility] in home exercise program. -MET Patient will decrease R shoulder pain to 0/10 with functional activities to allow patient to improve lifting/carrying activities. -MET Patient will increase active ROM of shoulder abduction to 135 degrees or greater to allow pt to improve performance of ADLs. MET Patient will demonstrate increase in R shoulder strength to 5-/5 during manual muscle testing in order to improve function for home management tasks. MET Perform reach behind her back without pain. MET Patient Goals: Eliminate R shoulder pain SUBJECTIVE: The patient arrived reporting no R shoulder or arm pain. Reported feeling okay after her last session without pain, only fatigues. Has been able to continue her HEP without complaint. Reports that she feels that her R shoulder and arm are doing much better, reporting her pain is only after sitting too much or when she has not done her HEP. Feels that she is able to reach any way that she wishes, reporting that she is able to reach behind her back without pain. Able to don/doff bra without issue. Feels ready to discharge to her HEP.. Patient Goals: Eliminate R shoulder pain Functional Limitations: nothing Pain: Pain Pain Level: 0 Pain Location: Shoulder - Right, Upper Arm - Right Worst Pain Level: (1-2) Best Pain Level: 0 Post Treatment Pain Post Treatment Pain Level: 0 Post Treatment Pain Location: Shoulder - Right PROMIS Scales 07/10/2024 06/13/2024 07/15/2023 Higher is Better Phys Func - Score 45 (within normal limits) 44 (mild dysfunction) 57 (within normal limits) Phys Func - Percentile 31 27 76 Self-Eff Symptom - Score 49 (Average) 46 (Average) Self-Eff Symptom - Percentile 46 34 T-scores: mean of general population = 50. 5 points is clinically meaningfully difference Percentiles provide an indication of how the patient's score ranks in relation to the general population. Higher percentile rankings indicate better function/quality of life. 50th percentile is the average of the general population and indicates half of respondents had a worse score. OBJECTIVE MEASURES WITH LEVEL OF FUNCTION: Posture / Alignment Posture: Forward head R Shoulder Alignment: Humeral internal rotation (lesser humeral IR) L Shoulder Alignment: Humeral internal rotation (lesser humeral IR) UE AROM R Shoulder Extension: 60 Degrees R Shoulder Flex: 160 Degrees R Shoulder ABduction: 170 Degrees R Shoulder Internal Rotation: 60 Degrees R Shoulder External Rotation: 95 Degrees L Shoulder Extension: 63 Degrees L Shoulder Flex: 137 Degrees L Shoulder ABduction: 160 Degrees L Shoulder Internal Rotation: 70 Degrees L Shoulder External Rotation: 80 Degrees UE and Cervical Strength R Shoulder Extension: 5/5 R Shoulder Flexion: 5/5 R Shoulder Abduction (C5): 5/5 R Shoulder Internal Rotation: 5/5 R Shoulder External Rotation: 5/5 R Middle Trapezius: 4+/5 R Lower Trapezius: 4+/5 R Serratus Anterior: (5-) R Elbow Extension (C7): 5/5 R Elbow Flexion (C6): 5/5 L Shoulder Extension: 5/5 L Shoulder Flexion: 5/5 L Shoulder Abduction (C5): 5/5 L Shoulder Internal Rotation: 5/5 L Shoulder External Rotation: 5/5 L Middle Trapezius: 4+/5 L Lower Trapezius: 4+/5 L Serratus Anterior: (5-) L Elbow Extension (C7): 5/5 L Elbow Flexion (C6): 5/5 TREATMENT: Therapeutic Activity: 1: Recheck (Reassessed objectives, goals, HEP, and POC) Skilled Intervention: Educated on proper/safe technique for activities performed today. Activity progression based on professional judgment. Billing Therapeutic Activity Treatment Minutes: 25 Skilled Treatment Time Minutes (timed and untimed codes): 25 Total Session Time (minutes): 27 Session Start Time : 1433 Session Stop Time : 1500 Mj Arriaza PT, DPT documented in this encounterCher[facility]10-16-2024 NoteHNO ID: [id number] Author: MJ ARRIAZA PT Service: ? Author Type: Physical Therapist Type: Progress Notes Filed: 07/27/2024 15:04 Note Text: Episode Visit Count: 4 Therapist That Will Accept/Oversee The Plan Of Care: Mj Arriaza Start of Care Date: 06/14/24 Onset Date: (a year and a half ago) Plan of Care Certification Date: 06/14/24 Next Certification Due Date: 09/13/24 Patient Identified by Name and Date of : Yes REHABILITATION AND SPORTS THERAPY PHYSICAL THERAPY DISCONTINUANCE OF CARE PLAN OF CARE UPDATE: Assessment: Jade Jackson is discontinued from Physical Therapy services due to goal achievement. and Patient/Clinician mutual decision to discontinue current plan of care.. Patient was seen for 4 visits from Start of Care Date: 06/14/24 to 07/27/2024 and treatment included: Therapeutic exercise and Therapeutic activities. At this time, the patient denies any further R shoulder or RUE pain with nearly full R shoulder AROM and strength. The patient and her PT are agreeable to discharge to her [facility]. Assured patient comfortable with all exercises of HEP. Goals for Episode of Care: established 06/14/24 Patient reported outcome of physical function will increase T-score by a minimum 5 points. - NEARLY MET - [facility] in home exercise program. -MET Patient will decrease R shoulder pain to 0/10 with functional activities to allow patient to improve lifting/carrying activities. -MET Patient will increase active ROM of shoulder abduction to 135 degrees or greater to allow pt to improve performance of ADLs. MET Patient will demonstrate increase in R shoulder strength to 5-/5 during manual muscle testing in order to improve function for home management tasks. MET Perform reach behind her back without pain. MET Patient Goals: Eliminate R shoulder pain SUBJECTIVE: The patient arrived reporting no R shoulder or arm pain. Reported feeling okay after her last session without pain, only fatigues. Has been able to continue her HEP without complaint. Reports that she feels that her R shoulder and arm are doing much better, reporting her pain is only after sitting too much or when she has not done her HEP. Feels that she is able to reach any way that she wishes, reporting that she is able to reach behind her back without pain. Able to don/doff bra without issue. Feels ready to discharge to her HEP.. Patient Goals: Eliminate R shoulder pain Functional Limitations: nothing Pain: Pain Pain Level: 0 Pain Location: Shoulder - Right, Upper Arm - Right Worst Pain Level: (1-2) Best Pain Level: 0 Post Treatment Pain Post Treatment Pain Level: 0 Post Treatment Pain Location: Shoulder - Right PROMIS Scales 07/10/2024 06/13/2024 07/15/2023 Higher is Better Phys Func - Score 45 (within normal limits) 44 (mild dysfunction) 57 (within normal limits) Phys Func - Percentile 31 27 76 Self-Eff Symptom - Score 49 (Average) 46 (Average) Self-Eff Symptom - Percentile 46 34 T-scores: mean of general population = 50. 5 points is clinically meaningfully difference Percentiles provide an indication of how the patient's score ranks in relation to the general population. Higher percentile rankings indicate better function/quality of life. 50th percentile is the average of the general population and indicates half of respondents had a worse score. OBJECTIVE MEASURES WITH LEVEL OF FUNCTION: Posture / Alignment Posture: Forward head R Shoulder Alignment: Humeral internal rotation (lesser humeral IR) L Shoulder Alignment: Humeral internal rotation (lesser humeral IR) UE AROM R Shoulder Extension: 60 Degrees R Shoulder Flex: 160 Degrees R Shoulder ABduction: 170 Degrees R Shoulder Internal Rotation: 60 Degrees R Shoulder External Rotation: 95 Degrees L Shoulder Extension: 63 Degrees L Shoulder Flex: 137 Degrees L Shoulder ABduction: 160 Degrees L Shoulder Internal Rotation: 70 Degrees L Shoulder External Rotation: 80 Degrees UE and Cervical Strength R Shoulder Extension: 5/5 R Shoulder Flexion: 5/5 R Shoulder Abduction (C5): 5/5 R Shoulder Internal Rotation: 5/5 R Shoulder External Rotation: 5/5 R Middle Trapezius: 4+/5 R Lower Trapezius: 4+/5 R Serratus Anterior: (5-) R Elbow Extension (C7): 5/5 R Elbow Flexion (C6): 5/5 L Shoulder Extension: 5/5 L Shoulder Flexion: 5/5 L Shoulder Abduction (C5): 5/5 L Shoulder Internal Rotation: 5/5 L Shoulder External Rotation: 5/5 L Middle Trapezius: 4+/5 L Lower Trapezius: 4+/5 L Serratus Anterior: (5-) L Elbow Extension (C7): 5/5 L Elbow Flexion (C6): 5/5 TREATMENT: Therapeutic Activity: 1: Recheck (Reassessed objectives, goals, HEP, and POC) Skilled Intervention: Educated on proper/safe technique for activities performed today. Activity progression based on professional judgment. Billing Therapeutic Activity Treatment Minutes: 25 Skilled Treatment Time Minutes (timed and unt (more content not included)... [id number] History of Present illness Narrative* Adele Hernandez RT(R) - 07/26/2024 11:40 AM EDT Radiology Service Progress Note PATIENT NAME: Jade Jackson DATE OF SERVICE: July 26, 2024 TIME: 3:00 PM PATIENT IDENTITY VERIFICATION COMPLETED USING TWO (2) IDENTIFIERS: Name and Date of confirmedby patient verbally. FALL SCREENING: Has the patient had 2 falls in the last year or 1 fall with injury or currently using an Ambulatory Assistive Device (Walker, Cane, Wheelchair, Crutches, etc.)? No PATIENT GENDER DATA: Female. status: : No status: NO. PATIENT RELEVANT IMPLANT DATA REVIEWED: Yes PATIENT PRESENTS WITH AN IMPLANTABLE OR ATTACHED COMMISSION SPECIALIST: No RADIOLOGY DEPARTMENT: CT; Exam(s) Completed: Sinus PERIPHERAL IV DATA: Not applicable SIGNED BY: RT Kylie(Mari) July 26, 2024 3:00 PM documented in this encounterCherrington Hospital10-15-2024 NoteHNO ID: [id number] Author: ADELE HERNANDEZ RT(Mari) Service: ? Author Type: Crm Business Analyst Type: Progress Notes Filed: 07/26/2024 15:01 Note Text: Radiology Service Progress Note PATIENT NAME: Jade Jackson DATE OF SERVICE: July 26, 2024 TIME: 3:00 PM PATIENT IDENTITY VERIFICATION COMPLETED USING TWO (2) IDENTIFIERS: Name and Date of confirmed by patient verbally. FALL SCREENING: Has the patient had 2 falls in the last year or 1 fall with injury or currently using an Ambulatory Assistive Device (Walker, Cane, Wheelchair, Crutches, etc.)? No PATIENT GENDER DATA: Female. status: : No status: NO. PATIENT RELEVANT IMPLANT DATA REVIEWED: Yes PATIENT PRESENTS WITH AN IMPLANTABLE OR ATTACHED COMMISSION SPECIALIST: No RADIOLOGY DEPARTMENT: CT; Exam(s) Completed: Sinus PERIPHERAL IV DATA: Not applicable SIGNED BY: RT Kylie(R) July 26, 2024 3:00 [facility]10-11-2024 NoteHNO ID: [id number] Author: MALACHI SARGENT MD Service: ? Author Type: Physician Type: Progress Notes Filed: 07/22/2024 11:27 Note Text: HPI Jade Jackson is a 73 year old female who presents with small nasal polyp. Patient is seen in consultation for Lida Nair CNP. Patient complains of a lot of drainage out of the front of the nose as well as postnasal drip patient also needs to clear her throat patient is not aware of any reflux symptoms. ROS General Weight loss: No Fatigue: No Night sweats:No Cardiac Chest pain:No Fast heart rate:No Swelling in the feet:No Respiratory Short of breath:No Cough:No Wheezing:No Gastrointestinal Nausea:No Vomiting:No Indigestion:No Past medical history, family history, and social history reviewed. PE There were no vitals taken for this visit. General: Patient is awake, alert, NAD. Voice is normal. Skin: normal Eyes: Extraocular motion and Gaze is normal. Ears: Right external auditory canal is normal. TMJ: normal. Right tympanic membranes normal. Left external auditory canal is normal. Left tympanic membrane normal. Nose: Septum is normal. Turbinates are normal. Nasopharynx:normal Oral Cavity/Oropharynx: Lips normal Dentition normal Tongue normal. Tonsils normal. Palate and uvula normal. Pharynx posterior normal Hypopharynx: Base of tongue normal Pyriform sinus normal. Larynx: Vocal cords normal. Epiglottis normal. Post cricoid normal. Salivary glands: Parotid normal. Submandibular and sublingual normal. Thyroid: normal. Lymphatic/Neck: Lymph nodes normal. Neurologic: Facial nerve normal. ASSESSMENT/PLAN: 1. Chronic pansinusitis - ICD9: 473.8, ICD10: J32.4 (primary diagnosis) - CT SINUS WO IVCON 2. Chronic rhinitis - ICD9: 472.0, ICD10: J31.[address] sinus Atrovent nasal spray will call with results Malachi Sargent MD Findings will be communicated to the referring physician via mail or electronic medical record.[facility]10-11-2024 History of Present illness Narrative* Malachi Sargent MD - 07/22/2024 11:25 AM EDT HPI Jade Jackson is a 73 year old female who presents with small nasal polyp. Patient is seen in consultation for Lida Nair CNP. Patient complains of a lot of drainage out of the front of the nose as well as postnasal drip patient also needs to clear her throat patient is not aware of any reflux symptoms. ROS General Weight loss: No Fatigue: No Night sweats:No Cardiac Chest pain:No Fast heart rate:No Swelling in the feet:No Respiratory Short of breath:No Cough:No Wheezing:No Gastrointestinal Nausea:No Vomiting:No Indigestion:No Past medical history, family history, and social history reviewed. PE There were no vitals taken for this visit. General: Patient is awake, alert, NAD. Voice is normal. Skin: normal Eyes: Extraocular motion and Gaze is normal. Ears: Right external auditory canal is normal. TMJ: normal. Right tympanic membranes normal. Left external auditory canal is normal. Left tympanic membrane normal. Nose: Septum is normal. Turbinates are normal. Nasopharynx:normal Oral Cavity/Oropharynx: Lips normal Dentition normal Tongue normal. Tonsils normal. Palate and uvula normal. Pharynx posterior normal Hypopharynx: Base of tongue normal Pyriform sinus normal. Larynx: Vocal cords normal. Epiglottis normal. Post cricoid normal. Salivary glands: Parotid normal. Submandibular and sublingual normal. Thyroid: normal. Lymphatic/Neck: Lymph nodes normal. Neurologic: Facial nerve normal. ASSESSMENT/PLAN: 1. Chronic pansinusitis - ICD9: 473.8, ICD10: J32.4 (primary diagnosis) - CT SINUS WO IVCON 2. Chronic rhinitis - ICD9: 472.0, ICD10: J31.[address] sinus Atrovent nasal spray will call with results Malachi Sargent MD Findings will be communicated to the referring physician via mail or electronic medical record. documented in this encounterCherrington Hospital10-01-2024 History of Present illness Narrative* Mj Arriaza, PT - 07/12/2024 12:51 PM EDT Program_ID:[id number] Access Code: [email or web address] URL: [email or web address] Date: 07-12-2024 Prepared By: Mj Arriaza Program Notes Exercises - Standing shoulder flexion wall slides - 2 x daily - 7 x weekly - 2-3 sets - 10 reps - Standing Bilateral Shoulder Scaption Wall Slide - 2 x daily - 7 x weekly - 2-3 sets - 10 reps - Standing Shoulder External Rotation with Resistance - 2 x daily - 7 x weekly - 2-3 sets - 10 reps - Shoulder Internal Rotation with Resistance - 2 x daily - 7 x weekly - 2-3 sets - 10 reps - Standing Shoulder Row with Anchored Resistance - 2 x daily - 7 x weekly - 2-3 sets - 10 reps * Mj Arriaza, PT - 07/12/2024 12:19 PM EDT Episode Visit Count: 3 Therapist That Will Accept/Oversee The Plan Of Care: Mj Arriaza Start of Care Date: 06/14/24 Onset Date: (a year and a half ago) Plan of Care Certification Date: 06/14/24 Next Certification Due Date: 09/13/24 Patient Identified by Name and Date of : Yes REHABILITATION AND SPORTS THERAPY PHYSICAL THERAPY TREATMENT NOTE ASSESSMENT: Jade Jackson tolerated the session with her only report of R shoulder pain reported with end-range shoulder flexion and extension that would improved once out of range. Despite her reports of end-range shoulder pain, the patient demonstrated improvements in her active shoulder flexion,abduction, and extension ROM as noted below. Able to progress all of her RTC and holden-scapular strengthening to standing with a band without any issue. Appears to be doing very well reporting no painpre or post-treatment. The patient will continue to benefit from ongoing skilled physical therapy to progress toward set goals. PLAN FOR NEXT VISIT: Assess the patient's response to her prior session and the progressions to banded strengthening. Continue to progress RTC and holden-scapular strengthening as tolerated. SUBJECTIVE: The patient arrived reporting 0/10 R shoulder pain. Reported feeling fatigued after herlast session for about a day or two, but did not remember any increased shoulder pain. Did report that she was not able to perform her HEP as regularly while out of town on vacation, reporting she missed a few days. Feels that her shoulder is doing better. Pain: Pain Pain Level: 0 Pain Location: Shoulder - Right, Upper Arm - Right Post Treatment Pain Post Treatment Pain Level: 0 Post Treatment Pain Location: Shoulder - Right OBJECTIVE MEASURES WITH LEVEL OF FUNCTION: R Shoulder Extension AROM: 50 Degrees (very slight R shoulder pain) R Shoulder Flex AROM: 158 Degrees R Shoulder Abduction AROM: 165 Degrees TREATMENT: Therapeutic Exercise: 1: resisted shoulder extension palm forward (x10 RTB) 2: Shoulder abduction AAROM (x10 RUE) 3: Shoulder extension AAROM with cane (x10 BUE) 4: UBE (lower head) (x2.5 min forward & x2.5 min retro level 2) 5: *Wall slides into flexion and scaption (x10 each BUE) 6: *resisted midrows (2x10 RTB) 7: Seated lat pulldown (2x10 RTB) 8: *standing shoulder ER (2x10 RTB) 9: *sstanding shoulder IR (2x10 RTB RUE) Skilled Intervention: Patient was educated in proper exercise technique and purpose for exercises. Skilled judgment was used in selection of appropriate interventions. Correct performance of therapeutic exercises was facilitated with verbal and visual cuing. Billing Therapeutic Exercise Treatment Minutes: 38 Skilled Treatment Time Minutes (timed and untimed codes): 38 Total Session Time (minutes): 45 Session Start Time : 1215 Session Stop Time : 1300 Mj Arriaza, PT, DPT documented in this encounterCher[facility] Hospital10-01-2024 NoteHNO ID: [id number] Author: MJ ARRIAZA PT Service: ? Author Type: Physical Therapist Type: Progress Notes Filed: 07/12/2024 13:00 Note Text: Episode Visit Count: 3 Therapist That Will Accept/Oversee The Plan Of Care: Mj Arriaza Start of Care Date: 06/14/24 Onset Date: (a year and a half ago) Plan of Care Certification Date: 06/14/24 Next Certification Due Date: 09/13/24 Patient Identified by Name and Date of : Yes REHABILITATION AND SPORTS THERAPY PHYSICAL THERAPY TREATMENT NOTE ASSESSMENT: Jade Jackson tolerated the session with her only report of R shoulder pain reported with end-range shoulder flexion and extension that would improved once out of range. Despite her reports of end-range shoulder pain, the patient demonstrated improvements in her active shoulder flexion, abduction, and extension ROM as noted below. Able to progress all of her RTC and holden-scapular strengthening to standing with a band without any issue. Appears to be doing very well reporting no pain pre or post-treatment. The patient will continue to benefit from ongoing skilled physical therapy to progress toward set goals. PLAN FOR NEXT VISIT: Assess the patient's response to her prior session and the progressions to banded strengthening. Continue to progress RTC and holden-scapular strengthening as tolerated. SUBJECTIVE: The patient arrived reporting 0/10 R shoulder pain. Reported feeling fatigued after her last session for about a day or two, but did not remember any increased shoulder pain. Did report that she was not able to perform her HEP as regularly while out of town on vacation, reporting she missed a few days. Feels that her shoulder is doing better. Pain: Pain Pain Level: 0 Pain Location: Shoulder - Right, Upper Arm - Right Post Treatment Pain Post Treatment Pain Level: 0 Post Treatment Pain Location: Shoulder - Right OBJECTIVE MEASURES WITH LEVEL OF FUNCTION: R Shoulder Extension AROM: 50 Degrees (very slight R shoulder pain) R Shoulder Flex AROM: 158 Degrees R Shoulder Abduction AROM: 165 Degrees TREATMENT: Therapeutic Exercise: 1: resisted shoulder extension palm forward (x10 RTB) 2: Shoulder abduction AAROM (x10 RUE) 3: Shoulder extension AAROM with cane (x10 BUE) 4: UBE (lower head) (x2.5 min forward AND x2.5 min retro level 2) 5: *Wall slides into flexion and scaption (x10 each BUE) 6: *resisted midrows (2x10 RTB) 7: Seated lat pulldown (2x10 RTB) 8: *standing shoulder ER (2x10 RTB) 9: *sstanding shoulder IR (2x10 RTB RUE) Skilled Intervention: Patient was educated in proper exercise technique and purpose for exercises. Skilled judgment was used in selection of appropriate interventions. Correct performance of therapeutic exercises was facilitated with verbal and visual cuing. Billing Therapeutic Exercise Treatment Minutes: 38 Skilled Treatment Time Minutes (timed and untimed codes): 38 Total Session Time (minutes): 45 Session Start Time : 1215 Session Stop Time : 1300 Mj Arriaza PT, [facility]09-10-2024 History of Present illness Narrative* Mj Arriaza PT - 06/21/2024 12:58 PM EDT Program_ID:[id number] Access Code: [email or web address] URL: [email or web address] Date: 06-21-2024 Prepared By: Mj Arriaza Program Notes Exercises - Seated Scapular Retraction - 2 x daily - 7 x weekly - 2-3 sets - 10 reps - Standing Isometric Shoulder Internal Rotation at Doorway - 2 x daily - 7 x weekly - 2 sets - 10 reps - Standing Isometric Shoulder External Rotation with Doorway - 2 x daily - 7 x weekly - 2 sets - 10 reps - Scaption Wall Slide with Towel - 2 x daily - 7 x weekly - 2-3 sets - 10 reps - Supine Shoulder External Rotation with Resistance - 2 x daily - 7 x weekly - 2-3 sets - 10 reps * Mj Arriaza PT - 06/21/2024 12:32 PM EDT Episode Visit Count: 2 Therapist That Will Accept/Oversee The Plan Of Care: Mj Arriaza Start of Care Date: 06/14/24 Onset Date: (a year and a half ago) Plan of Care Certification Date: 06/14/24 Next Certification Due Date: 09/13/24 Patient Identified by Name and Date of : Yes REHABILITATION AND SPORTS THERAPY PHYSICAL THERAPY TREATMENT NOTE ASSESSMENT: Jade Jackson tolerated the session with reports of mild R shoulder pain with the retrocondition on the arm bike, with greater R shoulder pain with resisted scapular depression that mostly resolved once completed..She demonstrated improvements in her shoulder flexion and scaption ROM via wall slides with only momentary R shoulder pain at shoulder height that would resolve once over head. Demonstrated an excellent understanding of the exercises that comprised her HEP without need for correction. Attempted gentle holden-scapular strengthening in standing, but did much better in supine with greater ROM and tolerance.The patient will continue to benefit from ongoing skilled physical t herapy to progress toward set goals. PLAN FOR NEXT VISIT: Assess the patient's response to her prior session and new additions. Continue to progress RTC and holden-scapular strengthening as tolerated. SUBJECTIVE: The patient arrived reporting no R sholder pain. She reported feeling sore for about 2 days after initial PT evaluation. Has begun her HEP, but is doing more of her shoulder squeezes compared to the others. Has noticed more crepitus in her upper back since beginning PT. Post-treatmentpain not reported. Pain: Pain Pain Level: 0 Pain Location: Shoulder - Right, Upper Arm - Right Post Treatment Pain Post Treatment Pain Level: (Not reported, but did not report any sustained R shoulder pain) Post Treatment Pain Location: Shoulder - Right OBJECTIVE MEASURES WITH LEVEL OF FUNCTION: Able to demonstrate nearly full range into shoulder flexion and scaption on the R with pain only atabout shoulder height, which improved once overhead. TREATMENT: Therapeutic Exercise: 1: *isometric shoulder ER (2x10 5 sec hold RUE) 2: *isometric shoulder IR (2x10 5 sec hold RUE) 3: *Scapular retractions with hold (2x10 3 sec hold) 4: UBE (lower head) (x2.5 min forward and x2.5 min retro level 1) 5: *Wall slides into flexion and scaption (x10 each RUE 3 sec hold at end range) 6: resisted midrows (x10 RTB) 7: Resisted scapular depression (x10 RTB RUE) 8: *Supine shoulder ER (2x10 YTB BUE) 9: Supine shoulder horizontal abduction (x10 BUE) Skilled Intervention: Patient was educated in proper exercise technique and purpose for exercises. Reviewed and educated patient on additions/changes for home exercise program as above (*). Skilled judgment was used in selection of appropriate interventions. Correct performance of therapeutic exercises was facilitated with verbal and visual cuing. Billing Therapeutic Exercise Treatment Minutes: 40 Skilled Treatment Time Minutes (timed and untimed codes): 40 Total Session Time (minutes): 45 Session Start Time : 1215 Session Stop Time : 1300 Mj Arriaza PT, DPT documented [facility] NoteHNO ID: [id number] Author: MJ ARRIAZA PT Service: ? Author Type: Physical Therapist Type: Progress Notes Filed: 06/21/2024 13:24 Note Text: Episode Visit Count: 2 Therapist That Will Accept/Oversee The Plan Of Care: Mj Arriaza Start of Care Date: 06/14/24 Onset Date: (a year and a half ago) Plan of Care Certification Date: 06/14/24 Next Certification Due Date: 09/13/24 Patient Identified by Name and Date of : Yes REHABILITATION AND SPORTS THERAPY PHYSICAL THERAPY TREATMENT NOTE ASSESSMENT: Jade Jackson tolerated the session with reports of mild R shoulder pain with the retro condition on the arm bike, with greater R shoulder pain with resisted scapular depression that mostly resolved once completed..She demonstrated improvements in her shoulder flexion and scaption ROM via wall slides with only momentary R shoulder pain at shoulder height that would resolve once over head. Demonstrated an excellent understanding of the exercises that comprised her HEP without need for correction. Attempted gentle holden-scapular strengthening in standing, but did much better in supine with greater ROM and tolerance.The patient will continue to benefit from ongoing skilled physical therapy to progress toward set goals. PLAN FOR NEXT VISIT: Assess the patient's response to her prior session and new additions. Continue to progress RTC and holden-scapular strengthening as tolerated. SUBJECTIVE: The patient arrived reporting no R sholder pain. She reported feeling sore for about 2 days after initial PT evaluation. Has begun her HEP, but is doing more of her shoulder squeezes compared to the others. Has noticed more crepitus in her upper back since beginning PT. Post-treatment pain not reported. Pain: Pain Pain Level: 0 Pain Location: Shoulder - Right, Upper Arm - Right Post Treatment Pain Post Treatment Pain Level: (Not reported, but did not report any sustained R shoulder pain) Post Treatment Pain Location: Shoulder - Right OBJECTIVE MEASURES WITH LEVEL OF FUNCTION: Able to demonstrate nearly full range into shoulder flexion and scaption on the R with pain only at about shoulder height, which improved once overhead. TREATMENT: Therapeutic Exercise: 1: *isometric shoulder ER (2x10 5 sec hold RUE) 2: *isometric shoulder IR (2x10 5 sec hold RUE) 3: *Scapular retractions with hold (2x10 3 sec hold) 4: UBE (lower head) (x2.5 min forward and x2.5 min retro level 1) 5: *Wall slides into flexion and scaption (x10 each RUE 3 sec hold at end range) 6: resisted midrows (x10 RTB) 7: Resisted scapular depression (x10 RTB RUE) 8: *Supine shoulder ER (2x10 YTB BUE) 9: Supine shoulder horizontal abduction (x10 BUE) Skilled Intervention: Patient was educated in proper exercise technique and purpose for exercises. Reviewed and educated patient on additions/changes for home exercise program as above (*). Skilled judgment was used in selection of appropriate interventions. Correct performance of therapeutic exercises was facilitated with verbal and visual cuing. Billing Therapeutic Exercise Treatment Minutes: 40 Skilled Treatment Time Minutes (timed and untimed codes): 40 Total Session Time (minutes): 45 Session Start Time : 1215 Session Stop Time : 1300 Mj Arriaza, PT, [facility]09-06-2024 Telephone encounter Note* Telephone Encounter - Heydi Clark MA - 06/17/2024 1:43 PM EDT Images from the original note were not included. Patient has been identified by name and date of : Yes RX INSTRUCTIONS: Patient aware RX will be sent to pharmacy. No need to notify patient. PLQ eye exam done on 08/03/2023. No evidence of PLQ toxicity. Ok to continue high risk medication. LAST APPOINTMENT: 01/15/2023 UPCOMING APPOINTMENT: 07/21/2024 LABS: Hemoglobin (g/dL) Date Value 08/13/2023 13.3 03/25/2021 13.5 Hematocrit (%) Date Value 08/13/2023 40.8 03/25/2021 41.7 WBC (k/uL) Date Value 08/13/2023 8.34 03/25/2021 7.79 Platelet Count (k/uL) Date Value 08/13/2023 259 03/25/2021 245 AST Date Value Ref Range Status 08/13/2023 14 13 - 35 U/L Final ALT Date Value Ref Range Status 08/13/2023 11 7 - 38 U/L Final Creatinine Date Value Ref Range Status 08/13/2023 0.79 0.58 - 0.96 mg/dL Final No results found for: URICACID Heydi Clark MA [facility]09-06-2024 Miscellaneous Notes* Telephone Encounter - Heydi Clark MA - 06/17/2024 1:43 PM EDT Images from the original note were not included. Patient has been identified by name and date of : Yes RX INSTRUCTIONS: Patient aware RX will be sent to pharmacy. No need to notify patient. PLQ eye exam done on 08/03/2023. No evidence of PLQ toxicity. Ok to continue high risk medication. LAST APPOINTMENT: 01/15/2023 UPCOMING APPOINTMENT: 07/21/2024 LABS: Hemoglobin (g/dL) Date Value 08/13/2023 13.3 03/25/2021 13.5 Hematocrit (%) Date Value 08/13/2023 40.8 03/25/2021 41.7 WBC (k/uL) Date Value 08/13/2023 8.34 03/25/2021 7.79 Platelet Count (k/uL) Date Value 08/13/2023 259 03/25/2021 245 AST Date Value Ref Range Status 08/13/2023 14 13 - 35 U/L Final ALT Date Value Ref Range Status 08/13/2023 11 7 - 38 U/L Final Creatinine Date Value Ref Range Status 08/13/2023 0.79 0.58 - 0.96 mg/dL Final No results found for: URICACID Heydi Clark MA documented in this encounterC[facility]09-03-2024 NoteHNO ID: [id number] Author: MJ ARRIAZA, PT Service: ? Author Type: Physical Therapist Type: Progress Notes Filed: 06/21/2024 12:20 Note Text: Episode Visit Count: 1 Therapist That Will Accept/Oversee The Plan Of Care: Mj Arriaza Start of Care Date: 06/14/24 Onset Date: (a year and a half ago) Plan of Care Certification Date: 06/14/24 Next Certification Due Date: 09/13/24 Patient Identified by Name and Date of : Yes REHABILITATION AND SPORTS THERAPY PHYSICAL THERAPY EVALUATION PLAN OF CARE: Assessment: Jade Jackson presents with chief complaint of R anterior and inferior shoulder pain that interferes with lifting, carrying, dressing, reaching behind back, use hand with arm at shoulder level . She presents with impairments in ADL's, flexibility, independence in exercise, overall function, patient reported outcome measures, posture, range of motion, and strength. PROMIS? (Patient-Reported Outcomes Measurement Information System) scores were reviewed and identified as a rehabilitation concern. Prognosis for therapy is Good due to: current objective clinical presentation . She will benefit from skilled therapy services to meet the goals established for this plan of care as noted below. Goals for Episode of Care: established 06/14/24 Patient reported outcome of physical function will increase T-score by a minimum 5 points. [facility] in home exercise program. Patient will decrease R shoulder pain to 0/10 with functional activities to allow patient to improve lifting/carrying activities. Patient will increase active ROM of shoulder abduction to 135 degrees or greater to allow pt to improve performance of ADLs. Patient will demonstrate increase in R shoulder strength to 5-/5 during manual muscle testing in order to improve function for home management tasks. Perform reach behind her back without pain. Patient Goals: Eliminate R shoulder pain Time Frame for Goals and Treatment : (6-8 weeks) Planned Interventions, Frequency, and Duration: Current Frequency: 1x/week Duration: 4 weeks Total Number of Visits Planned: (6-8) Planned Treatment Interventions: Therapeutic exercise (80322), Neuromuscular re-education (08799), Manual therapy (18255), Therapeutic activities (02196), Patient/Family/Caregiver Education, Self-fdc management (34193), General Conditioning PLAN FOR NEXT VISIT: Assess the patient's response to her PT evaluation and HEP. Begin a rehabilitation program with emphasis on gentle but progressing RTC and holden-scapular strengthening (beginning with isometrics and progressing as pain allows) while working to restore her shoulder abduction and ER ROM. Patient demonstrates good understanding of plan of care and treatment. The above goals and plan of care were discussed and agreed upon by patient/family. SUBJECTIVE: The patient reports that she has been experiencing R anterior and inferior shoulder pain for the last year and a half. She reports that she mentioned her R shoulder pain at her usual wellness visit with her rheumatolgst this past July, but that she did not seek any PT as the exercises that her referring provider gave her helped. Since that time, the patient reports that her R shoulder pain is intermittent The patient also reports intermittent tlngling of the R hand and fingers. Denies any injury or change in activity that would have preceeded her current sypmtoms. Able to perform her personal ADLs without assistance. Does wake at night due to R shoulder pain. Denies any hx of R shoulder pain. Patient Goals: Eliminate R shoulder pain Functional Limitations: lifting, carrying, dressing, reaching behind back, use hand with arm at shoulder level Prior Level of Function: Independent without limitations Relevant History Past Relevant Medical Conditions: Comments Relevant Medical Conditions Comments: Osteopenia, RA Past Relevant Surgical Conditions: (none) Right or Left Handed: Right Employment: Retired Intake Information: Prescription present Previous Treatment: Exercises per physician Falls Interview: No positive findings with falls interview Aquatic Screen: No Pain: Pain Pain Level: 2 Pain Location: Shoulder - Right, Upper Arm - Right (anterior and inferior) Frequency: Intermittent Detailed Pain Score: Yes Worst Pain Level: 6 Best Pain Level: 0 Post Treatment Pain Post Treatment Pain Level: (Not addressed) Post Treatment Pain Location: Shoulder - Right PROMIS Scales 06/13/2024 07/15/2023 01/14/2023 Higher is Better Phys Func - Score 44 (mild dysfunction) 57 (within normal limits) 52 (within normal limits) Phys Func - Percentile 27 76 58 Self-Eff Symptom - Score 46 (Average) Self-Eff Symptom - Percentile 34 T-scores: mean of general population = 50. 5 points is clinically meaningfully difference Percentiles provide an indication of how the patient's score ranks in relation to the general pop (more content not included)...[id number] History of Present illness Narrative* Mj Arriaza, PT - 06/14/2024 4:25 PM EDT Images from the original note were not included. Episode Visit Count: 1 Therapist That Will Accept/Oversee The Plan Of Care: Mj Casillasudeau Start of Care Date: 06/14/24 Onset Date: (a year and a half ago) Plan of Care Certification Date: 06/14/24 Next Certification Due Date: 09/13/24 REHABILITATION AND SPORTS THERAPY PHYSICAL THERAPY EVALUATION PLAN OF CARE: Assessment: Jade Jackson presents with chief complaint of R anterior and inferior shoulder pain that interferes with lifting, carrying, dressing, reaching behind back, use hand with arm at shoulder level . She presents with impairments in ADL's, flexibility, independence in exercise, overall function, patient reported outcome measures, posture, range of motion, and strength. PROMIS (Patient-Reported Outcomes Measurement Information System) scores were reviewed and identified as a rehabilitation concern. Prognosis for therapy is Good due to: current objective clinical presentation . She will benefit from skilled therapy services to meet the goals established for this plan of care as noted below. Goals for Episode of Care: established 06/14/24 Patient reported outcome of physical function will increase T-score by a minimum 5 points. [facility] in home exercise program. Patient will decrease R shoulder pain to 0/10 with functional activities to allow patient to improve lifting/carrying activities. Patient will increase active ROM of shoulder abduction to 135 degrees or greater to allow pt to improve performance of ADLs. Patient will demonstrate increase in R shoulder strength to 5-/5 during manual muscle testing in order to improve function for home management tasks. Perform reach behind her back without pain. Patient Goals: Eliminate R shoulder pain Time Frame for Goals and Treatment : (6-8 weeks) Planned Interventions, Frequency, and Duration: Current Frequency: 1x/week Duration: 4 weeks Total Number of Visits Planned: (6-8) Planned Treatment Interventions: Therapeutic exercise (42913), Neuromuscular re- education (28186), Manual therapy (21428), Therapeutic activities (81223), Patient/Family/Caregiver Education, Self-fdc management (99260), General Conditioning PLAN FOR NEXT VISIT: Assess the patient's response to her PT evaluation and HEP. Begin a rehabilitation program with emphasis on gentle but progressing RTC and holden-scapular strengthening (beginning with isometrics and progressing as pain allows) while working to restore her shoulder abduction and ER ROM. Patient demonstrates good understanding of plan of care and treatment. The above goals and plan of care were discussed and agreed upon by patient/family. SUBJECTIVE: The patient reports that she has been experiencing R anterior and inferior shoulder pain for the last year and a half. She reports that she mentioned her R shoulder pain at her usual wellness visit with her rheumatolgst this past July, but that she did not seek any PT as the exercises that her referring provider gave her helped. Since that time, the patient reports that her R shoulder pain is intermittent The patient also reports intermittent tlngling of the R hand and fingers. Denies any injury or change in activity that would have preceeded her current sypmtoms. Able to perform her personal ADLs without assistance. Does wake at night due to R shoulder pain. Denies any hx of R shoulder pain. Patient Goals: Eliminate R shoulder pain Functional Limitations: lifting, carrying, dressing, reaching behind back, use hand with arm at shoulder level Prior Level of Function: Independent without limitations Relevant History Past Relevant Medical Conditions: Comments Relevant Medical Conditions Comments: Osteopenia, RA Past Relevant Surgical Conditions: (none) Right or Left Handed: Right Employment: Retired Intake Information: Prescription present Previous Treatment: Exercises per physician Falls Interview: No positive findings with falls interview Aquatic Screen: No Pain: Pain Pain Level: 2 Pain Location: Shoulder - Right, Upper Arm - Right (anterior and inferior) Frequency: Intermittent Detailed Pain Score: Yes Worst Pain Level: 6 Best Pain Level: 0 Post Treatment Pain Post Treatment Pain Level: (Not addressed) Post Treatment Pain Location: Shoulder - Right PROMIS Scales 06/13/2024 07/15/2023 01/14/2023 Higher is Better Phys Func - Score 44 (mild dysfunction) 57 (within normal limits) 52 (within normal limits) Phys Func - Percentile 27 76 58 Self-Eff Symptom - Score 46 (Average) Self-Eff Symptom - Percentile 34 T-scores: mean of general population = 50. 5 points is clinically meaningfully difference Percentiles provide an indication of how the patient's score ranks in relation to the general population. Higher percentile rankings indicate better function/quality of life. 50th percentile is the average of the general population and indicates half of respondents had a worse score. OBJECTIVE MEASURES WITH LEVEL OF FUNCTION: Posture / Alignment Posture: Forward head, Rounded shoulders R Shoulder Alignment: Protracted scapula, Humeral internal rotation L Shoulder Alignment: Protracted scapula, Humeral internal rotation Shoulder Observations R Shoulder Palpation Tenderness: Supraspinatus, Lateral scapula (upper trapezius and pec major) L Shoulder Palpation Tenderness: No tenderness noted UE AROM R Shoulder Extension: 44 Degrees (R shoulder pain) R Shoulder Flex: 134 Degrees R Shoulder ABduction: 80 Degrees (R shoulder pain) R Shoulder Internal Rotation: 70 Degrees R Shoulder External Rotation: 50 Degrees L Shoulder Extension: 63 Degrees L Shoulder Flex: 137 Degrees L Shoulder ABduction: 160 Degrees L Shoulder Internal Rotation: 70 Degrees L Shoulder External Rotation: 80 Degrees UE Flexibility Flexibility: Upper Trapezius, Pectoral Muscles, Levator Scapulae R Upper Trapezius Flexibilty Comments: mild to moderate L Upper Trapezius Flexibility Comments: mild R Levator Scapulae Flexibilty Comments: mild to moderate L Levator Scapulae Flexibility Comments: mild R Pectorals Comments: moderate L Pectorals Comments: mild UE and Cervical Strength Strength Tested: Shoulder All R Shoulder Extension: 4/5 R Shoulder Flexion: 2+/5 R Shoulder Abduction (C5): 2-/5 R Shoulder Internal Rotation: 4+/5 R Shoulder External Rotation: 4/5 R Elbow Extension (C7): 5/5 R Elbow Flexion (C6): 5/5 L Shoulder Extension: 4+/5 L Shoulder Flexion: 4+/5 L Shoulder Abduction (C5): 4+/5 L Shoulder Internal Rotation: 5/5 L Shoulder External Rotation: (5-) L Elbow Extension (C7): 5/5 L Elbow Flexion (C6): 5/5 Vitals BP: 155/101 Education: Education Learning Preferences: Demonstration, Explanation, Performance, Printed Materials Barriers: Other: See Comment (financial) Learning/educational needs: Health promotion, Safety, Home exercise program, Plan of Care Education Provided: Yes, see treatment interventions for education provided Education Provided To: Patient Education Mode/Type: Demonstration, Explanation/Discussion, Literature/Printed Materials, Performance Response to Education/Teach Back: States/Identifies TREATMENT: PT Treatment Interventions: Therapeutic Exercise Evaluation Therapeutic Exercise: 1: *isometric shoulder ER (x10 5 sec hold RUE) 2: *isometric shoulder IR (x10 5 sec hold RUE) 3: *Scapular retractions with hold (x10 3 sec hold) Skilled Intervention: Patient was educated in proper exercise technique and purpose for exercises. Reviewed and educated patient on additions/changes for home exercise program as above (*). Skilled judgment was used in selection of appropriate interventions. Correct performance of therapeutic exercises was facilitated with verbal and visual cuing. Billing * Evaluation Low Complexity: 1 Unit Therapeutic Exercise Treatment Minutes: 8 Skilled Treatment Time Minutes (timed and untimed codes): 38 Total Session Time (minutes): 38 Session Start Time : 1354 Session Stop Time : 1432 Mj Arriaza PT, DPT * Mj Arriaza PT - 06/14/2024 2:29 PM EDT Program_ID:[id number] Access Code: [email or web address] URL: [email or web address] Date: 06-14-2024 Prepared By: Mj Arriaza Program Notes Exercises - Seated Scapular Retraction - 2 x daily - 7 x weekly - 2-3 sets - 10 reps - Standing Isometric Shoulder Internal Rotation at Doorway - 2 x daily - 7 x weekly - 2 sets - 10 reps - Standing Isometric Shoulder External Rotation with Doorway - 2 x daily - 7 x weekly - 2 sets - 10 reps documented in [facility] encounterC[facility]08-[facility] Instructions* Patient Instructions* Lida Coto APRN.[facility] - 05/26/2024 10:10 AM EDT Start doxycycline, take with food. May use albuterol inhaler as needed Continue supportive care at home May continue with zyrtec and add on Flonase 2 times daily, rinse mouth afterwards Consult placed for ENT for nasal polyp Follow up if no improvement. documented in this encounterC[facility]08-15-[facility]24 History of Present illness Narrative* Lida Coto APRN.CNP - 05/26/2024 10:00 AM EDT This is a 73 year old female who presents today with: Patient presents with: Acute Visit: URI/ allergy symptoms HISTORY OF PRESENT ILLNESS: Jade Jackson is a 73 year old female. Patient presents with: Acute Visit: URI/ allergy symptoms Here in the office for rhinorrhea, watery eyes, and cough. Symptoms started 12 days ago. Cough is productive at times, thick geronimo colored mucus at times. Post nasal drip. Refers her chest feels tight.No difficulty breathing, fever, or chills. 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 10 cm H2O. hydrOXYchloroQUINE (PLAQUENIL) 200 mg tablet take 1 tablet by mouth 2 times a day calcium carbonate (CALCIUM 600 ORAL) Take 600 mg by mouth two times a day. cholecalciferol, vitamin D3, (VITAMIN D3 ORAL) Take 12.5 mcg by mouth once daily. alendronate (FOSAMAX) 70 mg tablet Take 1 tablet by mouth one time a week. Take with a full glass of water, on an empty stomach; do NOT lie down for 30minutes. calcium-vits V9-L-M6-minerals 166.75 mg- 166.75 unit cap Take by mouth. ONE IN THE MORNING AND TWO IN THE EVENING psyllium Husk 0.52 gram capsule Take 0.52 g by mouth once daily. Multivitamin (MULTIPLE VITAMINS DAILY) ORAL Tab Take one(1) tablet daily. No current facility-administered medications for this visit. FAMILY HISTORY Problem Relation Age of Onset Allergies Mother Heart Mother Cancer Father GLIOBLASTOMA Allergies Father Coronary Artery Disease Father 70 Heart Father Hypertension Father Cancer Sister FOLLICULAR Cancer Maternal Grandfather Diabetes Sister Stroke Paternal Grandfather Social History Tobacco Use Smoking status: Former Packs/day: 0.50 Years: 21.00 Additional pack years: 0.00 Total pack years: 10.50 Types: Cigarettes Quit date: 04/02/2020 Years since quittin.1 Smokeless tobacco: Never Substance Use Topics Alcohol use: Yes Comment: rare Drug use: No REVIEW OF SYSTEMS GENERAL: No weight loss, malaise or fevers/chills HEENT: + Rhinorrhea, watery eyes NECK: Negative for lumps, goiter, pain and significant neck swelling RESPIRATORY: + Cough CARDIOVASCULAR: Negative for chest pain, leg swelling, orthopnea, or palpitations GI: No nausea, vomiting, or diarrhea/constipation. No hematochezia/melena. No heartburn or reflux symptoms. : No history of dysuria, frequency or incontinence MUSCULOSKELETAL: Negative for joint pain or swelling. SKIN: Negative for lesions, rash, and itching ENDOCRINE: Negative for cold or heat intolerance, polyuria, polydipsia and goiter NEURO: No history of headaches, syncope, paralysis, seizures or tremors MOOD: Negative for depression, anxiety, or suicidal ideation. EXAM: BP 114/72 Pulse 71 Resp 16 Wt 88.9 kg (195 lb 15.8 oz) SpO2 96% BMI 35.39 kg/m PHYSICAL EXAM: General Appearance: Well appearing, alert, in no acute distress, well-hydrated, well nourished. Skin: Skin color, texture, turgor normal, no suspicious rashes or lesions. Head: Normocephalic, no masses, lesions, tenderness or abnormalities. Eyes: Anicteric sclera. Pupils are equally round and reactive to light. Extraocular movements are intact. Ears: External ears normal, canals clear. TMs pearly judd. Nose/Sinuses: Positive findings: mucosa erythematous and swollen, nasal polyp noted in the left nares. Oropharynx: Lips, mucosa, and tongue normal, teeth and gums normal, oropharynx normal. Neck: Supple, no adenopathy; thyroid symmetric, normal size, no bruits. Lungs: Lungs clear to auscultation. No wheezing, rhonchi, rales. Cough. Heart: RRR without murmur, gallop, or rubs. No ectopy. Extremities: No deformities, edema, skin discoloration, clubbing or cyanosis. Good capillary refill. Peripheral Pulses: Normal, Capillary refill <2secs, strong peripheral pulses, Pulses palpable. Neurologic: Gait normal. Sensation grossly intact. ASSESSMENT/PLAN: 1. Bronchitis - ICD9: 490, ICD10: J40 (primary diagnosis) - Due to length of symptoms, will treat for bronchitis, start doxycycline. - May use albuterol inhaler as needed for shortness of breath or wheezing. - Instructed continue supportive care at home. - ALBUTEROL SULFATE HFA 90 MCG/ACTUATION AEROSOL INHALER - DOXYCYCLINE HYCLATE 100 MG TABLET 2. Nasal polyp - ICD9: 471.9, ICD10: J33.9 - CONSULT TO ENT Follow-up if no improvement. Discussed treatment plan and patient voices understanding. Patient's questions answered appropriately. Medications and potential side effects were discussed and patient voices understanding. Lida Coto APRN.CNP This note was partially generated using [employer] voice recognition system. Note was reviewed for accuracy. There may be minor misspellings or grammar miscues with [employer] voice recognition. documented in this encounterCher[facility]08-15-[facility]24 NoteHNO ID: [id number] Author: LIDA COTO APRN.CNP Service: ? Author Type: Nurse Practitioner Type: Progress Notes Filed: 05/26/2024 10:48 Note Text: This is a 73 year old female who presents today with: Patient presents with: Acute Visit: URI/ allergy symptoms HISTORY OF PRESENT ILLNESS: Jade Jackson is a 73 year old female. Patient presents with: Acute Visit: URI/ allergy symptoms Here in the office for rhinorrhea, watery eyes, and cough. Symptoms started 12 days ago. Cough is productive at times, thick geronimo colored mucus at times. Post nasal drip. Refers her chest feels tight. No difficulty breathing, fever, or chills. PAST MEDICAL HISTORY: PAST MEDICAL HISTORY No date: Arthritis 03/13/2015: Basal cell carcinoma Comment: nose No date: Mixed hyperlipidemia Comment: Hyperlipidemia No date: Sleep apnea Comment: compliant with CPAP No date: Unspecified hearing loss Comment: TOTAL DEAFNESS RIGHT, 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 SINCE AGE 7 PAST SURGICAL HISTORY 1958: ADENOIDECTOMY PRIMARY Comment: Adenoidectomy No date: APPENDECTOMY 06/26/2020: COLONOSCOPY FLX DX W/COLLJ SPEC WHEN PFRMD Comment: Colonoscopy No date: EYE SURGERY HX 1985: PAST SURGICAL HISTORY OF Comment: Cone bx 03/13/2015: SKIN BIOPSY HX No date: TONSILLECTOMY HX 1956: TONSILLECTOMY PRIMARY/SECONDARY Comment: Tonsillectomy ALLERGIES Cephalosporins and Penicillins MEDICATIONS Current Outpatient Medications Medication Sig CPAP CPAP tubing, head gear, ancillary supplies Life Time Supplies 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 10 cm H2O. hydrOXYchloroQUINE (PLAQUENIL) 200 mg tablet take 1 tablet by mouth 2 times a day calcium carbonate (CALCIUM 600 ORAL) Take 600 mg by mouth two times a day. cholecalciferol, vitamin D3, (VITAMIN D3 ORAL) Take 12.5 mcg by mouth once daily. alendronate (FOSAMAX) 70 mg tablet Take 1 tablet by mouth one time a week. Take with a full glass of water, on an empty stomach; do NOT lie down for 30minutes. calcium-vits E6-T-F2-minerals 166.75 mg- 166.75 unit cap Take by mouth. ONE IN THE MORNING AND TWO IN THE EVENING psyllium Husk 0.52 gram capsule Take 0.52 g by mouth once daily. Multivitamin (MULTIPLE VITAMINS DAILY) ORAL Tab Take one(1) tablet daily. No current facility-administered medications for this visit. FAMILY HISTORY Problem Relation Age of Onset Allergies Mother Heart Mother Cancer Father GLIOBLASTOMA Allergies Father Coronary Artery Disease Father 70 Heart Father Hypertension Father Cancer Sister FOLLICULAR Cancer Maternal Grandfather Diabetes Sister Stroke Paternal Grandfather Social History Tobacco Use Smoking status: Former Packs/day: 0.50 Years: 21.00 Additional pack years: 0.00 Total pack years: 10.50 Types: Cigarettes Quit date: 04/02/2020 Years since quittin.1 Smokeless tobacco: Never Substance Use Topics Alcohol use: Yes Comment: rare Drug use: No REVIEW OF SYSTEMS GENERAL: No weight loss, malaise or fevers/chills HEENT: + Rhinorrhea, watery eyes NECK: Negative for lumps, goiter, pain and significant neck swelling RESPIRATORY: + Cough CARDIOVASCULAR: Negative for chest pain, leg swelling, orthopnea, or palpitations GI: No nausea, vomiting, or diarrhea/constipation. No hematochezia/melena. No heartburn or reflux symptoms. : No history of dysuria, frequency or incontinence MUSCULOSKELETAL: Negative for joint pain or swelling. SKIN: Negative for lesions, rash, and itching ENDOCRINE: Negative for cold or heat intolerance, polyuria, polydipsia and goiter NEURO: No history of headaches, syncope, paralysis, seizures or tremors MOOD: Negative for depression, anxiety, or suicidal ideation. EXAM: BP 114/72 Pulse 71 Resp 16 Wt 88.9 kg (195 lb 15.8 oz) SpO2 96% BMI 35.39 kg/m? PHYSICAL EXAM: General Appearance: Well appearing, alert, in no acute distress, well-hydrated, well nourished. Skin: Skin color, texture, turgor normal, no suspicious rashes or lesions. Head: Normocephalic, no masses, lesions, tenderness or abnormalities. Eyes: Anicteric sclera. Pupils are equally round and reactive to light. Extraocular movements are intact. Ears: External ears normal, canals clear. TMs pearly judd. Nose/Sinuses: Positive findings: mucosa erythematous and swollen, nasal polyp noted in the left nares. Oropharynx: Lips, mucosa, and tongue normal, teeth and gums normal, oropharynx normal. Neck: Supple, no adenopathy; thyroid symmetric, normal size, no bruits. Lungs: Lungs clear to auscultation. No wheezing, rhonchi, rales. Cough. Heart: RRR without murmur, gallop, or rubs. No ectopy. Extremities: No deformities, edema, skin discoloration, clubbing or cyanosis. Good capillary refill. Peripheral Pulses: Normal, Capillary refill <2secs, strong peripheral pulses, Pulses palpable. Neurologic: Gait normal. Sensation grossly intact. ASSESSMENT/PLAN: 1. Bronchitis - ICD9: 490, ICD10: J40 (primary (more content not included)... [facility]06-27-[facility] Note* Letter - Coordinator, Mammography - 04/07/2024 10:44 AM EDT April 07, 2024 PID: [id number] Jade Jackson [address] [place] [address] Dear Ms. Jackson, We are pleased to inform you that the results of your recent breast imaging exam on 04/06/2024 are normal. Early detection of cancer is very important. We also understand recommendations regarding breast cancer screening are controversial. Please discuss with your primary care provider which strategy is best for you and whether a mammogram is right for you. Your imaging studies and report will be kept on file at [facility] as part of your permanent medical record and are available for your continuing care. Thank you for allowing us to help in meeting your health care needs. Sincerely, Dr. Arriaga Interpreting Radiologist [facility] (Normal over 40) [facility]06-27-[facility] Miscellaneous Notes* Letter - Coordinator, Mammography - 04/07/2024 10:44 AM EDT April 07, 2024 PID: [id number] Jade Jackson [address] [place] [address] Dear Ms. Jackson, We are pleased to inform you that the results of your recent breast imaging exam on 04/06/2024 are normal. Early detection of cancer is very important. We also understand recommendations regarding breast cancer screening are controversial. Please discuss with your primary care provider which strategy is best for you and whether a mammogram is right for you. Your imaging studies and report will be kept [facility] at [facility] as part of your permanent medical record and are available for your continuing care. Thank you for allowing us to help in meeting your health care needs. Sincerely, Dr. Arriaga Interpreting Radiologist [facility] (Normal over 40) documented in this encounterCherrington Hospital06-26-2024 History of Present illness Narrative* Holly Edward, Mammo Tech - 04/06/2024 10:30 AM EDT Radiology Service Progress Note PATIENT NAME: Jade Jackson DATE OF SERVICE: April 06, 2024 TIME: 10:30 AM PATIENT IDENTITY VERIFICATION COMPLETED USING TWO (2) IDENTIFIERS: Name and Date of confirmedby patient verbally. FALL SCREENING: Has the patient had 2 falls in the last year or 1 fall with injury or currently using an Ambulatory Assistive Device (Walker, Cane, Wheelchair, Crutches, etc.)? No PATIENT GENDER DATA: Female. status: : No status: NO. PATIENT RELEVANT IMPLANT DATA REVIEWED: Not Applicable PATIENT PRESENTS WITH AN IMPLANTABLE OR ATTACHED COMMISSION SPECIALIST: No RADIOLOGY DEPARTMENT: Mammography PERIPHERAL IV DATA: Not applicable SIGNED BY: Diana Portillo April 06, 2024 10:30 AM documented in this encounterCher[facility] Hospital04-05-2024 Miscellaneous Notes* Telephone Encounter - Lida Coto APRN.CNP - 01/15/2024 7:47 AM EDT Mammogram order has been placed. Lida Coto APRN.CNP documented in this encounterCher[facility]03-11-2024 Miscellaneous Notes* Telephone Encounter - Lida Coto APRN.CNP - 12/21/2023 7:28 AM EDT The following approved medication requests have been transmitted electronically. Requested Prescriptions Signed Prescriptions Disp Refills CPAP 1 Each 0 Sig: CPAP tubing, head gear, ancillary supplies Life Time Supplies 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 10 cm H2O. Lida Coto APRN.CNP Faxed to [employer] * Telephone Encounter - Dee Bonner MA - 12/18/2023 4:30 PM EST See Sokolint message. Dee Bonner MA documented in this encounterCherrington Hospital03-04-2024 Nurse Note* Keyana Ernandez MA - 12/14/2023 11:29 AM EST PLQ eye exam done on 08/03/2023. No evidence of PLQ toxicity. Ok to continue high risk medication. Report sent for scanning. Keyana Ernandez MA documented in this encounterCherrington Hospital10-06-2023 Instructions* Patient Instructions* Kendal iHgh MD - 07/17/2023 1:27 PM EDT 1. Continue hydroxychloroquine with annual eye exam 2. Osteoporosis labs anytime 3. Read about Fosamax at the following: [email or web address] 4. Our fax number is [phone] 5. Follow-up in 1 year documented in this encounterCherrington Hospital10-06-2023 History of Present illness Narrative* Kendal High MD - 07/17/2023 12:55 PM EDT Images from the original note were not included. Rheumatology FOLLOW UP VISIT Date of Service: 07/17/2023 Patient: Jade Jackson Medical Record: [id number] Primary Care Physician: Robina Sam MD Last Rheumatology visit: 01/15/2023 (with Kendal High) Chief Complaint: No chief complaint on file. This is a virtual visit using [employer] Video Visit. It required patient- provider interaction for the medical decision making as documented below. Patient consented to this form of visit. I have communicated my name and active licensure. The patient's identity and physical location wereverified at the time of this visit. Either the patient or their legal exhibit display representative has been informed of the risks and benefits of -- and alternatives to -- treatment through a remote evaluation andconsents to proceed with the evaluation remotely. 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 Has been studying z[place]ian Arthritis has been doing good, still on hcq Has worsening knee pain on top of kneecap, previously had it trimmed in surgery, not enough to interfere with activities, is on L>R No red hot swelling, knees worse with use especially with stairs Rarely using aleve, hot pad, voltaren, icy hot Starting to get numbness in pads of fingers, sometimes goes to hands and arms, not always present, no obvious pattern Increased vit D, may be related timing barnes Has ophtho appointment end of month Wonders about BP difference between arms, 120 on R, 136 on L No history of fractures ROS otherwise as below RHEUMATOLOGIC HISTORY She is currently taking hydroxychloroquine sulfate. Jade Levy is RF positive - 346 (03/25/2021). Her most recent EDOUARD was negative (03/25/2021). HISTORY OF PRESENT ILLNESS 1. Seropositive rheumatoid arthritis 2. Osteoporosis (osteopenia with elevated FRAX) DEXA 01/2023 lowest T score -1.7 left femoral neck FRAX 19% major, 4.7% hip Treatment: Hydroxychloroquine Work-up: Historic labs: Negative EDOUARD RF 346 Normal TSH Negative SSA, SSB 03/2021 hand x-rays: Normal Jade Jackson is a 72 year old White female with a history of CEDRIC on CPAP, hyperlipidemia, osteoarthritis, osteopenia who presents to rheumatology clinic to establish care with physician for seropositive rheumatoid arthritis. Chart review reveals she establish care with Dr. Lowe 06/2021 for CMC pain, back pain in the setting of high titer RF positivity. She was given a steroid injection for trigger finger of the leftthumb and put on conservative management for OA of CMC, knee, back. She was put on hydroxychloroquine in 2020 for empiric treatment of inflammatory arthritis. She then saw ZOË Weaver 07/2022 and noted 90 to 95% improvement of her joint symptoms with hydroxychloroquine. Today she presents to clinic alone. Unfortunately she lost her job last August and her insurance changed and now her hydroxychloroquine is significantly more expensive. She wonders if there is a different alternative that could be cheaper. Rheumatoid arthritis is overall under good control. She has morning stiffness in her hands lasting 10 to 15 minutes but no significant pain. She has low backstiffness lasting up to 30 minutes. She has had no flares or red hot swollen joints. She has left knee pain which is chronic since her previous left knee surgery. In terms of osteopenia, her mother had osteoporosis and broke a hip. Her sister has osteoporosis. She takes vitamin D regularly, is a former smoker about 50 years, quit 2019, 1.5 packs a day. Rare alcohol use. She does drink coffee about 5 cups a day. She has had no osteoporotic fractures. Rheumatologic review of systems notable for dry mouth and dry eyes since wearing her CPAP. Her hands turn purple in the cold. She is concerned about vertical nail ridges. She has lost 20 pounds intentionally with a change in diet and increase exercise. Sometimes she gets numbness in her fingers. She otherwise denies fevers, night sweats, unintentional weight loss, history of uveitis, sores in hernose or mouth, malar rash, photosensitivity, cough, ingestion, chest pain, shortness of breath, nausea, vomiting, abdominal pain, constipation, diarrhea, blood in her urine or stool, Raynaud's. Pain Evaluation Pain Evaluation 06/28/2020 03/25/2021 06/24/2021 07/14/2022 01/14/2023 Pain Score 0 2 4 2 1 Location - Hand-Left - - Back-Lower Description - Pressure Ulcer/Injury;Shooting;Sharp Dull;Sharp Sharp;Aching Stiffness Duration (#) - 2 - - 30 Duration (Timeframe) - Months Years Months Minutes Frequency - Continuous Intermittent Continuous Intermittent Intervention - Medication;Heat;Cold Declined Declined Other: See comment Rheum/Ortho Arthrocentesis Injections (last 5) Some values may be hidden. Unless noted otherwise, only the newest values recorded on each date aredisplayed. Injection History 06/24/21 Medication 20 mg triamcinolone acetonide 40 mg/mL Location thumb PATIENT-ENTERED DATA PROMIS Assessments PROMIS Assessments 07/10/2022 01/14/2023 07/15/2023 Physical Health Percentile 53 % 53 % 78 % Mental Health Percentile 34 % 43 % 63 % Pain Score 4 4 4 Pain Interference Percentile 38 % 84 % 38 % Fatigue Percentile 38 % 62 % 58 % Physical Function Percentile 42 % 58 % 76 % RAPID 3 Garcia Activities of Daily Living 07/15/2023 3:18 PM 01/14/2023 6:18 PM 07/10/2022 9:18 PM First answer obtained - 06/24/2021 9:13 AM Dress self? Without ANY difficulty Without ANY difficulty Without ANY difficulty With MUCH difficulty Get in and out of bed? With SOME difficulty Without ANY difficulty Without ANY difficulty With SOMEdifficulty Walk outdoors? Without ANY difficulty Without ANY difficulty Without ANY difficulty Without ANY difficulty Wash and dry body? Without ANY difficulty Without ANY difficulty Without ANY difficulty With SOME difficulty Get in and out of car? Without ANY difficulty Without ANY difficulty With SOME difficulty Without ANY difficulty RAPID 3 Disease Activity Weighed Score Levels: 0 - 1: Near Remission 1.3 - 2.0: Low Severity 2.3 - 4.0: Moderate Severity 4.3 - 10.0: High Severity RAPID-3 Weighed Score 07/10/2022 01/14/2023 07/15/2023 RAPID 3 Weighed Score 2.17 (Moderate Severity (MS)) 0.5 (Near Remission (NR)) 0.44 (Near Remission (NR)) RAPID-3 07/15/2023 Weighed Score Percentage Change Compared to Last Score -12 % Review of Systems CONSTITUTION: Negative for: Fever and Recent weight change HEENT: Positive for: Dry mouth Negative for: Nosebleeds, Mouth sores and Trouble swallowing RESPIRATORY: Negative for: Cough, Shortness of breath and Pain with breathing GASTROINTESTINAL: Negative for: Melena, Diarrhea, Heartburn and Abdominal pain MUSCULOSKELETAL: Positive for: Arthralgias and Morning Joint Stiffness Negative for: Myalgias, Muscle weakness and Joint swelling NEUROLOGICAL: Positive for: Numbness Negative for: Headaches and Memory loss SKIN: Negative for: Rash, Skin changes, Hair loss and Nail changes EYES: Positive for: Eye dryness Negative for: Eye pain, Eye redness and visual disturbance CARDIOVASCULAR: Negative for: Chest pain and Leg swelling GENITOURINARY: Negative for: Dysuria and Hematuria HEMATOLOGIC/LYMPHATIC: Negative for: Swollen glands REVIEW OF SYSTEMS Complete ROS (HEENT, respiratory, cardiology, GI, , skin, psych, hematology, endocrine, neuro, musculoskeletal) negative except as noted in HPI. HISTORIES Past medical, surgical, family, and social history reviewed and notable changes since last visit include: Noted in HPI MEDICATIONS Current Outpatient Medications Medication Sig hydrOXYchloroQUINE (PLAQUENIL) 200 mg tablet take 1 tablet by mouth 2 times a day CPAP CPAP tubing, head gear, ancillary supplies Life Time Supplies 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 10 cm H2O. calcium-vits A5-P-I5-minerals 166.75 mg- 166.75 unit cap Take by mouth. ONE IN THE MORNING AND TWO IN THE EVENING psyllium Husk 0.52 gram capsule Take 0.52 g by mouth once daily. Multivitamin (MULTIPLE VITAMINS DAILY) ORAL Tab Take one(1) tablet daily. Last Ophthalmology Check for Plaquenil (Hydroxychloroquine) Last OCT Macula Exam No resulted procedures found. Last Visual Field Exam No resulted procedures found. ALLERGIES ALLERGIES Allergen Reactions Cephalosporins Swelling Penicillins Anaphylaxis PHYSICAL EXAM Appears well over the video, speech is confluent, no obvious rashes LABS Reviewed in Epic, notable for: Pending, ordered today CBC Latest Ref Rng & Units 04/09/2020 04/11/2020 03/25/2021 07/14/2022 WBC 3.70 - 11.00 k/uL 11.22(H) 11.20(H) 7.79 8.56 HEMOGLOBIN 11.5 - 15.5 g/dL 11.1(L) 10.4(L) 13.5 13.4 HEMATOCRIT 36.0 - 46.0 % 35.0(L) 32.9(L) 41.7 41.3 PLATELETS 150 - 400 k/uL 243 295 245 264 ABS NEUT (ANC) 1.45 - 7.50 k/uL - - 4.37 4.48 ABS LYMPH 1.00 - 4.00 k/uL - - 2.56 3.04 CMP Latest Ref Rng & Units 03/25/2021 06/24/2021 07/14/2022 08/18/2022 SODIUM 136 - 144 mmol/L 141 - - 141 POTASSIUM 3.7 - 5.1 mmol/L 4.1 - - 4.0 CHLORIDE 97 - 105 mmol/L 104 - - 105 CO2 22 - 30 mmol/L 25 - - 23 GLUCOSE 74 - 99 mg/dL 76 - - 94 BUN 7 - 21 mg/dL 13 - - 13 CREATININE 0.58 - 0.96 mg/dL 1.13(H) 0.81 0.87 0.96 CALCIUM, TOTAL 8.5 - 10.2 mg/dL 10.1 - - 9.4 AST 13 - 35 U/L 23 - 19 15 ALT 7 - 38 U/L 15 - 19 14 ALKALINE PHOSPHATASE 34 - 123 U/L 98 - - 97 ESR, WSR Latest Ref Rng & Units 03/25/2021 07/14/2022 WSR 0 - 20 mm/hr 10 8 CRP Latest Ref Rng & Units 03/25/2021 07/14/2022 CRP <0.9 mg/dL <0.3 <0.3 RF and CCP Latest Ref Rng & Units 03/25/2021 RHEUMATOID FACTOR <16 IU/mL 346(H) Hepatitis Screen Latest Ref Rng & Units 04/04/2020 HEPCABEIA Negative Negative Antibodies Latest Ref Rng & Units 03/25/2021 06/24/2021 EDOUARD BY EIA OD Ratio 0.5 - EDOUARD BY EIA, QUAL Negative Negative - ANTI-SSA <1.0 AI - <0.2 ANTI-SSB <1.0 AI - <0.2 Urinalysis Latest Ref Rng & Units 04/04/2020 PROTEIN UA (POCT) Negative mg/dL Negative IMAGING Reviewed in Epic, notable for: DEXA 01/2023 lowest T score -1.7 left femoral neck FRAX 19% major, 4.7% hip ASSESSMENT Jade Jackson is a 72 year old White female with a history of CEDRIC on CPAP, hyperlipidemia, osteoarthritis, osteopenia who presents to rheumatology virtual clinic for follow-up of seropositive rheumatoid arthritis. She continues to be in remission with hydroxychloroquine. We will continue this at this time. Up-to-date with annual eye exams, due 08/2023. Of note she had bone density with osteopenia with elevated FRAX qualifying her as osteoporosis and she would qualify for treatment with Fosamax. She has no significant GERD. We will check osteoporosis labs anytime and send her information on starting alendronate if she is interested. Continue vitamin D for now. IMPRESSIONS Diagnoses: (M05.9) Seropositive rheumatoid arthritis (HCC) (primary encounter diagnosis) (M81.0) Postmenopausal osteoporoses (Z79.899) Encounter for long-term (current) use of medications (Z79.899) Long-term use of hydroxychloroquine (M25.561) Mechanical pain of right knee (M25.562) Mechanical knee pain, left PLAN 1. Continue hydroxychloroquine 400 mg a day 2. Annual eye exam due 08/2023 3. Osteoporosis labs anytime 4. If labs look okay we will recommend alendronate 5. Continue conservative management for bilateral knee pain, physical therapy ordered if she would like to make an appointment 6. Follow-up 12 months in person Orders this visit: Appointment on 07/17/23 PTH INTACT BLD VITAMIN D 25 HYDROXY MAGNESIUM BLD PHOSPHORUS INORGANIC CALCIUM IONIZED BLOOD COMP METABOLIC PANEL CBC + DIFF CONSULT TO PHYSICAL THERAPY No follow-ups on file. I spent a total of 28 minutes on the date of the service which included preparing to see the patient, [id number] patient care, completing clinical documentation, obtaining and/or reviewing separately obtained history, counseling and educating the patient/family/caregiver, and ordering medications, tests, or procedures. This note was partially generated with the assistance of [employer] voice recognition software. An attempt was made to correct any dictation errors however there may be some incorrect words, spellings, and punctuation. Kendal High MD Rheumatology Date: July 17, 2023 Time: 12:55 PM documented in this encounterCherrington Hospital09-26-2023 Miscellaneous Notes* Telephone Encounter - Keyana Ernandez MA - 07/07/2023 7:59 AM EDT Patient has been identified by name and date of : Yes RX INSTRUCTIONS: Patient aware RX will be sent to pharmacy. No need to notify patient. PLQ eye exam done on 08/28/2022 at [facility]. No evidence of PLQ toxicity. LAST APPOINTMENT: 01/15/2023 UPCOMING APPOINTMENT: 07/17/2023 LABS: Hemoglobin (g/dL) Date Value 07/14/2022 13.4 03/25/2021 13.5 Hematocrit (%) Date Value 07/14/2022 41.3 03/25/2021 41.7 WBC (k/uL) Date Value 07/14/2022 8.56 03/25/2021 7.79 Platelet Count (k/uL) Date Value 07/14/2022 264 03/25/2021 245 AST Date Value Ref Range Status 08/18/2022 15 13 - 35 U/L Final ALT Date Value Ref Range Status 08/18/2022 14 7 - 38 U/L Final Creatinine Date Value Ref Range Status 08/18/2022 0.96 0.58 - 0.96 mg/dL Final No results found for: URICACID Keyana Ernandez MA documented in this encounterCherrington Hospital06-26-2023 Miscellaneous Notes* Letter - Mammography Coordinator - 04/06/2023 12:32 PM EDT April 07, 2023 PID: [id number] Jade Jackson [facility] [place] [address] Dear Argelia Jackson, We are pleased to inform you that the results of your recent breast imaging exam on 04/03/2023 are normal. Early detection of cancer is very important. We also understand recommendations regarding breast cancer screening are controversial. Please discuss with your primary care provider which strategy is best for you and whether a mammogram is right for you. Your imaging studies and report will be kept on file at [facility] as part of your permanent medical record and are available for your continuing care. Thank you for allowing us to help in meeting your health care needs. Sincerely, Dr. Maldonado Interpreting Radiologist [facility] (Normal over 40) documented in this encounterCherrington Hospital06-23-2023 History of Present illness Narrative* Shayna Chisholm RT(R) - 04/03/2023 10:50 AM EDT Radiology Service Progress Note PATIENT NAME: Jade Jackson DATE OF SERVICE: April 03, 2023 TIME: 10:44 AM PATIENT IDENTITY VERIFICATION COMPLETED USING TWO (2) IDENTIFIERS: Name and Date of confirmedby patient verbally. FALL SCREENING: Has the patient had 2 falls in the last year or 1 fall with injury or currently using an Ambulatory Assistive Device (Walker, Cane, Wheelchair, Crutches, etc.)? No PATIENT GENDER DATA: Female. status: : No status: NO. PATIENT RELEVANT IMPLANT DATA REVIEWED: Not Applicable RADIOLOGY DEPARTMENT: Mammography PERIPHERAL IV DATA: Not applicable SIGNED BY: RT Subhash(R) April 03, 2023 10:44 AM documented in this encounterCherrington Hospital06-13-2023 Miscellaneous Notes* Telephone Encounter - Angella Che Ma - 03/24/2023 3:50 PM EDT Mammogram scheduled. * Telephone Encounter - Angella Che Ma - 03/23/2023 3:41 PM EDT Pt sent [employer] message notifying her Mamm order has been placed and she need to call and schedule. Routed to corporate scheduler pool as well to call pt to schedule, if pt doesn't call in already to do so. Angella Che Ma * Telephone Encounter - Robina Sam MD - 03/23/2023 3:26 PM EDT Order filed Robina Sam MD * Telephone Encounter - Angella Che Ma - 03/23/2023 8:06 AM EDT Pended Mamm order, update pt once ordered. Angella Che Ma * Telephone Encounter - Christie Santos - 03/21/2023 12:41 PM EDT Pt is requesting an order for a mammogram documented in this encounterCherrington Hospital04-19-2023 Miscellaneous Notes* Telephone Encounter - Nani Duncan LPN - 01/28/2023 12:09 PM EDT Patient notified of results, verbalizes understanding of instructions. Nani Duncan LPN * Telephone Encounter - Lida Coto APRN.CNP - 01/28/2023 12:01 PM EDT Can you please call the patient and let her know that I reviewed her bone density results. Bone density came back positive for osteopenia. This is the stage prior to osteoporosis. I would recommend that she get adequate forms of calcium and vitamin D. Calcium 600 to 1200 mg daily and vitamin D 1000 to 2000 international units daily. Strength training and exercise are great ways to keep the bones healthy. No further testing is needed at this time. Please let me know if she has any questions. Thank you. Lida Coto APRN.EDWIN documented in this encounterCherrington Hospital04-17-2023 History of Present illness Narrative* Zaheer Toscano RT(Mari) - 01/26/2023 12:30 PM EDT Radiology Service Progress Note PATIENT NAME: Jade Jackson DATE OF SERVICE: January 26, 2023 TIME: 12:41 PM PATIENT IDENTITY VERIFICATION COMPLETED USING TWO (2) IDENTIFIERS: Name and Date of confirmedby patient verbally. FALL SCREENING: Has the patient had 2 falls in the last year or 1 fall with injury or currently using an Ambulatory Assistive Device (Walker, Cane, Wheelchair, Crutches, etc.)? No PATIENT GENDER DATA: Female. status: : No status: NO. PATIENT RELEVANT IMPLANT DATA REVIEWED: Not Applicable RADIOLOGY DEPARTMENT: Bone Density PERIPHERAL IV DATA: Not applicable SIGNED BY: RT Vivian(R) January 26, 2023 12:41 PM documented in this encounterCherrington Hospital04-06-2023 Instructions* Patient Instructions* Kendal High MD - 01/15/2023 12:22 PM EDT OK to continue the hydroxychloroquine 2 pills a day Let me know about leflunamide, sulfasalazine, or methotrexate Due for bone density anytime Blood work anytime to check vit D Follow up 6-12 months, ok to be virtual documented in this encounterCherrington Hospital04-06-2023 History of Present illness Narrative* Kendal High MD - 01/15/2023 12:00 PM EDT Images from the original note were not included. And 07/2022: Unremarkable CBC, LFTs, creatinine, ESR, CRP Historic labs: Negative EDOUARD RF 346 Normal TSH Negative SSA, SSB 08/16/2018 DEXA: Lowest T score -1.4 osteopenia with FRAX 15% major, 1.7% hip Rheumatology FOLLOW UP VISIT Date of Service: 01/15/2023 Patient: Jade Jackson Medical Record: [id number] Primary Care Physician: Robina Sam MD Last Rheumatology visit: 07/14/2022 (with Lopez Weaver) Chief Complaint: New Patient INTERVAL HISTORY Jade Jackson is a 72 year old White female with a history of CEDRIC on CPAP, hyperlipidemia, osteoarthritis, osteopenia who presents to rheumatology clinic to establish care with physician for seropositive rheumatoid arthritis. Chart review reveals she establish care with Dr. Lowe 06/2021 for CMC pain, back pain in the setting of high titer RF positivity. She was given a steroid injection for trigger finger of the leftthumb and put on conservative management for OA of CMC, knee, back. She was put on hydroxychloroquine in 2020 for empiric treatment of inflammatory arthritis. She then saw ZOË Weaver 07/2022 and noted 90 to 95% improvement of her joint symptoms with hydroxychloroquine. Today she presents to clinic alone. Unfortunately she lost her job last August and her insurance changed and now her hydroxychloroquine is significantly more expensive. She wonders if there is a different alternative that could be cheaper. Rheumatoid arthritis is overall under good control. She has morning stiffness in her hands lasting 10 to 15 minutes but no significant pain. She has low backstiffness lasting up to 30 minutes. She has had no flares or red hot swollen joints. She has left knee pain which is chronic since her previous left knee surgery. In terms of osteopenia, her mother had osteoporosis and broke a hip. Her sister has osteoporosis. She takes vitamin D regularly, is a former smoker about 50 years, quit 2019, 1.5 packs a day. Rare alcohol use. She does drink coffee about 5 cups a day. She has had no osteoporotic fractures. Rheumatologic review of systems notable for dry mouth and dry eyes since wearing her CPAP. Her hands turn purple in the cold. She is concerned about vertical nail ridges. She has lost 20 pounds intentionally with a change in diet and increase exercise. Sometimes she gets numbness in her fingers. She otherwise denies fevers, night sweats, unintentional weight loss, history of uveitis, sores in hernose or mouth, malar rash, photosensitivity, cough, ingestion, chest pain, shortness of breath, nausea, vomiting, abdominal pain, constipation, diarrhea, blood in her urine or stool, Raynaud's. RHEUMATOLOGIC HISTORY Jade Levy reports a current pain level of 1 (Back-Lower). She describes the pain as Stiffness. The pain is Intermittent, and has lasted for 30 Minutes. Interventions tried include Other: See comment. mainly on first getting up in the morning, usually relieved by gentle stretching. She is currently taking hydroxychloroquine sulfate. Jade Levy is RF positive - 346 (03/25/2021). Her most recent EDOUARD was negative (03/25/2021). Pain Evaluation Pain Evaluation 06/28/2020 03/25/2021 06/24/2021 07/14/2022 01/14/2023 Pain Score 0 2 4 2 1 Location - Hand-Left - - Back-Lower Description - Pressure Ulcer/Injury;Shooting;Sharp Dull;Sharp Sharp;Aching Stiffness Duration (#) - 2 - - 30 Duration (Timeframe) - Months Years Months Minutes Frequency - Continuous Intermittent Continuous Intermittent Intervention - Medication;Heat;Cold Declined Declined Other: See comment Rheum/Ortho Arthrocentesis Injections (last 5) Some values may be hidden. Unless noted otherwise, only the newest values recorded on each date aredisplayed. Injection History 06/24/21 Medication 20 mg triamcinolone acetonide 40 mg/mL Location thumb PATIENT-ENTERED DATA PROMIS Assessments PROMIS Assessments 06/24/2021 07/10/2022 01/14/2023 Physical Health Percentile 31 % 53 % 53 % Mental Health Percentile 26 % 34 % 43 % Pain Score 3 4 4 Pain Interference Percentile - 38 % 84 % Fatigue Percentile - 38 % 62 % Physical Function Percentile - 42 % 58 % RAPID 3 Garcia Activities of Daily Living 01/14/2023 6:18 PM 07/10/2022 9:18 PM 06/24/2021 9:13 AM Dress self? Without ANY difficulty Without ANY difficulty With MUCH difficulty Get in and out of bed? Without ANY difficulty Without ANY difficulty With SOME difficulty Walk outdoors? Without ANY difficulty Without ANY difficulty Without ANY difficulty Wash and dry body? Without ANY difficulty Without ANY difficulty With SOME difficulty Get in and out of car? Without ANY difficulty With SOME difficulty Without ANY difficulty RAPID 3 Disease Activity Weighed Score Levels: 0 - 1: Near Remission 1.3 - 2.0: Low Severity 2.3 - 4.0: Moderate Severity 4.3 - 10.0: High Severity RAPID-3 Weighed Score 06/24/2021 07/10/2022 01/14/2023 RAPID 3 Weighed Score Incomplete 2.17 (Moderate Severity (MS)) 0.5 (Near Remission (NR)) RAPID-3 01/14/2023 Weighed Score Percentage Change Compared to Last Score -76.96 % Review of Systems CONSTITUTION: Negative for: Fever and Recent weight change HEENT: Positive for: Dry mouth Negative for: Nosebleeds, Mouth sores and Trouble swallowing RESPIRATORY: Negative for: Cough, Shortness of breath and Pain with breathing GASTROINTESTINAL: Negative for: Melena, Diarrhea, Heartburn and Abdominal pain MUSCULOSKELETAL: Positive for: Arthralgias, Myalgias and Morning Joint Stiffness Negative for: Muscle weakness and Joint swelling NEUROLOGICAL: Positive for: Numbness Negative for: Headaches and Memory loss SKIN: Positive for: Nail changes Negative for: Rash, Skin changes and Hair loss EYES: Positive for: Eye dryness Negative for: Eye pain, Eye redness and visual disturbance CARDIOVASCULAR: Negative for: Chest pain and Leg swelling GENITOURINARY: Negative for: Dysuria and Hematuria HEMATOLOGIC/LYMPHATIC: Negative for: Swollen glands REVIEW OF SYSTEMS Complete ROS (HEENT, respiratory, cardiology, GI, , skin, psych, hematology, endocrine, neuro, musculoskeletal) negative except as noted in HPI. HISTORIES Past medical, surgical, family, and social history reviewed and notable changes since last visit include: Noted in HPI MEDICATIONS Current Outpatient Medications Medication Sig hydrOXYchloroQUINE (PLAQUENIL) 200 mg tablet TAKE 1 TABLET BY MOUTH TWICE DAILY CPAP CPAP tubing, head gear, ancillary supplies Life Time Supplies 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 10 cm H2O. calcium-vits R0-E-H0-minerals 166.75 mg- 166.75 unit cap Take by mouth. ONE IN THE MORNING AND TWO IN THE EVENING psyllium Husk 0.52 gram capsule Take 0.52 g by mouth once daily. Multivitamin (MULTIPLE VITAMINS DAILY) ORAL Tab Take one(1) tablet daily. Last Ophthalmology Check for Plaquenil (Hydroxychloroquine) Last OCT Macula Exam No resulted procedures found. Last Visual Field Exam No resulted procedures found. ALLERGIES ALLERGIES Allergen Reactions Cephalosporins Swelling Penicillins Anaphylaxis PHYSICAL EXAM VITAL SIGNS: BP 152/80 Pulse 65 Temp (Src) 97.5 (Temporal) Ht 5' 5 (1.65m) Wt 190 lb (86.2kg) BMI 31.62 kg/(m^2). GENERAL: Alert and oriented, appears a stated age. In no acute distress. EYES: PERRL, EOMI, anicteric sclerae, no conjunctival injection HENT: Normal external examination of the ears and nose, lips, oropharynx and tongue. No oropharyngeal lesions or exudate. No oral or nasal sores. Upper denture in place, lower teeth look good. Moist oral mucosa. NECK: No mass or asymmetry. No lymphadenopathy RESPIRATORY: Normal respiratory effort. Clear to auscultation bilaterally CARDIOVASCULAR: Regular in rate and rhythm without murmurs, rubs, or gallops ABDOMEN: Soft, nontender, nondistended NEUROLOGIC: No gross focal neurologic deficits. Cranial nerves II-XII grossly intact. SKIN: No rash, thickening, nodules, discoloration. Normal nails. MSK: Normal range of motion, no deformities, no swelling, and no tenderness in the hands, wrists, elbows, shoulders, spine, hips, knees, ankles, feet except as noted below: Heberden's nodes No synovitis or tenderness LABS Reviewed in Epic, notable for: No recent relevant labs CBC Latest Ref Rng & Units 04/09/2020 04/11/2020 03/25/2021 07/14/2022 WBC 3.70 - 11.00 k/uL 11.22(H) 11.20(H) 7.79 8.56 HEMOGLOBIN 11.5 - 15.5 g/dL 11.1(L) 10.4(L) 13.5 13.4 HEMATOCRIT 36.0 - 46.0 % 35.0(L) 32.9(L) 41.7 41.3 PLATELETS 150 - 400 k/uL 243 295 245 264 ABS NEUT (ANC) 1.45 - 7.50 k/uL - - 4.37 4.48 ABS LYMPH 1.00 - 4.00 k/uL - - 2.56 3.04 CMP Latest Ref Rng & Units 03/25/2021 06/24/2021 07/14/2022 08/18/2022 SODIUM 136 - 144 mmol/L 141 - - 141 POTASSIUM 3.7 - 5.1 mmol/L 4.1 - - 4.0 CHLORIDE 97 - 105 mmol/L 104 - - 105 CO2 22 - 30 mmol/L 25 - - 23 GLUCOSE 74 - 99 mg/dL 76 - - 94 BUN 7 - 21 mg/dL 13 - - 13 CREATININE 0.58 - 0.96 mg/dL 1.13(H) 0.81 0.87 0.96 CALCIUM, TOTAL 8.5 - 10.2 mg/dL 10.1 - - 9.4 AST 13 - 35 U/L 23 - 19 15 ALT 7 - 38 U/L 15 - 19 14 ALKALINE PHOSPHATASE 34 - 123 U/L 98 - - 97 ESR, WSR Latest Ref Rng & Units 03/25/2021 07/14/2022 WSR 0 - 20 mm/hr 10 8 CRP Latest Ref Rng & Units 03/25/2021 07/14/2022 CRP <0.9 mg/dL <0.3 <0.3 RF and CCP Latest Ref Rng & Units 03/25/2021 RHEUMATOID FACTOR <16 IU/mL 346(H) Hepatitis Screen Latest Ref Rng & Units 04/04/2020 HEPCABEIA Negative Negative Antibodies Latest Ref Rng & Units 03/25/2021 06/24/2021 EDOUARD BY EIA OD Ratio 0.5 - EDOUARD BY EIA, QUAL Negative Negative - ANTI-SSA <1.0 AI - <0.2 ANTI-SSB <1.0 AI - <0.2 Urinalysis Latest Ref Rng & Units 04/04/2020 PROTEIN UA (POCT) Negative mg/dL Negative IMAGING Reviewed in Epic, notable for: Jade Jackson is a 72 year old White female with a history of CEDRIC on CPAP, hyperlipidemia, osteoarthritis, osteopenia who presents to rheumatology clinic to establish care with physician for seropositive rheumatoid arthritis. ASSESSMENT Jade Jackson is a 72 year old White female with a history of CEDRIC on CPAP, hyperlipidemia, osteoarthritis, osteopenia who presents to rheumatology clinic to establish care with physician for seropositive rheumatoid arthritis. Today she is presenting with well controlled seropositive nonerosive rheumatoid arthritis on hydroxychloroquine monotherapy. Ideally we continue this since she has gotten such a good response. Discussed options of sulfasalazine, leflunomide, methotrexate. Given mild disease, would prefer leflunomide or sulfasalazine. She will look up these medications with her insurance and decide if it is a financial benefit to switch. Discussed risks including nausea, diarrhea, cytopenias, LFT elevation, and need for regular lab monitoring. Handouts given. She is due for her bone density, ordered by PCP, encouraged her to get it. We will check vitamin D with next set of labs, ordered IMPRESSIONS Diagnoses: (M05.9) Seropositive rheumatoid arthritis (HCC) (primary encounter diagnosis) (Z79.899) Encounter for long-term (current) use of medications (M85.80) Osteopenia, unspecified location PLAN 1. Continue hydroxychloroquine 400 mg daily 2. We may switch to either leflunomide, sulfasalazine, or methotrexate, she will let me know based on finances. Handouts given 3. Bone density ordered by PCP 4. Follow-up vitamin D level, continue vitamin D supplement 5. Follow-up 6 to 12 months, okay to be virtual Orders this visit: Office Visit on 01/15/23 VITAMIN D 25 HYDROXY Return in about 6 months (around 07/17/2023). I spent a total of 38 minutes on the date of the service which included preparing to see the patient, [id number] patient care, completing clinical documentation, obtaining and/or reviewing separately obtained history, performing a medically appropriate examination, counseling and educating the pat ient/family/caregiver, and ordering medications, tests, or procedures. This note was partially generated with the assistance of [employer] voice recognition software. An attempt was made to correct any dictation errors however there may be some incorrect words, spellings, and punctuation. Kendal High MD Rheumatology Date: January 15, 2023 Time: 12:32 PM documented in this encounterCherrington Hospital01-26-2023 Miscellaneous Notes* Telephone Encounter - Angella Che Ma - 11/06/2022 9:47 AM EST Form completed and faxed back to [facility] at [phone]. Angella Che Ma * Telephone Encounter - Robina Sam MD - 11/06/2022 9:19 AM EST Form done Robina Sam MD * Telephone Encounter - Tobin Ascencio LPN - 11/05/2022 3:47 PM EST Type of form: Medical Necessity Form received via fax When form is completed, Fax form to [phone] Form has been forwarded to nurse's desk Tobin Ascencio LPN documented in this encounterCherrington Hospital12-14-2022 Miscellaneous Notes* Telephone Encounter - Dee Bonner Ma - 09/24/2022 10:45 AM EST Faxed. Dee Bonner Ma * Telephone Encounter - Dee Bonner Ma - 09/23/2022 2:04 PM EST Type of letter/form/fax request - CEDRIC supply Form received from fax on 1 floor and placed on MD desk (Dr. Sam) for completion. Completed form needs to be faxed to [facility]. Route to [place] when form completed for processing documented in this encounterCherrington Hospital12-01-2022 Miscellaneous Notes* Telephone Encounter - Lopez Weaver APRN.EDWIN - 09/11/2022 2:38 PM EST Duplicate request. Requested Prescriptions Refused Prescriptions Disp Refills hydrOXYchloroQUINE (PLAQUENIL) 200 mg tablet 180 tablet 0 Sig: Take 1 tablet by mouth twice daily. Refused By: LOPEZ WEAVER Reason for Refusal: A Refill not appropriate Lopez Weaver APRN.EDWIN * Telephone Encounter - Keyana Ernandez MA - 09/11/2022 1:59 PM EST Patient's request for medication has been refused. See reason and notify patient. Requested Prescriptions Pending Prescriptions Disp Refills hydrOXYchloroQUINE (PLAQUENIL) 200 mg tablet 180 tablet 0 Sig: Take 1 tablet by mouth twice daily. Duplicate request. Keyana Ernandez MA documented in this encounterCherrington Hospital12-01-2022 Miscellaneous Notes* Telephone Encounter - Lopez Weaver APRN.EDWIN - 09/11/2022 2:37 PM EST The following approved medication requests have been transmitted electronically. Requested Prescriptions Signed Prescriptions Disp Refills hydrOXYchloroQUINE (PLAQUENIL) 200 mg tablet 180 tablet 1 Sig: TAKE 1 TABLET BY MOUTH TWICE DAILY Authorizing Provider: LOPEZ WEAVER APRN.EDWIN * Telephone Encounter - Keyana Ernandez MA - 09/11/2022 1:42 PM EST Patient has been identified by name and date of : Yes RX INSTRUCTIONS: Patient aware RX will be sent to pharmacy. No need to notify patient. PLQ eye exam done on 08/28/2022 at [facility]. No evidence of PLQ toxicity. LAST APPOINTMENT: 07/14/2022 UPCOMING APPOINTMENT: 01/15/2023 LABS: Hemoglobin (g/dL) Date Value 07/14/2022 13.4 03/25/2021 13.5 Hematocrit (%) Date Value 07/14/2022 41.3 03/25/2021 41.7 WBC (k/uL) Date Value 07/14/2022 8.56 03/25/2021 7.79 Platelet Count (k/uL) Date Value 07/14/2022 264 03/25/2021 245 AST Date Value Ref Range Status 08/18/2022 15 13 - 35 U/L Final ALT Date Value Ref Range Status 08/18/2022 14 7 - 38 U/L Final Creatinine Date Value Ref Range Status 08/18/2022 0.96 0.58 - 0.96 mg/dL Final No results found for: URICACID Keyana Ernandez MA documented in this encounterCherrington Hospital11-18-2022 Nurse Note* Keyana Ernandez MA - 08/29/2022 7:50 AM EST PLQ eye exam done on 08/28/2022 at [facility]. No evidence of PLQ toxicity. Report sent for scanning. Keyana Ernandez MA documented in this encounterCherrington Hospital11-07-2022 Instructions* Patient Instructions* Lida Coto APRN.CNP - 08/18/2022 1:49 PM EST Labs pending. Keep scheduled appointments with rheumatology. Continue to take all medication as prescribed. You were given PCV 23 vaccine today. Follow up in 1 year or sooner as needed. Health Promotion: - Eat healthy -- go to [email or web address] to get started - Have a yearly physical - Mammogram yearly after age 40 - Get at least 30 minutes of physical activity daily - Get at least 7 to 8 hours of sleep each night - Reach and maintain a healthy weight - Get help to quit or don't start smoking - Limit alcohol use to one drink or less - Do not use illegal drugs or misuse prescription drugs - Wear a helmet when riding a bike and wear protective gear for sports - Wear a seatbelt in cars and not text and drive - Wear sunscreen documented in this encounterCherrington Hospital11-07-2022 History of Present illness Narrative* Lida Coto APRN.CNP - 08/18/2022 1:20 PM EST This is a 72 year old female who presents today with: Patient presents with: Wellness HISTORY OF PRESENT ILLNESS: Jade Jackson is a 72 year old female. Patient presents with: Wellness Here in the office for wellness exam. Diet: Eating a well balanced diet. Exercise: Walking a couple times per week. Vision: Appt next week, wears glasses. Mood: Increased stress due to work but denies any increased sadness, anxiety, or SI/HI Working at [employer], refers that her department is being closed at the end of this month. Rheumatology( RA): Taking Plaquenil 200 mg twice daily. Follow up appt in January. Heartburn: Using tums as needed for occasional heartburn. Symptoms controlled. Sleep Apnea: Using CPAP, working well. Waking up feeling refreshed. Mammogram: Last mammogram in March 2022 was normal. Colonoscopy: Last colonoscopy June 2020, due in 2024. Vaccines: Will be getting shingles vaccine at pharmacy. Willing to get PCV vaccine. Lab results pending. 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 NAPROXEN, BULK, MISC 220 mg twice daily. CPAP CPAP tubing, head gear, ancillary supplies Life Time Supplies 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 10 cm H2O. calcium-vits K0-C-U4-minerals 166.75 mg- 166.75 unit cap Take by mouth. ONE IN THE MORNING AND TWO IN THE EVENING psyllium Husk (FIBER-CAPS, PSYLLIUM HUSK,) 0.52 gram capsule Take 0.52 g by mouth once daily. Multivitamin (MULTIPLE VITAMINS DAILY) ORAL Tab Take one(1) tablet daily. No current facility-administered medications for this visit. FAMILY HISTORY Problem Relation Age of Onset Allergies Mother Heart Mother Cancer Father GLIOBLASTOMA Allergies Father Coronary Artery Disease Father 70 Heart Father Hypertension Father Cancer Sister FOLLICULAR Cancer Maternal Grandfather Diabetes Sister Stroke Paternal Grandfather Social History Tobacco Use Smoking status: Former Packs/day: 0.50 Years: 21.00 Pack years: 10.50 Types: Cigarettes Quit date: 04/02/2020 Years since quittin.3 Smokeless tobacco: Never Substance Use Topics Alcohol use: Yes Comment: rare Drug use: No REVIEW OF SYSTEMS GENERAL: No weight loss, malaise or fevers/chills HEENT: Negative for frequent or significant headaches, No changes in hearing or vision. NECK: Negative for lumps, goiter, pain and significant neck swelling RESPIRATORY: Negative for cough, hemoptysis, wheezing, dyspnea or shortness of breath CARDIOVASCULAR: Negative for chest pain, leg swelling, orthopnea, or palpitations GI: No nausea, vomiting, or diarrhea/constipation. No hematochezia/melena. No heartburn or reflux symptoms. : No history of dysuria, frequency or incontinence MUSCULOSKELETAL: Negative for joint pain or swelling. SKIN: Negative for lesions, rash, and itching ENDOCRINE: Negative for cold or heat intolerance, polyuria, polydipsia and goiter NEURO: No history of headaches, syncope, paralysis, seizures or tremors MOOD: Negative for depression, anxiety, or suicidal ideation. EXAM: BP 132/74 Pulse 74 Resp 16 Wt 95.3 kg (210 lb) SpO2 97% BMI 34.95 kg/m PHYSICAL EXAM: General Appearance: Well appearing, alert, in no acute distress, well-hydrated, well nourished. Skin: Skin color, texture, turgor normal, no suspicious rashes or lesions. Head: Normocephalic, no masses, lesions, tenderness or abnormalities. Eyes: Anicteric sclera. Pupils are equally round and reactive to light. Extraocular movements are intact. Ears: External ears normal, canals clear. TM's pearly judd. Neck: Supple, no adenopathy; thyroid symmetric, normal size, no bruits. Lungs: Lungs clear to auscultation. No wheezing, rhonchi, rales. Heart: RRR without murmur, gallop, or rubs. No ectopy. Abdomen: Normal abdominal exam, Abdomen soft, non-tender. Bowel sounds normal. No masses, organomegaly, Negative CVA tenderness. Extremities: No deformities, edema, skin discoloration, clubbing or cyanosis. Good capillary refill. Musculoskeletal: No joint swelling, deformity, or tenderness. Peripheral Pulses: Normal, Capillary refill <2secs, strong peripheral pulses, Pulses palpable. Neurologic: Gait normal. Reflexes normal and symmetric. Sensation grossly intact. ASSESSMENT/PLAN: 1. Wellness examination - ICD9: V70.0, ICD10: Z00.00 (primary diagnosis) - Counseled on healthy diet and regular exercise - Calcium intake with supplements or by diet of 1000 mg/day for under 50, 1200- 1500 mg/day for 50+ - Discussed need and benefit for weight loss. BMI 34.95 kg/(m^2) - Depression screening tool completed and reviewed with patient. Based on score and interview, patient is not at risk for depression and recommended no further intervention at this time. - Patient was counseled [id number] by myself (the billing provider) for the following immunizations and vaccine components, including side effects: Pneumococcal . Patient consents for immunization and understands risks and benefits. A VIS sheet on each immunization was given to the patient. - Follow up for annual exam in one year 2. Rheumatoid arthritis, involving unspecified site, unspecified whether rheumatoid factor present (HCC) - ICD9: 714.0, ICD10: M06.9 - Continue to take current medication as prescribed. - Keep scheduled appointments with Rheumatology. 3. Sleep apnea, unspecified type - ICD9: 780.57, ICD10: G47.30 - Continue to use CPAP. 4. Heartburn - ICD9: 787.1, ICD10: R12 - May continue to use Tums prn. 5. Encounter for immunization - ICD9: V03.89, ICD10: Z23 - VIS provided. - PNEUMOCOCCAL IMMUNIZATION PPSV 23 Follow up in 1 year or sooner as needed. Discussed treatment plan and patient voices understanding. Patient's questions answered appropriately. Medications and potential side effects were discussed and patient voices understanding. Lida Coto APRN.CNP This note was partially generated using [employer] voice recognition system. Note was reviewed for accuracy. There may be minor misspellings or grammar miscues with [employer] voice recognition. documented in this encounterC[facility]10-27-2022 Miscellaneous Notes* Telephone Encounter - Nani Duncan LPN - 08/07/2022 9:02 AM EDT TC to pt. Left a detailed message on a secure line with updates. Nani Duncan LPN * Telephone Encounter - Lida Coto APRN.CNP - 08/06/2022 6:20 PM EDT Fasting lab orders have been placed. Patient may get these completed anytime. Thank you. Lida Coto APRN.CNP * Telephone Encounter - Ирина Bolden Pss - 08/05/2022 11:47 AM EDT Patient is scheduled to see you on 08/18/2022 and would like a lipid lab done prior. Please place order and let patient know at [phone] (home). Thank you Ирина Bolden Pss documented in this encounterCherrington Hospital10-03-2022 Instructions* Patient Instructions* Lopez Weaver APRN.CNP - 07/14/2022 2:03 PM EDT Please schedule Plaquenil eye exam for 08/2022. Please have the results faxed to [phone]. documented in this encounterCherrington Hospital10-03-2022 History of Present illness Narrative* Lopez Weaver APRN.CNP - 07/14/2022 2:00 PM EDT PERTINENT HISTORY FROM DR. LOWE'S PROGRESS NOTES ON 06/24/2021: On June 24, 2021 I had the pleasure of evaluating Jade Jackson in a [facility] Rheumatology appointment. Jade Jackson was referred for an opinion and advice regarding elevated RF . My findings and final recommendations will be communicated to the requesting health care provider by way of the shared medical record for internal providers or letter via the [employer] for external providers. Chief Complaint: I've been having joint issues Consult requested by: Keyla Coto HPI 70 year old female with PMH significant for OA, HLD, CEDRIC, osteopenia Polyarthralgia especially in the L>R Thumb mcp. Unable to flex due to pain, significant tenderness Also with pain in L knee pain and Lateral left hip worse with ambulation Low back pain + swelling in L thumb AM stiffness lasting 10-15 minutes Hx of sacral injury 40 years ago, intermittent low back pain since then. 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 Family: Mother with pmr, 3 maternal aunts/uncles with RA RHEUMATOLOGIC: (no) Hair Loss (no) h/o Scleritis/Episcleritis/Iritis/Conjunctivitis (no) Oral/Nasal Ulcers, (no) Epistaxis (no) Dry Eyes, (yes) Dry Mouth (no) Rash, (no) Skin Ulcers, (no) Purpura/Petechiae (no) Photosensitivity (no) Pleurisy (no) Pericarditis/Pericardial effusion (no) Enthesitis/Sausage digit (yes) Back Pain (no) Raynaud's (no) Inflammatory bowel symptoms (no) Seizure No Thrombotic events, no miscarriages PAST MEDICAL HISTORY Diagnosis Date Arthritis Basal cell carcinoma 03/13/2015 nose Mixed hyperlipidemia Hyperlipidemia Sleep apnea compliant with CPAP Unspecified hearing loss TOTAL DEAFNESS RIGHT, 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 SINCE AGE 7 PAST SURGICAL HISTORY Procedure Laterality Date APPENDECTOMY COLONOSCOP W/ OR W/O BRSH SPEC 06/26/2020 Colonoscopy EYE SURGERY HX PAST SURGICAL HISTORY OF 1984 [facility] REMOVAL ADENOIDS,PRIMARY,<12 Y/O 1958 Adenoidectomy REMOVAL OF TONSILS,<12 Y/O 1956 Tonsillectomy SKIN BIOPSY HX 03/13/2015 TONSILLECTOMY HX FAMILY HISTORY Problem Relation Age of Onset Allergies Mother Heart Mother Cancer Father GLIOBLASTOMA Allergies Father Coronary Artery Disease Father 70 Heart Father Hypertension Father Cancer Sister FOLLICULAR Cancer Maternal Grandfather Diabetes Sister Stroke Paternal Grandfather Social History Tobacco Use Smoking status: Former Packs/day: 0.50 Years: 21.00 Pack years: 10.50 Types: Cigarettes Quit date: 04/02/2020 Years since quittin.2 Smokeless tobacco: Never Substance Use Topics Alcohol use: Yes Comment: rare Drug use: No INTERVAL HISTORY She is here for follow up. She is a former patient of Dr. Lowe. LITO was in 06/2021. She started HCQ after the LITO. She tolerates it well. She reports 90-95% improvement of her joint symptoms. L trigger thumb was injected at the LITO, which helped. She reports new GERD. Sites of pain: no current pain Joint swelling: none EMS: yes, lasting 60-90 minutes mostly to low back No recent infections. Tolerating meds. Answers submitted by the patient for this visit: Review of Systems Rheumatology (Submitted on 07/10/2022) Fever : No Recent Unintentional Weight Change: No Eye Pain: No Eye Redness: No Vision Disturbance: No Eye Dryness: Yes Nose Bleeds: No Sores in your Mouth: No Trouble Swallowing: No Dry Mouth: Yes Chest Pain: No Leg Swelling: No A Cough: No Shortness of Breath: No Pain with Breathing: No Heartburn: Yes Abdominal Pain: No Diarrhea: No Black Tarry Stools: No Blood in Urine: No Pain or Burning with Urination: No Joint Pain or Stiffness: Yes Muscle Weakness: Yes Muscle Aches: Yes Joint Swelling: Yes Morning Stiffness in Joints: Yes A Rash: No Skin Color Changes: No Hair Loss: Yes Nail Changes: No Headaches: No Numbness: Yes Memory Loss: No Swollen Glands: No Current Outpatient Medications Medication Sig hydrOXYchloroQUINE (PLAQUENIL) 200 mg tablet Take 1 tablet by mouth twice daily. NAPROXEN, BULK, MISC 220 mg twice daily. CPAP CPAP tubing, head gear, ancillary supplies Life Time Supplies 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 10 cm H2O. calcium-vits L8-O-J4-minerals 166.75 mg- 166.75 unit cap Take by mouth. ONE IN THE MORNING AND TWO IN THE EVENING psyllium Husk (FIBER-CAPS, PSYLLIUM HUSK,) 0.52 gram capsule Take 0.52 g by mouth once daily. Multivitamin (MULTIPLE VITAMINS DAILY) ORAL Tab Take one(1) tablet daily. No current facility-administered medications for this visit. PHYSICAL EXAMINATION: BP 128/77 Pulse 76 Temp 36.9 C (98.5 F) (Temporal) Ht 165.1 cm (5' 5) Wt 94.8 kg (209 lb) BMI 34.78 kg/m General appearance: Well appearing, alert, in no acute distress, well-hydrated, well nourished. Skin: Skin color, texture, turgor normal, no suspicious rashes or lesions Eyes: Anicteric sclera. Pupils are equally round and reactive to light. Neck: Supple, no adenopathy Lungs: Lungs clear to auscultation. No wheezing, rhonchi, rales. Heart: RRR without murmur Abdomen: Normal abdominal exam, Abdomen soft, non-tender. Bowel sounds normal. No masses, organomegaly Neuro: Gait normal. Sensation grossly intact. Joints: Tender joints: L 5th IP joint Swollen joints: none No tenderness to spine or SI joints Labs reviewed and discussed with the patient: Component Latest Ref Rng & Units 06/24/2021 Creatinine 0.58 - 0.96 mg/dL 0.81 eGFR- >60 eGFR-All Other Races . >60 Anti-SSA <1.0 AI <0.2 Anti-SSB <1.0 AI <0.2 Component Latest Ref Rng & Units 03/25/2021 WBC 3.70 - 11.00 k/uL 7.79 RBC 3.90 - 5.20 m/uL 4.69 Hemoglobin 11.5 - 15.5 g/dL 13.5 Hematocrit 36.0 - 46.0 % 41.7 MCV 80.0 - 100.0 fL 88.9 MCH 26.0 - 34.0 pG 28.8 MCHC 30.5 - 36.0 g/dL 32.4 RDW-CV 11.5 - 15.0 % 13.9 Platelet Count 150 - 400 k/uL 245 MPV 9.0 - 12.7 fL 13.7 (H) Neut% % 56.4 Abs Neut (ANC) 1.45 - 7.50 k/uL 4.37 Lymph% % 32.9 Abs Lymph 1.00 - 4.00 k/uL 2.56 Warrick% % 7.3 Abs Warrick <0.87 k/uL 0.57 Eosin% % 2.4 Abs Eosin <0.46 k/uL 0.19 Baso% % 1.0 Abs Baso <0.11 k/uL 0.08 Nucleated Reds 0 /100 WBC 0.0 Absolute nRBC <0.01 k/uL <0.01 Diff Type Auto Diff Protein, Total 6.3 - 8.0 g/dL 7.5 Albumin 3.9 - 4.9 g/dL 4.3 Calcium 8.5 - 10.2 mg/dL 10.1 Bilirubin, Total 0.2 - 1.3 mg/dL 0.3 Alkaline Phosphatase 34 - 123 U/L 98 AST 13 - 35 U/L 23 Glucose 74 - 99 mg/dL 76 BUN 7 - 21 mg/dL 13 Creatinine 0.58 - 0.96 mg/dL 1.13 (H) Sodium 136 - 144 mmol/L 141 Potassium 3.7 - 5.1 mmol/L 4.1 Chloride 97 - 105 mmol/L 104 CO2 22 - 30 mmol/L 25 Anion Gap 9 - 18 mmol/L 12 ALT 7 - 38 U/L 15 eGFR- 58 eGFR-All Other Races . 48 EDOUARD by EIA, Qual Negative Negative EDOUARD by EIA OD Ratio 0.5 WSR 0 - 20 mm/hr 10 CRP <0.9 mg/dL <0.3 Rheumatoid Factor <16 IU/mL 346 (H) MRI L knee 01/2009 Findings: There is radial complete tear at the posterior root of the medial meniscus with associated medial meniscus extrusion. The remainder of the posterior horn demonstrates significant degeneration. The lateral meniscus is intact. Cruciate ligaments and collateral ligament are intact. The visualized extensor mechanism, popliteus tendon, biceps femoris tendon and other tendons around the knee are intact as well. There does appear to be near full thickness fissure and probably a small flap in the weight-bearing portion of the medial femoral condyle. The flap is suggested on sagittal series 7 image number 22. Lateral compartment articular cartilage is preserved. Mild chondral thinning and irregularity on the medial femoral trochlea and probably just lateral to the patellar apex. There is a moderate-sized joint effusion and tiny popliteal cyst. IMPRESSION: RADIAL TEAR OF THE POSTERIOR ROOT MEDIAL MENISCUS DEGENERATIVE CHONDRAL CHANGES PREDOMINATELY IN THE MEDIAL COMPARTMENT Assessment: Positive RF Polyarthralgia: involving thumb, knee, lower back with AM stiffness <10, no swelling, worse withactivity. - improved on HCQ. R/b/a of med is discussed. Routine eye exams advised. Last HCQ eye exam was normal in 08/2021. She was reminded to schedule for this year. Trigger finger L thumb - improved s/p CSI to L thumb Kidney dysfunctions - repeat labs, advised to avoid nsaids L knee pain: hx of meniscal tear, non inflammatory history - Discussed diagnosis, prognosis, treatment of osteoarthritis - management for osteoarthritis was previously reviewed, including pain control with tylenol/topical nsaids (avoid nsaids due to kidney), CSI/gel, physical therapy She has completed the covid series. RTC in [address] High to establish care, or sooner if needed I spent a total of 20 minutes on the date of the service which included preparing to see the patient, [id number] patient care, completing clinical documentation, performing a medically appropriate examination, ordering medications, tests, or procedures, and communicating results to the patient/fam jose/caregiver. Lopez Weaver APRN.CNP documented in this encounterCher[facility] Hospital06-06-2022 Miscellaneous Notes* Letter - Mammography Coordinator - 03/17/2022 9:16 AM EDT March 17, 2022 PID: [id number] Jade Jackson [address] [place] [address] Dear Ms. Jackson, We are pleased to inform you that the results of your recent breast imaging exam on 03/17/2022 are normal. Early detection of cancer is very important. We also understand recommendations regarding breast cancer screening are controversial. Please discuss with your primary care provider which strategy is best for you and whether a mammogram is right for you. Your imaging studies and report will be kept on file at [facility] as part of your permanent medical record and are available for your continuing care. Thank you for allowing us to help in meeting your health care needs. Sincerely, Dr. Maldonado Interpreting Radiologist [facility] (Normal over 40) documented in this encounterCherrington Hospital06-06-2022 History of Present illness Narrative* Diana Portillo - 03/17/2022 8:10 AM EDT Radiology Service Progress Note PATIENT NAME: Jade Jackson DATE OF SERVICE: March 17, 2022 TIME: 8:34 AM PATIENT IDENTITY VERIFICATION COMPLETED USING TWO (2) IDENTIFIERS: Name and Date of confirmedby patient verbally. FALL SCREENING: Has the patient had 2 falls in the last year or 1 fall with injury or currently using an Ambulatory Assistive Device (Walker, Cane, Wheelchair, Crutches, etc.)? No PATIENT GENDER DATA: Female. status: : No status: NO. PATIENT RELEVANT IMPLANT DATA REVIEWED: Not Applicable RADIOLOGY DEPARTMENT: Mammography PERIPHERAL IV DATA: Not applicable SIGNED BY: Misha Portilloo Heidi March 17, 2022 8:34 AM documented in this encounterCherrington Hospital04-01-2022 Miscellaneous Notes* Telephone Encounter - Lida Coto APRN.CNP - 01/10/2022 7:56 AM EDT The following approved medication requests have been transmitted electronically. Signed Prescriptions Disp Refills hydrOXYchloroQUINE (PLAQUENIL) 200 mg tablet 60 tablet 5 Sig: Take 1 tablet by mouth twice daily. MALLORY: No Lida Coto APRN.CNP documented in this encounterCherrington Hospital06-14-2021 History of Present illness Narrative* Ciara Lilly RT(R) - 03/25/2021 11:30 AM EDT Radiology Service Progress Note PATIENT NAME: Jade Jackson DATE OF SERVICE: March 25, 2021 TIME: 11:37 AM PATIENT IDENTITY VERIFICATION COMPLETED USING TWO (2) IDENTIFIERS: Name and Date of confirmedby patient verbally. FALL SCREENING: Has the patient had 2 falls in the last year or 1 fall with injury or currently using an Ambulatory Assistive Device (Walker, Cane, Wheelchair, Crutches, etc.)? No PATIENT GENDER DATA: Female. status: : No status: NO. PATIENT RELEVANT IMPLANT DATA REVIEWED: Yes RADIOLOGY DEPARTMENT: General X-ray: Exam(s) Completed: Upper Extremity X- Ray(s): Shoulder, AP / TRUE AP / AXILLARY right and Hand, bilateral PERIPHERAL IV DATA: Not applicable SIGNED BY: RT Jori(R) March 25, 2021 11:37 AM [facility] Diagnosis Arthralgia, unspecified joint- Primary documented in this encounter [facility]* Diagnosis Encounter for screening mammogram for breast cancer documented in this encounter [facility]* Diagnosis Seropositive rheumatoid arthritis (HCC)- Primary Rheumatoid arthritis Encounter for long-term (current) use of medications Encounter for long-term (current) use of other medications Arthralgia, unspecified joint [facility] Wellness examination- Primary Rheumatoid arthritis, involving unspecified site, unspecified whether rheumatoid factor present (HCC) Sleep apnea, unspecified type Heartburn Encounter for immunization Need for other specified prophylactic vaccination against single bacterial disease [facility] Diagnosis Arthralgia, unspecified joint [facility] Diagnosis Arthralgia, unspecified joint [facility]* Diagnosis Pure hypercholesterolemia- Primary [facility]* Diagnosis Seropositive rheumatoid arthritis (HCC)- Primary Rheumatoid arthritis Encounter for long-term (current) use of medications Encounter for long-term (current) use of other medications Osteopenia, unspecified location [facility]* Diagnosis Encounter for screening mammogram for malignant neoplasm of breast- Primary Other screening mammogram [facility] Diagnosis Arthralgia, unspecified joint [facility] Diagnosis Seropositive rheumatoid arthritis (HCC)- Primary Rheumatoid arthritis Postmenopausal osteoporoses Encounter for long-term (current) use of medications Encounter for long-term (current) use of other medications Long-term use of hydroxychloroquine Encounter for long-term (current) use of other medications Mechanical pain of right knee Mechanical knee pain, left [facility]* Diagnosis Encounter for screening mammogram for malignant neoplasm of breast Other screening mammogram [facility]* Diagnosis Asymptomatic postmenopausal status [facility]* Diagnosis Obstructive sleep apnea syndrome- Primary Obstructive sleep apnea (adult) (pediatric) [facility] Diagnosis Encounter for screening mammogram for malignant neoplasm of breast- Primary Other screening mammogram [facility]* Diagnosis Encounter for screening mammogram for malignant neoplasm of breast Other screening mammogram [facility]* Diagnosis Bronchitis- Primary Bronchitis, not specified as acute or chronic Nasal polyp Unspecified nasal polyp [facility]* Diagnosis Postmenopausal osteoporoses- Primary Seropositive rheumatoid arthritis (HCC) Rheumatoid arthritis Encounter for long-term (current) use of medications Encounter for long-term (current) use of other medications Long-term use of hydroxychloroquine Encounter for long-term (current) use of other medications [facility] Diagnosis Arthralgia, unspecified joint [facility] Diagnosis Postmenopausal osteoporoses- Primary Seropositive rheumatoid arthritis (HCC) Rheumatoid arthritis [facility]* Diagnosis Postmenopausal osteoporoses- Primary Seropositive rheumatoid arthritis (HCC) Rheumatoid arthritis [facility]* Diagnosis Arthralgia, unspecified joint [facility]* Diagnosis Chronic pansinusitis- Primary Other chronic sinusitis Chronic rhinitis [facility] Diagnosis Chronic pansinusitis Other chronic sinusitis [facility]* Diagnosis Postmenopausal osteoporoses- Primary Seropositive rheumatoid arthritis (HCC) Rheumatoid arthritis [facility]* Diagnosis Medicare annual wellness visit, initial- Primary Routine general medical examination at a health care facility Rheumatoid arthritis, involving unspecified site, unspecified whether rheumatoid factor present (HCC) Heartburn Obstructive sleep apnea syndrome Obstructive sleep apnea (adult) (pediatric) Osteopenia, senile Disorder of bone and cartilage, unspecified Pure hypercholesterolemia Colon cancer screening Special screening for malignant neoplasms, colon History of tobacco use Personal history of tobacco use, presenting hazards to health [facility] Diagnosis Seropositive rheumatoid arthritis (HCC)- Primary Rheumatoid arthritis Cardiovascular risk factor Other specified personal history presenting hazards to health Postmenopausal osteoporoses Long-term use of hydroxychloroquine Encounter for long-term (current) use of other medications Medication monitoring encounter Encounter for therapeutic drug monitoring [facility] Diagnosis Encounter for screening for lung cancer- Primary Former tobacco use Personal history of tobacco use, presenting hazards to health [facility] Diagnosis Coronary artery calcification seen on CAT scan- Primary Coronary atherosclerosis of unspecified type of vessel, telida or graft Encounter for screening for lung cancer Former tobacco use Personal history of tobacco use, presenting hazards to health [facility] Diagnosis Encounter for screening for lung cancer Former tobacco use Personal history of tobacco use, presenting hazards to health [facility] Diagnosis Lung nodule- Primary Solitary pulmonary nodule Liver cyst Other specified disorders of liver Coronary artery calcification seen on CAT scan Coronary atherosclerosis of unspecified type of vessel, telida or graft [facility]* Diagnosis Stress incontinence of urine- Primary Cystocele, midline Stress incontinence of urine- Primary Pelvic relaxation due to uterine prolapse Uterine prolapse without mention of vaginal wall prolapse [facility] Diagnosis Stress incontinence of urine- Primary Cystocele, midline Arthralgia, unspecified joint documented [facility]* Diagnosis Stress incontinence of urine- Primary Cystocele, midline Vaginal discharge- Primary Leukorrhea, not specified as infective documented [facility]* Diagnosis Stress incontinence of urine- Primary Cystocele, midline Seropositive rheumatoid arthritis (HCC)- Primary Rheumatoid arthritis Postmenopausal osteoporoses Height loss Loss of height Gastroesophageal reflux disease, unspecified whether esophagitis present Pain in left hip Pain in joint, pelvic region and thigh Pain in left hip Pain in joint, pelvic region and thigh Height loss Loss of height Gastroesophageal reflux disease, unspecified whether esophagitis present Seropositive rheumatoid arthritis (HCC) Rheumatoid arthritis Postmenopausal osteoporoses [facility] Diagnosis Stress incontinence of urine- Primary Cystocele, midline Pain in left hip Pain in joint, pelvic region and thigh Height loss Loss of height Gastroesophageal reflux disease, unspecified whether esophagitis present Seropositive rheumatoid arthritis (HCC) Rheumatoid arthritis Postmenopausal osteoporoses documented [facility] this [facility]* Diagnosis Stress incontinence of urine- Primary Cystocele, midline Cardiovascular risk factor Other specified personal history presenting hazards to health Postmenopausal osteoporoses Seropositive rheumatoid arthritis (HCC) Rheumatoid arthritis Long-term use of hydroxychloroquine Encounter for long-term (current) use of other medications Medication monitoring encounter Encounter for therapeutic drug monitoring [facility] Diagnosis Stress incontinence of urine- Primary Cystocele, midline Encounter for screening mammogram for malignant neoplasm of breast- Primary Other screening mammogram [facility] this [facility]* Diagnosis Stress incontinence of urine- Primary Cystocele, midline Encounter for screening mammogram for malignant neoplasm of breast Other screening mammogram [facility]* Diagnosis Stress incontinence of urine- Primary Cystocele, midline CEDRIC (obstructive sleep apnea)- Primary Obstructive sleep apnea (adult) (pediatric) [facility]* Diagnosis Stress incontinence of urine- Primary Cystocele, midline History of colonic polyps- Primary Personal history of colonic polyps Special screening for malignant neoplasms, colon documented in this encounter [facility] for referral (narrative)* Diagnostic Procedure Only (Routine) - Closed Specialty Diagnoses / Procedures Referred By Yasmin t Referred To Contact [facility] Diagnoses Encounter for screening mammogram for breast cancer Procedures SIMBA SCREENING SCREENING MAMMOGRAPHY BI 2-VIEW BREAST INC Robina Nye MD [address] [place] [address] [facility] [address] [place] [address] Referral ID Status Reason Start Date Expiration Date V isits Requested Visits Authorized [id number] Closed Auto-Generate d Referral 11/13/2021 12/13/2022 1 1 [facility] for referral (narrative)* Diagnostic Procedure Only (Routine) - Authorized Specialty Diagnoses / Procedures Referred By Yasmin justice Referred To Contact [facility] Diagnoses Encounter for screening mammogram for malignant neoplasm of breast Procedures SIMBA SCREENING SCREENING MAMMOGRAPHY BI 2-VIEW BREAST INC Robina Nye MD [address] [place] [address] [facility] [address] [place] [address] Referral ID Status Reason Start Date Expiration Date Visits Requested Visits Authorized [id number] Authorized Auto-Generat ed Referral 03/23/2023 04/21/2024 1 1 [facility] for referral (narrative)* Diagnostic Procedure Only (Routine) - Closed Specialty Diagnoses / Procedures Referred By Yasmin t Referred To Contact [facility] Diagnoses Encounter for screening mammogram for malignant neoplasm of breast Procedures SIMBA SCREENING SCREENING MAMMOGRAPHY BI 2-VIEW BREAST INC Robina Nye MD [address] [place] [address] [facility] [address] [place] [address] Referral ID Status Reason Start Date Expiration Date V isits Requested Visits Authorized [id number] Closed Auto-Generate d Referral 03/23/2023 04/21/2024 1 1 [facility] for referral (narrative)* Diagnostic Procedure Only (Routine) - Authorized Specialty Diagnoses / Procedures Referred By Contac t Referred To Contact [facility] Diagnoses Encounter for screening mammogram for malignant neoplasm of breast Procedures SIMBA SCREENING SCREENING MAMMOGRAPHY BI 2-VIEW BREAST INC Lida Arreola, HOME HEALTH CARE SOCIAL WORKER.[employer] [address] [place] [address] [facility] [address] [facility] [place] [address] Referral ID Status Reason Start Date Expiration Date Visits Requested Visits Authorized [id number] Authorized Auto-Generat ed Referral 01/15/2024 02/13/2025 1 1 [facility] for referral (narrative)* Diagnostic Procedure Only (Routine) - New Request Specialty Diagnoses / Procedures Referred By Contac t Referred To Contact XR IMAGING Diagnoses Cardiovascular risk factor Postmenopausal osteoporoses Seropositive rheumatoid arthritis (HCC) Long-term use of hydroxychloroquine Medication monitoring encounter Procedures DXA-AXIAL SKELETON DXA BONE DENSITY STUDY 1/ [place] [address] [place] [address] [place] [address] Referral ID Status Reason Start Date Expiration Date Visits Requested Visits Authorized [id number] New Request Auto-Generat ed Referral 09/22/2025 1 1 [facility] for visit Narrative* Diagnostic Procedure Only (Routine) - Closed Specialty Diagnoses / Procedures Referred By Contac t Referred To Contact [facility] Diagnoses Encounter for screening mammogram for breast cancer Procedures SIMBA SCREENING SCREENING MAMMOGRAPHY BI 2-VIEW BREAST INC Robina Nye MD [address] [place] [address] [facility] [address] [place] [address] Referral ID Status Reason Start Date Expiration Date V isits Requested Visits Authorized [id number] Closed Auto-Generate d Referral 11/13/2021 12/13/2022 1 1 [facility] for visit Narrative* Diagnostic Procedure Only (Routine) - Closed Specialty Diagnoses / Procedures Referred By Contac t Referred To Contact [facility] Diagnoses Encounter for screening mammogram for malignant neoplasm of breast Procedures SIMBA SCREENING SCREENING MAMMOGRAPHY BI 2-VIEW BREAST INC CAD Robina Sam MD [address] [place] [address] [facility] [address] [place] [address] Referral ID Status Reason Start Date Expiration Date V isits Requested Visits Authorized [id number] Closed Auto-Generate d Referral 03/23/2023 04/21/2024 1 1 [facility] for visit Narrative* Diagnostic Procedure Only (Routine) - Closed Specialty Diagnoses / Procedures Referred By Contac t Referred To Contact [facility] Diagnoses Encounter for screening mammogram for malignant neoplasm of breast Procedures SIMBA SCREENING SCREENING MAMMOGRAPHY BI 2-VIEW BREAST INC CAD Lida Coto APRN.CNP [address] [place] [address] [facility] [address] [place] [address] Referral ID Status Reason Start Date Expiration Date V isits Requested Visits Authorized [id number] Closed Auto-Generate d Referral 01/15/2024 02/13/2025 1 1 [facility] for visit Narrative* Diagnostic Procedure Only (Routine) - Closed Specialty Diagnoses / Procedures Referred By Contac t Referred To Contact XR IMAGING Diagnoses Cardiovascular risk factor Postmenopausal osteoporoses Seropositive rheumatoid arthritis (HCC) Long-term use of hydroxychloroquine Medication monitoring encounter Procedures DXA-AXIAL SKELETON DXA BONE DENSITY STUDY /> [place] [address] [place] [address] Phone: tel: fax: [place] [address] Referral ID Status Reason Start Date Expiration Date V isits Requested Visits Authorized [id number] Closed Auto-Generate d Referral 08/23/2024 09/22/2025 1 1 [facility] Diagnostic Procedure Only (Routine) - Closed Specialty Diagnoses / Procedures Referred By Yasmin t Referred To Contact [facility] Diagnoses Encounter for screening mammogram for malignant neoplasm of breast Procedures SIMBA SCREENING W JOY SCREENING DIGITAL BREAST TOMOSYNTHESIS BI SCREENING MAMMOGRAPHY BI 2-VIEW BREAST INC Robina Nye MD [address] [place] [address] Phone: tel: fax: [facility] [address] [place] [address] Referral ID Status Reason Start Date Expiration Date V isits Requested Visits Authorized [id number] Closed Auto-Generate d Referral 03/20/2025 04/19/2026 1 1 [facility] Advance Directives Documents on File Type Date Recorded Patient Matcher Expl anation Advance Directive(s) 06/26/2020 7:35 AM Advance Directive(s) 06/22/2020 3:08 PM Advance Directive(s) 04/06/2020 4:36 PM Documents on File Type Date Recorded Patient Matcher Expl anation Advance Directive(s) 06/26/2020 7:35 AM Advance Directive(s) 06/22/2020 3:08 PM Advance Directive(s) 04/06/2020 4:36 PM Reason for Referral Specialty Diagnoses / Procedures Referred By Yasmin justice Referred To Contact [facility] Diagnoses Postmenopausal osteoporoses Seropositive rheumatoid arthritis (HCC) Encounter for long-term (current) use of medications Long-term use of hydroxychloroquine Procedures CONSULT TO PHYSICAL THERAPY PHYSICAL THERAPY EVALUATION HIGH COMPLEX [address] [place] [address] [place] [address] [facility] [place] [address] [place] [address] Referral ID Status Reason Start Date Expiration Date Visits Requested Visits Authorized [id number] Authorized PCP Requested Referral Auto-Generate d Referral 07/17/2023 07/16/2024 99 99 Specialty Diagnoses / Procedures Referred By Yasmin justice Referred To Contact Ent - Otolaryngology Diagnoses Nasal polyp Procedures CONSULT TO ENT OFFICE/OUTPATIENT NEW HIGH MDM 60 MINUTES Lida Coto, HOME HEALTH CARE SOCIAL WORKER.[employer] ARCHITECT [address] [place] [address] Referral ID Status Reason Start Date Expiration Date Visits Requested Visits Authorized [id number] Authorized PCP Requested Referral 05/26/2024 05/26/2025 1 1 Specialty Diagnoses / Procedures Referred By Contac t Referred To Contact CT IMAGING Diagnoses Chronic pansinusitis Procedures CT SINUS WO IVCON CT MAXILLOFACIAL W/O CONTRAST MATERIAL Malachi Sargent MD [address] [address] [place] [address] Referral ID Status Reason Start Date Expiration Date Visits Requested Visits Authorized [id number] Authorized Auto-Generat ed Referral 08/21/2025 1 1 Referral ID Status Reason Start Date Expiration Date V isits Requested Visits Authorized [id number] Closed Auto-Generate d Referral 07/22/2024 08/21/2025 1 1 Specialty Diagnoses / Procedures Referred By Contac t Referred To Contact General Surgery Diagnoses Colon cancer screening Procedures CONSULT TO GENERAL SURGERY OFFICE/OUTPATIENT NEW HIGH MDM 60 MINUTES Lida Coto, HOME HEALTH CARE SOCIAL WORKER.[employer] ARCHITECT [address] [place] [address] Referral ID Status Reason Start Date Expiration Date Visits Requested Visits Authorized [id number] Authorized PCP Requested Referral 08/19/2024 08/19/2025 1 1 Specialty Diagnoses / Procedures Referred By Contac t Referred To Contact CT IMAGING Diagnoses Encounter for screening for lung cancer Former tobacco use Procedures CT LUNG SCREEN WO IVCON COMPUTED TOMOGRAPHY THORAX LW DOSE LNG CA SCR Stephy- Griselda Acevedo, HOME HEALTH CARE SOCIAL WORKER.[employer]WORK ARCHITECT [address] [place] [address] [place] [address] Referral ID Status Reason Start Date Expiration Date Visits Requested Visits Authorized [id number] Authorized Auto-Generat ed Referral 09/19/2024 10/19/2025 1 1 Referral ID Status Reason Start Date Expiration Date Visits Requested Visits Authorized [id number] New Request Auto-Generat ed Referral 08/12/2025 10/23/2025 1 1 Specialty Diagnoses / Procedures Referred By Contac t Referred To Contact Cardiology Diagnoses Coronary artery calcification seen on CAT scan Procedures CONSULT TO CARDIOLOGY OFFICE/OUTPATIENT [facility] MDM 60 MINUTES Griselda Acevedo APRN.[employer] ARCHITECT [address] [place] [address] Referral ID Status Reason Start Date Expiration Date Visits Requested Visits Authorized [id number] Authorized PCP Requested Referral 4 09/23/2025 1 1 Referral ID Status Reason Start Date Expiration Date V isits Requested Visits Authorized [id number] Closed Auto-Generate d Referral 09/19/2024 10/19/2025 1 1 Summary Purpose Family History No Family History Records FoundNo Family History Records FoundNo Family History Records Found Additional Source Comments Source Comments (unrecognize d section and content) In the event this informatio n is protected by the Federal Confidentiality of Alcohol and Drug Abuse Patient Records regulations: The Federal rules restrict any use of the information to criminally investigate or prosecute any alcohol or drug abuse patient.[facility] event this information is protected by the Federal Confidentiality of Alcohol and Drug Abuse Patient Records regulations: The Federal rules restrict any use of the information to criminally investigate or prosecute any alcohol or drug abuse patient.[facility] the event this information is protected by the Federal Confidentiality of Alcohol and Drug Abuse Patient Records regulations: The Federal rules restrict any use of the information to criminally investigate or prosecute any alcohol or drug abuse patient.[facility] the event this information is protected by the Federal Confidentiality of Alcohol and Drug Abuse Patient Records regulations: The Federal rules restrict any use of the information to criminally investigate or prosecute any alcohol or drug abuse patient.[facility] the event this information is protected by the Federal Confidentiality of Alcohol and Drug Abuse Patient Records regulations: The Federal rules restrict any use of the information to criminally investigate or prosecute any alcohol or drug abuse patient.[facility] the event this information is protected by the Federal Confidentiality of Alcohol and Drug Abuse Patient Records regulations: The Federal rules restrict any use of the information to criminally investigate or prosecute any alcohol or drug abuse patient.[facility] the event this information is protected by the Federal Confidentiality of Alcohol and Drug Abuse Patient Records regulations: The Federal rules restrict any use of the information to criminally investigate or prosecute any alcohol or drug abuse patient.[facility] the event this information is protected by the Federal Confidentiality of Alcohol and Drug Abuse Patient Records regulations: The Federal rules restrict any use of the information to criminally investigate or prosecute any alcohol or drug abuse patient.[facility] the event this information is protected by the Federal Confidentiality of Alcohol and Drug Abuse Patient Records regulations: The Federal rules restrict any use of the information to criminally investigate or prosecute any alcohol or drug abuse patient.[facility] the event this information is protected by the Federal Confidentiality of Alcohol and Drug Abuse Patient Records regulations: The Federal rules restrict any use of the information to criminally investigate or prosecute any alcohol or drug abuse patient.[facility] the event this information is protected by the Federal Confidentiality of Alcohol and Drug Abuse Patient Records regulations: The Federal rules restrict any use of the information to criminally investigate or prosecute any alcohol or drug abuse patient.[facility] the event this information is protected by the Federal Confidentiality of Alcohol and Drug Abuse Patient Records regulations: The Federal rules restrict any use of the information to criminally investigate or prosecute any alcohol or drug abuse patient.[facility] the event this information is protected by the Federal Confidentiality of Alcohol and Drug Abuse Patient Records regulations: The Federal rules restrict any use of the information to criminally investigate or prosecute any alcohol or drug abuse patient.[facility] the event this information is protected by the Federal Confidentiality of Alcohol and Drug Abuse Patient Records regulations: The Federal rules restrict any use of the information to criminally investigate or prosecute any alcohol or drug abuse patient.[facility] the event this information is protected by the Federal Confidentiality of Alcohol and Drug Abuse Patient Records regulations: The Federal rules restrict any use of the information to criminally investigate or prosecute any alcohol or drug abuse patient.[facility] the event this information is protected by the Federal Confidentiality of Alcohol and Drug Abuse Patient Records regulations: The Federal rules restrict any use of the information to criminally investigate or prosecute any alcohol or drug abuse patient.[facility] the event this information is protected by the Federal Confidentiality of Alcohol and Drug Abuse Patient Records regulations: The Federal rules restrict any use of the information to criminally investigate or prosecute any alcohol or drug abuse patient.[facility] the event this information is protected by the Federal Confidentiality of Alcohol and Drug Abuse Patient Records regulations: The Federal rules restrict any use of the information to criminally investigate or prosecute any alcohol or drug abuse patient.[facility] the event this information is protected by the Federal Confidentiality of Alcohol and Drug Abuse Patient Records regulations: The Federal rules restrict any use of the information to criminally investigate or prosecute any alcohol or drug abuse patient.[facility]In the event this information is protected by the Federal Confidentiality of Alcohol and Drug Abuse Patient Records regulations: The Federal rules restrict any use of the information to criminally investigate or prosecute any alcohol or drug abuse patient.[facility] the event this information is protected by the Federal Confidentiality of Alcohol and Drug Abuse Patient Records regulations: The Federal rules restrict any use of the information to criminally investigate or prosecute any alcohol or drug abuse patient.[facility]In the event this information is protected by the Federal Confidentiality of Alcohol and Drug Abuse Patient Records regulations: The Federal rules restrict any use of the information to criminally investigate or prosecute any alcohol or drug abuse patient.[facility]In the event this information is protected by the Federal Confidentiality of Alcohol and Drug Abuse Patient Records regulations: The Federal rules restrict any use of the information to criminally investigate or prosecute any alcohol or drug abuse patient.[facility] the event this information is protected by the Federal Confidentiality of Alcohol and Drug Abuse Patient Records regulations: The Federal rules restrict any use of the information to criminally investigate or prosecute any alcohol or drug abuse patient.[facility] the event this information is protected by the Federal Confidentiality of Alcohol and Drug Abuse Patient Records regulations: The Federal rules restrict any use of the information to criminally investigate or prosecute any alcohol or drug abuse patient.[facility]In the event this information is protected by the Federal Confidentiality of Alcohol and Drug Abuse Patient Records regulations: The Federal rules restrict any use of the information to criminally investigate or prosecute any alcohol or drug abuse patient.[facility]In the event this information is protected by the Federal Confidentiality of Alcohol and Drug Abuse Patient Records regulations: The Federal rules restrict any use of the information to criminally investigate or prosecute any alcohol or drug abuse patient.[facility]In the event this information is protected by the Federal Confidentiality of Alcohol and Drug Abuse Patient Records regulations: The Federal rules restrict any use of the information to criminally investigate or prosecute any alcohol or drug abuse patient.[facility]In the event this information is protected by the Federal Confidentiality of Alcohol and Drug Abuse Patient Records regulations: The Federal rules restrict any use of the information to criminally investigate or prosecute any alcohol or drug abuse patient.[facility] the event this information is protected by the Federal Confidentiality of Alcohol and Drug Abuse Patient Records regulations: The Federal rules restrict any use of the information to criminally investigate or prosecute any alcohol or drug abuse patient.[facility] the event this information is protected by the Federal Confidentiality of Alcohol and Drug Abuse Patient Records regulations: The Federal rules restrict any use of the information to criminally investigate or prosecute any alcohol or drug abuse patient.[facility] the event this information is protected by the Federal Confidentiality of Alcohol and Drug Abuse Patient Records regulations: The Federal rules restrict any use of the information to criminally investigate or prosecute any alcohol or drug abuse patient.[facility] HospitalIn the event this information is protected by the Federal Confidentiality of Alcohol and Drug Abuse Patient Records regulations: The Federal rules restrict any use of the information to criminally investigate or prosecute any alcohol or drug abuse patient.[facility] HospitalIn the event this information is protected by the Federal Confidentiality of Alcohol and Drug Abuse Patient Records regulations: The Federal rules restrict any use of the information to criminally investigate or prosecute any alcohol or drug abuse patient.[facility] HospitalIn the event this information is protected by the Federal Confidentiality of Alcohol and Drug Abuse Patient Records regulations: The Federal rules restrict any use of the information to criminally investigate or prosecute any alcohol or drug abuse patient.[facility] HospitalIn the event this information is protected by the Federal Confidentiality of Alcohol and Drug Abuse Patient Records regulations: The Federal rules restrict any use of the information to criminally investigate or prosecute any alcohol or drug abuse patient.[facility] HospitalIn the event this information is protected by the Federal Confidentiality of Alcohol and Drug Abuse Patient Records regulations: The Federal rules restrict any use of the information to criminally investigate or prosecute any alcohol or drug abuse patient.[facility] HospitalIn the event this information is protected by the Federal Confidentiality of Alcohol and Drug Abuse Patient Records regulations: The Federal rules restrict any use of the information to criminally investigate or prosecute any alcohol or drug abuse patient.[facility] HospitalIn the event this information is protected by the Federal Confidentiality of Alcohol and Drug Abuse Patient Records regulations: The Federal rules restrict any use of the information to criminally investigate or prosecute any alcohol or drug abuse patient.[facility] HospitalIn the event this information is protected by the Federal Confidentiality of Alcohol and Drug Abuse Patient Records regulations: The Federal rules restrict any use of the information to criminally investigate or prosecute any alcohol or drug abuse patient.[facility] HospitalIn the event this information is protected by the Federal Confidentiality of Alcohol and Drug Abuse Patient Records regulations: The Federal rules restrict any use of the information to criminally investigate or prosecute any alcohol or drug abuse patient.[facility] HospitalIn the event this information is protected by the Federal Confidentiality of Alcohol and Drug Abuse Patient Records regulations: The Federal rules restrict any use of the information to criminally investigate or prosecute any alcohol or drug abuse patient.[facility] HospitalIn the event this information is protected by the Federal Confidentiality of Alcohol and Drug Abuse Patient Records regulations: The Federal rules restrict any use of the information to criminally investigate or prosecute any alcohol or drug abuse patient.[facility] HospitalIn the event this information is protected by the Federal Confidentiality of Alcohol and Drug Abuse Patient Records regulations: The Federal rules restrict any use of the information to criminally investigate or prosecute any alcohol or drug abuse patient.[facility] HospitalIn the event this information is protected by the Federal Confidentiality of Alcohol and Drug Abuse Patient Records regulations: The Federal rules restrict any use of the information to criminally investigate or prosecute any alcohol or drug abuse patient.[facility] HospitalIn the event this information is protected by the Federal Confidentiality of Alcohol and Drug Abuse Patient Records regulations: The Federal rules restrict any use of the information to criminally investigate or prosecute any alcohol or drug abuse patient.[facility] HospitalIn the event this information is protected by the Federal Confidentiality of Alcohol and Drug Abuse Patient Records regulations: The Federal rules restrict any use of the information to criminally investigate or prosecute any alcohol or drug abuse patient.[facility] HospitalIn the event this information is protected by the Federal Confidentiality of Alcohol and Drug Abuse Patient Records regulations: The Federal rules restrict any use of the information to criminally investigate or prosecute any alcohol or drug abuse patient.[facility] HospitalIn the event this information is protected by the Federal Confidentiality of Alcohol and Drug Abuse Patient Records regulations: The Federal rules restrict any use of the information to criminally investigate or prosecute any alcohol or drug abuse patient.[facility] HospitalIn the event this information is protected by the Federal Confidentiality of Alcohol and Drug Abuse Patient Records regulations: The Federal rules restrict any use of the information to criminally investigate or prosecute any alcohol or drug abuse patient.[facility] HospitalIn the event this information is protected by the Federal Confidentiality of Alcohol and Drug Abuse Patient Records regulations: The Federal rules restrict any use of the information to criminally investigate or prosecute any alcohol or drug abuse patient.[facility] HospitalIn the event this information is protected by the Federal Confidentiality of Alcohol and Drug Abuse Patient Records regulations: The Federal rules restrict any use of the information to criminally investigate or prosecute any alcohol or drug abuse patient.[facility] HospitalIn the event this information is protected by the Federal Confidentiality of Alcohol and Drug Abuse Patient Records regulations: The Federal rules restrict any use of the information to criminally investigate or prosecute any alcohol or drug abuse patient.[facility] HospitalIn the event this information is protected by the Federal Confidentiality of Alcohol and Drug Abuse Patient Records regulations: The Federal rules restrict any use of the information to criminally investigate or prosecute any alcohol or drug abuse patient.[facility] HospitalIn the event this information is protected by the Federal Confidentiality of Alcohol and Drug Abuse Patient Records regulations: The Federal rules restrict any use of the information to criminally investigate or prosecute any alcohol or drug abuse patient.[facility] HospitalIn the event this information is protected by the Federal Confidentiality of Alcohol and Drug Abuse Patient Records regulations: The Federal rules restrict any use of the information to criminally investigate or prosecute any alcohol or drug abuse patient.[facility] HospitalIn the event this information is protected by the Federal Confidentiality of Alcohol and Drug Abuse Patient Records regulations: The Federal rules restrict any use of the information to criminally investigate or prosecute any alcohol or drug abuse patient.[facility] HospitalIn the event this information is protected by the Federal Confidentiality of Alcohol and Drug Abuse Patient Records regulations: The Federal rules restrict any use of the information to criminally investigate or prosecute any alcohol or drug abuse patient.[facility] HospitalIn the event this information is protected by the Federal Confidentiality of Alcohol and Drug Abuse Patient Records regulations: The Federal rules restrict any use of the information to criminally investigate or prosecute any alcohol or drug abuse patient.[facility] HospitalIn the event this information is protected by the Federal Confidentiality of Alcohol and Drug Abuse Patient Records regulations: The Federal rules restrict any use of the information to criminally investigate or prosecute any alcohol or drug abuse patient.[facility] HospitalIn the event this information is protected by the Federal Confidentiality of Alcohol and Drug Abuse Patient Records regulations: The Federal rules restrict any use of the information to criminally investigate or prosecute any alcohol or drug abuse patient.[facility] HospitalIn the event this information is protected by the Federal Confidentiality of Alcohol and Drug Abuse Patient Records regulations: The Federal rules restrict any use of the information to criminally investigate or prosecute any alcohol or drug abuse patient.[facility] HospitalIn the event this information is protected by the Federal Confidentiality of Alcohol and Drug Abuse Patient Records regulations: The Federal rules restrict any use of the information to criminally investigate or prosecute any alcohol or drug abuse patient.[facility] HospitalIn the event this information is protected by the Federal Confidentiality of Alcohol and Drug Abuse Patient Records regulations: The Federal rules restrict any use of the information to criminally investigate or prosecute any alcohol or drug abuse patient.[facility] Care Teams (unrecognized sec tion and content) Educational Coordinator Relationship Specialty Start Date End Date Robina Sam MD [address] [facility] [place] [address] PCP - General Family Practice 06/23/16 Educational Coordinator Relationship Specialty Start Date End Date Robina Sam MD [address] [facility] [place] [address] PCP - General Family Practice 06/23/16 Educational Coordinator Relationship Specialty Start Date End Date Robina Sam MD [address] [facility] [place] [address] PCP - General Family Practice 06/23/16 Educational Coordinator Relationship Specialty Start Date End Date Robina Sam MD [address] [facility] [place] [address] PCP - General Family Medicine 06/23/16 Educational Coordinator Relationship Specialty Start Date End Date Robina Sam MD [address] [facility] [place] [address] PCP - General Family Medicine 06/23/16 Educational Coordinator Relationship Specialty Start Date End Date Robina Sam MD [address] [facility] [place] [address] PCP - General Family Medicine 06/23/16 Educational Coordinator Relationship Specialty Start Date End Date Robina Sam MD [address] [facility] [place] [address] PCP - General Family Medicine 06/23/16 Educational Coordinator Relationship Specialty Start Date End Date Robina Sam MD [address] [facility] [place] [address] PCP - General Family Medicine 06/23/16 Educational Coordinator Relationship Specialty Start Date End Date Robina Sam MD [address] [facility] [place] [address] PCP - General Family Medicine 06/23/16 Educational Coordinator Relationship Specialty Start Date End Date Robina Sam MD [address] [place] [address] PCP - General Family Medicine 06/23/16 Educational Coordinator Relationship Specialty Start Date End Date Robina Sam MD [address] [place] [address] PCP - General Family Medicine 06/23/16 Educational Coordinator Relationship Specialty Start Date End Date Robina Sam MD [address] [place] [address] PCP - General Family Medicine 06/23/16 Educational Coordinator Relationship Specialty Start Date End Date Robina Sam MD [address] [place] [address] PCP - General Family Medicine 06/23/16 Educational Coordinator Relationship Specialty Start Date End Date Robina Sam MD [address] [place] [address] PCP - General Family Medicine 06/23/16 Educational Coordinator Relationship Specialty Start Date End Date Robina Sam MD [address] [place] [address] PCP - General Family Medicine 06/23/16 Educational Coordinator Relationship Specialty Start Date End Date Robina Sam MD [address] [place] [address] PCP - General Family Medicine 06/23/16 Educational Coordinator Relationship Specialty Start Date End Date Robina Sam MD [address] [place] [address] PCP - General Family Medicine 06/23/16 Educational Coordinator Relationship Specialty Start Date End Date Robina Sam MD [address] [place] [address] PCP - General Family Medicine 06/23/16 Educational Coordinator Relationship Specialty Start Date End Date Robina Sam MD [address] [place] [address] PCP - General Family Medicine 06/23/16 Educational Coordinator Relationship Specialty Start Date End Date Robina Sam MD [address] [place] [address] PCP - General Family Medicine 06/23/16 Educational Coordinator Relationship Specialty Start Date End Date Robina Sam MD [address] [place] [address] PCP - General Family Medicine 06/23/16 Educational Coordinator Relationship Specialty Start Date End Date Robina Sam MD [address] [place] [address] PCP - General Family Medicine 06/23/16 Educational Coordinator Relationship Specialty Start Date End Date Robina Sam MD [address] [facility] [place] [address] PCP - General Family Medicine 06/23/16 Educational Coordinator Relationship Specialty Start Date End Date Robina Sam MD [address] [place] [address] PCP - General Family Medicine 06/23/16 Educational Coordinator Relationship Specialty Start Date End Date Robina Sam MD [address] [place] [address] PCP - General Family Medicine 06/23/16 Educational Coordinator Relationship Specialty Start Date End Date Robina Sam MD [address] [facility] [place] [address] PCP - General Family Medicine 06/23/16 Educational Coordinator Relationship Specialty Start Date End Date Robina Sam MD [address] [facility] [place] [address] PCP - General Family Medicine 06/23/16 Educational Coordinator Relationship Specialty Start Date End Date Robina Sam MD [address] [facility] [place] [address] PCP - General Family Medicine 06/23/16 Educational Coordinator Relationship Specialty Start Date End Date Robina Sam MD [address] [facility] [place] [address] PCP - General Family Medicine 06/23/16 Educational Coordinator Relationship Specialty Start Date End Date Robina Sam MD [address] [facility] [place] [address] PCP - General Family Medicine 06/23/16 Educational Coordinator Relationship Specialty Start Date End Date Robina Sam MD [address] [facility] [place] [address] PCP - General Family Medicine 06/23/16 Educational Coordinator Relationship Specialty Start Date End Date Robina Sam MD [address] [facility] [place] [address] PCP - General Family Medicine 06/23/16 Educational Coordinator Relationship Specialty Start Date End Date Robina Sam MD [address] [facility] [place] [address] PCP - General Family Medicine 06/23/16 Educational Coordinator Relationship Specialty Start Date End Date Robina Sam MD [address] [facility] [place] [address] PCP - General Family Medicine 06/23/16 Educational Coordinator Relationship Specialty Start Date End Date Robina Sam MD [address] [facility] [place] [address] PCP - General Family Medicine 06/23/16 Educational Coordinator Relationship Specialty Start Date End Date Robina Sam MD [address] [facility] [place] [address] PCP - General Family Medicine 06/23/16 Educational Coordinator Relationship Specialty Start Date End Date Robina Sam MD [address] [facility] [place] [address] PCP - General Family Medicine 06/23/16 Lida Coto APRN.[employer] NETWORK ARCHITECT [address] [facility] [place] [address] [employer] Family Medicine 09/18/24 Educational Coordinator Relationship Specialty Start Date End Date Robina Sam MD [address] [facility] [place] [address] PCP - General Family Medicine 06/23/16 Lida Coto APRN.[employer] NETWORK ARCHITECT [address] [facility] [place] [address] Line [employer] Driver Family Medicine 09/18/24 Educational Coordinator Relationship Specialty Start Date End Date Robina Sam MD [address] [place] [address] PCP - General Family Medicine 06/23/16 Lida Coto APRN.[employer] NETWORK ARCHITECT [address] [place] [address] [employer] Family Medicine 09/18/24 Educational Coordinator Relationship Specialty Start Date End Date Robina Sam MD [address] [place] [address] PCP - General Family Medicine 06/23/16 Lida Coto APRN.[employer] NETWORK ARCHITECT [address] [place] [address] [employer] Driver Family Medicine 09/18/24 Rishi Diaz APRN.[employer] NETWORK ARCHITECT [address] [place] [address] [employer] Family Medicine 09/27/24 Educational Coordinator Relationship Specialty Start Date End Date Robina Sam MD [address] [place] [address] PCP - General Family Medicine 06/23/16 Lida Coto HOME HEALTH CARE SOCIAL WORKER.[employer] ARCHITECT [address] [place] [address] [employer] Family Medicine 09/18/24 Rishi Diaz APRN.[employer]WORK ARCHITECT [address] [place] [address] [employer] Family Medicine 09/27/24 Educational Coordinator Relationship Specialty Start Date End Date Robina Sam MD [address] [facility] [place] [address] PCP - General Family Medicine 06/23/16 Lida Coto APRN.[employer] NETWORK ARCHITECT [address] [facility] [place] [address] Line [employer] Driver Family Medicine 09/18/24 Rishi Diaz APRN.[employer] NETWORK ARCHITECT [address] [facility] [place] [address] [employer] Family Medicine 09/27/24 Educational Coordinator Relationship Specialty Start Date End Date Robina Sam MD [address] [facility] [place] [address] PCP - General Family Medicine 06/23/16 Lida Coto APRN.[employer] NETWORK ARCHITECT [address] [facility] [place] [address] Line [employer] Driver Family Medicine 09/18/24 Rishi Diaz APRN.[employer] NETWORK ARCHITECT [address] [facility] [place] [address] Line [employer] Driver Family [facility] 09/27/24 Educational Coordinator Relationship Specialty Start Date End Date Robina Sam MD [address] [facility] [place] [address] PCP - General Family Medicine 06/23/16 Lida Coto APRN.[employer] NETWORK ARCHITECT [address] [facility] [place] [address] Line [employer] Driver Family Medicine 09/18/24 Rishi Diaz APRN.[employer] NETWORK ARCHITECT [address] [facility] [place] [address] [employer] Family Medicine 09/27/24 Educational Coordinator Relationship Specialty Start Date End Date Robina Sam MD [address] [place] [address] PCP - General Family Medicine 06/23/16 Lida Coto APRN.[employer] NETWORK ARCHITECT [address] [facility] [place] [address] [employer] Driver Family Medicine 09/18/24 Rishi Diaz APRN.[employer] NETWORK ARCHITECT [address] [facility] [place] [address] [employer] Family Medicine 09/27/24 Educational Coordinator Relationship Specialty Start Date End Date Robina Sam MD [address] [facility] [place] [address] PCP - General Family Medicine 06/23/16 Lida Coto APRN.[employer] NETWORK ARCHITECT [address] [facility] [place] [address] [employer] Driver Family Medicine 09/18/24 Rishi Diaz APRN.[employer] NETWORK ARCHITECT [address] [facility] [place] [address] [employer] Family Medicine 09/27/24 Educational Coordinator Relationship Specialty Start Date End Date Robina Sam MD [address] [facility] [place] [address] PCP - General Family Medicine 06/23/16 Lida Coto APRN.[employer] NETWORK ARCHITECT [address] [facility] [place] [address] [employer] Family Medicine 09/18/24 Rishi Diaz APRN.[employer]WORK ARCHITECT [address] [place] [address] [employer] Family Medicine 09/27/24 Educational Coordinator Relationship Specialty Start Date End Date Robina Sam MD [address] [place] [address] PCP - General Family Medicine 06/23/16 Lida Coto, HOME HEALTH CARE SOCIAL WORKER.[employer]WORK ARCHITECT [address] [place] [address] [employer] Family Medicine 09/18/24 Rishi Diaz HOME HEALTH CARE SOCIAL WORKER.[employer] NETWORK ARCHITECT [address] [place] [address] Line Ha[employer] Driver [facility] Medicine 09/27/24 Educational Coordinator Relationship Specialty Start Date End Date Robina Sam MD [address] [place] [address] PCP - General Family Medicine 06/23/16 Rishi Diaz, HOME HEALTH CARE SOCIAL WORKER.[employer]WORK ARCHITECT [address] [place] [address] Line [employer] Driver [facility] Medicine 09/27/24 Educational Coordinator Relationship Specialty Start Date End Date Robina Sam MD [address] [place] [address] PCP - General Family Medicine 06/23/16 Rishi Diaz, HOME HEALTH CARE SOCIAL WORKER.[employer] NETWORK ARCHITECT [address] [place] [address] [employer] Family Medicine 09/27/24 Educational Coordinator Relationship Specialty Start Date End Date Robina Sam MD [address] [place] [address] PCP - General Family Medicine 06/23/16 Rishi Diaz APRN.[employer] NETWORK ARCHITECT [address] [place] [address] [employer] Family Medicine 09/27/24 Educational Coordinator Relationship Specialty Start Date End Date Robina Sam MD [address] [place] [address] PCP - General Family Medicine 06/23/16 Rishi Diaz, HOME HEALTH CARE SOCIAL WORKER.[employer] NETWORK ARCHITECT [address] [place] [address] [employer] Family Medicine 09/27/24 Educational Coordinator Relationship Specialty Start Date End Date Robina Sam MD [address] [place] [address] PCP - General Family Medicine 06/23/16 Rishi Diaz HOME HEALTH CARE SOCIAL WORKER.[employer] NETWORK ARCHITECT [address] [place] [address] [employer] Family Medicine 09/27/24 Educational Coordinator Relationship Specialty Start Date End Date Robina Sam MD [address] [place] [address] PCP - General Family Medicine 06/23/16 Rishi Diaz, HOME HEALTH CARE SOCIAL WORKER.[employer] NETWORK ARCHITECT [address] [place] [address] [employer] Family Medicine 09/27/24 Educational Coordinator Relationship Specialty Start Date End Date Robina Sam MD [address] [place] [address] PCP - General Family Medicine 06/23/16 Rishi Diaz APRN.[employer] NETWORK ARCHITECT [address] [place], [place] [address] Line [employer] Driver [facility] 09/27/24 Educational Coordinator Relationship Specialty Start Date End Date Robina Sam MD [address] [place], [place] [id number] PCP - General [facility] 06/23/16 Rishi Diaz APRN.[employer] NETWORK ARCHITECT [address] [place], [place] [address] [facility] [place] [place] 09/27/24 Educational Coordinator Relationship Specialty Start Date End Date Robina Sam MD [address] [place], [place] [id number] PCP - [facility] 06/23/16 Rishi Diaz APRN.[employer] NETWORK ARCHITECT [address] [place], [place] [id number] [facility] [place] [place] 09/27/24 Reason for Visit (unrecogniz ed section and content) Reason Comments Physical Therapy Specialty Diagnoses / Procedures Referred By Contac t Referred To Contact [facility] Diagnoses Postmenopausal osteoporoses Seropositive rheumatoid arthritis (HCC) Encounter for long-term (current) use of medications Long-term use of hydroxychloroquine Procedures CONSULT TO PHYSICAL THERAPY PHYSICAL THERAPY EVALUATION HIGH COMPLEX [address] [place] [address] [place] [address] [facility] [address] [address] Referral ID Status Reason Start Date Expiration Date Visits Requested Visits Authorized [id number] Authorized PCP Requested Referral Auto-Generate d Referral 07/17/2023 07/16/2024 99 99 Reason Comments New Patient Reason Comments Wellness Reason Comments Abstract PLQ eye exam Reason Comments Refill Request Reason Onset Date Comments Refill Request 09/11/2022 Reason Comments Forms [facility] Reason Comments Lab Orders Reason Comments Forms Reason Comments Results Bone Density Reason Comments Orders Mamm Reason Comments Follow Up Reason Comments Abstract PLQ eye exam Reason Comments Orders Reason Comments Acute Visit URI/ allergy symptom s Reason Comments PT Eval Patient Education Reason Onset Date Comments Refill Request 06/17/2024 Reason Comments nasal polyp Right nostril found by PCP. Right nostril always feels full. It will drip or drainage will go down throat and makes her cough at times. Specialty Diagnoses / Procedures Referred By Contac t Referred To Contact Ent - Otolaryngology Diagnoses Nasal polyp Procedures CONSULT TO ENT OFFICE/OUTPATIENT [facility] 60 MINUTES Lida Coto, ZO[employer] [address] [place] [address] Referral ID Status Reason Start Date Expiration Date V isits Requested Visits Authorized [id number] Closed PCP Requested Referral 05/26/2024 05/26/2025 [address] Specialty Diagnoses / Procedures Referred By Contac t Referred To Contact CT IMAGING Diagnoses Chronic pansinusitis Procedures CT SINUS WO IVCON CT MAXILLOFACIAL W/O CONTRAST MATERIAL Malachi Sargent MD [address] [address] [place] [address] Referral ID Status Reason Start Date Expiration Date V isits Requested Visits Authorized [id number] Closed Auto-Generate d Referral 07/22/2024 08/21/2025 1 1 Reason Comments PT Progress Note Specialty Diagnoses / Procedures Referred By Contac t Referred To Contact Physical Therapy / PHYSICAL THERAPY Diagnoses seropostive reumatoid arthritis Procedures EST [place] [address] [place] [address] Mj Arriaza, PT Referral ID Status Reason Start Date Expiration Date V isits Requested Visits Authorized [id number] Authorized 10/12/2023 10/11/2024 99 99 Reason Comments Medicare Wellness Exam Reason Comments Osteoporosis Rheumatoid Arthritis Reason Comments Appointment Reason Comments New Patient LCS Specialty Diagnoses / Procedures Referred By Contac t Referred To Contact CT IMAGING Diagnoses Encounter for screening for lung cancer Former tobacco use Procedures CT LUNG SCREEN WO IVCON COMPUTED TOMOGRAPHY THORAX LW DOSE LNG CA SCR Griselda Lozada, HOME HEALTH CARE SOCIAL WORKER.[employer] [address] [place] [id number] [place] [address] Referral ID Status Reason Start Date Expiration Date V isits Requested Visits Authorized [id number] Closed Auto-Generate d Referral 09/19/2024 10/19/2025 1 1 Reason Comments Follow Up Go over test results Reason Comments New Patient Cystocele Reason Comments Pessary Reason Comments Follow Up Pessary check Reason Comments Follow Up Left hip pain Reason Comments Radio Gen RMP Specialty Diagnoses / Procedures Referred By Contac t Referred To Contact XR IMAGING Diagnoses Pain in left hip Gastroesophageal reflux disease, unspecified whether esophagitis present Height loss Seropositive rheumatoid arthritis (HCC) Postmenopausal osteoporoses Procedures XR THORACIC LIMITED 2V AP/LAT RADEX SPINE THORACIC [address] [place] [address] [place] [address] Phone: tel: fax: [facility] [place] [address] Referral ID Status Reason Start Date Expiration Date V isits Requested Visits Authorized [id number] Closed Auto-Generate d Referral 02/23/2025 03/25/2026 1 1 Reason Comments Forms [employer] for C[employer] supplies and documentation request Reason Comments Consult Consult for colonosc opy. Has had change in Bowel habits. Specialty Diagnoses / Procedures Referred By Contac t Referred To Contact General Surgery Diagnoses Colon cancer screening Procedures OFFICE/OUTPATIENT NEW HIGH MDM 60 MINUTES Lida Coto, HOME HEALTH CARE SOCIAL WORKER.[employer] ARCHITECT Phone: tel: fax: Referral ID Status Reason Start Date Expiration Date V isits Requested Visits Authorized [id number] Closed PCP Requested Referral 08/19/2024 08/19/2025 1 1 INFORMATION SOURCE (unrecogn ized section and content) DATE CREATED AUTHOR 10/26/2024 [facility] DATE CREATED AUTHOR AUTHOR'S ORGANIZ ATION 04/26/2025 [facility] DATE CREATED AUTHOR AUTHOR'S ORGANIZ ATION 05/23/2025 [facility] FOR RECORDS PERTAINING TO PATIENTS WHO ARE OR HAVE BEEN ENROLLED IN A CHEMICAL DEPENDENCY/SUBSTANCEABUSE PROGRAM, SOME INFORMATION MAY BE OMITTED. This clinical summary was aggregated from multiple sources. Caution should be exercised in using it in the provision of clinical care. This summary normalizes information from multiple sources, and as a consequence, information in this document may materially change the coding, format and clinical context of patient data. In addition, data may be omitted in some cases. CLINICAL DECISIONS SHOULD BE BASED ON THE PRIMARY CLINICAL RECORDS. [facility] [employer] [facility]. provides no warranty or guarantee of the accuracy or completeness of information in this document.
== END | disposition home or self-care (01) ==
PROVIDERS: PCP Family Medicine; Referring Provider Nurse Practitioner Family; Visit Provider Nurse Practitioner Family
DX: G47.33 Obstructive sleep apnea (adult) (pediatric) (principal); R40.0 Somnolence
CPT/HCPCS: 95811

== ENCOUNTER → 2025-09-26 | Outpatient (CLI) | payer MEDICARE, OTHER, SELFPAY ==
--- NOTE | 2025-09-26 17:20 | CT_ITS ---
PROCEDURE: LOW DOSE CT LUNG SCREENING 09/26/2025 REASON FOR EXAM: PREVIOUS SMOKER, QUIT 2019 TECHNIQUE: Procedure Code: [id number] Modality: CT Procedure: LOW DOSE CT LUNG SCREENING Coronal and Sagittal reconstruction series were provided. One or more dose reduction techniques were used (e.g., Automated exposure control, adjustment of the mA and/or kV according to patient size, use of iterative reconstruction technique). REFERENCE LINK: [facility] Lung-RADS COMPARISON: CT angio chest 09/03/2020 FINDINGS: PULMONARY NODULES: (Only nodules >3mm are reported) Pulmonary Nodules: None. Hardware:None Lymph Nodes:No enlarged mediastinal, hilar, or axillary lymph nodes. Heart and Vasculature:Nonenlarged. No pericardial effusion. Coronary Artery Calcifications: Moderate. Lungs and Airways: Lungs are clear. Airways are patent. Pleura:No pleural effusion or pneumothorax. Upper Abdomen:Redemonstrated left hepatic cysts. The remaining visualized upper abdomen unremarkable. Bones:Degenerative changes of the thoracic spine. No acute fractures. CT/Low Dose CT Lung Screening IMPRESSION: No pulmonary nodules. Moderate coronary artery calcifications. Lung-RADS Category: 1 NEGATIVE. RECOMMEND 12-MONTH SCREENING LDCT. Reading Location[facility]
== END | disposition home or self-care (01) ==
LOC: CT 17:16
PROVIDERS: PCP Nurse Practitioner Family; Referring Provider Nurse Practitioner Family; Visit Provider Nurse Practitioner Family
DX: F17.210 Nicotine dependence, cigarettes, uncomplicated (principal)
CPT/HCPCS: 71271